=== PATIENT | male | born 1945 | race Caucasian/White ===

== ENCOUNTER 2020-08-02 12:04 | Outpatient (CLI) | payer MEDICARE, SELFPAY ==
--- NOTE | ~2020-08-02 | MR_ITS ---
EXAMINATION: MR brain/brain stem wo/w con EXAM DATE: 08/02/2020 13:17 INDICATION: Initial encounter following injury, with pain of the meningioma follow-up. TECHNIQUE: Magnetic resonance imaging (MRI) of the brain/brain stem obtained without contrast. Sagit vince T1, axial diffusion, gradient echo (T2*), T1, T2, FLAIR sequences obtained. Patient was then inj ected with 17 cc intravenous Multihance contrast. Axial and coronal postcontrast T1 weighted sequence s obtained. 06/23/2019, 12/28/2016 FINDINGS: There are no areas of restricted diffusion to suggest acute infarction. There is no acute hemorrhage seen on the T2*, a hemosiderin sensitive sequence. No intraparenchymal brain mass lesion. There is 10 mm extra-axial mass overlying the left frontal lobe toward the vertex consistent with me ningioma, unchanged compared to 2017. There is moderate periventricular and subcortical T2/FLAIR sig nal hyperintensity, nonspecific but probably related to small vessel ischemic disease (microangiopath y). There is mild prominence of the sulci and ventricles related to cerebral atrophy. There are n o extra-axial collections. Flow voids are seen in the cerebral arteries on the T2-weighted sequences consistent with their expected patency. The orbits are unremarkable. Soft tissue is unremarkable. IMPRESSION: 1. No change in small left vertex extra-axial mass likely meningioma.. 2. Chronic age related findings. Reviewed, dictated and finalized at location B. CLERK
[2020-08-02 12:51] LABS: Estimated Glomerular Filt Rate > 60
== END 2020-08-02 12:05 | disposition home or self-care (01) ==
PROVIDERS: PCP Internal Medicine; Visit Provider Internal Medicine
DX: Z86.018 Personal history of other benign neoplasm (principal)
CPT/HCPCS: 70553; A9577

== ENCOUNTER 2020-08-03 09:16 | Outpatient (CLI) | payer MEDICARE, SELFPAY ==
--- NOTE | 2020-08-04 12:57 | WPDHOLTEREM ---
Holter/Event Monitor Holter/Event Monitor Date of procedure: 08/03/20 Procedure Type: 24 hour holter monitor Indications: Palpitations Conclusion: 1. 24 hour holter monitor on 08/03/20. 2. Underlying rhythm is sinus rhythm. HR range 48-103 bpm; average HR 71 bpm. 3. There are 31 premature supraventricular complexes and 1 supraventricular couplet. No supraventricular tachycardia. 4. There are 1,501 premature ventricular complexes, 49 ventricular couplets, 1 ventricular triplet, 36 ventricular bigeminy and 88 ventricular trigeminy. No ventricular tachycardia. 5. No sinoatrial or atrioventricular blocks. No significant pauses greater than 2 seconds. 6. Patient reports symptoms of chest pressure which demonstrate sinus rhythm, HR range 67-100 bpm.
== END 2020-08-03 09:17 | disposition home or self-care (01) ==
PROVIDERS: PCP Internal Medicine; Visit Provider Internal Medicine
DX: R07.9 Chest pain, unspecified (principal); R00.2 Palpitations
CPT/HCPCS: 93225; 93226

== ENCOUNTER 2020-08-19 09:10 | Emergency (ER) | payer MEDICARE, SELFPAY ==
--- NOTE | ~2020-08-19 | XR_ITS ---
EXAMINATION: XR wrist RT min 3V DATE: 08/19/2020 09:32 INDICATION: Pain and ecchymoses at the right wrist post fall TECHNIQUE: Posteroanterior, ulnar deviation, oblique, and lateral views of the right wrist were obtai malini. COMPARISON: none FINDINGS: Sagittally oriented linear lucency projecting across the lunate fossa of the distal radius seen on on ly on the ulnar deviation view which is suspicious for nondisplaced intra-articular fracture. No othe r lesions suspicious for fracture identified. 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 Additional likely degenerative cyst with thin sclerotic margins at the palmar aspect of the head of the fifth metacarpal. IMPRESSION: 1. Likely nondisplaced intra-articular fracture involving the lunate fossa of the distal right radius . Reviewed, dictated and finalized at location A. PHONE SOLICITOR IMPRESSION: 1. Likely nondisplaced intra-articular fracture involving the lunate fossa of t he distal right radius.
[2020-08-19 09:22] VITALS: BP 158/78; PULSE 56; RESP 16; TEMP 36.3; O2SAT 99
--- NOTE | 2020-08-19 10:12 | ED.UPPEXIN ---
HPI - Extremity Injury (Upper) General Chief Complaint: Extremity Injury, Upper Stated Complaint: R WRIST INJURY Time Seen by Provider: 08/19/20 10:06 Source: patient and RN notes reviewed Mode of arrival: ambulatory Limitations: no limitations History of Present Illness HPI narrative: Patient presents today complaining of right wrist pain after he slipped and fell onto an outstretched hand on the ice yesterday. Currently rates his pain 5/10 and has been applying ice to the wrist. He has taken no medication for symptoms prior to arrival. Denies numbness or tingling in the arm or hand. He does report some swelling. MD complaint: injury to: right and wrist Related Data Home Medications Medication Instructions Recorded Confirmed aspirin 81 mg tablet,delayed 81 mg PO DAILY 02/22/20 08/19/20 release finasteride 5 mg tablet 5 mg PO DAILY 02/22/20 08/19/20 upmjryef-xyh-hftqq acid 0.4 1 tablet PO DAILY 02/22/20 08/19/20 mg-lycopene 300 mcg-lutein 250 mcg tablet omeprazole 20 mg capsule,delayed 20 mg PO DAILY 02/22/20 08/19/20 release rosuvastatin 20 mg tablet 20 mg PO DAILY 02/22/20 08/19/20 tamsulosin 0.4 mg capsule 0.4 mg PO DAILY 02/22/20 08/19/20 valsartan-hydrochlorothiazide 1 tablet PO DAILY 08/19/20 08/19/20 Allergies Allergy/AdvReac Type Severity Reaction Status Date / Time No Known Allergies Allergy Unknown NA Verified 08/19/20 09:36 Review of Systems Review of Systems: Narrative: CONSTITUTIONAL: Denies body aches, fever, chills, or sweats. EYES: Denies visual changes, redness, or discharge. ENT: Denies rhinorrhea, congestion, sore throat, or otalgia. CARDIOVASCULAR: Denies chest pain, palpitations, or edema. RESPIRATORY: Denies cough or dyspnea. GASTROINTESTINAL: Denies abdominal pain, nausea, vomiting, or diarrhea. GENITOURINARY: Denies dysuria or hematuria. SKIN: Denies rash, itching, or wounds. MUSCULOSKELETAL: Denies back pain, or myalgia. + Right wrist injury NEUROLOGIC: Denies headache, numbness, tingling, or weakness. PSYCH: Denies depression or anxiety. PMFSH Past Medical History Medical History (Updated 08/19/20 @ 10:20 by Aidee Torres, [facility], ) GERD (gastroesophageal reflux disease) Hypercholesterolemia Hypertension Surgical History Surgical History (Updated 02/22/20 @ 08:28 by Josefina English CMA) Hx of tympanostomy tubes Family History Family History Other Family history of arthritis Social History Social History Smoking status: Never smoker Alcohol intake: current Comments At time of signature, I have reviewed and agree with nursing past medical, surgical, social and family history unless otherwise noted. Please see nursing chart for further information. There is no relevant family history pertinent to the presenting complaint Exam Narrative: Exam Narrative: GENERAL: Well-appearing, well-nourished, and in no acute distress. HEAD: Normocephalic, atraumatic. EYES: EOMI. No redness or drainage. Conjunctivae normal. ENT: Mucous membranes pink and moist. NECK: Normal AROM. CHEST: No respiratory distress. EXTREMITIES: Right wrist: Mild edema about the wrist. Mild tenderness to the distal radius. Full AROM of the wrist. Distal sensation intact. Capillary refill normal. Radial pulse normal. SKIN: Warm, dry, no rash. Capillary refill normal. Normal skin turgor. NEURO: No focal deficits. Alert and oriented x3. Gait steady. PSYCH: Normal affect. No signs of depression or anxiety. Course Vital Signs Vital signs: Vital Signs Temperature 97.4 F L 08/19/20 09:22 Pulse Rate 56 L 08/19/20 09:22 Respiratory Rate 16 08/19/20 09:22 Blood Pressure 158/78 H 08/19/20 09:22 Pulse Oximetry 99 08/19/20 09:22 Temperature 97.4 F L 08/19/20 09:22 Pulse Rate 56 L 08/19/20 09:22 Respiratory Rate 16 08/19/20 09:22 Blood Pressur
== END 2020-08-19 10:32 | disposition home or self-care (01) ==
PROVIDERS: Emergency Provider Nurse Practitioner; PCP Internal Medicine
DX: S52.501A Unspecified fracture of the lower end of right radius, initial encounter for closed fracture (principal); W00.0XXA Fall on same level due to ice and snow, initial encounter; K21.9 Gastro-esophageal reflux disease without esophagitis; E78.00 Pure hypercholesterolemia, unspecified; I10 Essential (primary) hypertension
CPT/HCPCS: 29125; 73110; 99214; A4565; G0463

== ENCOUNTER 2020-08-31 14:45 | Outpatient (CLI) | payer MEDICARE, SELFPAY ==
--- NOTE | ~2020-08-31 | MR_ITS ---
EXAMINATION: MR shoulder LT wo con DATE: 08/31/2020 15:35 INDICATION: Left shoulder pain. TECHNIQUE: Magnetic resonance imaging (MRI) of the left shoulder was performed without intravenous co ntrast. Sequences included axial PD-weighted FS FSE, coronal oblique PD-weighted FS FSE, coronal obli que T2-weighted FS FSE, sagittal PD-weighted FS FSE, and sagittal T1-weighted SE. COMPARISON: Left shoulder radiograph dated 08/24/2020 FINDINGS: Coracoacromial arch: The acromion undersurface is flat in morphology (type I). Mild thickening of the coracoacromial ligam ent near its acromial insertion where there are small inferiorly directed osteophytes. Moderate acrom ioclavicular osteoarthritis with small inferiorly directed osteophytes which remain separate from the underlying subscapularis tendon by thin intervening fat plane. Rotator cuff: Full-thickness supraspinatus tear extending approximately 2 cm AP along the superior facet footplate. The portion of the tendon contributing to the conjoined portion of the supraspinatus and infraspinat us tendon remains intact as do the more posterior infraspinatus and teres minor tendons. There appear s be some residual intact bursal sided fibers along the anterior most margin of the supraspinatus ten don resulting in an V-shaped tear defect at the apex of the tear extending up to 5 cm medially from t he superior facet footplate. Mild subscapularis tendinopathy without discrete tear. Mild fatty atrop hy of the supraspinatus and infraspinatus muscle bellies. Biceps tendon, glenoid labrum and glenohumeral cartilage: Moderate tendinopathy of the intra-articular long head biceps tendon with partial-thickness longitudi nal split tear extending along the extra articular portion of the tendon. Glenoid labrum is normal. M ild partial-thickness cartilage loss with smooth chondral surface at the humeral head lateral to the apex. Diffuse mild thinning of the glenoid cartilage. Fluid: Physiologic amount of fluid in the glenohumeral joint which extends through the full-thickness rotato r cuff tear to communicate with a minimal amount fluid in the subacromial/subdeltoid bursa. No loose osteochondral bodies. Mild bicipital tenosynovitis. Bones: Bone alignment is normal. No fracture or pathologic marrow replacing process. Focal edema and likely developing mild cystic change at the lesser tuberosity footplate of the subscapularis tendon. IMPRESSION: 1. V-shaped full-thickness supraspinatus tendon tear extending 2 cm AP along the superior facet footp late. 2. Mild subscapularis tendinopathy without discrete tear. 3. Moderate tendinopathy and longitudinal split tearing of the long head biceps tendon. 4. Mild glenohumeral and moderate acromioclavicular osteoarthritis. Reviewed, dictated and finalized at location A. ERT INSTALLER IMPRESSION: 1. V-shaped full-thickness supraspinatus tendon tear extending 2 cm AP along th e superior facet footplate. 2. Mild subscapularis tendinopathy without discrete tear. 3. Moderate tendinopathy and longitudinal split tearing of the long head biceps tendon. 4. Mild glenohumeral and moderate acromioclavicular osteoarthritis.
== END 2020-08-31 14:46 | disposition home or self-care (01) ==
PROVIDERS: PCP Internal Medicine; Visit Provider Orthopaedic Surgery
DX: M19.012 Primary osteoarthritis, left shoulder (principal)
CPT/HCPCS: 73221

== ENCOUNTER 2021-08-11 08:18 | Outpatient (CLI) | payer MEDICARE, SELFPAY ==
--- NOTE | ~2021-08-11 | MR_ITS ---
EXAMINATION: MR brain/brain stem wo/w con EXAM DATE: 08/11/2021 10:35 INDICATION: Meningioma . TECHNIQUE: Magnetic resonance imaging (MRI) of the brain/brain stem obtained without contrast. Sagit vince T1, axial diffusion, gradient echo (T2*), T1, T2, FLAIR sequences obtained. Patient was then inj ected with 17 cc intravenous Multihance contrast. Axial and coronal postcontrast T1 weighted sequence s obtained. There is no prior study for comparison. FINDINGS: Small extra-axial homogeneously enhancing mass lesion measuring about 1 cm in diameter by 8 mm in thickness, consistent with meningioma, stable. There are no areas of restricted diffusion to s uggest acute infarction. There is no acute hemorrhage seen on the T2*, a hemosiderin sensitive seque nce. No intraparenchymal brain mass lesion. There is moderate periventricular and subcortical T2/FL AIR signal hyperintensity, nonspecific but probably related to small vessel ischemic disease (microan giopathy). There is mild prominence of the sulci and ventricles related to cerebral atrophy. Ther e are no extra-axial collections. Flow voids are seen in the cerebral arteries on the T2-weighted se quences consistent with their expected patency. Patient has had bilateral ocular lens surgery. Soft tissue is unremarkable. IMPRESSION: 1. Small meningioma unchanged. 2. Chronic age related findings. Reviewed, dictated and finalized at location A. WORKS ASSEMBLY SUPERVISOR
--- NOTE | ~2021-08-11 | MR_ITS ---
EXAMINATION: MR cervical spine wo con EXAM DATE: 08/11/2021 10:07 INDICATION: Cervical radiculopathy. TECHNIQUE: Multi-sequential, multiplanar MR images of the cervical spine were obtained without contra st. Axial T2, axial T2 MERGE sequence. Sagittal T1, T2, T2 fat saturation images also obtained. Th ere is no prior study for comparison. FINDINGS: C5-6 vertebral bodies are fused. Moderate to severe disc disease at C3-4, moderate at the C4-5 and C6-7 levels. The spinal cord signal intensity and intrinsic morphology is normal. There is m ild cervical dextroscoliosis, upper thoracic levoscoliosis. Paraspinal soft tissue is unremarkable. T here is 2-3 mm anterolisthesis C4 on C5 and C6 on C7 and C7 on T1. Level by level evaluation: C2-C3: Disc does not extend beyond the endplate margin. Uncovertebral joint arthropathy: Mild bilateral. Facet joint arthropathy: Moderate to severe right, moderate left. Neural foraminal stenosis: Minimal bilateral. Central canal stenosis: No stenosis. C3-C4: There is a mild to moderate diffuse disc bulge asymmetric to the right Uncovertebral joint arthropathy: Severe left, moderate to severe right. Facet joint arthropathy: Severe left, moderate to severe right. Neural foraminal stenosis: Severe left, moderate right. Central canal stenosis: Mild . Central canal measures 7 mm in mid sagittal AP diameter . C4-C5: There is a mild diffuse disc bulge. Uncovertebral joint arthropathy: Moderate to severe bilateral. Facet joint arthropathy: Severe bilateral. Neural foraminal stenosis: Moderate to severe bilateral, left greater than right. Central canal stenosis: Mild . Central canal measures 8 mm in mid sagittal AP diameter . C5-C6: This level is fused. Uncovertebral joint arthropathy: Fused. Facet joint arthropathy: Partially fused. Neural foraminal stenosis: No stenosis. Central canal stenosis: No stenosis. C6-C7: There is a mild to moderate diffuse disc bulge. Uncovertebral joint arthropathy: Severe right, moderate left. Facet joint arthropathy: Severe bilateral. Neural foraminal stenosis: Moderate bilateral. Central canal stenosis: Mild. C7-T1: There is a mild diffuse disc bulge. Uncovertebral joint arthropathy: Moderate left, mild to moderate right. Facet joint arthropathy: Moderate to severe. Neural foraminal stenosis: Mild bilateral. Central canal stenosis: No stenosis. IMPRESSION: Advanced cervical arthropathy causing significant neural foraminal stenosis, particularly on the left at C3-4 and 4-5. Reviewed, dictated and finalized at location A. EMIC PHYSICIAN
[2021-08-11 09:35] LABS: Estimated Glomerular Filt Rate > 60
== END 2021-08-11 08:19 | disposition home or self-care (01) ==
LOC: ANHIMG 08:40
PROVIDERS: PCP Internal Medicine; Visit Provider Internal Medicine
DX: M54.12 Radiculopathy, cervical region (principal)
CPT/HCPCS: 70553; 72141; A9577

== ENCOUNTER → 2022-08-20 14:46 | Outpatient (CLI) | payer MEDICARE, SELFPAY ==
--- NOTE | ~2022-08-20 | MR_ITS ---
EXAMINATION: MR brain/brain stem wo con DATE: 08/20/2022 15:22 INDICATION: Meningioma. TECHNIQUE: Magnetic resonance imaging (MRI) of the brain and brainstem was performed without intraven ous contrast. COMPARISON: Brain MRI 08/11/2021 FINDINGS: There are scattered areas of nonspecific increased T2-weighted signal intensity in the cere bral white matter. There is a 10 x 9 mm extra-axial mass overlying left frontoparietal region, consis tent with a meningioma. There is no intracranial hemorrhage or acute ischemic infarct. The ventricles are normal in size. There are likely changes of ocular lens replacement surgeries. There is mild muc osal thickening in the paranasal sinuses. There is a small right mastoid effusion. IMPRESSION: 1. Stable 10 mm meningioma overlying left frontoparietal region. 2. Stable extensive nonspecific cerebral white matter disease, which likely represents chronic small vessel ischemic disease. Reviewed, dictated and finalized at location A. ICE MECHANIC IMPRESSION: 1. Stable 10 mm meningioma overlying left frontoparietal region. 2. Stable extensive nonspecific cerebral white matter disease, which likely rep resents chronic small vessel ischemic disease.
== END ==
PROVIDERS: PCP Internal Medicine; Visit Provider Internal Medicine
DX: D32.9 Benign neoplasm of meninges, unspecified (principal); R90.82 White matter disease, unspecified
CPT/HCPCS: 70551

== ENCOUNTER 2023-02-17 09:00 | Outpatient (NON) | payer MEDICARE, SELFPAY | END 2023-02-17 09:01 | disposition home or self-care (01) | PROVIDERS: PCP Internal Medicine; Visit Provider Internal Medicine Gastroenterology | DX: K63.5 Polyp of colon (principal) | CPT/HCPCS: 88305; 88342 ==

== ENCOUNTER 2023-02-17 09:08 | Day surgery (SDC) | payer MEDICARE, SELFPAY ==
[2023-02-04 08:25] VITALS: BMI 28.2
[2023-02-17 10:23] VITALS: BP 188/91; PULSE 74; RESP 16; TEMP 36.9; O2SAT 98
[2023-02-17] MEDS: LACTATED RINGERS 1,000 ML 150 ML IV CONT (10:31)
--- NOTE | 2023-02-17 10:32 | PM.HPGS ---
History of Present Illness History of Present Illness Consent: Risks, benefits, and alternatives have been discussed and questions answered. Patient agrees to proceed with procedure. Chief complaint: Esophageal Stricture, Microcytic Anemia, HX Polyps Narrative: Nicolás Shaw is a 78 year old male with intermittent dysphagia, about 25 years ago had egd with dilatation of ring , last colonoscopy 5 years ago with polyp Review of Systems Constitutional: Constitutional: Denies headache(s) and Denies weakness Eyes: Eyes: Denies blurry vision ENT: Reports Normal hearing present, Denies headache(s) and Denies neck pain Cardiovascular: Cardiovascular: Denies chest pain and Denies dyspnea Respiratory: Respiratory: Denies dyspnea Gastrointestinal: Gastrointestinal: Reports no additional gastrointestinal complaints Genitourinary: Genitourinary: Denies dysuria Musculoskeletal: Musculoskeletal: Denies neck pain Integumentary/Breasts: Skin/Breast: Denies dry skin Neurologic: Reports Normal hearing present, Denies headache(s) and Denies weakness Psychiatric: Psychiatric: Denies anxiety Endocrine: Endocrine: Denies change in body appearance Hematologic/Lymphatic: Hematologic/Lymphatic: Denies easy bleeding Allergic/Immunologic: Allergic/Immunologic: Denies urticaria PMFSH Past Medical History Medical History (Updated 02/17/23 @ 10:33 by Thierno Langley MD) Colon polyp Dysphagia GERD (gastroesophageal reflux disease) Hypercholesterolemia Hypertension Nondisplaced fracture of distal end of right radius Surgical History Surgical History Hx of tympanostomy tubes Family History Family History Other Family history of arthritis Social History Social History Smoking status: Never smoker Alcohol intake: current Drinks per week: 3 Substance use: never Substance use type: does not use Living arrangements: with family Spiritual care concerns: No Meds Home Medications and Allergies Home Medications Medication Instructions Recorded Confirmed Type cwdtiidg-xil-slknj acid 0.4 1 tablet PO DAILY 02/22/20 02/17/23 History mg-lycopene 300 mcg-lutein 250 mcg tablet (Centrum Silver) omeprazole 20 mg capsule,delayed 20 mg PO DAILY 08/04/20 07/31/23 History release rosuvastatin 20 mg tablet 20 mg PO DAILY 02/22/20 02/17/23 History valsartan 320 1 tablet PO DAILY 08/19/20 02/17/23 History mg-hydrochlorothiazide 12.5 mg tablet Allergies Allergy/AdvReac Type Severity Reaction Status Date / Time No Known Allergies Allergy Unknown NA Verified 02/17/23 10:21 Vital Signs Vital Signs - 24 hr 02/17/23 10:23 Temperature 98.5 F Pulse Rate 74 Respiratory Rate 16 Blood Pressure 188/91 H Pulse Oximetry 98 Oxygen Delivery Room Air Exam Const: General: comfortable and no acute distress HENMT: Face/Nose/Sinus: Normal nares present Eyes: General: appearance normal, both eyes and all related structures Neck: Neck: no JVD Resp: Auscultation: clear to auscultation bilaterally Cardio: Rate: regular rate Rhythm: regular rhythm GI: Inspection: non-distended GI Palp: Yes Soft to palpation Skin: General skin exam: normal color Neuro: General: gait normal Speech: normal speech Extrem: General: normal to inspection Psych: Mental Status: mental status grossly normal Assessment and Plan Assessment and plan (1) Dysphagia: Code(s): R13.10 - Dysphagia, unspecified Status: Acute Assessment and Plan: egd, will assess if needs dilatation (2) Colon polyp: Code(s): K63.5 - Polyp of colon Status: Acute Assessment and Plan: colonoscopy
--- NOTE | 2023-02-17 10:35 | P.PNAN_ITS ---
Anes - Initial Pre Proc Eval Procedure: Operation Date: 02/17/23 11:30 Proposed Procedures p Esophagogastroduodenoscopy - Thierno Langley MD s Diagnostic Colonoscopy - Thierno Langley MD Date/Time: 02/17/23 10:35 Surgeon: Thierno Langley MD Pre Op Diagnosis: Esophageal Stricture, Microcytic Anemia, HX Polyps Patient Data Age: 78 Gender: M Height: 1.77 m Weight: 84.8 kg Last Vital Signs Temp 36.9 C 02/17/23 10:23 Pulse 74 02/17/23 10:23 Resp 16 02/17/23 10:23 BP 188/91 H 02/17/23 10:23 Pulse Ox 98 02/17/23 10:23 O2 Del Method Room Air 02/17/23 10:23 Allergies Allergy/AdvReac Type Severity Reaction Status Date / Time No Known Allergies Allergy Unknown NA Verified 02/17/23 10:21 Home Medications Medication Instructions Recorded Confirmed Type uiiqnnzp-urf-dlmaz acid 0.4 1 tablet PO DAILY 02/22/20 02/17/23 History mg-lycopene 300 mcg-lutein 250 mcg tablet (Centrum Silver) omeprazole 20 mg capsule,delayed 20 mg PO DAILY 02/22/20 02/17/23 History release rosuvastatin 20 mg tablet 20 mg PO DAILY 02/22/20 02/17/23 History valsartan 320 1 tablet PO DAILY 08/19/20 02/17/23 History mg-hydrochlorothiazide 12.5 mg tablet Patient hx anesthesia problems: none Family hx anesthesia problems: none Results Review: All pre-operative results and documents have been reviewed as part of the pre- operative evaluation. [facility] Past Medical History Medical History Colon polyp Dysphagia GERD (gastroesophageal reflux disease) Hypercholesterolemia Hypertension Nondisplaced fracture of distal end of right radius Surgical History Surgical History Hx of tympanostomy tubes Family History Family History Other Family history of arthritis Social History Social History Smoking status: Never smoker Alcohol intake: current Drinks per week: 3 Substance use: never Substance use type: does not use Living arrangements: with family Spiritual care concerns: No Anes - Eval Final PreProcedure Day of Procedure 02/17/23 10:35 Patient weight: overweight Heart: regular rate and rhythm and murmur (III/ SM) Lungs: clear to auscultation Airway: Mallampati scale class II Neurological: alert and oriented Last oral intake: >/= 8 hours ASA classification: II Emergent: no Anesthetic plan: proceed Anesthesia type and monitoring: general GIVS and standard monitoring Results Review: All pre-operative results and documents have been reviewed as part of the pre- operative evaluation. Informed Consent: The patient's anesthetic plan and its attendant risks and benefits were discuss ed with the patient/family/POA. Questions were solicited and answers provided to the satisfaction of the patient/family/POA.
[2023-02-17 11:02] VITALS: BP 109/73; PULSE 68; RESP 18; O2SAT 97
--- NOTE | 2023-02-17 11:09 | SUR.PREOP ---
late note 1000 Dr. Grey aware of pt's pre-op blood pressure, no new orders at this time.
[2023-02-17 11:12] VITALS: BP 104/76; PULSE 75; RESP 20; O2SAT 97
[2023-02-17 11:22] VITALS: BP 130/93; PULSE 75; RESP 20; O2SAT 97
--- NOTE | 2023-02-17 11:23 | WPDANESPN ---
Anes - Prog Note Post-Op Date/Time: 02/17/23 11:23 Cardiovascular status: normal Respiratory status: normal Airway patency: baseline Mental status: baseline Post-Op hydration status: normal Vital Signs: Last Vital Signs Temp 36.9 C 02/17/23 10:23 Pulse 75 02/17/23 11:12 Resp 20 02/17/23 11:12 BP 104/76 02/17/23 11:12 Pulse Ox 97 02/17/23 11:12 O2 Del Method Room Air 02/17/23 11:12 Pain Score (VAS): 0/10 I/O: Intake & Output 02/16/23 02/17/23 02/17/23 23:59 07:59 15:59 Intake Total 500 Balance 500 Patient Feedback: Patient satisfied with anesthetic care.
== END 2023-02-17 11:30 | disposition home or self-care (01) ==
PROVIDERS: PCP Internal Medicine; Visit Provider Internal Medicine Gastroenterology
PROC: 0DJ08ZZ Inspection of Upper Intestinal Tract, Via Natural or Artificial Opening Endoscopic (ICD-10-PCS; CPT 43235; principal; 2023-02-17 11:30)
PROC: 0DJD8ZZ Inspection of Lower Intestinal Tract, Via Natural or Artificial Opening Endoscopic (ICD-10-PCS; CPT 45378; 2023-02-17 11:30)
DX: Z86.010 Personal history of colon polyps (principal); D12.4 Benign neoplasm of descending colon; K64.8 Other hemorrhoids; K22.2 Esophageal obstruction; R13.19 Other dysphagia; K21.9 Gastro-esophageal reflux disease without esophagitis; K29.70 Gastritis, unspecified, without bleeding
CPT/HCPCS: 45380; 43249; 43239

== ENCOUNTER 2023-05-15 09:02 | Emergency (ER) | payer MEDICARE, SELFPAY ==
--- NOTE | 2023-05-15 09:09 | ED.EYEPROB ---
HPI - Eye Problem General Chief complaint: Eye Problems Stated complaint: right eye irritated Time Seen by Provider: 05/15/23 09:09 Source: patient Mode of arrival: ambulatory Limitations: no limitations History of Present Illness HPI Narrative: Patient is a 78-year-old male who presents with right eye irritation after doing some soldering last night. Patient states last night it felt like it was upper medial side of his eye but this morning it was in medial corner of eye. Denies any changes in vision, redness or drainage from eye. Related Data Home Medications Medication Instructions Recorded Confirmed golanxlm-osb-cdrik acid 0.4 1 tablet PO DAILY 02/22/20 05/15/23 mg-lycopene 300 mcg-lutein 250 mcg tablet (Centrum Silver) omeprazole 20 mg capsule,delayed 20 mg PO DAILY 02/22/20 05/15/23 release rosuvastatin 20 mg tablet 20 mg PO DAILY 02/22/20 05/15/23 valsartan 320 1 tablet PO DAILY 08/19/20 05/15/23 mg-hydrochlorothiazide 12.5 mg tablet Allergies Allergy/AdvReac Type Severity Reaction Status Date / Time No Known Allergies Allergy Unknown NA Verified 05/15/23 09:27 Review of Systems Review of Systems: All systems reviewed & are unremarkable except as noted in HPI and below Constitutional: Constitutional: Denies body ache(s), Denies fever(s), Denies headache(s), Denies malaise and Denies weakness Eyes: Eyes: Denies blurry vision, Denies eye discharge, Reports irritation, Denies itchy eyes, Denies loss of vision and Denies eye pain ENT: Denies otalgia, Denies headache(s), Denies nasal discharge, Denies sinus pain and Denies sore throat Cardiovascular: Cardiovascular: Denies chest pain, Denies irregular heart rhythm and Denies dyspnea Respiratory: Respiratory: Denies dyspnea Gastrointestinal: Gastrointestinal: Denies abdominal pain, Denies diarrhea, Denies nausea and Denies vomiting Musculoskeletal: Musculoskeletal: Denies back pain, Denies myalgias and Denies arthralgias Integumentary/Breasts: Skin/Breast: Denies pruritus and Denies rash Neurologic: Denies headache(s), Denies loss of vision and Denies weakness Psychiatric: Psychiatric: Reports no additional psychiatric complaints Allergic/Immunologic: Allergic/Immunologic: Reports itchy eyes PMFSH Past Medical History Medical History Colon polyp Dysphagia GERD (gastroesophageal reflux disease) Hypercholesterolemia Hypertension Nondisplaced fracture of distal end of right radius Surgical History Surgical History Hx of tympanostomy tubes Family History Family History Other Family history of arthritis Social History Social History Smoking status: Never smoker Alcohol intake: current Drinks per week: 3 Substance use: never Substance use type: does not use Living arrangements: with family Spiritual care concerns: No Comments At time of signature, agree with nursing past medical, surgical, social and family history. There is no relevant family history pertinent to the presenting complaint. Exam Const: General: cooperative, healthy appearing, comfortable, no acute distress and well nourished Nutritional Appearance: well nourished Orientation/consciousness: patient oriented x3 Limitations: no limitations HENMT: Head: normal to inspection, normocephalic and atraumatic Ears: external ears normal Face/Nose/Sinus: Normal external nose present, normal facial exam and face symmetric Face and sinus: normal facial exam and face symmetric Mouth: Yes lip normal Eyes: General: appearance normal, both eyes and all related structures Visual Cole: normal visual cole by confrontation Alignment and Position: alignment normal and position normal Periorbital: periorbital findings normal Eyelids: eyeli
[2023-05-15 09:37] VITALS: BP 169/74; PULSE 80; RESP 16; TEMP 36.9; O2SAT 98
== END 2023-05-15 10:30 | disposition home or self-care (01) ==
PROVIDERS: Emergency Provider Nurse Practitioner Family; PCP Internal Medicine
DX: H57.11 Ocular pain, right eye (principal); K21.9 Gastro-esophageal reflux disease without esophagitis; E78.00 Pure hypercholesterolemia, unspecified; I10 Essential (primary) hypertension
CPT/HCPCS: 99213; A9270; G0463

== ENCOUNTER 2023-07-09 12:56 | Outpatient (CLI) | payer MEDICARE, SELFPAY ==
--- NOTE | 2023-07-09 14:00 | NEURO_ITS ---
Impression: # Complains of left lower extremity pain and numbness. History of back surgery long time ago. # Left posterior tibial neuropathy. # Needle/EMG exam abnormal in Gastroc and EDB. Nerve Conduction Studies Anti Sensory Summary Table Stim Site NR Peak (ms) P-T Amp (?V) Site1 Site2 Delta-P (ms) Dist (cm) Mazin (m/s) Left Saphenous Anti Sensory (Ant Med Mall) 14cm 3.9 24.0 14cm Ant Med Mall 3.9 0.0 Left Sup Fibular Anti Sensory (Ant Lat Mall) 14 cm 4.2 7.3 14 cm Ant Lat Mall 4.2 16.0 38 Left Sural Anti Sensory (Lat Mall) Calf 3.8 8.5 Calf Lat Mall 3.8 16.0 42 Motor Summary Table Stim Site NR Onset (ms) O-P Amp (mV) Site1 Site2 Delta-0 (ms) Dist (cm) Mazin (m/s) Left Peroneal Motor (Vastus Med) Ankle 4.5 0.8 Popit Ankle 10.6 45.0 42 Popit 15.1 0.5 Left Tibial Motor (Abd Heaton Brev) Ankle 4.9 0.3 Knee Ankle 12.4 42.0 34 Knee 17.3 0.4 F Wave Studies NR F-Lat (ms) L-R F-Lat (ms) Left Peroneal (Mrkrs) (EDB) 54.74 Left Tibial (Mrkrs) (Abd Hallucis) 53.68 EMG Side Muscle Nerve Root Ins Act Fibs Amp Dur Recrt Comment Left AntTibialis Dp Br Fibular L4-5 Nml Nml Nml Nml Nml Left Gastroc Tibial S1-2 Nml Nml Nml >12ms Reduced Left Fibularis Long Sup Br Fibular L5-S1 Nml Nml Nml Nml Nml Left Flex Dig Long Tibial L5-S2 Nml Nml Nml Nml Nml Left Ext Dig Brev Dp Br Fibular L5, S1 Nml Nml Nml >12ms Reduced MTDD
== END 2023-07-09 12:57 | disposition home or self-care (01) ==
PROVIDERS: PCP Internal Medicine; Visit Provider Internal Medicine
DX: G62.9 Polyneuropathy, unspecified (principal); G57.92 Unspecified mononeuropathy of left lower limb
CPT/HCPCS: 95886; 95909

== ENCOUNTER 2025-04-12 17:22 | Inpatient (IN) | payer MEDICARE, SELFPAY ==
--- OUTSIDE RECORDS SUMMARY | 2025-04-11 16:15 | XMS_ITS | Encounter Summary ---
Author Organization [facility] Healthcare Address [address] [place] [address] Care Team Providers Care Major Gifts Manager Name Role Phone Tj Paz MD Primary Care Provider Reason for Visit * Reason Comments Dizziness Encounter Details Date Type Department Care Team ([facility] st Contact Info) Description 04/11/2025 4:15 PM CDT Office Visit [facility] Medical Group Primary Care at [address] [place] [address] Tj Paz MD [address] [place] [address] [address] [place] [address] Short-term memory loss (Primary Dx); BMI 27.0-27.9,adult; Right facial numbness; Essential (primary) hypertension Social History Tobacco Use Types Packs/Day Years Used Date Smoking Tobacco: Never Smokeless Tobacco: Never Alcohol Use Standard Drinks/Week Comments Yes 2 (1 standard drink = 0.6 oz pur e alcohol) AUDIT-C Answer Date Recorded Q1: How often do you have a drink containing alc ohol? 2-4 times a month 01/05/2024 Q2: How many drinks containi ng alcohol do you have on a typical day when you are drinking? 1 or 2 01/05/2024 Q3: How often do you have si x or more drinks on one occasion? 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 Gender Identity Not on file Sexual Orientation Not on file documented as of this encounter Last Filed Vital Signs Vital Sign Reading Time Taken Comments Blood Pressure 140/76 04/11/2025 3:44 PM CDT Pulse 76 04/11/2025 3:44 PM CDT Temperature 36.9 C (98.5 F) 04/11/2025 3:44 PM CDT Respiratory Rate 16 04/11/2025 3:44 PM CDT Oxygen Saturation 96% 04/11/2025 3:44 PM CDT Inhaled Oxygen Concentration - - Weight 85.3 kg (188 lb) 04/11/2025 3:44 PM CDT Height 175.3 cm (5' 9) 04/11/2025 3:44 PM CDT Body Mass Index 27.76 04/11/2025 3:44 PM CDT documented in this encounter Progress Notes * Tj Paz MD - 04/11/2025 4:15 PM CDT [facility] This patient has verbally consented to recording this visit in order to utilize AI technology in generating this note. DATE: 1945 Vitals: 04/11/25 1544 BP: 140/76 BP Location: Left arm Patient Position: Sitting Pulse: 76 Resp: 16 Temp: 36.9 ??C (98.5 ??F) SpO2: 96% Weight: 85.3 kg (188 lb) Height: 175.3 cm (5' 9) Body mass index is 27.76 kg/m??. Chief Complaint Chief Complaint Patient presents with Dizziness HPI History of Present Illness Nicolás Olivia is an 80 year old male who presents with dizziness, forgetfulness, and right-sided facial numbness. He experiences dizziness and forgetfulness, with episodes of disorientation, notably becoming disoriented while driving in the dark on Friday evening. He sometimes forgets tasks around the house and directions while driving. His notes that the disorientation on Friday was unusual. He acknowledges being forgetful but has not reported getting lost while driving. He has a history of right-sided facial numbness since last spring, described as persistent. Occasionally, the numbness affects his fingers, causing tingling. He previously underwent a brain scan. He has not yet seen a neurologist due to appointment availability issues. He has neuropathy in his left foot, attributed to back surgeries nearly 40 years ago. He has undergone multiple back surgeries in the past. No clumsiness, balance issues, or tremors. He reports good handwriting and no significant changes in his walking ability. He takes two blood pressure medications and reports a blood pressure of 122/76 this morning. He regularly checks his blood pressure at home. No lightheadedness upon standing and no significant changes in sleep, which he describes as 'pretty good.' No significant personality changes, irritability, or mood swings. He engages in regular physical activity, including biking 15-20 miles on Fridays and doing light exercises such as stretching and push-ups for 15-20 minutes daily. No significant stress or feeling overwhelmed, although he admits to being a 'worry wart.' Social History Tobacco Use Smoking status: Never Smokeless tobacco: Never Substance and Sexual Activity Drug use: Never Sexual activity: Not Currently Partners: Female Alcohol Use: Not At Risk (01/05/2024) AUDIT-C Frequency of Alcohol Consumption: 2-4 times a month Average Number of Drinks: 1 or 2 Frequency of Binge Drinking: Never Active Ambulatory Problems Diagnosis Date Noted Hyperlipidemia 12/04/2013 Essential (primary) hypertension 10/25/2015 Meningioma (HCC) 01/07/2017 Chronic mastoiditis of both sides 01/07/2017 Systolic murmur 03/17/2017 Gastro-esophageal reflux 04/14/2019 Benign prostatic hyperplasia with lower urinary tract symptoms 09/27/2021 History of cerebral meningioma 08/15/2022 Hearing loss 03/08/2024 Idiopathic peripheral neuropathy 12/10/2022 Polyp of colon 03/08/2024 Sensorineural hearing loss, bilateral 03/08/2024 Vitamin D3 deficiency 03/08/2024 Resolved Ambulatory Problems Diagnosis Date Noted Arthralgia of hip 05/11/2015 Slowing of urinary stream 02/01/2014 Acute mucoid otitis media of right ear 08/25/2017 Acute non-recurrent maxillary sinusitis 08/25/2017 Right hip pain 02/02/2019 Chest pain 07/03/2020 Nontraumatic complete tear of left rotator cuff 09/18/2020 Overactive bladder 01/30/2021 Medicare annual wellness visit, subsequent 08/03/2021 Past Medical History: Diagnosis Date Aortic stenosis Heart murmur Heart valve stenosis History of test for hearing 01/01/2017 HX OTHER MEDICAL 2003 HX OTHER MEDICAL 2004 HX OTHER MEDICAL HX OTHER MEDICAL HX OTHER MEDICAL Hypertension Shortness of breath Sick sinus syndrome (HCC) Ventricular tachycardia (HCC) Family History Problem Relation Age of Onset Other Mother 73 ; Arthritis Mother arthritis; Rheum arthritis Mother Depression Father Depression; Heart disease Father 68 Heart disease; No Known Allergies REVIEW OF SYSTEMS Review of Systems Constitutional: Positive for fatigue. Negative for chills, diaphoresis, fever and unexpected weightchange. HENT: Negative for congestion, hearing loss, postnasal drip, sneezing, sore throat, tinnitus and trouble swallowing. Eyes: Negative for visual disturbance. Respiratory: Negative for cough, shortness of breath and wheezing. Cardiovascular: Negative for chest pain, palpitations and leg swelling. Gastrointestinal: Negative for abdominal pain, anal bleeding, blood in stool, constipation, diarrhea, nausea and vomiting. Endocrine: Negative for polydipsia, polyphagia and polyuria. Genitourinary: Negative for dysuria, frequency, hematuria and urgency. Nocturia negative Musculoskeletal: Negative for arthralgias, back pain, joint swelling, myalgias and neck pain. Skin: Negative for rash. Allergic/Immunologic: Negative for environmental allergies and food allergies. Neurological: Positive for dizziness, light-headedness and headaches. Negative for tremors and syncope. Hematological: Negative for adenopathy. Does not bruise/bleed easily. Psychiatric/Behavioral: Positive for confusion. Negative for dysphoric mood and sleep disturbance. PHYSICAL EXAM Physical Exam VITALS: BP- 140/76 NEUROLOGICAL: Cranial nerves grossly intact. Moves all extremities without gross motor or sensory deficit. Diminished reflexes. Physical Exam Vitals and nursing note reviewed. Constitutional: Appearance: Normal appearance. He is well-developed and normal weight. HENT: Head: Normocephalic and atraumatic. Right Ear: Tympanic membrane and external ear normal. Left Ear: Tympanic membrane and external ear normal. Nose: Nose normal. Mouth/Throat: Mouth: Mucous membranes are moist. Eyes: Extraocular Movements: Extraocular movements intact. Conjunctiva/sclera: Conjunctivae normal. Pupils: Pupils are equal, round, and reactive to light. Cardiovascular: Rate and Rhythm: Normal rate and regular rhythm. Heart sounds: Normal heart sounds. Pulmonary: Breath sounds: Normal breath sounds. Abdominal: General: Bowel sounds are normal. Palpations: Abdomen is soft. Musculoskeletal: General: Normal range of motion. Cervical back: Normal range of motion and neck supple. Skin: General: Skin is warm and dry. Neurological: Mental Status: He is alert and oriented to person, place, and time. Deep Tendon Reflexes: Reflexes are normal and symmetric. Comments: Nonfocal neurological exam but no patellar reflexes on either side and subjective numbness in the right face V1 V2 V3 and also of the left lower leg his had to correct him on several questions in regards to his mental status but overall he was able to give a pretty good history and has no trouble speaking Psychiatric: Mood and Affect: Mood normal. Current Outpatient Medications: amLODIPine (NORVASC) 10 mg tablet, Take 1 tablet (10 mg total) by mouth daily, Disp: 90 tablet, Rfl: 3 isosorbide mononitrate ER (IMDUR) 30 mg 24 hr tablet, Take 1 tablet (30 mg total) by mouth daily, Disp: 90 tablet, Rfl: 3 mhdbxpzgqwtn-qdfueqsc-ihapfo (CENTRUM SILVER) tablet, take 1 tablet by oral route every day, Disp: , Rfl: 0 omeprazole (PriLOSEC) 20 mg capsule, TAKE 1 CAPSULE(20 MG) BY MOUTH DAILY, Disp: 90 capsule, Rfl: 1 rosuvastatin (CRESTOR) 20 mg tablet, TAKE 1 TABLET(20 MG) BY MOUTH DAILY, Disp: 100 tablet, Rfl: 0 valsartan-hydrochlorothiazide (DIOVAN-HCT) 320-12.5 mg per tablet, TAKE 1 TABLET BY MOUTH EVERY DAY, Disp: 90 tablet, Rfl: 1 LAST LABS Lab Results Component Value Date WBC 9.9 06/19/2023 HGB 16.2 06/19/2023 HCT 48.0 06/19/2023 LABPLAT 410 06/19/2023 CHOL 181 12/21/2024 TRIG 77 12/21/2024 HDL 71 12/21/2024 LDLCALC 96 12/21/2024 ALT 30 12/21/2024 AST 42 (H) 12/21/2024 SODIUM 136 12/21/2024 POTASSIUM 3.6 07/04/2020 CHLORIDE 96 12/21/2024 CREATININE 0.79 12/21/2024 GFRNAA 101 07/04/2020 BUNSER 12 12/21/2024 CO2 25 12/21/2024 PSA 2.1 06/29/2024 INR 1.1 07/03/2020 HGBA1C 6.2 (H) 06/29/2024 Assessment & Plan Memory loss and right facial numbness and paresthesia Memory loss and right facial numbness have been ongoing, with memory loss worsening suddenly over the weekend. Right facial numbness is accompanied by occasional tingling in the fingers. Circulation problems in the brain, specifically in the microscopic branches, may contribute to these symptoms. Di fferential diagnosis includes stroke, TIA, or infection. No signs of vertigo, tremors, significant balance issues, recent infections, fever, chills, significant personality changes, or severe headaches. No family history of memory problems. Recent brain scan showed circulation issues. - Refer to a specialist for further evaluation of memory loss and facial numbness. - Write a note in the chart to expedite specialist consultation. Essential hypertension Blood pressure is well-controlled with recent readings of 140/76 and 122/76. No symptoms of dizziness or lightheadedness upon standing. Current medications include Amlodipine and Valsartan-hydrochlorothiazide. - Continue current antihypertensive medications. - Monitor blood pressure at home regularly. Peripheral neuropathy, left foot Peripheral neuropathy in the left foot is likely related to past lower back surgeries, which occurred approximately 30-40 years ago. General Health Maintenance Engages in regular exercise, including light weights, stretching, and push-ups for 15-20 minutes daily. No significant changes in sleep patterns or overall health. - Encourage continued regular exercise and healthy lifestyle. Assessment & Plan BMI 27.0-27.9,adult Short-term memory loss Right facial numbness Essential (primary) hypertension Future Appointments Date Time Provider Department Center 06/27/2025 9:00 AM Tj Paz MD PCP IM [facility] PC 08/04/2025 8:00 AM Bernard Lund MD [facility] Specialty 11/17/2025 8:45 AM Deny Bullock NP [facility] CAR 122 PSA All past family, medical, and social history were reviewed and updated in the EMR as well as current medications. Patient offered no further complaints and was in agreement with plan of care. Patientwas advised regarding dosage, use, and side effects of any new medications. Patient was advised to f/u in office with any worsening or little to no improvement of symptoms. Patient was advised to follow-up regarding the results of testing ordered in office today and that they should hear from us regarding the results in 2-3 business days, discussed benefits of MyChart in regard to patient experience. The patient was given the opportunity to have all questions answered today and was in agreementwith the plan of care. This note is dictated and transcribed by with assistance from [employer]. King Maker variances may occur. Despite proofreading, typographical errors may occur. Answers submitted by the patient for this visit: Neurological Problem Questionnaire (Submitted on 04/11/2025) Chief Complaint: Neurologic complaint altered mental status: Yes memory loss: Yes Chronicity: new Onset: in the past 7 days Onset quality: insidiously Progression since onset: gradually improving Focality: right-sided aura: No bladder incontinence: No bowel incontinence: No vertigo: No auditory change: No Treatments tried: acetaminophen documented in this encounter Miscellaneous Notes * Assessment & Plan Note - Tj Paz MD - 04/11/2025 4:15 PM CDT Associated Problem(s): Essential (primary) hypertension documented in this encounter Plan of Treatment Not on file documented as of this encounter Visit Diagnoses Diagnosis Short-term memory loss- Primary Memory loss BMI 27.0-27.9,adult Right facial numbness Disturbance of skin sensation Essential (primary) hypertension Unspecified essential hypertension documented in this encounter Care Teams Major Gifts Manager Relationship Specialty Start Date End Date Tj Paz MD PCP - General 10/18/16 documented as of this encounter
--- OUTSIDE RECORDS SUMMARY | 2025-04-11 16:15 | XMS_ITS | Encounter Summary ---
Author Organization [facility] Healthcare Address [address] [place] [address] Care Team Providers Care Necktie Centralizing Machine Operator Name Role Phone Tj Paz MD Primary Care Provider Reason for Visit * Reason Comments Dizziness Encounter Details Date Type Department Care Team ([facility] st Contact Info) Description 04/11/2025 4:15 PM CDT Office Visit 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 Specialty 11/17/2025 8:45 AM Deny Bullock NP [facility] CAR 122 PSA All past family, [...] dictated and transcribed by with assistance from [employer] Direct Software. Industrial Truck Operator variances may occur. Despite proofreading, typographical errors [...] hypertension documented in this encounter Care Teams Necktie Centralizing Machine Operator Relationship Specialty Start Date End Date Tj Paz MD PCP - General 10/18/16 documented as of this encounter
--- NOTE | ~2025-04-12 | XR_ITS ---
XR chest 2V 04/12/2025 18:31 Indication: Left-sided chest pain Procedure: 2 view chest Comparison: No prior studies for comparison. Findings: Heart size normal. No focal air space disease, pulmonary edema, pleural effusion or suspected pneumothorax. There is focal elevation of the left diaphragm posteriorly which may represent scalloping of the diaphragm or focal eventration. No acute osseous abnormality. Impression: 1: No acute cardiopulmonary disease. Reviewed, dictated and finalized at location O. Impression: 1: No acute cardiopulmonary disease.
--- NOTE | ~2025-04-12 | MR_ITS ---
EXAMINATION: MR brain/brain stem wo/w con DATE: 04/15/2025 13:38 INDICATION: History of meningioma TECHNIQUE: Magnetic resonance imaging (MRI) of the brain and brainstem was performed without and with intravenous contrast. Sequences included sagittal and axial T1-weighted SE, axial diffusion-weighted FS SE, axial T2*-weighted GRE, axial T2-weighted FLAIR Propeller, and axial T2-weighted Propeller. Apparent diffusion coefficient (ADC) maps were created. COMPARISON: Comparison to multiple prior studies sequentially, with oldest reviewed study dated 06/23/2019. . FINDINGS: There is prominent diffusion restriction in the left occipital lobe with vasogenic edema on T2-weighted images. No significant abnormal enhancement in this location. There are scattered moderate periventricular and subcortical white matter changes, most likely related to small vessel ischemic disease (microangiopathy). No ventriculomegaly or midline shift. Midline sagittal images demonstrate a normal corpus callosum and craniovertebral junction. There is an 11 mm enhancing mass at the left parietal vertex, consistent with known meningioma. No enhancing masses. Midline sagittal images demonstrate a normal corpus callosum and craniovertebral junction. No abnormalities of the sella turcica. Paranasal sinuses are unremarkable. Orbits are symmetric without disconjugate gaze. IMPRESSION: 1. Large acute infarction left occipital lobe. 2: No significant change to 11 mm meningioma left parietal vertex. Reviewed, dictated and finalized at location O.
--- NOTE | ~2025-04-12 | US_ITS ---
EXAMINATION: US carotid duplex BI DATE: 04/15/2025 09:25 INDICATION: Acute cerebrovascular accident. TECHNIQUE: Grayscale, color Doppler, and pulsed Doppler images of the cervical carotid arteries were obtained. The degree of vessel stenosis is placed in one of the following categories: normal, <50%, 50-69%, >=70% but less than near- occlusion, near-occlusion, or total occlusion. Note that percent stenosis relative to normal distal artery lumen diameter is indirectly measured from velocity measurements as described by Joey, et al. Radiology 2003; 229:340-346. COMPARISON: None. FINDINGS: RIGHT: The right common carotid artery (CCA) peak systolic velocity (PSV) is 49 cm/s. The right internal carotid artery (ICA) PSV is 54 cm/s. The right ICA end- diastolic velocity (EDV) is 18 cm/s. The right ICA/CCA PSV ratio is 1.1. Grayscale and color Doppler images yield an estimate of <50% diameter reduction from plaque in the ICA. There is antegrade flow in the right vertebral artery. LEFT: The left CCA PSV is 60 cm/s. The left ICA PSV is 44 cm/s. The left ICA EDV is 12 cm/s. The left ICA/CCA PSV ratio is 0.7. Grayscale and color Doppler images yield an estimate of <50% diameter reduction from plaque in the ICA. There is antegrade flow in the left vertebral artery. IMPRESSION: 1. <50% stenosis in the right internal carotid artery. 2. <50% stenosis in the left internal carotid artery. Reviewed, dictated and finalized at location E.
--- NOTE | ~2025-04-12 | CT_ITS ---
EXAMINATION: CT brain wo con DATE: 04/12/2025 18:29 INDICATION: Confusion TECHNIQUE: Computed tomography (CT) of the head was performed without intravenous contrast. The dose-length product was 681.00 mGy-cm. COMPARISON: CT dated 03/25/2018 FINDINGS: Mild generalized atrophy. There are scattered severe periventricular and subcortical white matter changes, most likely related to small vessel ischemic disease (microangiopathy). Slightly increased size of calcified meningioma left parietal vertex measuring 12 x 6 mm compared with 11 x 4 mm on prior examination. No acute intracranial hemorrhage, infarction, mass or mass effect. There is intracranial atherosclerosis. Paranasal sinuses and mastoids are pneumatized. No depressed skull fractures. IMPRESSION: 1. No acute intracranial abnormality. 2: Slight increased size of this likely calcified meningioma left parietal vertex. 3: Chronic age-related findings. Reviewed, dictated and finalized at location O. IMPRESSION: 1. No acute intracranial abnormality. 2: Slight increased size of this likely calcified meningioma left parietal vert ex. 3: Chronic age-related findings.
--- OUTSIDE RECORDS SUMMARY | 2025-04-12 17:24 | XMS_ITS | Encounter Summary ---
Author Organization [facility] Healthcare Address [address] [place] [address] Care Team Providers Care Burrito Maker Name Role Phone Tj Paz MD Primary Care Provider Reason for Visit * Reason Onset Date Comments Symptom Based Call 04/12/2025 Encounter Details Date Type Department Care Team (Late st Contact Info) Description 04/12/2025 Telephone [facility] Medical Group Primary Care at [address] [place] [id number] Tj Paz MD [address] [place] [address] [address] [place] [address] Symptom Based Call Social History Tobacco Use Types Packs/Day Years [...] on file 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 PRODUCTION LINE MECHANIC relayed that labs had been placed and sent to [facility]. Patient verbalized understanding. Does message need to be routed? No * Telephone Encounter - Vidhi Yin MA - 04/12/2025 4:16 PM CDT Lab order placed tried calling patient to inform, please inform when patient calls back * Telephone Encounter - Tj Paz MD - 04/12/2025 3:32 PM CDT Okay to order a urine analysis and reflex to microscopic and culture lab core near their hometown with a diagnosis of acute cystitis and let them know * Telephone Encounter - Winsome Gallardo MA - 04/12/2025 11:52 AM CDT Symptom Based Call Chief Complaint(s): memory issues , slightly disoriented, frequent urination. Duration: See 04.11 office visit What type of symptom(s) is the patient experiencing? Non-Emergent. Is this a new or reoccurring symptom(s)? Reoccurring What have you tried to help your symptom(s)? nothing Why was appointment not scheduled? Patient seeking care without an appointment; appointment was offered by . Additional Comments: Destinee asked if a urinalysis order can be sent to [facility] in [place]. Since patient's visit yesterday, she and patient have discussed the above symptoms and would like to rule out a UTI. Please contact Destinee with the next steps. Does message need to be routed? Yes-Action Needed documented in this encounter Plan of Treatment Not on file documented as of this encounter Visit Diagnoses Not on filedocumented in this encounter Care Teams Burrito Maker Relationship Specialty Start Date End Date Tj Paz MD PCP - General 10/18/16 documented as of this encounter
--- OUTSIDE RECORDS SUMMARY | 2025-04-12 17:24 | XMS_ITS | Clinical Summary ---
Author Organization [facility] Address [address] [place] [address] Care Team Providers Care Shot Blast Equipment Operator Name Role Phone Isreal Paz MD Primary Care Provider Allergies No known active allergies Medications multivitamin-min erals-lutein (CENTRUM SILVER) tablet take 1 tablet by oral route every day 0 03/07/2011 Active amLODIPine (NORVASC) 10 mg tablet Take 1 tablet (10 mg total) by mouth daily 90 tablet 3 10/07/2024 6 Active isosorbide mononitrate ER (IMDUR) 30 mg 24 hr tablet Take 1 tablet (30 mg total) by mouth daily 90 tablet 3 01/13/2025 6 Active valsartan-hydroc hlorothiazide (DIOVAN-HCT) 320-12.5 mg per tablet TAKE 1 TABLET BY MOUTH EVERY DAY 90 tablet 1 02/08/2025 Active omeprazole (PriLOSEC) 20 mg capsule TAKE 1 CAPSULE(20 MG) BY MOUTH DAILY 90 capsule 1 02/08/2025 Active rosuvastatin (CRESTOR) 20 mg tablet TAKE 1 TABLET(20 MG) BY MOUTH DAILY 100 tablet 03/04/2025 Active Active Problems Problem Noted Date Diagnosed Date Hearing loss 03/08/2024 Polyp of colon 03/08/2024 Overview (03/08/2024): Jun 13, 2020 Entered By: ISREAL GUDINO Comment: Colonoscopy 10/2017 in [place]; Polyps 5yrs october 2022 Sensorineural hearing loss, bilateral 03/08/2024 Assessment & Plan (01/06/2025 12:14 PM CDT): Bilateral hearing aids doing fine Vitamin D3 deficiency 03/08/2024 Idiopathic peripheral neuropathy 12/10/2022 Overview (03/08/2024): Jun 11, 2023 Entered By: ISREAL GUDINO Comment: left leg Jun 11, 2023 Entered By: ISREAL GUDINO Comment: worse in morning gets better with exercise-numbness left foot History of cerebral meningioma 08/15/2022 Assessment & Plan (01/06/2025 12:14 PM CDT): No clinical symptoms no need for imaging right now Benign prostatic hyperplasia with lower urinary tract symptoms 09/27/2021 Overview (09/27/2021): Added automatically from request for surgery [id number] Gastro-esophageal reflux 04/14/2019 Assessment & Plan (01/06/2025 12:14 PM CDT): Good reflux control continue omeprazole daily Systolic murmur 03/17/2017 Meningioma 01/07/2017 Assessment & Plan (01/06/2025 12:14 PM CDT): We are not going to pursue this unless her symptoms Chronic mastoiditis of both sides 01/07/2017 Essential (primary) hypertension 10/25/2015 Overview (10/25/2016): BENIGN HYPERTENSION Assessment & Plan (04/11/2025 5:43 PM CDT): Assessment & Plan (01/06/2025 12:14 PM CDT): Good blood pressure today good renal function and electrolytes continue valsartan hydrochlorothiazide and amlodipine combination and low-salt diet Hyperlipidemia 12/04/2013 Overview (10/24/2016): MIXED HYPERLIPIDEMIA Assessment & Plan (01/06/2025 12:14 PM CDT): Good lipid profile continue 20 mg of Crestor daily Orders: Comprehensive metabolic panel; Future Lipid panel; Future Resolved Problems Problem Noted Date Diagnosed Date Resolved Date Medicare annual wellness visit, subsequent 08/03/2021 07/06/2024 Overactive bladder 01/30/2021 2 Nontraumatic complete tear o f left rotator cuff 09/18/2020 01/30/2021 Chest pain 07/03/2020 01/30/2021 Assessment & Plan (09/28/2020 11:59 AM PILLAR MAN): The patient's chest discomfort is atypical and does not likely represent coronary ischemia. I discussed his symptoms and test results with him. We also discussed even if stress testing was missing underlying coronary disease his aggressive stance with secondary risk factor modification, daily aspirin and daily beta-kwabena is as good as any alternative treatment to prevent secondary events. I gave him the option for ongoing follow-up but he would prefer to see me in follow-up on an as-needed basis. Right hip pain 02/02/2019 04/13/2019 Assessment & Plan (02/02/2019 11:10 AM CDT): Osteoarthritis vs bursitis of right hip. Considering acuity of pain, recommending x-ray for evaluation of arthritis and need for consultation or further recommendations. Recommending naproxen twice daily with food for 2 weeks, stretching exercises given to Pt, Cnt. With application of heat, and limiting excessive activity. Further recommendations pending results of x-ray imaging in 2 weeks after completing recommended therapy. Acute mucoid otitis media of right ear 08/25/2017 10/02/2018 Assessment & Plan (09/02/2017 10:39 AM PILLAR MAN): Patient has a history of eustachian tube dysfunction. Previously had bilateral T tubes. Left remains and right is no longer present. His ear has improved significantly on his current antibiotic course. Patient is educated that it will take his body a couple of weeks to reabsorbed this thickened fluid trapped behind the tympanic membrane. During this time his hearing may remain muffled. 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 Arambula, regarding his persistent complaints. He was in agreement with the plan of care. Assessment & Plan (08/25/2017 9:41 AM PILLAR MAN): Humidification, fluids, and rest were recommended. Patient was instructed to take antibiotic as directed. Patient was encouraged to take antibiotic with food. I have also recommended daily probiotic, yogurt or capsule, while on the antibiotic. Acute non-recurrent maxillary sinusitis 08/25/2017 10/02/2018 Assessment & Plan (08/25/2017 9:41 AM PILLAR MAN): Humidification, fluids, and rest were recommended. Patient was instructed to take antibiotic as directed. Patient was encouraged to take antibiotic with food. I have also recommended daily probiotic, yogurt or capsule, while on the antibiotic. Arthralgia of hip 05/11/2015 02/02/2019 Overview (10/25/2016): Hip pain, left Slowing of urinary stream 02/01/2014 Overview (10/25/2016): SLOWING URINARY STREAM Encounters Date Type Department Care Team Description 04/12/2025 Orders Only [facility] Medical Group Primary Care at [address] [phone] Isreal Paz MD Acute cystitis without hematuria (Primary Dx) 04/12/2025 Telephone [facility] Primary Care at [address] [address] Isreal Paz MD Symptom Based Call 04/11/2025 4:15 PM CDT Office Visit [facility] Medical [facility] Primary Care at [address] [phone] Isreal Paz MD Short-term memory loss (Primary Dx); BMI 27.0-27.9,adult; Right facial numbness; Essential (primary) hypertension 04/11/2025 Orders Only [facility] Medical [facility] Primary Care at [address] [phone] Isreal Paz MD Memory loss (Primary Dx); Balance problems; Right facial numbness 04/11/2025 Nurse Triage [facility] Medical [facility] Primary Care at [address] [place] [address] Isreal Paz MD 04/07/2025 Telephone [facility] Primary Care at [address] [place] [address] Isreal Paz MD Recommendation Request 03/28/2025 Orders Only [facility] Medical [facility] Primary Care at [address] [place] [address] Isreal Paz MD TIA (transient ischemic attack) (Primary Dx) 03/07/2025 Telephone [facility] Primary Care at [address] [place] [address] Lizy Patel Chart Review ([facility] (Med Adherence)) 01/13/2025 9:00 AM CDT Office Visit [employer] at [address] [place] [address] Deny Bullock NP Mixed hyperlipidemia (Primary Dx); Essential (primary) hypertension; Systolic murmur; Bruit of right carotid artery from Last 3 Months Immunizations Immunization Administration Dates Next Due H1N1 All Forms 07/22/2009 Influenza, Quadrivalent, Hig h Dose, Preservative Free, Intrr 04/23/2022,04/02/2021,04/05/2020 Influenza, Split 04/14/2010 Influenza, Trivalent, High D ose, Split, Preservative Free, Intramuscular 05/01/2024,05/03/2023,03/29/2019,03/27,04/09/2017,05/03/2016,03/21/2015 Influenza, Trivalent, IM (MDV) 4,04/08/2013,04/23/2012,04/17,04/13/2009 Influenza, Unspecified 04/05/2020,03/27/2018 Moderna SARS-CoV-2 Monovalen t Vaccination (12+ YRS) 09/25/2020,08/28/2020 Pneumococcal Conjugate PCV 13 03/13/2015 Pneumococcal Polysaccharide PPV23 03/14/2016 Tdap 08/21/2013 ZOSTER Recombinant 03/05/2019,12/11/2018 Surgical History Surgery Date Site/Laterality Comments OTHER SURGICAL HISTORY chest pain: no angioplasty OTHER SURGICAL HISTORY chest pain: no bypass surgery CATARACT EXTRACTION Cataract extraction NECK SURGERY neck surgery TYMPANOSTOMY TUBE PLACEMENT 09/18/2017 Bilateral [place], [place] Medical History Medical History Date Comments Hx Other Medical 2004 stretch esophag us Hx Other Medical 2005 back surgery Hx Other Medical chest pain 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 Hypertension Hypertension Hyperlipidemia Hyperlipidemia Hx Other Medical skin lesions re moved; Comments: LNP 08/09/2015 - History of test for hearing 01/01/2017 Chest pain Shortness of breath Heart murmur Heart valve stenosis Aortic stenosis Sick sinus syndrome (HCC) Ventricular tachycardia (HCC) Family History Medical History Relation Name Comments Depression Father Hiro Depression; Heart disease Father Hiro Heart disease; Arthritis Mother Ursella arthritis; Other Mother Ursella ; Rheum arthritis Mother Ursella Relation Name Status Comments Father Hiro Mother Chandlerella Social History Tobacco Use Types Packs/Day Years Used Date Smoking Tobacco: Never Smokeless Tobacco: Never Tobacco Cessation:Counseling Given: Not Answered Alcohol Use Standard Drinks/Week Comments Yes 2 [...] on file Legal Sex Male 11:52 PM PILLAR MAN Gender Identity Not on file Sexual Orientation Not on file Obstetrics History Last Filed Vital Signs Vital Sign Reading [...] Mass Index 27.76 04/11/2025 3:44 PM CDT Plan of Treatment Health Maintenance Due Date Last Done Comments Albumin Creatinine Ratio, Urine 1945 Dilated Eye Exam 1945 Foot Exam 1945 Hepatitis B Screening 01/25/1962 DTaP/Tdap/Td Vaccine (2 - Td or Tdap) 08/21/2023 08/21/2013 Hemoglobin A1C 12/28/2024 06/29/2024 Covid-19 Vaccine (5 - 2023-2 5 season) 2025 05/01/2024, 04/23/2022, 09/25/2020, Additional history exists Influenza Vaccine (#1) 2025 , 05/03/2023, 04/23/2022, Additional history exists Prostate Cancer Screening-PSA 06/29/2025, 01/15/2023, 01/17/2022, Additional history exists Well Visit 65+ 07/06/2025 07/06/2024, 06/20, 08/15/2022, Additional history exists Lipid Panel 12/21/2025 12/21/2024, 06/20, 01/01/2024, Additional history exists eGFR 12/21/2025 12/21/2024, 06/20, 01/01/2024, Additional history exists Depression Screening 04/11/2026 04/11/2025, 01/06/2025, 07/06/2024, Additional history exists Fall Risk Assessment 04/11/2026 04/11/2025, 01/06/2025, 07/06/2024, Additional history exists Colon Cancer Screening-Colonoscopy 09/23/2027 09/22/2017, 10/09/2012, 10/09/2012 Pneumococcal vaccine 65+ Completed 03/14/2016, 02/19 Zoster Vaccine Completed 03/05/2019, 12/11/2018 Procedures Procedure Name Priority Date/Time Associated Diagnosis Comments COMPREHENSIVE METABOLIC PANEL Routine 12/21/2024 8:40 AM CDT Mixed hyperlipidemia LIPID PANEL Routine 12/21/2024 8:40 AM CDT Mixed hyperlipidemia HEMOGLOBIN A1C Routine 06/29/2024 8:47 AM PILLAR MAN PSA SCREEN Routine 06/29/2024 8:47 AM PILLAR MAN HM COLONOSCOPY Routine 09/22/2017 from Last 3 Months or Most Recently Relevant to Health Maintenance Results * Lipid panel (12/21/2024 8:40 AM CDT) Cholesterol 181 100 - 199 mg/dL [facility] - 01 Triglycerides 77 0 - 149 mg/dL [facility] - 01 HDL Cholesterol 71 >39 mg/dL [facility] - 01 VLDL 14 5 - 40 mg/dL [facility] - 01 LDL, calculated 96 0 - 99 mg/dL [facility] - 01 Blood 12/21/2024 8:40 AM CDT 12/21/2024 Narrative [facility] - 12/22/2024 2:08 AM CDT Performed at: 01 - [facility] [id number] Periodontist: Jayjay Araiza PhD, Phone: [phone] us Isreal Paz MD LAB BLOOD ORDERABLES Fi nal Result [facility] * (ABNORMAL) Comprehensive metabolic panel (12/21/2024 8:40 AM CDT) Glucose 107(H) 70 - 99 mg/dL [facility] - 01 BUN 12 8 - 27 mg/dL [facility] - 01 Creatinine, Serum 0.79 0.76 - 1.27 mg/dL [facility] - 01 eGFR 90 >59 mL/min/1.7 3 [facility] - 01 BUN/creat ratio 15 10 - 24 [facility] - 01 Sodium 136 134 - 144 mmol/L [facility] - 01 Potassium, sr 5.1 3.5 - 5.2 mmol/L [facility] - 01 Chloride 96 96 - 106 mmol/L [facility] - 01 CO2 25 20 - 29 mmol/L [facility] - 01 Calcium 10.0 8.6 - 10.2 mg/dL [facility] - 01 Protein, sr 7.5 6.0 - 8.5 g/dL [facility] - 01 Albumin 4.7 3.8 - 4.8 g/dL [facility] - 01 Globulin, Total 2.8 1.5 - 4.5 g/dL [facility] - 01 Bilirubin, Total 0.5 0.0 - 1.2 mg/dL [facility] - 01 Alk phos 92 44 - 121 IU/L [facility] - 01 AST 42(H) 0 - 40 IU/L [facility] - 01 ALT 30 0 - 44 IU/L [facility] - 01 Blood 12/21/2024 8:40 AM CDT 12/21/2024 Narrative [facility] - 12/22/2024 1:07 AM CDT Performed at: - [address] [id number] Periodontist: Jayjay Araiza PhD, Phone: [phone] Isreal Paz MD LAB BLOOD ORDERABLES nal Result [facility] - 01 * PSA screen (06/29/2024 8:47 AM PILLAR MAN) [facility] PSA 2.1 0.0 - 4.0 ng/mL [facility] - 01 Comment: Jose ECLIA methodology. According to the [employer], Serum PSA should decrease and remain at undetectable levels after radical prostatectomy. The AUA defines biochemical recurrence as an initial PSA value 0.2 ng/mL or greater followed by a subsequent confirmatory PSA value 0.2 ng/mL or greater. Values obtained with different assay methods or kits cannot be used interchangeably. Results cannot be interpreted as absolute evidence of the presence or absence of malignant disease. 06/29/2024 8:47 AM PILLAR MAN 06/29/2024 Narrative [facility] - 06/30/2024 9:09 AM PILLAR MAN Performed at: [address] [place] [id number] Periodontist: Jayjay Araiza PhD, Phone: [phone] Isreal Paz MD LAB BLOOD ORDERABLES Fi nal Result Performing Organization Address [facility] Co de [facility] Number [facility] - * (ABNORMAL) Hemoglobin A1c (06/29/2024 8:47 AM PILLAR MAN) Hgb A1C 6.2(H) 4.8 - 5.6 % [facility] - Comment: Prediabetes: 5.7 - 6.4 Diabetes: >6.4 Glycemic control for adults with diabetes: <7.0 06/29/2024 8:47 AM PILLAR MAN 06/29/2024 Narrative [facility] - 06/30/2024 7:10 AM PILLAR MAN Performed at: [address] [place] [id number] Periodontist: Jayjay Araiza PhD, Phone: [phone] Isreal Paz MD LAB BLOOD ORDERABLES Fi nal Result Performing Organization Address [facility]/ZIP Co de Phone Number [facility] - * HM COLONOSCOPY (09/22/2017) Pathologist [facility] Colonoscopy Unknown Historical Provider HEALTH MAINTENANCE Final Result from Last 3 Months or Most Recently Relevant to Health Maintenance Insurance MEDICARE [facility] MEDICARE ADVANTAGE Advance Directives For more information, please contact: [phone] * Full Code (Latest Code Status on File) Date Activated Date Inactivated Comments 07/03/2020 10:44 PM 07/04/2020 8:44 PM Care Teams Shot Blast Equipment Operator Relationship Specialty Start Date End Date Isreal Paz MD [facility] - General 10/18/16
--- OUTSIDE RECORDS SUMMARY | 2025-04-12 17:24 | XMS_ITS | Encounter Summary ---
Author Organization [facility] Address [address] [place] [address] Care Team Providers Care Denture Contour Wire Specialist Name Role Phone Tj Paz MD Primary Care Provider Reason for Referral * Consultation (Routine) - Authorized Specialty Diagnoses / Procedures Referred By Contac t Referred To Contact Neurology Diagnoses Memory loss Balance problems Right facial numbness Tj Paz MD [address] [place] [place] [address] [address] ROB[address] [facility] [place] [address] Phone: tel: fax: [facility] Medical [facility] Neurology [address] [facility] [address] [place] [phone] Phone: tel: fax: Referral ID Status Reason Start Date Expiration Date Visits Requested Visits Authorized [id number] Authorized Specialty Services Required 04/11/2025 05/11/2026 1 1 Question Answer Please select the performing region: [facility] Medical Group [[id number]] Please select the performing department: [facility]O [facility]LE 250 [[id number]] # of visits: 1 Encounter Details Date Type Department Care Team (Late st Contact Info) Description 04/11/2025 Orders Only [facility] Medical Group Primary Care at [place] [address] [facility] [address] [place] [phone] Tj Paz MD [address] [place] [place] [address] [address] [place] [address] Memory loss (Primary Dx); Balance problems; Right facial numbness Social History Tobacco Use Types Packs/Day Years [...] on file 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 Gender Identity Not on file Sexual Orientation Not on file documented as of this encounter Plan of Treatment Scheduled Referrals Name Type Priority Associated Diagnoses Order Schedule Ambulatory referral to Neurology Outpatient Referral Routine Memory loss Balance problems Right facial numbness Expected: 04/11/2025 (Approximate), Expires: 04/11/2026 documented as of this encounter Visit Diagnoses Diagnosis Memory loss- Primary Balance problems Abnormality of gait Right facial numbness Disturbance of skin sensation documented in this encounter Care Teams Denture Contour Wire Specialist Relationship Specialty Start Date End Date Tj Paz MD PCP - General 10/18/16 documented as of this encounter
--- OUTSIDE RECORDS SUMMARY | 2025-04-12 17:24 | XMS_ITS | Encounter Summary ---
Author Organization [facility] Healthcare Address [address] [place] [address] Care Team Providers Care Animal Technician Name Role Phone Tj Paz MD Primary Care Provider Reason for Visit * Reason Onset Date Comments Recommendation Request 04/07/2025 Encounter Details Date Type Department Care Team ([facility] st Contact Info) Description 04/07/2025 Telephone [facility] Medical Group Primary Care at [address] [place] [address] Tj Paz MD [address] [place] [address] [address] [place] [address] Recommendation Request Social History Tobacco Use Types Packs/Day Years [...] on file 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 Specialty: neurology Why does the patient want to go to this specialist? He wanted to see someone sooner if at all possible Additional Comments/Concerns: n/a Does message need to be routed? Yes-Action Needed documented in this encounter Plan of Treatment Not on file documented as of this encounter Visit Diagnoses Not on filedocumented in this encounter Care Teams Animal Technician Relationship Specialty Start Date End Date Tj Paz MD PCP - General 10/18/16 documented as of this encounter
--- OUTSIDE RECORDS SUMMARY | 2025-04-12 17:24 | XMS_ITS | Encounter Summary ---
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 Caller is currently with patient. He has not passed out or fallen. Dizziness is present at rest. Denies blurred vision. C/O headache which is mild. C/O numbness on his right that has been present for months, denies worsening. States they did activities over the weekend and he would ask questions, not remembering that he had done them. She checked his BP while on the phonewith RN which was 154/84, HR 78. Appt scheduled today with CINDI [place] Care Advice Given: Increase water, change positions slowly, have someone drive him Educated to call back if worsens, new symptoms develop or has further questions or concerns. Regarding: Dizziness, lightheadedness, and forgetfulness ----- Message from Lyndsey Altman sent at 04/11/2025 9:10 AM CDT ----- Symptom Based Call Chief Complaint(s): Dizziness, lightheadedness, and forgetfulness Duration: Started What type of symptom(s) is the patient experiencing? Red Flag. Is the patient concerned they are experiencing a medical emergency requiring an ambulance? No Additional Comments: Destinee stated the lightheadedness was on following yoga, but left. On Friday the dizziness and forgetfulness returned along with confusion. Destinee stated patient was able to provide his birthday, name and current date so she ruled out a stroke. Today patient is still a little confused and does not remember symptoms over the weekend. Does message need to be routed? Yes-Action Needed documented in this encounter Plan of Treatment Not on file documented as of this encounter Visit Diagnoses Not on filedocumented in this encounter Care Teams Dog Bather Relationship Specialty Start Date End Date Tj Paz MD PCP - General 10/18/16 documented as of this encounter
--- OUTSIDE RECORDS SUMMARY | 2025-04-12 17:24 | XMS_ITS | Encounter Summary ---
Author Organization [facility] Healthcare Address [address] [place] [address] Care Team Providers Care Rate Quoting Operator Name Role Phone Tj Paz MD Primary Care Provider Encounter Details Date Type Department Care Team (Late st Contact Info) Description 04/12/[address] 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
--- NOTE | 2025-04-12 17:59 | ED_ITS ---
HPI - General Adult General Chief complaint: Altered Mental Status <Dipika Siegel [employer] - Last Filed: 04/13/25 19:58> Stated complaint: AMS <Dipika Siegel JOUR[employer] - Last Filed: 04/13/25 19:58> Time Seen by Provider: 04/12/25 17:59 <Dipika Siegel J[employer] - Last Filed: 04/13/25 19:58> Focused HPI: Nicolás Shaw is an 80 y/o male who presents with reports of having intermittent confusion, dizziness, light headed, along with slight headache on the right side for 2 days. No recent fall or trauma Hx of HTN. He stats he saw ENT today and was told to come to the ER. He also feels that he has some off and on chest pressure. GENERAL: Well-appearing, well-nourished, and in no acute distress. HEAD: Normocephalic, atraumatic. CHEST: Clear to auscultation. ?No respiratory distress. HEART: Regular rate and rhythm.? NEURO: ?Alert and oriented x3. Patient screened in triage and initial orders placed.? ?Additional care and disposition to be based upon?diagnostic testing and treatment. <Dipika Siegel, J[employer] - Last Filed: 04/13/25 19:58> History of Present Illness HPI narrative: Agree with the HPI. Would like to add that patient has been mostly complaining of intermittent chest discomfort/pressure associated with lightheadedness that he feels like he is going to pass out. Nothing makes it better or worse, no changes position, sitting standing or leaning forward. Intermittent in nature. States he has had cardiac assessments and large work neurological workup previously that were unremarkable including carotid Dopplers, brain MRIs, cardiac stress test. He is not any aspirin or anticoagulants but is taking anti lipid and hypertension medications. < Emil Monroy MD - Last Filed: 04/13/25 07:02> Related Data Home medications: Home Medications ?Medication ?Instructions ?Recorded ?Confirmed ?Last Taken ?Type rovcxvec-cce-pojoo acid 0.4 1 tablet PO DAILY 02/22/20 04/13/25 04/12/25 History mg-lycopene 300 mcg-lutein 250 mcg tablet (Centrum Silver) omeprazole 20 mg capsule,delayed 20 mg PO DAILY 04/13/25 04/12/25 History release rosuvastatin 20 mg tablet 20 mg PO DAILY 02/22/2003/2204/12/25 History valsartan 320 1 tablet PO DAILY 08/19/20 0 04/13/25 04/12/25 History mg-hydrochlorothiazide 12.5 mg tablet amlodipine 10 mg tablet 10 mg PO DAILY 04/12/2503/2204/12/25 History isosorbide mononitrate 30 mg 30 mg PO DAILY 04/12/25 0 04/13/25 04/12/25 History tablet,extended release 24 hr <Dipika Jean November, - Last Filed: 04/13/25 19:58> Allergies/adverse reactions: Allergies Allergy/AdvReac Type Severity Reaction Status Date / Time No Known Allergies Allergy Unknown NA Verified 04/13/25 02:24 <Dipika Jean November, - Last Filed: 04/13/25 19:58> Review of Systems 2 Review of Systems: As reviewed above in HPI <Emil Monroy MD - Last Filed: 04/13/25 07:02> FOR[facility], LAT[facility] Past Medical History Medical History: Medical History (Updated 04/13/25 @ 14:43 by Andie Dumont MD) Colon polyp Dysphagia Nondisplaced fracture of distal end of right radius Hypertension Hypercholesterolemia GERD (gastroesophageal reflux disease) <Dipika Jean November, - Last Filed: 04/13/25 19:58> Surgical History Surgical History: Surgical History Hx of tympanostomy tubes <Dipika Jean November, - Last Filed: 04/13/25 19:58> Family History Family History: Family History (Updated 04/13/25 @ 02:19 by Liss Ocampo RN) Father Heart failure Mother Family history of arthritis <Dipika Jean November, - Last Filed: 04/13/25 19:58> Social History Social History: Social History Smoking status: Never smoker Alcohol intake: current Drinks per week: 2 Substance use: never Substance use type: does not use Lack of Transportation: No Lack of Food: Never True Current Housing: I Have Housing Concerned About Future Housing: No Difficulty Paying Gas/Electric Bills: No Difficulty Paying for Meds: No Currently Unemployed: No Education: High School Diploma/GED Difficulty w/ Childcare or Family Care: No Living arrangements: with family Spiritual care concerns: No <Dipika Siegel APRN - Last Filed: 04/13/25 19:58> Exam 2 Narrative: GENERAL: [Well-appearing, well-nourished, and in no acute distress.] HEAD: [Normocephalic, atraumatic.] EYES: [PERRLA and EOMI.] ENT: Nares clear, no rhinorrhea or epistaxis. Mucous membranes moist. NECK: Supple. CHEST: [Clear to auscultation. No respiratory distress.] HEART: [Regular rate and rhythm]. No murmur heard. [Normal peripheral pulses.] ABDOMEN: [Soft, nondistended], [nontender], [No rigidity or guarding] EXTREMITIES: Normal range of motion. [No edema.] SKIN: Warm, dry, no rash. NEURO: No overt focal deficits, moving all extremities, complaining of intermittent confusion but presently awake alert oriented answering questions appropriately. at bedside states that he is intermittently confused forgetful and has been repeating things even in the examination room while in the ER. PSYCH: [Normal mood and affect.] <Emil Monroy MD - Last Filed: 04/13/25 07:02> Course Vital Signs Vital signs: Vital Signs Temperature 37.0 C 04/12/25 18:10 Pulse Rate 87 04/12/25 18:10 Respiratory Rate 16 04/12/25 18:10 Blood Pressure 179/91 H 04/12/25 18:10 Pulse Oximetry 97 04/12/25 18:10 Oxygen Delivery Room Air 04/12/25 18:10 Temperature 36.7 C 04/13/25 11:36 Pulse Rate 74 04/13/25 18:20 Respiratory Rate 18 04/13/25 18:20 Blood Pressure 123/59 L 04/13/25 18:20 Pulse Oximetry 100 04/13/25 18:20 Oxygen Delivery Room Air 04/13/25 18:20 <Dipika J. May, J[employer] - Last Filed: 04/13/25 19:58> Vital Signs Temperature 37.0 C 04/12/25 18:10 Pulse Rate 87 04/12/25 18:10 Respiratory Rate 16 04/12/25 18:10 Blood Pressure 179/91 H 04/12/25 18:10 Pulse Oximetry 97 04/12/25 18:10 Oxygen Delivery Room Air 04/12/25 18:10 Temperature 36.7 C 04/13/25 11:36 Pulse Rate 74 04/13/25 18:20 Respiratory Rate 18 04/13/25 18:20 Blood Pressure 123/59 L 04/13/25 18:20 Pulse Oximetry 100 04/13/25 18:20 Oxygen Delivery Room Air 04/13/25 18:20 <Emil Monroy MD - Last Filed: 04/13/25 07:02> Medical Decision Making MDM Narrative Medical decision making narrative: 80-year-old male with history of hypertension, hyperlipidemia, chronic meningioma. Patient presents to the emergency department with multiple complaints including intermittent chest pressure, intermittent lightheadedness to the point he feels like he is going to pass out and complaint of confusion the last few days. 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 Patient is complaining that he feels like he might pass out but this is also intermittent and not exacerbated or change with position or activities. Endorsing left-sided chest pressure that has been intermittent for ?a while ?most recently had pressure 1 hour prior to my evaluation. Endorses a mild headache on the right side and has some chronic paresthesias in his face that are not new and been going on for years. No new focal neurological deficits on examination but he is acting confused according to his at bedside who states that he has been repeating things, not aware what his surroundings are and was not even aware that he went to a doctor's appointment earlier today. Patient presently is awake alert oriented. No strength or sensory deficits appreciated. Strong symmetric pulses in clear breath sounds. Large workup was ordered to rule out electrolyte abnormalities, dehydration, ACS, intracranial abnormality, progression of meningioma or bleed/stroke. Symptoms going on for multiple days at minimum so not a thrombectomy or TNK candidate in the event of stroke. CT of the head, chest x- ray, EKG, troponins, CBC and CMP obtained. He was given a fluid bolus. Placed on conveyor monitor and re-evaluated. Patient has an elevated troponin, EKG shows no contiguous ST segment elevations depressions or acute inversions. Will trend with repeat EKG and troponins. Patient no longer complaining of chest pressure at this time most recently had chest pain/pressure 1 hour ago. Given aspirin [address] of the head shows meningioma with very slight interval change from 7 years ago but compared to MRI several years ago no acute abnormalities are seen. No bleeding or obvious territorial infarct. Blood pressure came down without much intervention. Vital signs remained hemodynamically stable. Urinalysis shows no infection. CBC shows potential hemoconcentration with elevated leukocytes and platelet count. He was given a fluid bolus for this. Chest x-ray shows no acute abnormalities per my interpretation. Discussed the case with the hospitalist Dr. Arslan spears for admission given patient's constellation of symptoms that seem vague with elevated troponin and concerns for potential cardiac involvement. Patient is not having active chest pain at this time. Will hold off on heparin until repeat troponin or recurrence of chest pain. Patient will be admitted to the IMU for evaluation. Consult placed to Neurology. <Emil Monroy MD - Last Filed: 04/13/25 07:02> Medical Records Medical records reviewed: Yes I reviewed the external patient's medical records. <Emil Monroy MD - Last Filed: 04/13/25 07:02> Vital Signs Vital Signs: Vital Signs Temperature 37.0 C 04/12/25 18:10 Pulse Rate 87 04/12/25 18:10 Respiratory Rate 16 04/12/25 18:10 Blood Pressure 179/91 H 04/12/25 18:10 Pulse Oximetry 97 04/12/25 18:10 Oxygen Delivery Room Air 04/12/25 18:10 Temperature 36.7 C 04/13/25 11:36 Pulse Rate 74 04/13/25 18:20 Respiratory Rate 18 04/13/25 18:20 Blood Pressure 123/59 L 04/13/25 18:20 Pulse Oximetry 100 04/13/25 18:20 Oxygen Delivery Room Air 04/13/25 18:20 <Dipika Siegel APRN - Last Filed: 04/13/25 19:58> Vital Signs Temperature 37.0 C 04/12/25 18:10 Pulse Rate 87 04/12/25 18:10 Respiratory Rate 16 04/12/25 18:10 Blood Pressure 179/91 H 04/12/25 18:10 Pulse Oximetry 97 04/12/25 18:10 Oxygen Delivery Room Air 04/12/25 18:10 Temperature 36.7 C 04/13/25 11:36 Pulse Rate 74 04/13/25 18:20 Respiratory Rate 18 04/13/25 18:20 Blood Pressure 123/59 L 04/13/25 18:20 Pulse Oximetry 100 04/13/25 18:20 Oxygen Delivery Room Air 04/13/25 18:20 <Emil Monroy MD - Last Filed: 04/13/25 07:02> Lab Data Lab results reviewed: Yes I reviewed the patient's lab results. <Emil Monroy MD - Last Filed: 04/13/25 07:02> Result diagrams: 04/13/25 04:26 04/12/25 18:22 <Dipika Siegel, J[employer] - Last Filed: 04/13/25 19:58> Labs: Lab Results 04/12/25 04/12/25 04/13/25 Range/Units 18:22 21:12 01:45 WBC 13.6 H (4.5-10.0) K/mm3 RBC 5.40 (4.6-6.20) M/mm3 Hgb 16.3 (14.0-18.0) g/dL Hct 48.9 (42.0-52.0) % MCV 90.6 (80-100) fl MCH 30.2 (26-34) pg MCHC 33.3 (32-36) g/dl RDW 14.9 H (11.5-14.5) % Plt Count 526 H (150-375) k/mm3 MPV 10.4 (7.4-10.4) fl Immature Gran % (Auto) 0.4 (0-0.5) % Neut % (Auto) 70.7 (45.5-73.1) % Lymph % (Auto) 15.0 L (18.3-44.2) % [place] % (Auto) 10.3 H (2.6-8.5) % Eos % (Auto) 2.8 (0-4.4) % Baso % (Auto) 0.8 (0.2-1.2) % Lymph # (Auto) 2.05 (0.9-3.2) K/mm3 [place] # (Auto) 1.4 H (0.1-0.6) K/mm3 Eos # (Auto) 0.4 H (0-0.3) K/mm3 Baso # (Auto) 0.1 (0.0-0.1) K/mm3 Abs Immat Gran (auto) 0.05 H (0.00-0.031) K/mm3 Absolute Neuts (auto) 9.6 H (1.3-6.7) K/mm3 Absolute Nucleated RBC 0.000 (0.0-0.012) K/mm3 Nucleated RBC % 0.0 (0.0-0.2) % PT (11.1-14.7) Seconds INR APTT (22.3-36.8) Seconds Sodium 137 (137-145) mmol/L Potassium 3.5 (3.4-5.0) mmol/L Chloride 99 (98-107) mmol/L Carbon Dioxide 27 (22-30) mmol/L Anion Gap 11 (4-12) mmol/L BUN 12 (9-20) mg/dL Creatinine 0.66 L (0.7-1.3) mg/dL Estim Creat Clear Calc 75 ml/min Estimated GFR > 60 (59 - ) Glucose 103 (65-110) mg/dL Calcium 9.1 (8.4-10.2) mg/dL Total Bilirubin 0.4 (0.2-1.3) mg/dL AST 42 (17-59) U/L ALT 20 (6-50) U/L Alkaline Phosphatase 87 (38-126) U/L Troponin I 0.035 H* 0.043 H* D 0.053 H* D (0.000-0.034) ng/mL Total Protein 8.8 H (6.3-8.2) g/dL Albumin 4.9 (3.5-5.1) g/dL Urine Color Yellow (Yellow) Urine Appearance Clear (Clear) Urine pH 7.0 (5.0-9.0) Ur Specific [place] 1.005 (1.001-1.035) Urine Protein Negative (Negative) mg/dL Urine Glucose (UA) Negative (Negative) mg/dL Urine Ketones Negative (Negative) mg/dL Ur Blood (Man) Negative (Negative) Urine Nitrate Negative (Negative) Urine Bilirubin Negative (Negative) Urine Urobilinogen 0.2 (<2.0) mg/dL Leukocyte Esterase Rfl Negative (Negative) MAGALY/UL 04/13/25 Range/Units 04:26 WBC 11.0 H (4.5-10.0) K/mm3 RBC 4.91 (4.6-6.20) M/mm3 Hgb 14.8 (14.0-18.0) g/dL Hct 44.4 (42.0-52.0) % MCV 90.4 (80-100) fl MCH 30.1 (26-34) pg MCHC 33.3 (32-36) g/dl RDW 14.8 H (11.5-14.5) % Plt Count 454 H (150-375) k/mm3 MPV 10.2 (7.4-10.4) fl Immature Gran % (Auto) 0.2 (0-0.5) % Neut % (Auto) 64.6 (45.5-73.1) % Lymph % (Auto) 18.7 (18.3-44.2) % [place] % (Auto) 10.8 H (2.6-8.5) % Eos % (Auto) 4.3 (0-4.4) % Baso % (Auto) 1.4 H (0.2-1.2) % Lymph # (Auto) 2.06 (0.9-3.2) K/mm3 [place] # (Auto) 1.2 H (0.1-0.6) K/mm3 Eos # (Auto) 0.5 H (0-0.3) K/mm3 Baso # (Auto) 0.2 H (0.0-0.1) K/mm3 Abs Immat Gran (auto) 0.02 (0.00-0.031) K/mm3 Absolute Neuts (auto) 7.1 H (1.3-6.7) K/mm3 Absolute Nucleated RBC 0.000 (0.0-0.012) K/mm3 Nucleated RBC % 0.0 (0.0-0.2) % PT 14.8 H (11.1-14.7) Seconds INR 1.1 APTT 55.2 H (22.3-36.8) Seconds Sodium (137-145) mmol/L Potassium (3.4-5.0) mmol/L Chloride (98-107) mmol/L Carbon Dioxide (22-30) mmol/L Anion Gap (4-12) mmol/L BUN (9-20) mg/dL Creatinine (0.7-1.3) mg/dL Estim Creat Clear Calc ml/min Estimated GFR (59 - ) Glucose (65-110) mg/dL Calcium (8.4-10.2) mg/dL Total Bilirubin (0.2-1.3) mg/dL AST (17-59) U/L ALT (6-50) U/L Alkaline Phosphatase (38-126) U/L Troponin I 0.048 H* (0.000-0.034) ng/mL Total Protein (6.3-8.2) g/dL Albumin (3.5-5.1) g/dL Urine Color (Yellow) Urine Appearance (Clear) Urine pH (5.0-9.0) Ur Specific [place] (1.001-1.035) Urine Protein (Negative) mg/dL Urine Glucose (UA) (Negative) mg/dL Urine Ketones (Negative) mg/dL Ur Blood (Man) (Negative) Urine Nitrate (Negative) Urine Bilirubin (Negative) Urine Urobilinogen (<2.0) mg/dL Leukocyte Esterase Rfl (Negative) MAGALY/UL <Dipika Siegel, JOURNEYMAN [employer] - Last Filed: 04/13/25 19:58> Lab Results 04/12/25 04/12/25 04/13/25 Range/Units 18:22 21:12 01:45 WBC 13.6 H (4.5-10.0) K/mm3 RBC 5.40 (4.6-6.20) M/mm3 Hgb 16.3 (14.0-18.0) g/dL Hct 48.9 (42.0-52.0) % MCV 90.6 (80-100) fl MCH 30.2 (26-34) pg MCHC 33.3 (32-36) g/dl RDW 14.9 H (11.5-14.5) % Plt Count 526 H (150-375) k/mm3 MPV 10.4 (7.4-10.4) fl Immature Gran % (Auto) 0.4 (0-0.5) % Neut % (Auto) 70.7 (45.5-73.1) % Lymph % (Auto) 15.0 L (18.3-44.2) % [place] % (Auto) 10.3 H (2.6-8.5) % Eos % (Auto) 2.8 (0-4.4) % Baso % (Auto) 0.8 (0.2-1.2) % Lymph # (Auto) 2.05 (0.9-3.2) K/mm3 [place] # (Auto) 1.4 H (0.1-0.6) K/mm3 Eos # (Auto) 0.4 H (0-0.3) K/mm3 Baso # (Auto) 0.1 (0.0-0.1) K/mm3 Abs Immat Gran (auto) 0.05 H (0.00-0.031) K/mm3 Absolute Neuts (auto) 9.6 H (1.3-6.7) K/mm3 Absolute Nucleated RBC 0.000 (0.0-0.012) K/mm3 Nucleated RBC % 0.0 (0.0-0.2) % PT (11.1-14.7) Seconds INR APTT (22.3-36.8) Seconds Sodium 137 (137-145) mmol/L Potassium 3.5 (3.4-5.0) mmol/L Chloride 99 (98-107) mmol/L Carbon Dioxide 27 (22-30) mmol/L Anion Gap 11 (4-12) mmol/L BUN 12 (9-20) mg/dL Creatinine 0.66 L (0.7-1.3) mg/dL Estim Creat Clear Calc 75 ml/min Estimated GFR > 60 (59 - ) Glucose 103 (65-110) mg/dL Calcium 9.1 (8.4-10.2) mg/dL Total Bilirubin 0.4 (0.2-1.3) mg/dL AST 42 (17-59) U/L ALT 20 (6-50) U/L Alkaline Phosphatase 87 (38-126) U/L Troponin I 0.035 H* 0.043 H* D 0.053 H* D (0.000-0.034) ng/mL Total Protein 8.8 H (6.3-8.2) g/dL Albumin 4.9 (3.5-5.1) g/dL Urine Color Yellow (Yellow) Urine Appearance Clear (Clear) Urine pH 7.0 (5.0-9.0) Ur Specific [place] 1.005 (1.001-1.035) Urine Protein Negative (Negative) mg/dL Urine Glucose (UA) Negative (Negative) mg/dL Urine Ketones Negative (Negative) mg/dL Ur Blood (Man) Negative (Negative) Urine Nitrate Negative (Negative) Urine Bilirubin Negative (Negative) Urine Urobilinogen 0.2 (<2.0) mg/dL Leukocyte Esterase Rfl Negative (Negative) MAGALY/UL 04/13/25 Range/Units 04:26 WBC 11.0 H (4.5-10.0) K/mm3 RBC 4.91 (4.6-6.20) M/mm3 Hgb 14.8 (14.0-18.0) g/dL Hct 44.4 (42.0-52.0) % MCV 90.4 (80-100) fl MCH 30.1 (26-34) pg MCHC 33.3 (32-36) g/dl RDW 14.8 H (11.5-14.5) % Plt Count 454 H (150-375) k/mm3 MPV 10.2 (7.4-10.4) fl Immature Gran % (Auto) 0.2 (0-0.5) % Neut % (Auto) 64.6 (45.5-73.1) % Lymph % (Auto) 18.7 (18.3-44.2) % [place] % (Auto) 10.8 H (2.6-8.5) % Eos % (Auto) 4.3 (0-4.4) % Baso % (Auto) 1.4 H (0.2-1.2) % Lymph # (Auto) 2.06 (0.9-3.2) K/mm3 [place] # (Auto) 1.2 H (0.1-0.6) K/mm3 Eos # (Auto) 0.5 H (0-0.3) K/mm3 Baso # (Auto) 0.2 H (0.0-0.1) K/mm3 Abs Immat Gran (auto) 0.02 (0.00-0.031) K/mm3 Absolute Neuts (auto) 7.1 H (1.3-6.7) K/mm3 Absolute Nucleated RBC 0.000 (0.0-0.012) K/mm3 Nucleated RBC % 0.0 (0.0-0.2) % PT 14.8 H (11.1-14.7) Seconds INR 1.1 APTT 55.2 H (22.3-36.8) Seconds Sodium (137-145) mmol/L Potassium (3.4-5.0) mmol/L Chloride (98-107) mmol/L Carbon Dioxide (22-30) mmol/L Anion Gap (4-12) mmol/L BUN (9-20) mg/dL Creatinine (0.7-1.3) mg/dL Estim Creat Clear Calc ml/min Estimated GFR (59 - ) Glucose (65-110) mg/dL Calcium (8.4-10.2) mg/dL Total Bilirubin (0.2-1.3) mg/dL AST (17-59) U/L ALT (6-50) U/L Alkaline Phosphatase (38-126) U/L Troponin I 0.048 H* (0.000-0.034) ng/mL Total Protein (6.3-8.2) g/dL Albumin (3.5-5.1) g/dL Urine Color (Yellow) Urine Appearance (Clear) Urine pH (5.0-9.0) Ur Specific [place] (1.001-1.035) Urine Protein (Negative) mg/dL Urine Glucose (UA) (Negative) mg/dL Urine Ketones (Negative) mg/dL Ur Blood (Man) (Negative) Urine Nitrate (Negative) Urine Bilirubin (Negative) Urine Urobilinogen (<2.0) mg/dL Leukocyte Esterase Rfl (Negative) MAGALY/UL <Emil Monroy MD - Last Filed: 04/13/25 07:02> Critical Care Time Critical Care Time Critical Care Time: Yes <Emil Monroy MD - Last Filed: 04/13/25 07:02> Total Critical Care Time: 35 <Emil Monroy MD - Last Filed: 04/13/25 07:02> Discharge Plan Discharge Clinical Impression: Non-ST elevation IN (NSTEMI), Acute confusion <Dipika Siegel APRN - Last Filed: 04/13/25 19:58> Patient Disposition: Still a Patient <Dipika Siegel APRN - Last Filed: 04/13/25 19:58> Condition: Stable <Dipika Siegel APRN - Last Filed: 04/13/25 19:58>
--- NOTE | 2025-04-12 18:02 | ECG_ITS ---
Test Date: 2025-04-12 18:18:17 Measurements Intervals [place] Rate: 84 P: 21 NE: 208 QRS: -44 QRSD: 118 T: 69 QT: 405 QTc: 479 Interpretive Statements BASELINE ARTIFACT/POOR ECG QUALITY SINUS RHYTHM LEFT ANTERIOR SUPERIOR HEMIBLOCK ABNORMAL ECG No previous ECG available for comparison Electronically Signed On 04-13-2025 07:25:21 CDT by Bernard Weir M.D.
[2025-04-12 18:10] VITALS: BP 179/91; PULSE 87; RESP 16; TEMP 37; O2SAT 97
[2025-04-12 18:44] LABS: Add Urine Microscopic? NO; Appearance Urine Clear (Clear); Glucose Urine UA Negative (Negative); Leukocyte Esterase Ur Negative LEU/UL (Negative); Nitrate Urine Negative (Negative); Specific Grav Ur 1.005 (1.001-1.035)
[2025-04-12 18:53] LABS: Alanine Aminotransferase 20 U/L (6-50); Albumin Level 4.9 g/dL (3.5-5.1); Alkaline Phosphatase 87 U/L (38-126); Anion Gap 11 mmol/L (4-12); Aspartate Amino Transferase 42 U/L (17-59); Bilirubin,Total 0.4 mg/dL (0.2-1.3); Blood Urea Nitrogen 12 mg/dL (9-20); Calcium 9.1 mg/dL (8.4-10.2); Carbon Dioxide 27 mmol/L (22-30); Chloride 99 mmol/L (98-107); Estimated CRCL calculation 75 ml/min; Estimated Glomerular Filt Rate > 60; Glucose 103 mg/dL (65-110); Hematocrit 48.9 % (42.0-52.0); Hemoglobin 16.3 g/dL (14.0-18.0); Immature Granulocyte Percent A 0.4 % (0-0.5); Lymphocytes Absolute Auto 2.05 K/mm3 (0.9-3.2); Mean Corpuscular HGB Conc 33.3 g/dl (32-36); Mean Corpuscular Hemoglobin 30.2 pg (26-34); Mean Corpuscular Volume 90.6 fl (80-100); Nucleated Red Blood Cells Absolute Auto 0.000 K/mm3 (0.0-0.012); Nucleated Red Blood Cells Perc 0.0 % (0.0-0.2); Platelet Count Result 526 k/mm3 (150-375); Potassium 3.5 mmol/L (3.4-5.0); Red Blood Count 5.40 M/mm3 (4.6-6.20); Sodium 137 mmol/L (137-145); Total Protein 8.8 g/dL (6.3-8.2); White Blood Count 13.6 K/mm3 (4.5-10.0)
[2025-04-12 19:10] LABS: Troponin I 0.035 ng/mL (0.000-0.034)
--- NOTE | 2025-04-12 19:25 | ECG_ITS ---
Test Date: 2025-04-12 19:55:04 Measurements Intervals [place] Rate: 70 P: 29 AL: 237 QRS: -49 QRSD: 130 T: 37 QT: 419 QTc: 453 Interpretive Statements SINUS RHYTHM WITH FIRST DEGREE AV BLOCK POSSIBLE RIGHT VENTRICULAR CONDUCTION DELAY [RSR (QR) IN V1/V2] LEFT ANTERIOR FASCICULAR BLOCK [QRS AXIS <= -45, QR IN I, RS IN II] LEFT VENTRICULAR HYPERTROPHY AND ST-T CHANGE [VOLTAGE CRITERIA PLUS ST/T ABNORMALITY] ABNORMAL ECG Compared to ECG 04/12/2025 18:18:17 NO SIGNIFICANT CHANGE Electronically Signed On 04-13-2025 07:29:02 CDT by Bernard Weir M.D.
[2025-04-12 19:39] VITALS: BP 148/82; PULSE 72; RESP 15; O2SAT 96
--- OUTSIDE RECORDS SUMMARY | 2025-04-12 19:50 | XMS_ITS | Clinical Summary ---
Author Organization [facility] Address [address] [place] [address] Care Team Providers Care Cyber Security Manager Name Role Phone Isreal Paz MD Primary [...] By: ISREAL GUDINO Comment: Colonoscopy 10/2017 in [place]; Polyps 5yrs october 2022 Sensorineural hearing loss, [...] (09/27/2021): Added automatically from request for surgery [id number] Gastro-esophageal reflux 04/14/2019 Assessment & Plan (01/06/2025 [...] 01/30/2021 Assessment & Plan (09/28/2020 11:59 AM PEST CONTROL SERVICE TECHNICIAN): The patient's chest discomfort is atypical and [...] 10/02/2018 Assessment & Plan (09/02/2017 10:39 AM PEST CONTROL SERVICE TECHNICIAN): Patient has a history of eustachian tube [...] and encouraged to follow up with his helper shear operator, Dr. Arambula, regarding his persistent complaints. He was in agreement with the plan of care. Assessment & Plan (08/25/2017 9:41 AM PEST CONTROL SERVICE TECHNICIAN): Humidification, fluids, and rest were recommended. Patient was instructed to take antibiotic as directed. Patient was encouraged to take antibiotic with food. I have also recommended daily probiotic, yogurt or capsule, while on the antibiotic. Acute non-recurrent maxillary sinusitis 08/25/2017 10/02/2018 Assessment & Plan (08/25/2017 9:41 AM PEST CONTROL SERVICE TECHNICIAN): Humidification, fluids, and rest were recommended. Patient [...] Department Care Team Description 04/12/2025 Orders Only [facility] Medical [facility] Primary Care at [address] [phone] Isreal Paz MD Acute cystitis without hematuria (Primary Dx) 04/12/2025 Telephone [facility] Primary Care at [address] [phone] Isreal Paz MD Symptom Based Call 04/11/2025 4:15 PM CDT Office Visit [facility] Medical [facility] Primary Care at [address] [phone] Isreal Paz MD Short-term memory loss (Primary Dx); BMI 27.0-27.9,adult; Right facial numbness; Essential (primary) hypertension 04/11/2025 Orders Only [facility] Medical [facility] Primary Care at [address] [phone] Isreal Paz MD Memory loss (Primary Dx); Balance problems; Right facial numbness 04/11/2025 Nurse Triage [facility] Medical [facility] Primary Care at [address] [place] [address] Isreal Paz MD 04/07/2025 Telephone [facility] Primary Care at [address] [place] [address] Isreal Paz MD Recommendation Request 03/28/2025 Orders Only [facility] Medical [facility] Primary Care at [address] [place] [address] Isreal Paz MD TIA (transient ischemic attack) (Primary Dx) 03/07/2025 Telephone [facility] Primary Care at [address] [place] [address] Lizy Patel Chart Review ([facility] (Med Adherence)) 01/13/2025 9:00 AM CDT Office Visit [facility] Clinical Manager at [address] [place] [address] Deny Bullock NP Mixed hyperlipidemia [...] neck surgery TYMPANOSTOMY TUBE PLACEMENT 09/18/2017 Bilateral [place], [place] Medical History Medical History Date Comments Hx Other Medical 2004 stretch esophag us Hx Other Medical 2005 back surgery Hx Other Medical chest pain Hx Other Medical ARNP Hypertension Hypertension Hyperlipidemia Hyperlipidemia Hx Other Medical [...] on file Legal Sex Male 11:52 PM PEST CONTROL SERVICE TECHNICIAN Gender Identity Not on file Sexual Orientation [...] hyperlipidemia HEMOGLOBIN A1C Routine 06/29/2024 8:47 AM PEST CONTROL SERVICE TECHNICIAN PSA SCREEN Routine 06/29/2024 8:47 AM PEST CONTROL SERVICE TECHNICIAN HM COLONOSCOPY Routine 09/22/2017 from Last 3 [...] 2:08 AM CDT Performed at: 01 - [facility] [id number] Food Preparation Worker: Jayjay Araiza PhD, Phone: [phone] us Isreal Paz MD LAB BLOOD ORDERABLES [...] 12/22/2024 1:07 AM CDT Performed at: - [address] [id number] Food Preparation Worker: Jayjay Araiza PhD, Phone: [phone] Isreal Paz MD LAB BLOOD ORDERABLES nal Result [facility] - 01 * PSA screen (06/29/2024 8:47 AM PEST CONTROL SERVICE TECHNICIAN) [facility] PSA 2.1 0.0 - 4.0 ng/mL [facility] - 01 Comment: Jose ECLIA methodology. According to the [place], Serum PSA should decrease and [...] absence of malignant disease. 06/29/2024 8:47 AM PEST CONTROL SERVICE TECHNICIAN 06/29/2024 Narrative [facility] - 06/30/2024 9:09 AM PEST CONTROL SERVICE TECHNICIAN Performed at: [address] [place] [id number] Food Preparation Worker: Jayjay Araiza PhD, Phone: [phone] Isreal Paz MD LAB BLOOD ORDERABLES Fi nal Result Performing Organization Address [facility] Co de Phone Number [facility] - * (ABNORMAL) Hemoglobin A1c (06/29/2024 8:47 AM PEST CONTROL SERVICE TECHNICIAN) Hgb A1C 6.2(H) 4.8 - 5.6 % [facility] - Comment: Prediabetes: 5.7 - 6.4 Diabetes: >6.4 Glycemic control for adults with diabetes: <7.0 06/29/2024 8:47 AM PEST CONTROL SERVICE TECHNICIAN 06/29/2024 Narrative [facility] - 06/30/2024 7:10 AM PEST CONTROL SERVICE TECHNICIAN Performed at: [address] [place] [id number] Food Preparation Worker: Jayjay Araiza PhD, Phone: [phone] Isreal Paz MD LAB BLOOD ORDERABLES Fi nal Result Performing Organization Address [facility]/ZIP Co de Phone Number [facility] - * HM COLONOSCOPY (09/22/2017) Pathologist [facility] Colonoscopy Unknown Historical Provider HEALTH MAINTENANCE Final Result from Last 3 Months or Most Recently Relevant to Health Maintenance Insurance MEDICARE [facility] MEDICARE [facility] Address: [address] [address] [place] [address] Advance Directives For more information, please contact: [phone] * Full Code (Latest Code Status on File) Date Activated Date Inactivated Comments 07/03/2020 10:44 PM 07/04/2020 8:44 PM Care Teams Cyber Security Manager Relationship Specialty Start Date End Date Isreal Paz MD [facility] - General 10/18/16
--- OUTSIDE RECORDS SUMMARY | 2025-04-12 19:50 | XMS_ITS | Encounter Summary ---
Author Organization [facility] Address [address] [place] [address] Care Team Providers Care Reducing System Operator Name Role Phone Tj Paz MD Primary Care Provider Reason for Referral * Consultation (Routine) - Authorized Specialty Diagnoses / Procedures Referred By Contac t Referred To Contact Neurology Diagnoses Memory loss Balance problems Right facial numbness Tj Paz MD [address] [place] [address] [address] [facility] [place] [address] Phone: tel: fax: [facility] Medical [facility] Neurology [address] [facility] [address] [place] [phone] Phone: tel: fax: Referral ID Status Reason Start Date Expiration Date Visits Requested Visits Authorized [id number] Authorized Specialty Services Required 04/11/2025 05/11/2026 1 1 Question Answer Please select the performing region: [facility] Medical Group [[id number]] Please select the performing department: [facility] NEURO BLVLE 250 [[id number]] # of visits: 1 Encounter Details Date Type Department Care Team (Late st Contact Info) Description 04/11/2025 Orders Only [facility] Medical Group Primary Care at [place] [address] [facility] [address] [place] [phone] Tj Paz MD [address] [place] [address] [address] [place] [address] Memory loss (Primary Dx); Balance problems; Right [...] on file Legal Sex Male 11:52 PM ORDER PACKER Gender Identity Not on file Sexual Orientation [...] sensation documented in this encounter Care Teams Reducing System Operator Relationship Specialty Start Date End Date Tj Paz MD PCP - General 10/18/16 documented as of this encounter
--- OUTSIDE RECORDS SUMMARY | 2025-04-12 19:50 | XMS_ITS | Encounter Summary ---
Author Organization [facility] Healthcare Address [address] [place] [address] Care Team Providers Care Senior Brand Manager Name Role Phone Tj Paz MD Primary Care Provider Reason for Visit * Reason Onset Date Comments Recommendation Request 04/07/2025 Encounter Details Date Type Department Care Team ([facility] st Contact Info) Description 04/07/2025 Telephone [facility] Medical [facility] Primary Care at [address] [place] [address] Tj Paz MD [address] [place] [address] [address] [place] [address] Recommendation Request Social History Tobacco [...] on file Legal Sex Male 11:52 PM 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
--- OUTSIDE RECORDS SUMMARY | 2025-04-12 19:50 | XMS_ITS | Encounter Summary ---
Author Organization [facility] Healthcare Address [address] [place] [address] Care Team Providers Care Knitter Machine Name Role Phone Tj Paz MD Primary Care Provider Reason for Visit * Reason Onset Date Comments Symptom Based Call 04/12/2025 Encounter Details Date Type Department Care Team (Late st Contact Info) Description 04/12/2025 Telephone [facility] Medical Group Primary Care at [address] [place] [phone] Tj Paz MD [address] [place] [address] [address] [place] [address] Symptom Based Call Social History [...] on file 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 VEHICLE WASHER relayed that labs had been placed and [...] order can be sent to [facility] in [place]. Since patient's visit yesterday, she and patient have discussed the above symptoms and would like to rule out a UTI. Please contact Destinee with the next steps. Does message need to be routed? Yes-Action Needed documented in this encounter Plan of Treatment Not on file documented as of this encounter Visit Diagnoses Not on filedocumented in this encounter Care Teams Knitter Machine Relationship Specialty Start Date End Date Tj Paz MD PCP - General 10/18/16 documented as of this encounter
--- OUTSIDE RECORDS SUMMARY | 2025-04-12 19:50 | XMS_ITS | Encounter Summary ---
Author Organization [facility] Healthcare Address [address] [place] [address] Care Team Providers Care Director Of Property Management Name Role Phone Tj Paz MD Primary Care Provider Reason for Visit * Reason Onset Date Comments Dizziness 04/11/2025 Encounter Details Date Type Department Care Team (Late st Contact Info) Description 04/11/[address] 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
[2025-04-12 20:09] VITALS: BP 167/91; PULSE 72; RESP 14; O2SAT 96
--- NOTE | 2025-04-12 20:09 | PC.NURSE ---
Pt. able to ambulate to restroom independently and return to bed. at bedside.
[2025-04-12] MEDS: ASPIRIN 325 MG TABLET PO (20:10)
[2025-04-12] MEDS: SODIUM CHLORIDE 0.9% IV 1,000 ML 999 ML IV CONT (20:10)
--- NOTE | 2025-04-12 21:09 | ECG_ITS ---
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
[2025-04-12 21:43] LABS: Troponin I 0.043 ng/mL (0.000-0.034)
[2025-04-12 21:49] VITALS: BP 166/74; PULSE 71; RESP 16; O2SAT 97
--- NOTE | 2025-04-12 22:11 | PC.NURSE ---
Pt. and pt. had questions before this RN started Heparin. Dr. Monroy to notified and to bedside to answer questions.
[2025-04-12 22:34] VITALS: BP 159/85; PULSE 65; RESP 16; O2SAT 94
[2025-04-12] MEDS: HEPARIN SOD/D5W 100 UNITS/ML 25,000 UNITS/250 ML BAG 10 UNITS IV CONT (22:37)
[2025-04-13] VITALS (38 sets, daily range): BP systolic 104–163; BP diastolic 57–97; PULSE 59–92; RESP 13–25; TEMP 36.4–36.9; O2SAT 94–100; BMI 27.1
--- NOTE | 2025-04-13 | ECHO_ITS ---
Patient Info Name: Nicolás Shaw Age: 80 years : 1945 Gender: Male Ht: 69 in Wt: 184 lbs BSA: 2.03 m2 HR: 77 bpm BP: 138 / 78 mmHg Technical Quality: Good Exam Date: 04/13/2025 10:03 AM Patient Status: O Admit Date: 04/13/2025 Exam Type: CA echo doppler w bubble study Complete two-dimensional, color flow and Doppler transthoracic echocardiogram is performed with agitated saline. Staff Referring Physician: Dipika Siegel Die Maintenance: Jose Sr III Attending Provider: Valerie Bran Contrast/Agitated Saline Contrast/Ag. Saline: Agitated Saline Amount: 12.00 ml Administered By: Jose Sr III Existing IV Access: Yes IV Access Condition: patent with no signs of infiltration Summary 1. Left ventricular systolic function is normal, estimated at 65-70. 2. The left ventricular diastolic function is grade I diastolic dysfunction. 3. Intact interatrial septum visualized by agitated saline imaging. 4. There is severe aortic valve stenosis with a peak velocity of 478 cm/s, mean gradient of 37 mmHg, and aortic valve area of 0.9 cm2. 5. There is moderate aortic valve calcification. Left Ventricle Left ventricular chamber dimension is normal. Left ventricular systolic function is normal, estimated at 65-70. There is mildly increased left ventricular wall thickness. Left ventricular septal wall motion is normal. The left ventricular diastolic function is grade I diastolic dysfunction. Right Ventricle Right ventricular chamber dimension is normal. Right ventricular systolic function is normal. Left Atria Left atrial chamber dimension is normal. Right Atria Right atrial chamber dimension is normal. Atrial Septum Intact interatrial septum visualized by agitated saline imaging. Aortic Valve The aortic valve is trileaflet. There is no aortic valve sclerosis. There is severe aortic valve stenosis with a peak velocity of 478 cm/s, mean gradient of 37 mmHg, and aortic valve area of 0.9 cm2. There is no aortic valve regurgitation. There is moderate aortic valve calcification. Pulmonic Valve The pulmonic valve is normal. There is no pulmonic valve stenosis. There is no pulmonic regurgitation. Mitral Valve The mitral valve has normal leaflets. There is no mitral valve stenosis. There is no mitral valve regurgitation. There is mild mitral valve calcification. Tricuspid Valve The tricuspid valve leaflets are normal. There is no significant tricuspid valve stenosis. There is no tricuspid valve regurgitation. Pericardium/Pleural The pericardium appears normal. There is no pericardial effusion. Inferior Vena Cava Normal inferior vena cava with >50% collapse upon inspiration consistent with normal right atrial pressure, 5 mmHg. Aorta The aortic root size at the sinus of Valsalva is normal. The prox ascending aorta size is normal. Left Ventricular Outflow Tract Name Value Normal LVOT 2D LVOT Diameter 2.2 cm LVOT Doppler LVOT Peak Velocity 90 cm/s LVOT Peak Gradient 3 mmHg LVOT Mean Gradient 2 mmHg LVOT VTI 17 cm LVOT VTI/AV VTI Ratio 0.2 LVOT Stroke Volume 65 ml LVOT CO 4.7 l/min LVOT CI 2.3 l/min/m2 Pulmonic Valve Name Value Normal PV Doppler PV Peak Velocity 87 cm/s PV Peak Gradient 3 mmHg PV Mean Gradient 2 mmHg Mitral Valve Name Value Normal MV Doppler MV Peak Gradient 4 mmHg MV Mean Gradient 2 mmHg MV Area (Cont Eq VTI) 2.9 cm2 MV Diastolic Function MV E Peak Velocity 73 cm/s MV A Peak Velocity 89 cm/s MV E/A 0.8 MV Decel Time (PW) 291 ms MV Annular TDI MV E/e' (Septal) 19.0 MV E/e' (Lateral) 16.3 MV E/e' (Average) 17.6 Tricuspid Valve Name Value Normal Estimated PAP/RSVP RA Pressure 5 mmHg <=5 TV Annular TDI TV Lateral Milagro s' Velocity 14.1 cm/s >=9.5 Aortic Valve Name Value Normal AV Doppler AV Peak Velocity 478 cm/s AV Peak Gradient 91 mmHg AV Mean Gradient 37 mmHg AV VTI 71 cm AV Area (Cont Eq VTI) 0.9 cm2 >=3.0 AV Area (Cont Eq Mazin) 0.7 cm2 AV DI (Mazin) 0.19 AV Regurgitation 2D LVOT Area 3.9 cm2 Ventricles Name Value Normal LV Dimensions 2D/MM IVS Diastolic Thickness (2D) 1.3 cm 0.6-1.0 LVID Diastole (2D) 3.7 cm 4.2-5.8 LVIW Diastolic Thickness (2D) 1.2 cm 0.6-1.0 LVID Systole (2D) 2.7 cm 2.5-4.0 LVOT Diameter 2.2 cm LV Mass (2D Cubed) 152.06 g 88.00-224.00 LV Mass Index (2D Cubed) 75 g/m2 49-115 Relative Wall Thickness (2D) 0.66 <=0.42 LV Fractional Shortening/Ejection Fraction 2D/MM LV Fractional Shortening (2D) 26 % 25-43 LV EF (2D Teichholz) 52 % LV Diastolic Volume (4C MOD) 111 ml LV EF (4C MOD) 52 % LV Diastolic Volume (2C MOD) 92 ml LV EF (2C MOD) 63 % LV Diastolic Volume (BP MOD) 109 ml 62-150 LV Diastolic Volume Index (BP MOD) 54 ml/m2 34-74 LV Systolic Volume (BP MOD) 45 ml 21-61 LV Systolic Volume Index (BP MOD) 22 ml/m2 11-31 LV EF (BP MOD) 59 % 52-72 LV Diastolic Length (4C) 8.2 cm LV Systolic Length (4C) 6.3 cm LV Stroke Volume (4C MOD) 58 ml Atria Name Value Normal LA Dimensions LA Volume (4C A-L) 50 ml LA Volume (BP A-L) 78 ml RA Dimensions RA Systolic Major [place] Length (4C) 5.4 cm 2.1-2.7 RA Area (4C) 17.3 cm2 <=18.0 Report Signatures
--- NOTE | 2025-04-13 01:13 | ECG_ITS ---
Test Date: 2025-04-13 01:37:31 Measurements Intervals [place] Rate: 77 P: 46 DC: 235 QRS: -46 QRSD: 118 T: 56 QT: 408 QTc: 462 Interpretive Statements SINUS RHYTHM WITH FIRST DEGREE AV BLOCK LEFT ANTERIOR FASCICULAR BLOCK [QRS AXIS <= -45, QR IN I, RS IN II] MINIMAL VOLTAGE CRITERIA FOR LVH, CONSIDER NORMAL VARIANT [MEETS CRITERIA IN ONE OF: R(aVL), S(V1), R(V5), R(V5/V6)+S(V1)] ABNORMAL ECG Compared to ECG 04/12/2025 21:14:12 NO DIFFERENCE Electronically Signed On 04-13-2025 07:35:12 CDT by Bernard Weir M.D.
[2025-04-13 02:15] LABS: Troponin I 0.053 ng/mL (0.000-0.034)
--- NOTE | 2025-04-13 02:17 | ADMGEN ---
This patient, Nicolás Shaw, was admitted to IMU Room 204-01. Patient/family oriented to hospital policies and general routines including ID bracelet, bed and alarms, visiting hours, pain management, procedures, bathroom and other care routines, personal items, smoking policy, room service/diet, and visiting hours. Information on how to activate the Rapid Response Team has been discussed. Patient/Family are encouraged to report perceived risks to care and to ask questions if they do not understand what they are told or what they should do.
[2025-04-13 04:37] LABS: Hematocrit 44.4 % (42.0-52.0); Hemoglobin 14.8 g/dL (14.0-18.0); Immature Granulocyte Percent A 0.2 % (0-0.5); Lymphocytes Absolute Auto 2.06 K/mm3 (0.9-3.2); Mean Corpuscular HGB Conc 33.3 g/dl (32-36); Mean Corpuscular Hemoglobin 30.1 pg (26-34); Mean Corpuscular Volume 90.4 fl (80-100); Nucleated Red Blood Cells Absolute Auto 0.000 K/mm3 (0.0-0.012); Nucleated Red Blood Cells Perc 0.0 % (0.0-0.2); Platelet Count Result 454 k/mm3 (150-375); Red Blood Count 4.91 M/mm3 (4.6-6.20); White Blood Count 11.0 K/mm3 (4.5-10.0)
[2025-04-13 04:52] LABS: INR 1.1; Prothrombin Time 14.8 Seconds (11.1-14.7)
[2025-04-13 04:53] LABS: Partial Thromboplastin Time 55.2 Seconds (22.3-36.8)
[2025-04-13 05:38] LABS: Troponin I 0.048 ng/mL (0.000-0.034)
--- NOTE | 2025-04-13 07:22 | P.HP_ITS ---
H&P: HPI History of Present Illness Date/Time: 04/13/25 07:22 Chief Complaint: AMS Narrative: Patient is 80M with PMHx history of hypertension, hyperlipidemia, chronic meningioma, presented to ED due to multiple complaints, including chest pressure, intermittent lightheadedness, and AMS for a few days. The patient had undergone broad neurological and cardiac workups in the past. Endorses a mild headache on the right side and has some chronic paresthesias in his face that are not new and have been going on for years. In the ED, it was decided that since the symptoms had been going on for multiple days at a minimum, not a candidate for thrombectomy or TNK candidate in the event of stroke. Pertinent ED labs: WBC 11, H/H 14.8/44.4, PLT 454, Na 137, K 3.5, Cr 0.66. Troponin: 0.043>0.053>0.048. Head CT shows 1. No acute intracranial abnormality.2: Slight increased size of this likely calcified meningioma on the left parietal vertex.3: Chronic age- related findings. Regarding chronic chest pain, the patient had an extensive workup in October/2024 with his womens health nurse practitioner at [facility], including a carotid ultrasoun d, stress test, and an echocardiogram, and reports that everything was negative. In the ED, the patient was started on a heparin drip and received 325 mg of aspirin, after which cardiology was consulted. Regarding AMS ,Ordered ammonia, vitamin B12, Syphilis, and TSH. Lately as per his Patient is confused and repeats the thing same. Today patient is AO x4. The neurologist is consulted and will consider a brain MRI . Regarding the meningioma patient, who was diagnosed 3 years ago and undergoes yearly follow-up MRI. His reports he has been due for a long time for neurology follow-up. And he has an upcoming appointment with the [facility] for Dr. Nicolás Arevalo. Review of Systems Review of Systems: As reviewed above in HPI [facility] Past Medical History Medical History (Updated 04/13/25 @ 14:43 by Andie Dumont MD) Colon polyp Dysphagia Nondisplaced fracture of distal end of right radius Hypertension Hypercholesterolemia GERD (gastroesophageal reflux disease) Surgical History Surgical History Hx of tympanostomy tubes Family History Family History (Updated 04/13/25 @ 02:19 by Liss Ocampo RN) Father Heart failure Mother Family history of arthritis Social History Social History Smoking status: Never smoker Alcohol intake: current Drinks per week: 2 Substance use: never Substance use type: does not use Lack of Transportation: No Lack of Food: Never True Current Housing: I Have Housing Concerned About Future Housing: No Difficulty Paying Gas/Electric Bills: No Difficulty Paying for Meds: No Currently Unemployed: No Education: High School Diploma/GED Difficulty w/ Childcare or Family Care: No Living arrangements: with family Spiritual care concerns: No Meds Home Medications and Allergies Home Medications ?Medication ?Instructions ?Recorded ?Confirmed ?Type qgnfilru-ewh-rpanj acid 0.4 1 tablet PO DAILY 02/22/20 04/13/25 History mg-lycopene 300 mcg-lutein 250 mcg tablet (Centrum Silver) omeprazole 20 mg capsule,delayed 20 mg PO DAILY 04/13/25 History release rosuvastatin 20 mg tablet 20 mg PO DAILY 02/22/2003/22 History valsartan 320 1 tablet PO DAILY 08/19/20 0 04/13/25 History mg-hydrochlorothiazide 12.5 mg tablet amlodipine 10 mg tablet 10 mg PO DAILY 04/12/2503/22 History isosorbide mononitrate 30 mg 30 mg PO DAILY 04/12/25 0 04/13/25 History tablet,extended release 24 hr Allergies Allergy/AdvReac Type Severity Reaction Status Date / Time No Known Allergies Allergy Unknown NA Verified 04/13/25 02:24 Vital Signs Vital Signs - 24 hr 04/12/25 18:10 04/12/25 19:39 04/12/25 19:42 Temperature 98.6 F Pulse Rate 87 72 Respiratory Rate 16 15 Blood Pressure 179/91 H 148/82 H Pulse Oximetry 97 96 Oxygen Delivery Room Air Room Air Room Air 04/12/25 20:09 04/12/25 21:49 04/12/25 22:34 Temperature Pulse Rate 72 71 65 Respiratory Rate 14 16 16 Blood Pressure 167/91 H 166/74 H 159/85 H Pulse Oximetry 96 97 94 Oxygen Delivery 04/13/25 00:48 04/13/25 02:10 04/13/25 02:13 Temperature 97.6 F Pulse Rate 73 77 73 Respiratory Rate 20 15 20 Blood Pressure 163/97 H 130/81 163/97 H Pulse Oximetry 94 95 94 Oxygen Delivery 04/13/25 02:31 04/13/25 03:14 04/13/25 04:00 Temperature 97.8 F Pulse Rate 73 Respiratory Rate Blood Pressure 146/73 H Pulse Oximetry 96 Oxygen Delivery Room Air Room Air 04/13/25 04:00 04/13/25 06:00 Temperature Pulse Rate 68 59 L Respiratory Rate Blood Pressure Pulse Oximetry Oxygen Delivery Exam Narrative: GENERAL: [Well-appearing, well-nourished, and in no acute distress.] HEAD: [Normocephalic, atraumatic.] EYES: [PERRLA and EOMI.] ENT: Nares clear, no rhinorrhea or epistaxis. Mucous membranes moist. NECK: Supple. CHEST: [Clear to auscultation. No respiratory distress.] HEART: [Regular rate and rhythm]. No murmur heard. [Normal peripheral pulses.] ABDOMEN: [Soft, nondistended], [nontender], [No rigidity or guarding] EXTREMITIES: Normal range of motion. [No edema.] SKIN: Warm, dry, no rash. NEURO: No overt focal deficits, moving all extremities, complaining of intermittent confusion but presently awake alert oriented answering questions appropriately. at bedside states that he is intermittently confused forgetful and has been repeating things even in the examination room while in the ER. PSYCH: [Normal mood and affect.] H&P: Results Labs Labs: Short CBC 04/12/25 04/13/25 Range/Units 18:22 04:26 WBC 13.6 H 11.0 H (4.5-10.0) K/mm3 Hgb 16.3 14.8 (14.0-18.0) g/dL Hct 48.9 44.4 (42.0-52.0) % Plt Count 526 H 454 H (150-375) k/mm3 BMP 04/12/25 18:22 Sodium 137 Potassium 3.5 Chloride 99 Carbon Dioxide 27 BUN 12 Creatinine 0.66 L Glucose 103 Calcium 9.1 Cardiac Enzymes 04/12/25 04/12/25 04/13/25 Range/Units 18:22 21:12 01:45 Troponin I 0.035 H* 0.043 H* D 0.053 H* D (0.000-0.034) ng/mL 04/13/25 Range/Units 04:26 Troponin I 0.048 H* (0.000-0.034) ng/mL Liver Function 04/12/25 Range/Units 18:22 Total Bilirubin 0.4 (0.2-1.3) mg/dL AST 42 (17-59) U/L ALT 20 (6-50) U/L Alkaline Phosphatase 87 (38-126) U/L Albumin 4.9 (3.5-5.1) g/dL Urine 04/12/25 Range/Units 18:22 Urine Color Yellow (Yellow) Urine Appearance Clear (Clear) Urine pH 7.0 (5.0-9.0) Ur Specific [place] 1.005 (1.001-1.035) Urine Protein Negative (Negative) mg/dL Urine Glucose (UA) Negative (Negative) mg/dL Assessment and Plan Assessment and plan (1) Non-ST elevation [place] (NSTEMI): Code(s): I21.4 - Non-ST elevation (NSTEMI) myocardial infarction Status: Acute Assessment and Plan: -On heparin drip. -Rosuvastatin 40 mg, and aspirin 81 mg -continue heparin drip and give sublingual nitro if needed -Echocardiogram w bubble study pending -Denies any illicit drug use -Reviewed EKG and CXR (2) Metabolic encephalopathy: Code(s): G93.41 - Metabolic encephalopathy Status: Acute Assessment and Plan: Chronic meningioma who follows up with the Neurology CT head reviewed Pending ammonia, vitamin B12, syphilis and TSH Order UDS Neurology consulted No evidence of infection No evidence of electrolyte abnormality Plan Code status full code DVT prophylaxis heparin drip Hospitalist MIPS Advance Care Plan I have confirmed that the patient's Advanced Care Plan is present, code status is documented, or surrogate decision maker is listed in patient medical record.: Yes Medication Reconciliation I have utilized all available resources to obtain, update and review the patients current medications (includes all prescriptions, OTC, herbals, cannabis, and nutritional supplements).: Yes
[2025-04-13] MEDS: ASPIRIN 81 MG ENTERIC TABLET PO (08:39)
[2025-04-13] MEDS: ISOSORBIDE MONONITRATE 30 MG TAB.ER.24H PO (08:39)
[2025-04-13] MEDS: MULTIVITAMINS /C LUTEIN (CENTRUM SILVER) TABLET *BKC 1 TAB PO (08:40)
[2025-04-13] MEDS: VALSARTAN 160 MG TABLET 320 MG PO (08:40)
[2025-04-13] MEDS: ROSUVASTATIN 20 MG TABLET PO (08:40)
[2025-04-13 08:54] LABS: Ammonia < 9 umol/L (9-30)
--- OUTSIDE RECORDS SUMMARY | 2025-04-13 08:58 | XMS_ITS | Encounter Summary ---
Author Organization [facility] Healthcare Address [address] [place] [address] Care Team Providers Care Supervisor Fabrication Department Name Role Phone Tj Paz MD Primary Care Provider Reason for Visit * Reason Onset Date Comments Recommendation Request 04/07/2025 Encounter Details Date Type Department Care Team ([facility] st Contact Info) Description 04/07/2025 Telephone [facility] Medical Group Primary Care at [address] [place] [address] Tj Paz MD [address] [place] [address] [address] [place] [address] Recommendation Request Social History Tobacco [...] on file 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
--- OUTSIDE RECORDS SUMMARY | 2025-04-13 08:58 | XMS_ITS | Encounter Summary ---
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 [employer] relayed that labs had been placed and [...] order can be sent to [facility] in [place]. Since patient's visit yesterday, she and patient have discussed the above symptoms and would like to rule out a UTI. Please contact Destinee with the next steps. Does message need to be routed? Yes-Action Needed documented in this encounter Plan of Treatment Not on file documented as of this encounter Visit Diagnoses Not on filedocumented in this encounter Care Teams Mechanical Expert Relationship Specialty Start Date End Date Tj Paz MD PCP - General 10/18/16 documented as of this encounter
--- OUTSIDE RECORDS SUMMARY | 2025-04-13 08:58 | XMS_ITS | Clinical Summary ---
Author Organization [facility] Address [address] [place] [address] Care Team Providers Care Billposting Supervisor Name Role Phone Isreal Paz MD Primary [...] By: ISREAL GUDINO Comment: Colonoscopy 10/2017 in [place]; Polyps 5yrs october 2022 Sensorineural hearing loss, [...] (09/27/2021): Added automatically from request for surgery [id number] Gastro-esophageal reflux 04/14/2019 Assessment & Plan (01/06/2025 [...] 01/30/2021 Assessment & Plan (09/28/2020 11:59 AM TAXICAB DISPATCHER): The patient's chest discomfort is atypical and [...] 10/02/2018 Assessment & Plan (09/02/2017 10:39 AM TAXICAB DISPATCHER): Patient has a history of eustachian tube [...] and encouraged to follow up with his edge banding machine offbearer, Dr. Arambula, regarding his persistent complaints. He was in agreement with the plan of care. Assessment & Plan (08/25/2017 9:41 AM TAXICAB DISPATCHER): Humidification, fluids, and rest were recommended. Patient was instructed to take antibiotic as directed. Patient was encouraged to take antibiotic with food. I have also recommended daily probiotic, yogurt or capsule, while on the antibiotic. Acute non-recurrent maxillary sinusitis 08/25/2017 10/02/2018 Assessment & Plan (08/25/2017 9:41 AM TAXICAB DISPATCHER): Humidification, fluids, and rest were recommended. Patient [...] Department Care Team Description 04/12/2025 Orders Only [facility] Medical Group Primary Care at [address] [phone] Isreal Paz MD Acute cystitis without hematuria (Primary Dx) 04/12/2025 Telephone [facility] Primary Care at [address] [phone] Isreal Paz MD Symptom Based Call 04/11/2025 4:15 PM CDT Office Visit [facility] Medical [facility] Primary Care at [address] [phone] Isreal Paz MD Short-term memory loss (Primary Dx); BMI 27.0-27.9,adult; Right facial numbness; Essential (primary) hypertension 04/11/2025 Orders Only [facility] Medical [facility] Primary Care at [address] [phone] Isreal Paz MD Memory loss (Primary Dx); Balance problems; Right facial numbness 04/11/2025 Nurse Triage [facility] Medical [facility] Primary Care at [address] [place] [address] Isreal Paz MD 04/07/2025 Telephone [facility] Primary Care at [address] [place] [address] Isreal Paz MD Recommendation Request 03/28/2025 Orders Only [facility] Medical [facility] Primary Care at [address] [place] [address] Isreal Paz MD TIA (transient ischemic attack) (Primary Dx) 03/07/2025 Telephone [facility] Primary Care at [address] [place] [address] Lizy Ptael Chart Review ([facility] (Med Adherence)) 01/13/2025 9:00 AM CDT Office Visit [facility] at [address] [place] [address] Deny Bullock NP Mixed hyperlipidemia [...] neck surgery TYMPANOSTOMY TUBE PLACEMENT 09/18/2017 Bilateral [place], [place] Medical History Medical History Date Comments Hx Other Medical 2004 stretch esophag us Hx Other Medical 2005 back surgery Hx Other Medical chest pain 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 Hypertension Hypertension Hyperlipidemia Hyperlipidemia Hx Other Medical skin lesions re moved; Comments: LNP 08/09/2015 - History of test for hearing 01/01/2017 Chest pain Shortness of breath Heart murmur Heart valve stenosis Aortic stenosis Sick sinus syndrome (HCC) Ventricular tachycardia (HCC) Family History Medical History Relation Name Comments Depression Father Hiro Depression; Heart disease Father Hrio Heart disease; Arthritis Mother Ursella arthritis; Other [...] on file Legal Sex Male 11:52 PM TAXICAB DISPATCHER Gender Identity Not on file Sexual Orientation [...] hyperlipidemia HEMOGLOBIN A1C Routine 06/29/2024 8:47 AM TAXICAB DISPATCHER PSA SCREEN Routine 06/29/2024 8:47 AM TAXICAB DISPATCHER HM COLONOSCOPY Routine 09/22/2017 from Last 3 [...] 2:08 AM CDT Performed at: 01 - [facility] [id number] Battery Parts Assembler: Jayjay Araiza PhD, Phone: [phone] us Isreal Paz MD LAB BLOOD ORDERABLES [...] 12/22/2024 1:07 AM CDT Performed at: - [address] [id number] Battery Parts Assembler: Jayjay Araiza PhD, Phone: [phone] Isreal Paz MD LAB BLOOD ORDERABLES nal Result [facility] - 01 * PSA screen (06/29/2024 8:47 AM TAXICAB DISPATCHER) [facility] PSA 2.1 0.0 - 4.0 ng/mL [facility] - 01 Comment: Jose ECLIA methodology. According to the [place] [employer], Serum PSA should decrease and [...] absence of malignant disease. 06/29/2024 8:47 AM TAXICAB DISPATCHER 06/29/2024 Narrative [facility] - 06/30/2024 9:09 AM TAXICAB DISPATCHER Performed at: [address] [place] [id number] Battery Parts Assembler: Jayjay Araiza PhD, Phone: [phone] Isreal Paz MD LAB BLOOD ORDERABLES Fi nal Result Performing Organization Address [facility] Co de Phone Number [facility] - * (ABNORMAL) Hemoglobin A1c (06/29/2024 8:47 AM TAXICAB DISPATCHER) Hgb A1C 6.2(H) 4.8 - 5.6 % [facility] - Comment: Prediabetes: 5.7 - 6.4 Diabetes: >6.4 Glycemic control for adults with diabetes: <7.0 06/29/2024 8:47 AM TAXICAB DISPATCHER 06/29/2024 Narrative [facility] - 06/30/2024 7:10 AM TAXICAB DISPATCHER Performed at: [address] [place] [id number] Battery Parts Assembler: Jayjay Araiza PhD, Phone: [phone] Isreal Paz MD LAB BLOOD ORDERABLES Fi nal Result Performing Organization Address [facility]/ZIP Co de Phone Number [facility] - * HM COLONOSCOPY (09/22/2017) Pathologist [facility] Colonoscopy Unknown Historical Provider HEALTH MAINTENANCE Final Result from Last 3 Months or Most Recently Relevant to Health Maintenance Insurance MEDICARE [facility]IC[facility] [employer]V[facility]AGE Advance Directives For more information, please contact: [phone] * Full Code (Latest Code Status on File) Date Activated Date Inactivated Comments 07/03/2020 10:44 PM 07/04/2020 8:44 PM Care Teams Billposting Supervisor Relationship Specialty Start Date End Date Isreal Paz MD [facility] - General 10/18/16
--- OUTSIDE RECORDS SUMMARY | 2025-04-13 08:58 | XMS_ITS | Encounter Summary ---
Author Organization [facility] Healthcare Address [address] [place] [address] Care Team Providers Care Manager People Name Role Phone Tj Paz MD Primary Care Provider Encounter Details Date Type Department Care Team (Late st Contact Info) Description 04/12/[address] 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
--- NOTE | 2025-04-13 09:19 | PM.CNCAR ---
Assessment and Plan Assessment and plan (1) Non-ST elevation [place] (NSTEMI): Code(s): I21.4 - Non-ST elevation (NSTEMI) myocardial infarction Status: Acute (2) Hypertension: Code(s): I10 - Essential (primary) hypertension Status: Acute Plan Diagnosis: NSTEMI-chest pain, elevated troponin Hypertension Plan: Continue heparin drip Continue aspirin 81 mg daily, rosuvastatin 20 mg daily Recommend cardiac catheterization to further evaluate coronaries. Alternatives, risks, and benefits of procedure discussed in detail with patient. He wants to talk to his and decide if he wants to proceed. Keep NPO at midnight No beta-kwabena given first-degree AV block with VA of 235 millisecond Continue Imdur 30 mg daily Continue home blood pressure medications amlodipine, valsartan, hydrochlorothiazide Check TTE to evaluate LVEF any wall motion abnormality Check and replace electrolytes to keep potassium greater than 4 and magnesium greater than 2 Monitor on telemetry Cardiology will continue to follow History of Present Illness History of Present Illness Consult date/time: 04/13/25 09:19 Reason For Visit: confusion,chest pain,elavated troponin Narrative: 80-year-old male with history of hypertension, hyperlipidemia, GERD presents with chief complaints of chest pain. Patient reports off and on chest pain for the past 3 weeks that comes on both with exertion and at rest. Pain is located in the center of his chest and is without any radiation. Pain is of intensity 2-3/10. He states that he had a negative stress test in October of this year. Troponin is elevated at 0.035, 0.043, 0.053, 0.048. EKG shows sinus rhythm with first-degree AV block and left anterior fascicular block. He was started on heparin drip for ACS. Cardiology is consulted for further recommendations. Patient currently does not have any chest pain. No shortness of breath, dizziness. He states that he has occasional lightheadedness. No leg swelling, recent weight gain, presyncope, syncope, orthopnea, PND. He reports having neuropathy. He reports numbness on the right side of his face. He he states that he had a carotid ultrasound in October of this year which was negative. Workup: Hemoglobin: 14.8 Creatinine: 0.66 Troponin: 0.035, 0.043, 0.053, 0.048 EKG: Sinus rhythm with first-degree AV block (VA interval 235 milliseconds), left anterior fascicular block Chest x-ray: No acute cardiopulmonary pathology CT head:IMPRESSION: 1. No acute intracranial abnormality. 2: Slight increased size of this likely calcified meningioma left parietal vertex. 3: Chronic age-related findings. Review of Systems Review of Systems: Complete review of systems was performed and pertinent positives are noted in HPI [facility] Past Medical History Medical History (Updated 04/13/25 @ 09:24 by Andie Dumont MD) Colon polyp Dysphagia Nondisplaced fracture of distal end of right radius Hypertension Hypercholesterolemia GERD (gastroesophageal reflux disease) Surgical History Surgical History Hx of tympanostomy tubes Family History Family History (Updated 04/13/25 @ 02:19 by Liss Ocampo RN) Father Heart failure Mother Family history of arthritis Social History Social History Smoking status: Never smoker Alcohol intake: current Drinks per week: 2 Substance use: never Substance use type: does not use Lack of Transportation: No Lack of Food: Never True Current Housing: I Have Housing Concerned About Future Housing: No Difficulty Paying Gas/Electric Bills: No Difficulty Paying for Meds: No Currently Unemployed: No Education: High School Diploma/GED Difficulty w/ Childcare or Family Care: No Living arrangements: with family Spiritual care concerns: No Meds Home Medications and Allergies Home Medications ?Medication ?Instructions ?Recorded ?Confirmed ?Type moiamkpx-fbq-zqbbk acid 0.4 1 tablet PO DAILY 02/22/20 04/13/25 History mg-lycopene 300 mcg-lutein 250 mcg tablet (Centrum Silver) omeprazole 20 mg capsule,delayed 20 mg PO DAILY 02/22/20 04/13/25 History release rosuvastatin 20 mg tablet 20 mg PO DAILY 02/22/20 04/13/25 History valsartan 320 1 tablet PO DAILY 08/19/20 04/13/25 History mg-hydrochlorothiazide 12.5 mg tablet amlodipine 10 mg tablet 10 mg PO DAILY 04/12/25 04/13/25 History isosorbide mononitrate 30 mg 30 mg PO DAILY 04/12/25 04/13/25 History tablet,extended release 24 hr Allergies Allergy/AdvReac Type Severity Reaction Status Date / Time No Known Allergies Allergy Unknown NA Verified 04/13/25 02:24 Vital Signs Vital Signs - 24 hr 04/12/25 18:10 04/12/25 19:39 04/12/25 19:42 Temperature 37.0 C Pulse Rate 87 72 Respiratory Rate 16 15 Blood Pressure 179/91 H 148/82 H Pulse Oximetry 97 96 Oxygen Delivery Room Air Room Air Room Air 04/12/25 20:09 04/12/25 21:49 04/12/25 22:34 Temperature Pulse Rate 72 71 65 Respiratory Rate 14 16 16 Blood Pressure 167/91 H 166/74 H 159/85 H Pulse Oximetry 96 97 94 Oxygen Delivery 04/13/25 00:48 04/13/25 02:10 04/13/25 02:13 Temperature 36.4 C Pulse Rate 73 77 73 Respiratory Rate 20 15 20 Blood Pressure 163/97 H 130/81 163/97 H Pulse Oximetry 94 95 94 Oxygen Delivery 04/13/25 02:31 04/13/25 03:14 04/13/25 04:00 Temperature 36.6 C Pulse Rate 73 Respiratory Rate Blood Pressure 146/73 H Pulse Oximetry 96 Oxygen Delivery Room Air Room Air 04/13/25 04:00 04/13/25 06:00 04/13/25 07:00 Temperature 36.9 C Pulse Rate 68 59 L 68 Respiratory Rate 16 Blood Pressure 138/78 Pulse Oximetry 95 Oxygen Delivery 04/13/25 08:00 04/13/25 08:00 Temperature 36.9 C Pulse Rate 77 Respiratory Rate 20 Blood Pressure 138/78 Pulse Oximetry 95 Oxygen Delivery Room Air Exam Narrative: General: Alert oriented x3, no acute distress Neck: Supple, no JVD Chest: Bilaterally clear to auscultation, no rales or rhonchi Cardiac: S1, S2 +, regular rate, regular rhythm, no murmurs or rubs Extremities: No pedal edema, no skin rash Neurologic: Alert and oriented x3, no focal neurological deficits Results Labs and Meds 04/13/25 04:26 04/12/25 18:22 Lab results: Cardiac Enzymes 04/12/25 04/12/25 04/13/25 Range/Units 18:22 21:12 01:45 AST 42 (17-59) U/L Troponin I 0.035 H* 0.043 H* D 0.053 H* D (0.000-0.034) ng/mL 04/13/25 Range/Units 04:26 AST (17-59) U/L Troponin I 0.048 H* (0.000-0.034) ng/mL Coagulation 04/13/25 Range/Units 04:26 PT 14.8 H (11.1-14.7) Seconds APTT 55.2 H (22.3-36.8) Seconds CBC 04/12/25 04/13/25 Range/Units 18:22 04:26 WBC 13.6 H 11.0 H (4.5-10.0) K/mm3 RBC 5.40 4.91 (4.6-6.20) M/mm3 Hgb 16.3 14.8 (14.0-18.0) g/dL Hct 48.9 44.4 (42.0-52.0) % Plt Count 526 H 454 H (150-375) k/mm3 Lymph # (Auto) 2.05 2.06 (0.9-3.2) K/mm3 [place] # (Auto) 1.4 H 1.2 H (0.1-0.6) K/mm3 Eos # (Auto) 0.4 H 0.5 H (0-0.3) K/mm3 Baso # (Auto) 0.1 0.2 H (0.0-0.1) K/mm3 Comprehensive Metabolic Panel 04/12/25 Range/Units 18:22 Sodium 137 (137-145) mmol/L Potassium 3.5 (3.4-5.0) mmol/L Chloride 99 (98-107) mmol/L Carbon Dioxide 27 (22-30) mmol/L BUN 12 (9-20) mg/dL Creatinine 0.66 L (0.7-1.3) mg/dL Glucose 103 (65-110) mg/dL Calcium 9.1 (8.4-10.2) mg/dL AST 42 (17-59) U/L ALT 20 (6-50) U/L Alkaline Phosphatase 87 (38-126) U/L Total Protein 8.8 H (6.3-8.2) g/dL Albumin 4.9 (3.5-5.1) g/dL Intake and Output 04/12/25 04/13/25 04/13/25 23:59 07:59 15:59 Intake Total 1000 64.7 Balance 1000 64.7 Intake: IV 1000 64.7 Heparin Sod/D5w 100 Units/ml 25 64.7 ,000 units In 250 ml @ 1,000 UNITS/HR 10 mls/hr IV CONT . Q24H NADE[place] Rx#:[id number] Sodium Chloride 0.9% IV 1,000 1000 ml @ 999 mls/hr IV CONT .Q1H1M STA Rx#:[id number] Other: # Unmeasured Voids 1 Patient Weight 04/13/25 23:59 Weight 83.5 kg
[2025-04-13 09:29] LABS: Thyroid Stimulating Hormone 5.120 uIU/mL (0.465-4.680)
[2025-04-13 09:40] LABS: Syphilis IgG/IgM Antibody Non-Reactive (Nonreactive)
[2025-04-13 11:46] LABS: Partial Thromboplastin Time 83.4 Seconds (22.3-36.8)
--- NOTE | 2025-04-13 11:52 | WPDNEURCNPN ---
Consult date: 04/13/25 HPI: Nicolás Shaw is a 80 year old male admitted to the hospital through the emergency room for the complaints of change in the mental status in addition to history of intermittent confusion, dizziness, slight headache of 48hours duration without history of trauma or fall in addition to the complaints of intermittent chest pressure. Patient has been taking omeprazole 20mg daily, rosuvastatin 20mg daily, valsartan 320mg with hydrochlorothiazide 12.5mg daily, amlodipine 10mg daily, and isosorbide 30mg daily, not known to be allergic to any medications, history of 1. Hypertension 2. Hypercholesterolemia 3. GERD 4. Currently 2 drinks of alcohol per week, initial exam in the ER documented blood pressure 179/91 and routine lab studies were negative with negative CT scan of the head raising the possibility of calcified meningioma over the left parietal vertex and subsequently on the floor MRI documenting 10mm is stable meningioma over the left frontoparietal region with extensive nonspecific cerebral white matter disease. Cardiology consultation has been obtained for the non STEMI chest pain and elevated troponin with continuation of the heparin drip along with the aspirin and rosuvastatin and recommendation for the cardiac catheterization trans thoracic echocardiogram has been done. [facility] Past Medical History Medical History (Updated 04/13/25 @ 09:24 by Andie Dumont MD) Colon polyp Dysphagia Nondisplaced fracture of distal end of right radius Hypertension Hypercholesterolemia GERD (gastroesophageal reflux disease) Surgical History Surgical History Hx of tympanostomy tubes Family History Family History (Updated 04/13/25 @ 02:19 by Liss Ocampo RN) Father Heart failure Mother Family history of arthritis Social History Social History Smoking status: Never smoker Alcohol intake: current Drinks per week: 2 Substance use: never Substance use type: does not use Lack of Transportation: No Lack of Food: Never True Current Housing: I Have Housing Concerned About Future Housing: No Difficulty Paying Gas/Electric Bills: No Difficulty Paying for Meds: No Currently Unemployed: No Education: High School Diploma/GED Difficulty w/ Childcare or Family Care: No Living arrangements: with family Spiritual care concerns: No Meds Home Medications and Allergies Home Medications ?Medication ?Instructions ?Recorded ?Confirmed ?Type nnyvebyu-czi-emrxh acid 0.4 1 tablet PO DAILY 02/22/20 04/13/25 History mg-lycopene 300 mcg-lutein 250 mcg tablet (Centrum Silver) omeprazole 20 mg capsule,delayed 20 mg PO DAILY 02/22/20 04/13/25 History release rosuvastatin 20 mg tablet 20 mg PO DAILY 02/22/20 04/13/25 History valsartan 320 1 tablet PO DAILY 08/19/20 04/13/25 History mg-hydrochlorothiazide 12.5 mg tablet amlodipine 10 mg tablet 10 mg PO DAILY 04/12/25 04/13/25 History isosorbide mononitrate 30 mg 30 mg PO DAILY 04/12/25 04/13/25 History tablet,extended release 24 hr Allergies Allergy/AdvReac Type Severity Reaction Status Date / Time No Known Allergies Allergy Unknown NA Verified 04/13/25 02:24 Vital Signs Vital Signs - 24 hr 04/12/25 18:10 04/12/25 19:39 04/12/25 19:42 Temperature 37.0 C Pulse Rate 87 72 Respiratory Rate 16 15 Blood Pressure 179/91 H 148/82 H Pulse Oximetry 97 96 Oxygen Delivery Room Air Room Air Room Air 04/12/25 20:09 04/12/25 21:49 04/12/25 22:34 Temperature Pulse Rate 72 71 65 Respiratory Rate 14 16 16 Blood Pressure 167/91 H 166/74 H 159/85 H Pulse Oximetry 96 97 94 Oxygen Delivery 04/13/25 00:48 04/13/25 02:10 04/13/25 02:13 Temperature 36.4 C Pulse Rate 73 77 73 Respiratory Rate 20 15 20 Blood Pressure 163/97 H 130/81 163/97 H Pulse Oximetry 94 95 94 Oxygen Delivery 04/13/25 02:31 04/13/25 03:14 04/13/25 04:00 Temperature 36.6 C Pulse Rate 73 Respiratory Rate Blood Pressure 146/73 H Pulse Oximetry 96 Oxygen Delivery Room Air Room Air 04/13/25 04:00 04/13/25 06:00 04/13/25 07:00 Temperature 36.9 C Pulse Rate 68 59 L 68 Respiratory Rate 16 Blood Pressure 138/78 Pulse Oximetry 95 Oxygen Delivery 04/13/25 08:00 04/13/25 08:00 04/13/25 08:00 Temperature 36.9 C Pulse Rate 77 Respiratory Rate 20 Blood Pressure 138/78 139/75 Pulse Oximetry 95 Oxygen Delivery Room Air 04/13/25 08:00 04/13/25 09:35 04/13/25 09:35 Temperature Pulse Rate 92 Respiratory Rate Blood Pressure 155/78 H 147/74 H Pulse Oximetry Oxygen Delivery 04/13/25 10:00 04/13/25 11:36 Temperature 36.7 C Pulse Rate 75 73 Respiratory Rate 18 Blood Pressure 132/68 Pulse Oximetry 95 Oxygen Delivery Results Labs 04/13/25 04:26 04/12/25 18:22 Labs: Short CBC 04/12/25 04/13/25 Range/Units 18:22 04:26 WBC 13.6 H 11.0 H (4.5-10.0) K/mm3 Hgb 16.3 14.8 (14.0-18.0) g/dL Hct 48.9 44.4 (42.0-52.0) % Plt Count 526 H 454 H (150-375) k/mm3 BMP 04/12/25 18:22 Sodium 137 Potassium 3.5 Chloride 99 Carbon Dioxide 27 BUN 12 Creatinine 0.66 L Glucose 103 Calcium 9.1 Cardiac Enzymes 04/12/25 04/12/25 04/13/25 Range/Units 18:22 21:12 01:45 Troponin I 0.035 H* 0.043 H* D 0.053 H* D (0.000-0.034) ng/mL 04/13/25 Range/Units 04:26 Troponin I 0.048 H* (0.000-0.034) ng/mL Liver Function 04/12/25 Range/Units 18:22 Total Bilirubin 0.4 (0.2-1.3) mg/dL AST 42 (17-59) U/L ALT 20 (6-50) U/L Alkaline Phosphatase 87 (38-126) U/L Albumin 4.9 (3.5-5.1) g/dL Urine 04/12/25 Range/Units 18:22 Urine Color Yellow (Yellow) Urine Appearance Clear (Clear) Urine pH 7.0 (5.0-9.0) Ur Specific [place] 1.005 (1.001-1.035) Urine Protein Negative (Negative) mg/dL Urine Glucose (UA) Negative (Negative) mg/dL
--- NOTE | 2025-04-13 13:24 | PC.NURSE ---
Pt taken for a cardiac cath @ 1325.
--- NOTE | 2025-04-13 14:33 | P.SEDATION_ITS ---
Moderate Sedation Note-Pt Data Patient Data Diagnosis: Moderate sedation assessment was performed at 11:00 a.m. on 04/13/25. NSTEMI Procedure to be performed/Plan: Left heart catheterization and coronary angiography, possible percutaneous coronary intervention Allergies Allergy/AdvReac Type Severity Reaction Status Date / Time No Known Allergies Allergy Unknown NA Verified 04/13/25 02:24 Home Medications ?Medication ?Instructions ?Recorded ?Confirmed ?Type knpaylhn-mkc-awevl acid 0.4 1 tablet PO DAILY 02/22/20 04/13/25 History mg-lycopene 300 mcg-lutein 250 mcg tablet (Centrum Silver) omeprazole 20 mg capsule,delayed 20 mg PO DAILY 04/13/25 History release rosuvastatin 20 mg tablet 20 mg PO DAILY 02/22/2003/22 History valsartan 320 1 tablet PO DAILY 08/19/20 0 04/13/25 History mg-hydrochlorothiazide 12.5 mg tablet amlodipine 10 mg tablet 10 mg PO DAILY 04/12/2503/22 History isosorbide mononitrate 30 mg 30 mg PO DAILY 04/12/25 0 04/13/25 History tablet,extended release 24 hr Current Medications: Active Medications Amlodipine Besylate (Amlodipine Besylate 10 Mg Tablet) 10 mg PO DAILY [facility] Last Admin: 04/13/25 08:39 Dose: 10 mg Aspirin (Aspirin 81 Mg Enteric Tablet) 81 mg PO [facility] Last Admin: 04/13/25 08:39 Dose: 81 mg Heparin Sodium (Porcine) (Heparin Sodium 5,000 Units/Ml Vial) 4,000 units IV PUSH PRN PRN PRN Reason: aPTT less than 55 seconds Heparin Sodium (Porcine) (Heparin Sodium 5,000 Units/Ml Vial) 3,500 units IV PUSH PRN PRN PRN Reason: aPTT 55 - 70 seconds Last Admin: 04/13/25 05:04 Dose: 3,500 units Hydrochlorothiazide (Hydrochlorothiazide 12.5 Mg Capsule) 12.5 mg PO [facility] Last Admin: 04/13/25 08:40 Dose: 12.5 mg Heparin Sodium/Dextrose (Heparin Sodium/D5w 100 Units/Ml) 25,000 units in 250 mls @ 12 mls/hr IV CONT .[id number] [facility]; Protocol Last Titration: 09/24/25 12:05 Dose: 1,200 units/hr, 12 mls/hr Isosorbide Mononitrate (Isosorbide Mononitrate 30 Mg Tab.Er.24h) 30 mg PO DAILY [facility] Last Admin: 04/13/25 08:39 Dose: 30 mg Multivitamins/Minerals (Multivitamins /C Lutein (Centrum Silver) Tablet *Bkc) 1 tab PO DAILY [facility] Last Admin: 04/13/25 08:40 Dose: 1 tab Perflutren Lipid Microsphere (Perflutren Lipid Microspheres 1.5 Ml Vial Diluted To 10 Ml Total Volume) 0 ml IV PUSH ONCE PRN; Protocol PRN Reason: adequate visualization Stop: 04/16/25 08:24 Rosuvastatin Calcium (Rosuvastatin 20 Mg Tablet) 20 mg PO DAILY [facility] Last Admin: 04/13/25 08:40 Dose: 20 mg Valsartan (Valsartan 160 Mg Tablet) 320 mg PO QAM [facility] Last Admin: 04/13/25 08:40 Dose: 320 mg Sedation/Anesthesia: No previous sedation/anesthesia problems (including family history). [facility] Past Medical History Medical History (Updated 04/13/25 @ 09:24 by Andie Dumont MD) Colon polyp Dysphagia Nondisplaced fracture of distal end of right radius Hypertension Hypercholesterolemia GERD (gastroesophageal reflux disease) Surgical History Surgical History Hx of tympanostomy tubes Family History Family History (Updated 04/13/25 @ 02:19 by Liss Ocampo RN) Father Heart failure Mother Family history of arthritis Social History Social History Smoking status: Never smoker Alcohol intake: current Drinks per week: 2 Substance use: never Substance use type: does not use Lack of Transportation: No Lack of Food: Never True Current Housing: I Have Housing Concerned About Future Housing: No Difficulty Paying Gas/Electric Bills: No Difficulty Paying for Meds: No Currently Unemployed: No Education: High School Diploma/GED Difficulty w/ Childcare or Family Care: No Living arrangements: with family Spiritual care concerns: No Mod Sed Physical Exam Physical Exam Pre Procedural Exam: Normal: Appearance, Lungs, Heart Rate and Heart Rhythm Hours since solid foods: 6 Hours since liquid intake: 6 Mallampati Classification: class III Internal Medicine - PN: Obj Da Vital Signs Vital Signs: Vital Signs - 24 hr 04/12/25 18:10 04/12/25 19:39 04/12/25 19:42 Temperature 37.0 C Pulse Rate 87 72 Pulse Rate [Bilateral Posterior Tibial Palpation] Respiratory Rate 16 15 Blood Pressure 179/91 H 148/82 H Pulse Oximetry 97 96 Oxygen Delivery Room Air Room Air Room Air 04/12/25 20:09 04/12/25 21:49 04/12/25 22:34 Temperature Pulse Rate 72 71 65 Pulse Rate [Bilateral Posterior Tibial Palpation] Respiratory Rate 14 16 16 Blood Pressure 167/91 H 166/74 H 159/85 H Pulse Oximetry 96 97 94 Oxygen Delivery 04/13/25 00:48 04/13/25 02:10 04/13/25 02:13 Temperature 36.4 C Pulse Rate 73 77 73 Pulse Rate [Bilateral Posterior Tibial Palpation] Respiratory Rate 20 15 20 Blood Pressure 163/97 H 130/81 163/97 H Pulse Oximetry 94 95 94 Oxygen Delivery 04/13/25 02:31 04/13/25 03:14 04/13/25 04:00 Temperature 36.6 C Pulse Rate 73 Pulse Rate [Bilateral Posterior Tibial Palpation] Respiratory Rate Blood Pressure 146/73 H Pulse Oximetry 96 Oxygen Delivery Room Air Room Air 04/13/25 04:00 04/13/25 06:00 04/13/25 07:00 Temperature 36.9 C Pulse Rate 68 59 L 68 Pulse Rate [Bilateral Posterior Tibial Palpation] Respiratory Rate 16 Blood Pressure 138/78 Pulse Oximetry 95 Oxygen Delivery 04/13/25 08:00 04/13/25 08:00 04/13/25 08:00 Temperature 36.9 C Pulse Rate 77 Pulse Rate [Bilateral Posterior Tibial Palpation] Respiratory Rate 20 Blood Pressure 138/78 139/75 Pulse Oximetry 95 Oxygen Delivery Room Air 04/13/25 08:00 04/13/25 09:35 04/13/25 09:35 Temperature Pulse Rate 92 Pulse Rate [Bilateral Posterior Tibial Palpation] Respiratory Rate Blood Pressure 155/78 H 147/74 H Pulse Oximetry Oxygen Delivery 04/13/25 10:00 04/13/25 11:36 04/13/25 12:00 Temperature 36.7 C Pulse Rate 75 73 Pulse Rate [Bilateral Posterior Tibial Palpation] Respiratory Rate 18 Blood Pressure 132/68 Pulse Oximetry 95 Oxygen Delivery Room Air 04/13/25 12:00 04/13/25 14:20 04/13/25 14:20 Temperature Pulse Rate 76 78 Pulse Rate [Bilateral Posterior Tibial Palpation] 78 Respiratory Rate 16 Blood Pressure 131/76 Pulse Oximetry 94 Oxygen Delivery Room Air Intake/Output Intake/Output: Intake & Output 04/10/25 04/11/25 04/12/25 04/13/25 23:59 23:59 23:59 23:59 Intake Total 1000 388.7 Balance 1000 388.7 Meds/Results Medications: Active Medications Generic Name Dose Route Start Last Admin Trade Name Freq PRN Reason Stop Dose Admin Amlodipine Besylate 10 mg 04/13/25 09:00 04/13/25 08:39 Amlodipine Besylate 10 Mg Tablet PO 10 mg DAILY [facility] Administration Aspirin 81 mg 04/13/25 09:00 04/13/25 08:39 Aspirin 81 Mg Enteric Tablet PO 81 mg QAM [facility] Administration Heparin Sodium (Porcine) 4,000 units 04/12/25 21:50 Heparin Sodium 5,000 Units/Ml Vial IV PUSH PRN PRN aPTT less than 55 seconds Heparin Sodium (Porcine) 3,500 units 04/12/25 21:50 04/13/25 05:04 Heparin Sodium 5,000 Units/Ml Vial IV PUSH 3,500 units PRN PRN Administration aPTT 55 - 70 seconds Hydrochlorothiazide 12.5 mg 04/13/25 09:00 04/13/25 08:40 Hydrochlorothiazide 12.5 Mg Capsule PO 12.5 mg QAM [facility] Administration Heparin Sodium/Dextrose 25,000 units in 250 mls @ 12 mls/hr 04/12/25 21:50 04/13/25 12:05 Heparin Sodium/D5w 100 Units/Ml IV CONT 1,200 units/hr .[id number] [facility] 12 mls/hr Protocol Titration 1,200 UNITS/HR Isosorbide Mononitrate 30 mg 04/13/25 09:00 04/13/25 08:39 Isosorbide Mononitrate 30 Mg Tab.Er.24h PO 30 mg DAILY [facility] Administration Multivitamins/Minerals 1 tab 04/13/25 09:00 04/13/25 08:40 Multivitamins /C Lutein (Centrum Silver) Tablet *Bkc PO 1 tab DAILY [facility] Administration Perflutren Lipid Microsphere 0 ml 04/13/25 08:24 Perflutren Lipid Microspheres 1.5 Ml Vial Diluted To 10 Ml Total Volume IV PUSH 04/16/25 08:24 ONCE PRN adequate visualization Protocol Rosuvastatin Calcium 20 mg 04/13/25 09:00 04/13/25 08:40 Rosuvastatin 20 Mg Tablet PO 20 mg DAILY [facility] Administration Valsartan 320 mg 04/13/25 09:00 04/13/25 08:40 Valsartan 160 Mg Tablet PO 320 mg QAM [facility] Administration Radiology Results: ITS Impressions Head CT 04/12/25 18:31 IMPRESSION: 1. No acute intracranial abnormality. 2: Slight increased size of this likely calcified meningioma left parietal vertex. 3: Chronic age-related findings. Chest X-Ray 04/12/25 18:35 Impression: 1: No acute cardiopulmonary disease. Labs 04/13/25 04:26 04/12/25 18:22 Labs: Laboratory Results - last 24 hr 04/12/25 04/12/25 04/13/25 18:22 21:12 01:45 WBC 13.6 H RBC 5.40 Hgb 16.3 Hct 48.9 MCV 90.6 MCH 30.2 MCHC 33.3 RDW 14.9 H Plt Count 526 H MPV 10.4 Immature Gran % (Auto) 0.4 Neut % (Auto) 70.7 Lymph % (Auto) 15.0 L [place] % (Auto) 10.3 H Eos % (Auto) 2.8 Baso % (Auto) 0.8 Lymph # (Auto) 2.05 [place] # (Auto) 1.4 H Eos # (Auto) 0.4 H Baso # (Auto) 0.1 Abs Immat Gran (auto) 0.05 H Absolute Neuts (auto) 9.6 H Absolute Nucleated RBC 0.000 Nucleated RBC % 0.0 PT INR APTT Sodium 137 Potassium 3.5 Chloride 99 Carbon Dioxide 27 Anion Gap 11 BUN 12 Creatinine 0.66 L Estim Creat Clear Calc 75 Estimated GFR > 60 Glucose 103 Calcium 9.1 Total Bilirubin 0.4 AST 42 ALT 20 Alkaline Phosphatase 87 Ammonia Troponin I 0.035 H* 0.043 H* D 0.053 H* D Total Protein 8.8 H Albumin 4.9 TSH Urine Color Yellow Urine Appearance Clear Urine pH 7.0 Ur Specific [place] 1.005 Urine Protein Negative Urine Glucose (UA) Negative Urine Ketones Negative Ur Blood (Man) Negative Urine Nitrate Negative Urine Bilirubin Negative Urine Urobilinogen 0.2 Leukocyte Esterase Rfl Negative Syphilis IgG/IgM Ab 04/13/25 04/13/25 04/13/25 04:26 08:31 11:21 WBC 11.0 H RBC 4.91 Hgb 14.8 Hct 44.4 MCV 90.4 MCH 30.1 MCHC 33.3 RDW 14.8 H Plt Count 454 H MPV 10.2 Immature Gran % (Auto) 0.2 Neut % (Auto) 64.6 Lymph % (Auto) 18.7 [place] % (Auto) 10.8 H Eos % (Auto) 4.3 Baso % (Auto) 1.4 H Lymph # (Auto) 2.06 [place] # (Auto) 1.2 H Eos # (Auto) 0.5 H Baso # (Auto) 0.2 H Abs Immat Gran (auto) 0.02 Absolute Neuts (auto) 7.1 H Absolute Nucleated RBC 0.000 Nucleated RBC % 0.0 PT 14.8 H INR 1.1 APTT 55.2 H 83.4 H Sodium Potassium Chloride Carbon Dioxide Anion Gap BUN Creatinine Estim Creat Clear Calc Estimated GFR Glucose Calcium Total Bilirubin AST ALT Alkaline Phosphatase Ammonia < 9 L Troponin I 0.048 H* Total Protein Albumin TSH 5.120 H Urine Color Urine Appearance Urine pH Ur Specific [place] Urine Protein Urine Glucose (UA) Urine Ketones Ur Blood (Man) Urine Nitrate Urine Bilirubin Urine Urobilinogen Leukocyte Esterase Rfl Syphilis IgG/IgM Ab Non-reactive ASA Classification/Sedation ASA Classification/Sedation ASA Class: III Emergent: No Risks: Risks, benefits and alternatives explained and patient/family accepted plan for sedation. Patient re-evaluated immediately prior to sedation.
--- NOTE | 2025-04-13 14:35 | WPDCARDPROC ---
Cardiac Cath Procedure Note Date of procedure:: 04/13/25 Performing physician:: Andie Dumont MD Indication:: NSTEMI Brief clinical history:: 80-year-old male patient with history of hypertension, hyperlipidemia, GERD presents with chief complaints of chest pain. Troponin is elevated to 0.035, 0.043, 0.053, 0.048. EKG shows sinus rhythm with first-degree AV block and left anterior fascicular block. Procedure Procedure performed:: Left heart catheterization Coronary angiogram Right radial artery access Sedation/Medication given:: Versed and Fentanyl were ordered and given in my presence at 1:45 p.m., procedure ended at 2:03 p.m.. Supervision of nurse monitored moderate sedation with Versed and Fentanyl was provided for 18 minutes. Fentanyl: 100 mcg Versed: 1 mg Access site:: Right radial artery Estimated blood loss:: 10 mL Procedure note:: All risks, benefits and alternatives to left heart catheterization with or without percutaneous coronary intervention was discussed at length with the patient. Risk of complications including but not limited to bleeding, infection, arrhythmia, stroke, worsening kidney function, blood loss, groin hematoma, limb loss, emergency coronary artery bypass grafting, and even were discussed with the patient and all questions were answered. The patient understood and wished to proceed. Time out called, patient name, date of , medical record number, allergies, procedure performed, identify [employer] [place] [employer], patient and staff member concurred with accurate data, procedure carried on. Description of Procedure: Informed consent signed and placed in the chart. Patient transferred to engineer geophysical laboratory room. Prepped and draped in usual sterile fashion. 2% lidocaine injected subcutaneously in right wrist area. 22-gauge venipuncture catheter used to access the right radial artery with the Seldinger technique. 6-FR slender sheath placed in right radial artery. Nitroglycerin 200mcg, Verapamil 2.5mg, and Heparin 5000U was given intraarterial through the sheath. J wire advanced under fluoroscopy Five K[place] JL 3.5 diagnostic catheter engaged Left Main Coronary Artery. 5 [place] JR4 diagnostic catheter engaged Right Coronary Artery Multiple orthogonal angiogram obtained and reviewed 5 [place] JR4 diagnostic catheter crossed aortic valve to obtain LVEDP, LV angiogram deferred. Hemostasis was achieved by application of TR band. Post Operative Condition: Stable No significant blood loss Disposition: Floor/Home Findings:: LEFT HEART CATHETERIZATION FINDINGS: 1. Left main: The left main coronary artery is widely patent without any significant obstructive disease. 2. Left anterior descending: The proximal LAD has 60% stenosis and mid LAD has 50% stenosis. The LAD gives off multiple diagonal branches. The 1st diagonal is a large vessel with ostial 70% stenosis and the 2nd diagonal is a large vessel with ostial 50% stenosis. The CAD appears chronic without any acute plaque rupture visible angiographically. 3. Left circumflex: The left circumflex artery and the main marginal branches are patent without any significant obstructive angiographic disease. 4. Right coronary artery: The RCA is patent without any significant obstructive angiographic disease. The RCA is the dominant vessel. 5. Left ventricle: A. End-diastolic pressure 7 mmHg. B. LV gram deferred. C. No significant gradient across aortic valve on catheter pullback. 6. Opening AO pressure 123/63/90 and closing AO pressure 122/78/90 9 mm Hg Assessment and Plan Assessment and plan (1) Non-ST elevation [place] (NSTEMI): Code(s): I21.4 - Non-ST elevation (NSTEMI) myocardial infarction Status: Acute (2) CAD (coronary artery disease): Code(s): I25.10 - Atherosclerotic heart disease of [place] coronary artery without angina pectoris Status: Acute Plan Pre-op Diagnosis: NSTEMI Post-op Diagnosis: NSTEMI Obstructive CAD- ostial 70% stenosis of large 1st diagonal; nonobstructive CAD with 60% stenosis in proximal LAD, 50% stenosis in mid LAD (per patient verbal report stress test in October of 2024 was negative). There is no acute plaque rupture noted. No intervention performed. Plan: The patient will be monitored in the recovery area. Continue medical management for CAD. Continue aspirin 81 mg daily, rosuvastatin 20 mg daily. Stop amlodipine and increase imdur to 60 mg daily. No BB due to 1st degree AV block. Can stop heparin. Bed rest for 2 hours. IV fluids normal saline 500 ml at 100ml/hr. Check renal function in am. Continue aggressive medical therapy and risk factor modification. If patient's symptoms do not improve with medical management, then consider IFR of proximal and mid LAD lesions and PCI. 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 Andie Dumont MD, MS, FACC, [facility] Interventional Cardiology
--- NOTE | 2025-04-13 16:13 | PC.NURSE ---
On 04/13/25, the student, Charley, provided care and completed [facility] documentation on this patient. I have reviewed the student's documentation and agree with the findings.
[2025-04-13] MEDS: SODIUM CHLORIDE 0.9% IV 500 ML 125 ML IV CONT (17:52)
[2025-04-13] MEDS: ACETAMINOPHEN 325 MG TABLET 650 MG PO (20:30)
[2025-04-14] VITALS (20 sets, daily range): BP systolic 107–166; BP diastolic 66–94; PULSE 54–88; RESP 12–20; TEMP 36.6–37.1; O2SAT 95–98
[2025-04-14 03:47] LABS: Hematocrit 42.2 % (42.0-52.0); Hemoglobin 14.1 g/dL (14.0-18.0); Mean Corpuscular HGB Conc 33.4 g/dl (32-36); Mean Corpuscular Hemoglobin 30.3 pg (26-34); Mean Corpuscular Volume 90.6 fl (80-100); Platelet Count Result 445 k/mm3 (150-375); Red Blood Count 4.66 M/mm3 (4.6-6.20); White Blood Count 11.6 K/mm3 (4.5-10.0)
[2025-04-14 03:57] LABS: Alanine Aminotransferase 16 U/L (6-50); Albumin Level 3.9 g/dL (3.5-5.1); Alkaline Phosphatase 72 U/L (38-126); Anion Gap 6 mmol/L (4-12); Aspartate Amino Transferase 35 U/L (17-59); Bilirubin,Total 0.7 mg/dL (0.2-1.3); Blood Urea Nitrogen 11 mg/dL (9-20); Calcium 8.5 mg/dL (8.4-10.2); Carbon Dioxide 28 mmol/L (22-30); Chloride 101 mmol/L (98-107); Estimated CRCL calculation 70 ml/min; Estimated Glomerular Filt Rate > 60; Glucose 98 mg/dL (65-110); Potassium 3.4 mmol/L (3.4-5.0); Sodium 135 mmol/L (137-145); Total Protein 6.8 g/dL (6.3-8.2)
--- NOTE | 2025-04-14 06:53 | P.PNCA_ITS ---
Progress Note: A&P Assessment and Plan (1) Non-ST elevation [place] (NSTEMI): Code(s): I21.4 - Non-ST elevation (NSTEMI) myocardial infarction Status: Acute (2) CAD (coronary artery disease): Code(s): I25.10 - Atherosclerotic heart disease of [place] coronary artery without angina pectoris Status: Acute (3) Hypertension: Code(s): I10 - Essential (primary) hypertension Status: Acute (4) Severe aortic stenosis: Code(s): I35.0 - Nonrheumatic aortic (valve) stenosis Status: Acute Plan Diagnosis: -NSTEMI-chest pain, elevated troponin; TTE showed normal LVEF of 65-70% without any regional wall motion abnormality, grade 1 diastolic dysfunction, severe aortic stenosis with aortic valve area of 0.9 cm2 -CAD-chronic 60% stenosis proximal LAD, 50% stenosis mid LAD, 70% stenosis of ostial diagonal 1 -Severe aortic stenosis with aortic valve area of 0.9 cm2-new diagnosis -Hypertension Plan: -Catheterization showed chronic CAD without any acute plaque rupture. TTE shows severe aortic stenosis. No intervention performed as no acute plaque rupture, no further chest pain, no heart failure, no electrical instability. He will be best served by a [facility] heart team to evaluate candidacy for TAVR+PCI vs SAVR+ single vessel CABG -Optimize medical therapy for CAD. Continue aspirin 81 mg daily, rosuvastatin 20 mg daily. Increased dose of Imdur to 60 mg daily. -No beta-kw[place] given first-degree AV block with [place] of 235 milliseconds -Continue home blood pressure medications valsartan, hydrochlorothiazide. Stop amlodipine to allow room in blood pressure to increase dose of Imdur. Avoid hypotension given severe -Refer to outpatient valvular heart disease to evaluate candidacy for SAVR plus AVR versus TAVR plus PCI -Check and replace electrolytes to keep potassium greater than 4 and magnesium greater than 2 -Monitor on telemetry Subjective Date/time seen: 04/14/25 06:53 Interval history: Reason for encounter: NSTEMI Relevant history: 80-year-old male with history of hypertension presented with chief complaints of chest pain. Troponin elevated. Cardiology consulted for management of NSTEMI Interval history: He is sitting up in a chair and eating his breakfast. No chest pain, shortness of breath, dizziness lightheadedness. Cardiac catheterization in TTE completed yesterday. Review of Systems Cardiovascular: Comments: As per HPI Respiratory: Comments: As per HPI Exam Narrative: General: Alert oriented x3, no acute distress Neck: Supple, no JVD Chest: Bilaterally clear to auscultation, no rales or rhonchi Cardiac: S1, S2 +, regular rate, regular rhythm, no murmurs or rubs Extremities: No pedal edema, no skin rash Neurologic: Alert and oriented x3, no focal neurological deficits Objective Data Vital Signs Vital Signs: Vital Signs - 24 hr 04/13/25 07:00 04/13/25 08:00 04/13/25 08:00 Temperature 36.9 C 36.9 C Pulse Rate 68 77 Pulse Rate [Bilateral Posterior Tibial Palpation] Respiratory Rate 16 20 Blood Pressure 138/78 138/78 Pulse Oximetry 95 95 Oxygen Delivery Room Air 04/13/25 08:00 04/13/25 08:00 04/13/25 09:35 Temperature Pulse Rate 92 Pulse Rate [Bilateral Posterior Tibial Palpation] Respiratory Rate Blood Pressure 139/75 155/78 H Pulse Oximetry Oxygen Delivery 04/13/25 09:35 04/13/25 10:00 04/13/25 11:36 Temperature 36.7 C Pulse Rate 75 73 Pulse Rate [Bilateral Posterior Tibial Palpation] Respiratory Rate 18 Blood Pressure 147/74 H 132/68 Pulse Oximetry 95 Oxygen Delivery 04/13/25 12:00 04/13/25 12:00 04/13/25 14:20 Temperature Pulse Rate 76 Pulse Rate [Bilateral Posterior Tibial Palpation] 78 Respiratory Rate Blood Pressure Pulse Oximetry Oxygen Delivery Room Air 04/13/25 14:20 04/13/25 14:35 04/13/25 14:35 Temperature Pulse Rate 78 75 Pulse Rate [Bilateral Posterior Tibial Palpation] 75 Respiratory Rate 16 19 Blood Pressure 131/76 122/73 Pulse Oximetry 94 94 Oxygen Delivery Room Air Room Air 04/13/25 14:50 04/13/25 14:50 04/13/25 15:05 Temperature Pulse Rate 84 Pulse Rate [Bilateral Posterior Tibial Palpation] 84 71 Respiratory Rate 19 Blood Pressure 109/66 Pulse Oximetry 94 Oxygen Delivery Room Air 04/13/25 15:05 04/13/25 15:20 04/13/25 15:20 Temperature Pulse Rate 71 75 Pulse Rate [Bilateral Posterior Tibial Palpation] 75 Respiratory Rate 13 17 Blood Pressure 114/66 135/78 Pulse Oximetry 94 96 Oxygen Delivery Room Air Room Air 04/13/25 15:35 04/13/25 15:35 04/13/25 15:50 Temperature Pulse Rate 74 Pulse Rate [Bilateral Posterior Tibial Palpation] 74 69 Respiratory Rate 17 Blood Pressure 105/66 Pulse Oximetry 94 Oxygen Delivery Room Air 04/13/25 15:50 04/13/25 16:05 04/13/25 16:05 Temperature Pulse Rate 69 69 Pulse Rate [Bilateral Posterior Tibial Palpation] 69 Respiratory Rate 22 H 18 Blood Pressure 123/70 112/73 Pulse Oximetry 95 95 Oxygen Delivery Room Air Room Air 04/13/25 16:20 04/13/25 16:20 04/13/25 16:35 Temperature Pulse Rate 71 Pulse Rate [Bilateral Posterior Tibial Palpation] 71 79 Respiratory Rate 13 Blood Pressure 104/68 Pulse Oximetry 95 Oxygen Delivery Room Air 04/13/25 16:35 04/13/25 16:50 04/13/25 16:50 Temperature Pulse Rate 79 80 Pulse Rate [Bilateral Posterior Tibial Palpation] 80 Respiratory Rate 24 H 25 H Blood Pressure 121/73 115/60 Pulse Oximetry 97 97 Oxygen Delivery Room Air Room Air 04/13/25 17:05 04/13/25 17:05 04/13/25 17:20 Temperature Pulse Rate 76 Pulse Rate [Bilateral Posterior Tibial Palpation] 76 71 Respiratory Rate 21 H Blood Pressure 119/64 Pulse Oximetry 97 Oxygen Delivery Room Air 04/13/25 17:20 04/13/25 17:35 04/13/25 17:35 Temperature Pulse Rate 71 71 Pulse Rate [Bilateral Posterior Tibial Palpation] 71 Respiratory Rate 18 18 Blood Pressure 116/66 123/73 Pulse Oximetry 97 97 Oxygen Delivery Room Air Room Air 04/13/25 17:50 04/13/25 17:50 04/13/25 18:05 Temperature Pulse Rate 70 Pulse Rate [Bilateral Posterior Tibial Palpation] 70 71 Respiratory Rate 18 Blood Pressure 134/65 Pulse Oximetry 97 Oxygen Delivery Room Air 04/13/25 18:05 04/13/25 18:20 04/13/25 18:20 Temperature Pulse Rate 71 74 Pulse Rate [Bilateral Posterior Tibial Palpation] 74 Respiratory Rate 18 18 Blood Pressure 115/57 L 123/59 L Pulse Oximetry 97 100 Oxygen Delivery Room Air Room Air 04/13/25 19:39 04/13/25 20:00 04/13/25 20:09 Temperature 36.8 C Pulse Rate 61 64 Pulse Rate [Bilateral Posterior Tibial Palpation] 74 Respiratory Rate 16 Blood Pressure 119/69 Pulse Oximetry 96 Oxygen Delivery 04/13/25 20:25 04/13/25 20:25 04/13/25 20:28 Temperature 36.8 C 36.8 C Pulse Rate 64 64 64 Pulse Rate [Bilateral Posterior Tibial Palpation] Respiratory Rate 16 16 16 Blood Pressure 119/69 135/68 Pulse Oximetry 96 96 95 Oxygen Delivery Room Air 04/13/25 20:56 04/13/25 22:00 04/13/25 23:30 Temperature Pulse Rate 63 63 Pulse Rate [Bilateral Posterior Tibial Palpation] Respiratory Rate 16 Blood Pressure Pulse Oximetry 96 96 Oxygen Delivery Room Air Room Air 04/13/25 23:52 04/14/25 00:00 04/14/25 02:00 Temperature 36.7 C Pulse Rate 66 54 L 58 L Pulse Rate [Bilateral Posterior Tibial Palpation] Respiratory Rate 14 Blood Pressure 123/71 Pulse Oximetry 97 Oxygen Delivery 04/14/25 03:52 04/14/25 04:00 04/14/25 04:56 Temperature 36.7 C Pulse Rate 58 L 56 L 65 Pulse Rate [Bilateral Posterior Tibial Palpation] Respiratory Rate 14 14 Blood Pressure 122/75 Pulse Oximetry 97 96 Oxygen Delivery Room Air Intake/Output Intake/Output: Intake & Output 04/11/25 04/12/25 04/13/25 04/14/25 23:59 23:59 23:59 23:59 Intake Total 1000 1128.7 1000 Output Total 300 Balance 1000 828.7 1000 Meds/Results Medications: Active Medications Generic Name Dose Route Start Last Admin Trade Name Freq PRN Reason Stop Dose Admin Acetaminophen 650 mg 04/13/25 18:19 04/13/25 20:30 Acetaminophen 325 Mg Tablet PO 650 mg Q4H PRN Administration Mild Pain (1-3) or Fever Aspirin 81 mg 04/13/25 09:00 04/13/25 08:39 Aspirin 81 Mg Enteric Tablet PO 81 mg QAM NADEEM Administration Hydrochlorothiazide 12.5 mg 04/13/25 09:00 04/13/25 08:40 Hydrochlorothiazide 12.5 Mg Capsule PO 12.5 mg QAM NADEEM Administration Isosorbide Mononitrate 60 mg 04/14/25 09:00 Isosorbide Mononitrate 60 Mg Tab.Er.24h PO DAILY NADEEM Multivitamins/Minerals 1 tab 04/13/25 09:00 04/13/25 08:40 Multivitamins /C Lutein (Centrum Silver) Tablet *Bkc PO 1 tab DAILY NADEEM Administration Perflutren Lipid Microsphere 0 ml 04/13/25 08:24 Perflutren Lipid Microspheres 1.5 Ml Vial Diluted To 10 Ml Total Volume IV PUSH 04/16/25 08:24 ONCE PRN adequate visualization Protocol Rosuvastatin Calcium 20 mg 04/13/25 09:00 04/13/25 08:40 Rosuvastatin 20 Mg Tablet PO 20 mg DAILY NADEEM Administration Valsartan 320 mg 04/13/25 09:00 04/13/25 08:40 Valsartan 160 Mg Tablet PO 320 mg QAM NADEEM Administration Radiology Results: ITS Impressions Head CT 04/12/25 18:31 IMPRESSION: 1. No acute intracranial abnormality. 2: Slight increased size of this likely calcified meningioma left parietal vertex. 3: Chronic age-related findings. Chest X-Ray 04/12/25 18:35 Impression: 1: No acute cardiopulmonary disease. Labs Labs: Laboratory Results - last 24 hr 04/13/25 04/13/25 04/14/25 08:31 11:21 03:14 WBC 11.6 H RBC 4.66 Hgb 14.1 Hct 42.2 MCV 90.6 MCH 30.3 MCHC 33.4 RDW 15.0 H Plt Count 445 H MPV 10.4 APTT 83.4 H Sodium 135 L Potassium 3.4 Chloride 101 Carbon Dioxide 28 Anion Gap 6 BUN 11 Creatinine 0.71 Estim Creat Clear Calc 70 Estimated GFR > 60 Glucose 98 Calcium 8.5 Total Bilirubin 0.7 AST 35 ALT 16 Alkaline Phosphatase 72 Ammonia < 9 L Total Protein 6.8 Albumin 3.9 TSH 5.120 H Syphilis IgG/IgM Ab Non-reactive
[2025-04-14] MEDS: ASPIRIN 81 MG ENTERIC TABLET PO (09:57)
[2025-04-14] MEDS: MULTIVITAMINS /C LUTEIN (CENTRUM SILVER) TABLET *BKC 1 TAB PO (09:57)
[2025-04-14] MEDS: ROSUVASTATIN 20 MG TABLET PO (09:57)
--- NOTE | 2025-04-14 17:52 | P.PNNEUR_ITS ---
Progress Note: A&P Assessment and Plan (1) Left-sided cerebrovascular accident (CVA): Code(s): I63.9 - Cerebral infarction, unspecified Status: Acute Assessment and Plan: the patient has right homonymous hemianopsia. His mental status has also changed and he was being repetitions and made some errors according to his . and MRI of the brain has been ordered and will be followed up. (2) Severe aortic stenosis: Code(s): I35.0 - Nonrheumatic aortic (valve) stenosis Status: Acute (3) Non-ST elevation [place] (NSTEMI): Code(s): I21.4 - Non-ST elevation (NSTEMI) myocardial infarction Status: Acute (4) CAD (coronary artery disease): Code(s): I25.10 - Atherosclerotic heart disease of [place] coronary artery without angina pectoris Status: Acute Plan The patient appears to have a right homonymous hemianopsia. Should follow the results MRI scan of the brain. I have ordered order ordered a lipid profile and carotid Doppler study. He is already on Crestor or rosuvastatin 20 mg a day. He was found to have severe aortic stenosis. In terms of anti-platelet he is on aspirin 81 mg a day. I agree with current approach. I have advised him that if he has right homonymous hemianopsia he should probably get a visual field evaluation by his eye doctor and he should not drive until the hemifield defect improved. Subjective Date/time seen: 04/14/25 17:52 Interval history: the patient 80-year-old with history of change in the mental status according to his . He was repetitious and different than he normally is. He was suspected of non ST elevation myocardial infarction has undergone cardiac catheterization which has shown some aortic valve pathology and narrowing in various blood vessels ranging from 50-70%. A CT scan of brain performed in emergency room at shown a left parietal meningioma. His think that he mental status is still not back to normal. Previous MRI of the brain performed 2022 has shown a left frontoparietal meningioma approximately 10 mm size. In addition there is also white matter changes noted. He denies any headache or difficulty speech or swallowing. He is able to get around fairly well. Review of Systems Review of Systems: All systems reviewed & are unremarkable except as noted in HPI and below Exam Narrative: Fully conscious alert oriented to self place and person however he has a right homonymous hemianopsia on cranial nerve examination. No facial asymmetry. Tongue was midline. Other cranial normal limits. Motor system normal power and tone in both upper lower limbs. Deep tendon reflexes did not show any asymmetry. Sensory exam is grossly normal. No involuntary movements are seen. Objective Data Vital Signs Vital Signs: Vital Signs - 24 hr 04/13/25 18:05 04/13/25 18:05 04/13/25 18:20 Temperature Pulse Rate 71 Pulse Rate [Bilateral Posterior Tibial Palpation] 71 74 Respiratory Rate 18 Blood Pressure 115/57 L Pulse Oximetry 97 Oxygen Delivery Room Air 04/13/25 18:20 04/13/25 19:39 04/13/25 20:00 Temperature Pulse Rate 74 61 Pulse Rate [Bilateral Posterior Tibial Palpation] 74 Respiratory Rate 18 Blood Pressure 123/59 L Pulse Oximetry 100 Oxygen Delivery Room Air 04/13/25 20:09 04/13/25 20:25 04/13/25 20:25 Temperature 98.2 F 98.2 F Pulse Rate 64 64 64 Pulse Rate [Bilateral Posterior Tibial Palpation] Respiratory Rate 16 16 16 Blood Pressure 119/69 119/69 Pulse Oximetry 96 96 96 Oxygen Delivery Room Air 04/13/25 20:28 04/13/25 20:56 04/13/25 22:00 Temperature 98.2 F Pulse Rate 64 63 Pulse Rate [Bilateral Posterior Tibial Palpation] Respiratory Rate 16 Blood Pressure 135/68 Pulse Oximetry 95 96 Oxygen Delivery Room Air 04/13/25 23:30 04/13/25 23:52 04/14/25 00:00 Temperature 98.0 F Pulse Rate 63 66 54 L Pulse Rate [Bilateral Posterior Tibial Palpation] Respiratory Rate 16 14 Blood Pressure 123/71 Pulse Oximetry 96 97 Oxygen Delivery Room Air 04/14/25 02:00 04/14/25 03:52 04/14/25 04:00 Temperature Pulse Rate 58 L 58 L 56 L Pulse Rate [Bilateral Posterior Tibial Palpation] Respiratory Rate 14 Blood Pressure Pulse Oximetry 97 Oxygen Delivery Room Air 04/14/25 04:56 04/14/25 07:50 04/14/25 08:00 Temperature 98.1 F 98.6 F Pulse Rate 65 76 Pulse Rate [Bilateral Posterior Tibial Palpation] Respiratory Rate 14 16 Blood Pressure 122/75 107/94 H Pulse Oximetry 96 96 Oxygen Delivery Room Air 04/14/25 08:00 04/14/25 08:00 04/14/25 10:00 Temperature 98.2 F Pulse Rate 72 88 79 Pulse Rate [Bilateral Posterior Tibial Palpation] Respiratory Rate 20 Blood Pressure 162/66 H Pulse Oximetry 95 Oxygen Delivery 04/14/25 10:36 04/14/25 10:36 04/14/25 11:48 Temperature Pulse Rate Pulse Rate [Bilateral Posterior Tibial Palpation] Respiratory Rate Blood Pressure 154/82 H 149/75 H Pulse Oximetry Oxygen Delivery Room Air 04/14/25 11:49 04/14/25 12:00 04/14/25 14:00 Temperature 98.3 F Pulse Rate 74 77 77 Pulse Rate [Bilateral Posterior Tibial Palpation] Respiratory Rate 16 Blood Pressure 153/87 H Pulse Oximetry 97 Oxygen Delivery 04/14/25 16:00 04/14/25 16:00 04/14/25 17:26 Temperature Pulse Rate 72 82 Pulse Rate [Bilateral Posterior Tibial Palpation] Respiratory Rate Blood Pressure Pulse Oximetry Oxygen Delivery Room Air Intake/Output Intake/Output: Intake & Output 04/11/25 04/12/25 04/13/25 04/14/25 23:59 23:59 23:59 23:59 Intake Total 1000 1128.7 1600 Output Total 300 Balance 1000 828.7 1600 Meds/Results Medications: Active Medications Generic Name Dose Route Start Last Admin Trade Name Freq PRN Reason Stop Dose Admin Acetaminophen 650 mg 04/13/25 18:19 04/13/25 20:30 Acetaminophen 325 Mg Tablet PO 650 mg Q4H PRN Administration Mild Pain (1-3) or Fever Aspirin 81 mg 04/13/25 09:00 04/14/25 09:57 Aspirin 81 Mg Enteric Tablet PO 81 mg QAM NADEEM Administration Hydrochlorothiazide 12.5 mg 04/13/25 09:00 04/14/25 09:58 Hydrochlorothiazide 12.5 Mg Capsule PO Not Given QAM NADEEM Isosorbide Mononitrate 60 mg 04/14/25 09:00 04/14/25 09:58 Isosorbide Mononitrate 60 Mg Tab.Er.24h PO Not Given DAILY NADEEM Multivitamins/Minerals 1 tab 04/13/25 09:00 04/14/25 09:57 Multivitamins /C Lutein (Centrum Silver) Tablet *Bkc PO 1 tab DAILY NADEEM Administration Perflutren Lipid Microsphere 0 ml 04/13/25 08:24 Perflutren Lipid Microspheres 1.5 Ml Vial Diluted To 10 Ml Total Volume IV PUSH 04/16/25 08:24 ONCE PRN adequate visualization Protocol Rosuvastatin Calcium 20 mg 04/13/25 09:00 04/14/25 09:57 Rosuvastatin 20 Mg Tablet PO 20 mg DAILY NADEEM Administration Valsartan 320 mg 04/13/25 09:00 04/14/25 09:58 Valsartan 160 Mg Tablet PO Not Given QAM [facility] Radiology Results: ITS Impressions Head CT 04/12/25 18:31 IMPRESSION: 1. No acute intracranial abnormality. 2: Slight increased size of this likely calcified meningioma left parietal vertex. 3: Chronic age-related findings. Chest X-Ray 04/12/25 18:35 Impression: 1: No acute cardiopulmonary disease. Labs Labs: Laboratory Results - last 24 hr 04/14/25 03:14 WBC 11.6 H RBC 4.66 Hgb 14.1 Hct 42.2 MCV 90.6 MCH 30.3 MCHC 33.4 RDW 15.0 H Plt Count 445 H MPV 10.4 Sodium 135 L Potassium 3.4 Chloride 101 Carbon Dioxide 28 Anion Gap 6 BUN 11 Creatinine 0.71 Estim Creat Clear Calc 70 Estimated GFR > 60 Glucose 98 Calcium 8.5 Total Bilirubin 0.7 AST 35 ALT 16 Alkaline Phosphatase 72 Total Protein 6.8 Albumin 3.9
--- NOTE | 2025-04-14 18:21 | PM.IMPN ---
Progress Note: A&P Assessment and Plan (1) Non-ST elevation MT (NSTEMI): Code(s): I21.4 - Non-ST elevation (NSTEMI) myocardial infarction Status: Acute Assessment and Plan: -cardiac catheterization was performed on 04/13 -evidence of CAD but no stent was placed. Medical management -Rosuvastatin 40 mg, and aspirin 81 mg - sublingual nitro if needed -Echocardiogram shows severe aortic stenosis -cardiology transfer in the patient for TAVR -Denies any illicit drug use -Reviewed EKG and CXR (2) Metabolic encephalopathy: Code(s): G93.41 - Metabolic encephalopathy Status: Acute Assessment and Plan: Chronic meningioma who follows up with the Neurology CT head reviewed MRI reviewed Normal ammonia, vitamin B12, syphilis and elevated TSH Order free T4 Order UDS Neurology consulted As per Neurology patient has a right homonymous hemianopsia and should not drive Carotid ultrasound pending No evidence of infection No evidence of electrolyte abnormality Plan Code status full code DVT prophylaxis heparin drip Subjective Date/time seen: 04/14/25 18:21 Interval history: Patient underwent cardiac catheterization yesterday. Evidence of CAD but no stent was placed. Cardiology wants to transfer the patient to [place] for TAVR. In regards to meningioma and metabolic encephalopathy neurology was consulted and MRI was performed. Review of Systems Review of Systems: As reviewed above in HPI Exam Narrative: GENERAL: [Well-appearing, well-nourished, and in no acute distress.] HEAD: [Normocephalic, atraumatic.] EYES: [PERRLA and EOMI.] ENT: Nares clear, no rhinorrhea or epistaxis. Mucous membranes moist. NECK: Supple. CHEST: [Clear to auscultation. No respiratory distress.] HEART: [Regular rate and rhythm]. No murmur heard. [Normal peripheral pulses.] ABDOMEN: [Soft, nondistended], [nontender], [No rigidity or guarding] EXTREMITIES: Normal range of motion. [No edema.] SKIN: Warm, dry, no rash. NEURO: No overt focal deficits, moving all extremities, complaining of intermittent confusion but presently awake alert oriented answering questions appropriately. at bedside states that he is intermittently confused forgetful and has been repeating things even in the examination room while in the ER. PSYCH: [Normal mood and affect.] Objective Data Vital Signs Vital Signs: Vital Signs - 24 hr 04/13/25 19:39 04/13/25 20:00 04/13/25 20:09 Temperature 98.2 F Pulse Rate 61 64 Pulse Rate [Bilateral Posterior Tibial Palpation] 74 Respiratory Rate 16 Blood Pressure 119/69 Pulse Oximetry 96 Oxygen Delivery 04/13/25 20:25 04/13/25 20:25 04/13/25 20:28 Temperature 98.2 F 98.2 F Pulse Rate 64 64 64 Pulse Rate [Bilateral Posterior Tibial Palpation] Respiratory Rate 16 16 16 Blood Pressure 119/69 135/68 Pulse Oximetry 96 96 95 Oxygen Delivery Room Air 04/13/25 20:56 04/13/25 22:00 04/13/25 23:30 Temperature Pulse Rate 63 63 Pulse Rate [Bilateral Posterior Tibial Palpation] Respiratory Rate 16 Blood Pressure Pulse Oximetry 96 96 Oxygen Delivery Room Air Room Air 04/13/25 23:52 04/14/25 00:00 04/14/25 02:00 Temperature 98.0 F Pulse Rate 66 54 L 58 L Pulse Rate [Bilateral Posterior Tibial Palpation] Respiratory Rate 14 Blood Pressure 123/71 Pulse Oximetry 97 Oxygen Delivery 04/14/25 03:52 04/14/25 04:00 04/14/25 04:56 Temperature 98.1 F Pulse Rate 58 L 56 L 65 Pulse Rate [Bilateral Posterior Tibial Palpation] Respiratory Rate 14 14 Blood Pressure 122/75 Pulse Oximetry 97 96 Oxygen Delivery Room Air 04/14/25 07:50 04/14/25 08:00 04/14/25 08:00 Temperature 98.6 F 98.2 F Pulse Rate 76 72 Pulse Rate [Bilateral Posterior Tibial Palpation] Respiratory Rate 16 20 Blood Pressure 107/94 H 162/66 H Pulse Oximetry 96 95 Oxygen Delivery Room Air 04/14/25 08:00 04/14/25 10:00 04/14/25 10:36 Temperature Pulse Rate 88 79 Pulse Rate [Bilateral Posterior Tibial Palpation] Respiratory Rate Blood Pressure 154/82 H Pulse Oximetry Oxygen Delivery 04/14/25 10:36 04/14/25 11:48 04/14/25 11:49 Temperature Pulse Rate 74 Pulse Rate [Bilateral Posterior Tibial Palpation] Respiratory Rate Blood Pressure 149/75 H Pulse Oximetry Oxygen Delivery Room Air 04/14/25 12:00 04/14/25 14:00 04/14/25 16:00 Temperature 98.3 F Pulse Rate 77 77 Pulse Rate [Bilateral Posterior Tibial Palpation] Respiratory Rate 16 Blood Pressure 153/87 H Pulse Oximetry 97 Oxygen Delivery Room Air 04/14/25 16:00 04/14/25 16:00 04/14/25 17:26 Temperature 98.5 F Pulse Rate 72 75 82 Pulse Rate [Bilateral Posterior Tibial Palpation] Respiratory Rate 12 Blood Pressure 152/69 H Pulse Oximetry 98 Oxygen Delivery Intake/Output Intake/Output: Intake & Output 04/11/25 04/12/25 04/13/25 04/14/25 23:59 23:59 23:59 23:59 Intake Total 1000 1128.7 2080 Output Total 300 Balance 1000 828.7 2080 Meds/Results Medications: Active Medications Generic Name Dose Route Start Last Admin Trade Name Freq PRN Reason Stop Dose Admin Acetaminophen 650 mg 04/13/25 18:19 04/13/25 20:30 Acetaminophen 325 Mg Tablet PO 650 mg Q4H PRN Administration Mild Pain (1-3) or Fever Aspirin 81 mg 04/13/25 09:00 04/14/25 09:57 Aspirin 81 Mg Enteric Tablet PO 81 mg QAM [facility] Administration Hydrochlorothiazide 12.5 mg 04/13/25 09:00 04/14/25 09:58 Hydrochlorothiazide 12.5 Mg Capsule PO Not Given QAM [facility] Isosorbide Mononitrate 60 mg 04/14/25 09:00 04/14/25 09:58 Isosorbide Mononitrate 60 Mg Tab.Er.24h PO Not Given DAILY [facility] Multivitamins/Minerals 1 tab 04/13/25 09:00 04/14/25 09:57 Multivitamins /C Lutein (Centrum Silver) Tablet *Bkc PO 1 tab DAILY [facility] Administration Perflutren Lipid Microsphere 0 ml 04/13/25 08:24 Perflutren Lipid Microspheres 1.5 Ml Vial Diluted To 10 Ml Total Volume IV PUSH 04/16/25 08:24 ONCE PRN adequate visualization Protocol Rosuvastatin Calcium 20 mg 04/13/25 09:00 04/14/25 09:57 Rosuvastatin 20 Mg Tablet PO 20 mg DAILY [facility] Administration Valsartan 320 mg 04/13/25 09:00 04/14/25 09:58 Valsartan 160 Mg Tablet PO Not Given QAM [facility] Radiology Results: ITS Impressions Head CT 04/12/25 18:31 IMPRESSION: 1. No acute intracranial abnormality. 2: Slight increased size of this likely calcified meningioma left parietal vertex. 3: Chronic age-related findings. Chest X-Ray 04/12/25 18:35 Impression: 1: No acute cardiopulmonary disease. Labs Labs: Laboratory Results - last 24 hr 04/14/25 03:14 WBC 11.6 H RBC 4.66 Hgb 14.1 Hct 42.2 MCV 90.6 MCH 30.3 MCHC 33.4 RDW 15.0 H Plt Count 445 H MPV 10.4 Sodium 135 L Potassium 3.4 Chloride 101 Carbon Dioxide 28 Anion Gap 6 BUN 11 Creatinine 0.71 Estim Creat Clear Calc 70 Estimated GFR > 60 Glucose 98 Calcium 8.5 Total Bilirubin 0.7 AST 35 ALT 16 Alkaline Phosphatase 72 Total Protein 6.8 Albumin 3.9 Hospitalist [facility] Advance Care Plan I have confirmed that the patient's Advanced Care Plan is present, code status is documented, or surrogate decision maker is listed in patient medical record.: Yes Medication Reconciliation I have utilized all available resources to obtain, update and review the patients current medications (includes all prescriptions, OTC, herbals, cannabis, and nutritional supplements).: Yes
[2025-04-14 20:20] LABS: Cholesterol 155 mg/dL (0-200); HDL Direct 55 mg/dL; Triglycerides 77 mg/dL (<150)
[2025-04-14 21:32] LABS: Vitamin B12 377.0 pg/mL (239-931)
[2025-04-15] VITALS (20 sets, daily range): BP systolic 100–159; BP diastolic 58–84; PULSE 60–87; RESP 13–20; TEMP 36.7–37.1; O2SAT 94–100
[2025-04-15 03:57] LABS: Hematocrit 42.5 % (42.0-52.0); Hemoglobin 14.1 g/dL (14.0-18.0); Mean Corpuscular HGB Conc 33.2 g/dl (32-36); Mean Corpuscular Hemoglobin 30.0 pg (26-34); Mean Corpuscular Volume 90.4 fl (80-100); Platelet Count Result 504 k/mm3 (150-375); Red Blood Count 4.70 M/mm3 (4.6-6.20); White Blood Count 13.6 K/mm3 (4.5-10.0)
[2025-04-15 04:24] LABS: Alanine Aminotransferase 16 U/L (6-50); Albumin Level 3.9 g/dL (3.5-5.1); Alkaline Phosphatase 62 U/L (38-126); Anion Gap 8 mmol/L (4-12); Aspartate Amino Transferase 41 U/L (17-59); Bilirubin,Total 0.8 mg/dL (0.2-1.3); Blood Urea Nitrogen 11 mg/dL (9-20); Calcium 8.6 mg/dL (8.4-10.2); Carbon Dioxide 25 mmol/L (22-30); Chloride 101 mmol/L (98-107); Estimated CRCL calculation 79 ml/min; Estimated Glomerular Filt Rate > 60; Glucose 96 mg/dL (65-110); Potassium 3.6 mmol/L (3.4-5.0); Sodium 134 mmol/L (137-145); Total Protein 6.9 g/dL (6.3-8.2)
--- NOTE | 2025-04-15 06:42 | P.PNCA_ITS ---
Progress Note: A&P Assessment and Plan (1) Non-ST elevation [place] (NSTEMI): Code(s): I21.4 - Non-ST elevation (NSTEMI) myocardial infarction Status: Acute (2) CAD (coronary artery disease): Code(s): I25.10 - Atherosclerotic heart disease of [place] coronary artery without angina pectoris Status: Acute (3) Hypertension: Code(s): I10 - Essential (primary) hypertension Status: Acute (4) Severe aortic stenosis: Code(s): I35.0 - Nonrheumatic aortic (valve) stenosis Status: Acute Plan Diagnosis: -NSTEMI-chest pain, elevated troponin; TTE showed normal LVEF of 65-70% without any regional wall motion abnormality, grade 1 diastolic dysfunction; cath showed 60% proximal LAD, 50% mid LAD, and 70% ostial diagonal stenosis with no acute plaque rupture -Severe aortic stenosis with aortic valve area of 0.9 cm2 -CAD-chronic 60% stenosis proximal LAD, 50% stenosis mid LAD, 70% stenosis of ostial diagonal 1 -Severe aortic stenosis with aortic valve area of 0.9 cm2-new diagnosis -Hypertension -Acute CVA- R homonymous hemianopsia; neurology following Plan: -Cath showed chronic CAD without any acute plaque rupture. TTE shows severe aortic stenosis. No intervention performed as no acute plaque rupture, no further chest pain, no heart failure, no electrical instability. He will be best served by a [facility] heart team to evaluate candidacy for TAVR+PCI vs SAVR+ single vessel CABG. Outpatient valve appointment at [facility] -Optimize medical therapy for CAD. Continue aspirin 81 mg daily, rosuvastatin 20 mg daily. Increased dose of Imdur to 60 mg daily -No beta-kwabena given first-degree AV block with MD of 235 milliseconds -Continue home blood pressure medications valsartan, hydrochlorothiazide -Stopped amlodipine to allow room in blood pressure to increase dose of Imdur -Avoid hypotension given severe -Check and replace electrolytes to keep potassium greater than 4 and magnesium greater than 2 -Monitor on telemetry -Ongoing neurology work up for acute CVA (R homonymous hemianopsia) Subjective Date/time seen: 04/15/25 06:42 Interval history: Reason for encounter: NSTEMI Relevant history: 80-year-old male with history of hypertension presented with chief complaints of chest pain. Troponin elevated. Cardiology consulted for management of NSTEMI Interval history: He is sitting up in a chair. He had an MRI of his brain yesterday. No chest pain, shortness of breath, dizziness lightheadedness. He reports some headache. Blood pressure was low yesterday and his hypertensive meds were held. His blood pressure is much improved today. Review of Systems Cardiovascular: Comments: As per HPI Respiratory: Comments: As per HPI Exam Narrative: General: Alert oriented x3, no acute distress Neck: Supple, no JVD Chest: Bilaterally clear to auscultation, no rales or rhonchi Cardiac: S1, S2 +, regular rate, regular rhythm, no murmurs or rubs Extremities: No pedal edema, no skin rash Neurologic: Alert and oriented x3, no focal neurological deficits Objective Data Vital Signs Vital Signs: Vital Signs - 24 hr 04/14/25 07:50 04/14/25 08:00 04/14/25 08:00 Temperature 37.0 C 36.8 C Pulse Rate 76 72 Respiratory Rate 16 20 Blood Pressure 107/94 H 162/66 H Pulse Oximetry 96 95 Oxygen Delivery Room Air Fraction of Inspired Oxygen 04/14/25 08:00 04/14/25 10:00 04/14/25 10:36 Temperature Pulse Rate 88 79 Respiratory Rate Blood Pressure 154/82 H Pulse Oximetry Oxygen Delivery Fraction of Inspired Oxygen 04/14/25 10:36 04/14/25 11:48 04/14/25 11:49 Temperature Pulse Rate 74 Respiratory Rate Blood Pressure 149/75 H Pulse Oximetry Oxygen Delivery Room Air Fraction of Inspired Oxygen 04/14/25 12:00 04/14/25 14:00 04/14/25 16:00 Temperature 36.8 C Pulse Rate 77 77 Respiratory Rate 16 Blood Pressure 153/87 H Pulse Oximetry 97 Oxygen Delivery Room Air Fraction of Inspired Oxygen 04/14/25 16:00 04/14/25 16:00 04/14/25 17:26 Temperature 36.9 C Pulse Rate 72 75 82 Respiratory Rate 12 Blood Pressure 152/69 H Pulse Oximetry 98 Oxygen Delivery Fraction of Inspired Oxygen 04/14/25 20:00 04/14/25 20:00 04/14/25 20:00 Temperature 37.1 C Pulse Rate 82 78 77 Respiratory Rate 12 14 Blood Pressure 157/79 H Pulse Oximetry 98 96 Oxygen Delivery Room Air Fraction of Inspired Oxygen 04/14/25 20:45 04/14/25 20:48 04/14/25 20:49 Temperature 37.1 C 37.1 C 36.6 C Pulse Rate 77 83 78 Respiratory Rate 14 14 14 Blood Pressure 157/79 H 149/75 H 166/79 H Pulse Oximetry 96 97 96 Oxygen Delivery Fraction of Inspired Oxygen 04/14/25 21:01 04/14/25 22:00 04/15/25 00:00 Temperature Pulse Rate 75 84 60 Respiratory Rate Blood Pressure Pulse Oximetry 95 Oxygen Delivery Room Air Fraction of Inspired Oxygen 04/15/25 00:21 04/15/25 00:30 04/15/25 02:00 Temperature 37.1 C Pulse Rate 60 60 70 Respiratory Rate 16 16 Blood Pressure 145/83 H Pulse Oximetry 98 98 Oxygen Delivery Room Air Fraction of Inspired Oxygen 04/15/25 03:37 04/15/25 04:00 04/15/25 04:00 Temperature 37.0 C Pulse Rate 78 78 71 Respiratory Rate 15 15 Blood Pressure 159/84 H Pulse Oximetry 96 96 Oxygen Delivery Room Air Fraction of Inspired Oxygen 04/15/25 06:00 Temperature Pulse Rate 73 Respiratory Rate Blood Pressure Pulse Oximetry Oxygen Delivery Fraction of Inspired Oxygen Intake/Output Intake/Output: Intake & Output 04/12/25 04/13/25 04/14/25 04/15/25 23:59 23:59 23:59 23:59 Intake Total 1000 1128.7 2580 550 Output Total 300 Balance 1000 828.7 2580 550 Meds/Results Medications: Active Medications Generic Name Dose Route Start Last Admin Trade Name Eliasq PRN Reason Stop Dose Admin Acetaminophen 650 mg 04/13/25 18:19 04/13/25 20:30 Acetaminophen 325 Mg Tablet PO 650 mg Q4H PRN Administration Mild Pain (1-3) or Fever Aspirin 81 mg 04/13/25 09:00 04/14/25 09:57 Aspirin 81 Mg Enteric Tablet PO 81 mg QAM [facility] Administration Hydrochlorothiazide 12.5 mg 04/13/25 09:00 04/14/25 09:58 Hydrochlorothiazide 12.5 Mg Capsule PO Not Given QAM [facility] Isosorbide Mononitrate 60 mg 04/14/25 09:00 04/14/25 09:58 Isosorbide Mononitrate 60 Mg Tab.Er.24h PO Not Given DAILY [facility] Multivitamins/Minerals 1 tab 04/13/25 09:00 04/14/25 09:57 Multivitamins /C Lutein (Centrum Silver) Tablet *Bkc PO 1 tab DAILY [facility] Administration Perflutren Lipid Microsphere 0 ml 04/13/25 08:24 Perflutren Lipid Microspheres 1.5 Ml Vial Diluted To 10 Ml Total Volume IV PUSH 04/16/25 08:24 ONCE PRN adequate visualization Protocol Rosuvastatin Calcium 20 mg 04/13/25 09:00 04/14/25 09:57 Rosuvastatin 20 Mg Tablet PO 20 mg DAILY [facility] Administration Valsartan 320 mg 04/13/25 09:00 04/14/25 09:58 Valsartan 160 Mg Tablet PO Not [facility] [place] Rad[facility] Results: ITS Impressions Head CT 04/12/25 18:31 IMPRESSION: 1. No acute intracranial abnormality. 2: Slight increased size of this likely calcified meningioma left parietal vertex. 3: Chronic age-related findings. Chest X-Ray 04/12/25 18:35 Impression: 1: No acute cardiopulmonary disease. Labs Labs: Laboratory Results - last 24 hr 04/14/25 04/14/25 04/15/25 03:12 03:14 03:22 WBC 13.6 H RBC 4.70 Hgb 14.1 Hct 42.5 MCV 90.4 MCH 30.0 MCHC 33.2 RDW 14.6 H Plt Count 504 H MPV 10.5 H Sodium 134 L Potassium 3.6 Chloride 101 Carbon Dioxide 25 Anion Gap 8 BUN 11 Creatinine 0.63 L Estim Creat Clear Calc 79 Estimated GFR > 60 Glucose 96 Calcium 8.6 Total Bilirubin 0.8 AST 41 ALT 16 Alkaline Phosphatase 62 Total Protein 6.9 Albumin 3.9 Triglycerides 77 Cholesterol 155 LDL Cholesterol Direct 66 HDL Direct 55 Vitamin B12 377.0 Vitamin D 25-Hydroxy 34.0 Folate > 20.0 H
--- NOTE | 2025-04-15 08:40 | P.PNIM_ITS ---
Progress Note: A&P Assessment and Plan (1) Non-ST elevation PR (NSTEMI): Code(s): I21.4 - Non-ST elevation (NSTEMI) myocardial infarction Status: Acute Assessment and Plan: -cardiac catheterization was performed on 04/13/25 -evidence of CAD but no stent was placed. Medical management -Rosuvastatin 40 mg, and aspirin 81 mg. Added Imdur - sublingual nitro if needed -Echocardiogram shows severe aortic stenosis -cardiology plans for outpatient follow-up at valve clinic [facility]. -Denies any illicit drug use -Reviewed EKG and CXR (2) Metabolic encephalopathy: Code(s): G93.41 - Metabolic encephalopathy Status: Acute Assessment and Plan: Chronic meningioma who follows up with the Neurology CT head reviewed: No acute intracranial abnormality. Slightly increased size of calcified meningioma left parietal vertex. Chronic age-related findings. Repeat MRI ordered and pending at this time. Previous MRI 2022 with stable 10 mm meningioma overlying left frontoparietal region. Stable extensive nonspecific cerebral white matter disease. Normal ammonia, vitamin B12, syphilis and elevated TSH Neurology consulted As per Neurology patient has a right homonymous hemianopsia and should not drive Carotid ultrasound pending No evidence of infection No evidence of electrolyte abnormality Echo 04/13/2025: EF 65-70% grade 1 diastolic dysfunction. Severe aortic valve stenosis with moderate aortic valve calcifications. No other significant valvular abnormalities. Carotid ultrasound pending. Remains on aspirin and rosuvastatin. Plan Code status full code DVT prophylaxis heparin drip Subjective Date/time seen: 04/15/25 08:40 Interval history: No overnight events. Reports no chest pain or shortness of breath. He is awaiting 4 his MRI to be done. Reports some headache. Discussed with Cardiology Review of Systems Review of Systems: All systems reviewed & are unremarkable except as noted in HPI and below Exam Narrative: GENERAL: [Well-appearing, well-nourished, and in no acute distress.] HEAD: [Normocephalic, atraumatic.] EYES: [PERRLA and EOMI.] ENT: Nares clear, no rhinorrhea or epistaxis. Mucous membranes moist. NECK: Supple. CHEST: [Clear to auscultation. No respiratory distress.] HEART: [Regular rate and rhythm]. No murmur heard. [Normal peripheral pulses.] ABDOMEN: [Soft, nondistended], [nontender], [No rigidity or guarding] EXTREMITIES: Normal range of motion. [No edema.] SKIN: Warm, dry, no rash. NEURO: No overt focal deficits, moving all extremities, complaining of intermittent confusion but presently awake alert oriented answering questions appropriately. PSYCH: [Normal mood and affect.] Objective Data Vital Signs Vital Signs: Vital Signs - 24 hr 04/14/25 10:00 04/14/25 10:36 04/14/25 10:36 Temperature Pulse Rate 79 Respiratory Rate Blood Pressure 154/82 H 149/75 H Pulse Oximetry Oxygen Delivery Fraction of Inspired Oxygen 04/14/25 11:48 04/14/25 11:49 04/14/25 12:00 Temperature 98.3 F Pulse Rate 74 77 Respiratory Rate 16 Blood Pressure 153/87 H Pulse Oximetry 97 Oxygen Delivery Room Air Fraction of Inspired Oxygen 04/14/25 14:00 04/14/25 16:00 04/14/25 16:00 Temperature Pulse Rate 77 72 Respiratory Rate Blood Pressure Pulse Oximetry Oxygen Delivery Room Air Fraction of Inspired Oxygen 04/14/25 16:00 04/14/25 17:26 04/14/25 20:00 Temperature 98.5 F Pulse Rate 75 82 82 Respiratory Rate 12 12 Blood Pressure 152/69 H Pulse Oximetry 98 98 Oxygen Delivery Room Air Fraction of Inspired Oxygen 04/14/25 20:00 04/14/25 20:00 04/14/25 20:45 Temperature 98.7 F 98.7 F Pulse Rate 78 77 77 Respiratory Rate 14 14 Blood Pressure 157/79 H 157/79 H Pulse Oximetry 96 96 Oxygen Delivery Fraction of Inspired Oxygen 04/14/25 20:48 04/14/25 20:49 04/14/25 21:01 Temperature 98.7 F 97.8 F Pulse Rate 83 78 75 Respiratory Rate 14 14 Blood Pressure 149/75 H 166/79 H Pulse Oximetry 97 96 95 Oxygen Delivery Room Air Fraction of Inspired Oxygen 04/14/25 22:00 04/15/25 00:00 04/15/25 00:21 Temperature 98.8 F Pulse Rate 84 60 60 Respiratory Rate 16 Blood Pressure 145/83 H Pulse Oximetry 98 Oxygen Delivery Fraction of Inspired Oxygen 04/15/25 00:30 04/15/25 02:00 04/15/25 03:37 Temperature 98.6 F Pulse Rate 60 70 78 Respiratory Rate 16 15 Blood Pressure 159/84 H Pulse Oximetry 98 96 Oxygen Delivery Room Air Fraction of Inspired Oxygen 21 04/15/25 04:00 04/15/25 04:00 04/15/25 06:00 Temperature Pulse Rate 78 71 73 Respiratory Rate 15 Blood Pressure Pulse Oximetry 96 Oxygen Delivery Room Air Fraction of Inspired Oxygen 04/15/25 08:00 Temperature 98.7 F Pulse Rate 82 Respiratory Rate 20 Blood Pressure 151/66 H Pulse Oximetry 97 Oxygen Delivery Fraction of Inspired Oxygen Intake/Output Intake/Output: Intake & Output 04/12/25 04/13/25 04/14/25 04/15/25 23:59 23:59 23:59 23:59 Intake Total 1000 1128.7 2580 790 Output Total 300 Balance 1000 828.7 2580 790 Meds/Results Medications: Active Medications Generic Name Dose Route Start Last Admin Trade Name Freq PRN Reason Stop Dose Admin Acetaminophen 650 mg 04/13/25 18:19 04/13/25 20:30 Acetaminophen 325 Mg Tablet PO 650 mg Q4H PRN Administration Mild Pain (1-3) or Fever Aspirin 81 mg 04/13/25 09:00 04/14/25 09:57 Aspirin 81 Mg Enteric Tablet PO 81 mg QAM [facility] Administration Hydrochlorothiazide 12.5 mg 04/13/25 09:00 04/14/25 09:58 Hydrochlorothiazide 12.5 Mg Capsule PO Not Given QAM [facility] Isosorbide Mononitrate 60 mg 04/14/25 09:00 04/14/25 09:58 Isosorbide Mononitrate 60 Mg Tab.Er.24h PO Not Given DAILY [facility] Multivitamins/Minerals 1 tab 04/13/25 09:00 04/14/25 09:57 Multivitamins /C Lutein (Centrum Silver) Tablet *Bkc PO 1 tab DAILY [facility] Administration Perflutren Lipid Microsphere 0 ml 04/13/25 08:24 Perflutren Lipid Microspheres 1.5 Ml Vial Diluted To 10 Ml Total Volume IV PUSH 04/16/25 08:24 ONCE PRN adequate visualization Protocol Rosuvastatin Calcium 20 mg 04/13/25 09:00 04/14/25 09:57 Rosuvastatin 20 Mg Tablet PO 20 mg DAILY [facility] Administration Valsartan 320 mg 04/13/25 09:00 04/14/25 09:58 Valsartan 160 Mg Tablet PO [facility] [place] Rad[facility] Results: ITS Impressions Head CT 04/12/25 18:31 IMPRESSION: 1. No acute intracranial abnormality. 2: Slight increased size of this likely calcified meningioma left parietal vertex. 3: Chronic age-related findings. Chest X-Ray 04/12/25 18:35 Impression: 1: No acute cardiopulmonary disease. Labs Labs: Laboratory Results - last 24 hr 04/14/25 04/14/25 04/15/25 03:12 03:14 03:22 WBC 13.6 H RBC 4.70 Hgb 14.1 Hct 42.5 MCV 90.4 MCH 30.0 MCHC 33.2 RDW 14.6 H Plt Count 504 H MPV 10.5 H Sodium 134 L Potassium 3.6 Chloride 101 Carbon Dioxide 25 Anion Gap 8 BUN 11 Creatinine 0.63 L Estim Creat Clear Calc 79 Estimated GFR > 60 Glucose 96 Calcium 8.6 Total Bilirubin 0.8 AST 41 ALT 16 Alkaline Phosphatase 62 Total Protein 6.9 Albumin 3.9 Triglycerides 77 Cholesterol 155 LDL Cholesterol Direct 66 HDL Direct 55 Vitamin B12 377.0 Vitamin D 25-Hydroxy 34.0 Folate > 20.0 H
[2025-04-15] MEDS: VALSARTAN 160 MG TABLET 320 MG PO (08:59)
[2025-04-15] MEDS: ASPIRIN 81 MG ENTERIC TABLET PO (08:59)
[2025-04-15] MEDS: ISOSORBIDE MONONITRATE 60 MG TAB.ER.24H PO (08:59)
[2025-04-15] MEDS: ROSUVASTATIN 20 MG TABLET PO (08:59)
[2025-04-15] MEDS: ACETAMINOPHEN 325 MG TABLET 650 MG PO ×3 (09:00→18:41)
[2025-04-15] MEDS: MULTIVITAMINS /C LUTEIN (CENTRUM SILVER) TABLET *BKC 1 TAB PO (09:00)
[2025-04-15] MEDS: CLOPIDOGREL BISULFATE 75 MG TABLET PO (18:41)
[2025-04-15] MEDS: DOCUSATE SODIUM 100 MG CAPSULE PO (19:18)
[2025-04-16] VITALS (13 sets, daily range): BP systolic 122–156; BP diastolic 59–73; PULSE 55–90; RESP 12–20; TEMP 36.6; O2SAT 95–98
[2025-04-16 04:38] LABS: Hematocrit 41.1 % (42.0-52.0); Hemoglobin 13.7 g/dL (14.0-18.0); Immature Granulocyte Percent A 0.4 % (0-0.5); Lymphocytes Absolute Auto 2.57 K/mm3 (0.9-3.2); Mean Corpuscular HGB Conc 33.3 g/dl (32-36); Mean Corpuscular Hemoglobin 30.1 pg (26-34); Mean Corpuscular Volume 90.3 fl (80-100); Nucleated Red Blood Cells Absolute Auto 0.000 K/mm3 (0.0-0.012); Nucleated Red Blood Cells Perc 0.0 % (0.0-0.2); Platelet Count Result 480 k/mm3 (150-375); Red Blood Count 4.55 M/mm3 (4.6-6.20); White Blood Count 11.8 K/mm3 (4.5-10.0)
[2025-04-16 05:08] LABS: Alanine Aminotransferase 18 U/L (6-50); Albumin Level 3.9 g/dL (3.5-5.1); Alkaline Phosphatase 70 U/L (38-126); Anion Gap 7 mmol/L (4-12); Aspartate Amino Transferase 43 U/L (17-59); Bilirubin,Total 0.8 mg/dL (0.2-1.3); Blood Urea Nitrogen 12 mg/dL (9-20); Calcium 8.5 mg/dL (8.4-10.2); Carbon Dioxide 27 mmol/L (22-30); Chloride 100 mmol/L (98-107); Estimated CRCL calculation 72 ml/min; Estimated Glomerular Filt Rate > 60; Glucose 97 mg/dL (65-110); Magnesium 2.1 mg/dL (1.6-2.3); Potassium 3.5 mmol/L (3.4-5.0); Sodium 134 mmol/L (137-145); Total Protein 6.7 g/dL (6.3-8.2)
[2025-04-16] MEDS: ASPIRIN 81 MG ENTERIC TABLET PO (09:54)
[2025-04-16] MEDS: CLOPIDOGREL BISULFATE 75 MG TABLET PO (09:54)
[2025-04-16] MEDS: VALSARTAN 160 MG TABLET 320 MG PO (09:54)
[2025-04-16] MEDS: ROSUVASTATIN 20 MG TABLET PO (09:54)
[2025-04-16] MEDS: ISOSORBIDE MONONITRATE 60 MG TAB.ER.24H PO (09:54)
[2025-04-16] MEDS: MULTIVITAMINS /C LUTEIN (CENTRUM SILVER) TABLET *BKC 1 TAB PO (09:54)
[2025-04-16] MEDS: SENNA/DOCUSATE SODIUM TABLET 1 TAB PO (09:54)
[2025-04-16] MEDS: BISACODYL 10 MG SUPPOSITORY RECTAL (10:19)
--- NOTE | 2025-04-16 12:11 | P.PNCA_ITS ---
Progress Note: A&P Assessment and Plan (1) Non-ST elevation MS (NSTEMI): Code(s): I21.4 - Non-ST elevation (NSTEMI) myocardial infarction Status: Acute (2) CAD (coronary artery disease): Code(s): I25.10 - Atherosclerotic heart disease of [place] coronary artery without angina pectoris Status: Acute (3) Hypertension: Code(s): I10 - Essential (primary) hypertension Status: Acute (4) Severe aortic stenosis: Code(s): I35.0 - Nonrheumatic aortic (valve) stenosis Status: Acute Plan Diagnosis: -NSTEMI-chest pain, elevated troponin; TTE showed normal LVEF of 65-70% without any regional wall motion abnormality, grade 1 diastolic dysfunction; cath showed 60% proximal LAD, 50% mid LAD, and 70% ostial diagonal stenosis with no acute plaque rupture -Severe aortic stenosis with aortic valve area of 0.9 cm2 -CAD-chronic 60% stenosis proximal LAD, 50% stenosis mid LAD, 70% stenosis of ostial diagonal 1 -Severe aortic stenosis with aortic valve area of 0.9 cm2-new diagnosis -Hypertension -Acute CVA- R homonymous hemianopsia; neurology following Plan: -Cath showed chronic CAD without any acute plaque rupture. TTE shows severe aortic stenosis. No intervention performed as no acute plaque rupture, no further chest pain, no heart failure, no electrical instability. He will be best served by a D heart team to evaluate candidacy for TAVR+PCI vs SAVR+ single vessel CABG. Outpatient follow-up -Optimize medical therapy for CAD. Continue aspirin 81 mg daily, rosuvastatin 20 mg daily. Increased dose of Imdur to 60 mg daily -No beta-kwabena given first-degree AV block with NH of 235 milliseconds -Continue home blood pressure medications valsartan, hydrochlorothiazide -Avoid hypotension given severe -Check and replace electrolytes to keep potassium greater than 4 and magnesium greater than 2 -Monitor on telemetry -Ongoing neurology work up for acute CVA (R homonymous hemianopsia) Subjective Date/time seen: 04/16/25 12:11 Interval history: Patient was evaluated today for chest pain and elevated troponin No acute events overnight Telemetry sinus rhythm Review of Systems Review of Systems: All systems reviewed & are unremarkable except as noted in HPI and below Exam Narrative: General: Alert oriented x3, no acute distress Neck: Supple, no JVD Chest: Bilaterally clear to auscultation, no rales or rhonchi Cardiac: S1, S2 +, regular rate, regular rhythm, no murmurs or rubs Extremities: No pedal edema, no skin rash Neurologic: Alert and oriented x3, no focal neurological deficits Objective Data Vital Signs Vital Signs: Vital Signs - 24 hr 04/15/25 12:13 04/15/25 12:13 04/15/25 14:00 Temperature Pulse Rate 71 82 74 Respiratory Rate Blood Pressure 100/64 106/68 Pulse Oximetry 95 97 Oxygen Delivery 04/15/25 16:00 04/15/25 16:00 04/15/25 16:00 Temperature 36.7 C Pulse Rate 68 72 Respiratory Rate 16 Blood Pressure 117/66 Pulse Oximetry 94 94 Oxygen Delivery Room Air 04/15/25 18:00 04/15/25 19:54 04/15/25 19:55 Temperature 36.8 C 36.8 C Pulse Rate 72 68 68 Respiratory Rate 16 16 Blood Pressure 132/78 117/65 Pulse Oximetry 99 97 Oxygen Delivery 04/15/25 20:00 04/15/25 20:00 04/15/25 20:05 Temperature 36.8 C Pulse Rate 65 70 65 Respiratory Rate 16 16 Blood Pressure 117/65 Pulse Oximetry 100 97 Oxygen Delivery Room Air 04/15/25 20:06 04/15/25 22:00 04/16/25 00:00 Temperature Pulse Rate 70 60 58 L Respiratory Rate Blood Pressure 127/68 Pulse Oximetry 100 Oxygen Delivery 04/16/25 00:00 04/16/25 00:39 04/16/25 02:00 Temperature 36.6 C Pulse Rate 58 L 67 55 L Respiratory Rate 14 Blood Pressure 145/61 H Pulse Oximetry 98 Oxygen Delivery Room Air 04/16/25 03:57 04/16/25 04:00 04/16/25 04:00 Temperature 36.6 C Pulse Rate 67 59 L 59 L Respiratory Rate 14 Blood Pressure 122/67 Pulse Oximetry 96 Oxygen Delivery Room Air 04/16/25 06:00 04/16/25 07:49 04/16/25 11:55 Temperature 36.6 C 36.6 C Pulse Rate 79 86 78 Respiratory Rate 12 20 Blood Pressure 156/73 H 133/59 L Pulse Oximetry 96 96 Oxygen Delivery Intake/Output Intake/Output: Intake & Output 04/13/25 04/14/25 04/15/25 04/16/25 23:59 23:59 23:59 23:59 Intake Total 1128.7 2580 1270 790 Output Total 300 Balance 828.7 2580 1270 790 Meds/Results Medications: Active Medications Generic Name Dose Route Start Last Admin Trade Name Freq PRN Reason Stop Dose Admin Acetaminophen 650 mg 04/13/25 18:19 04/15/25 18:41 Acetaminophen 325 Mg Tablet PO 650 mg Q4H PRN Administration Mild Pain (1-3) or Fever Aspirin 81 mg 04/13/25 09:00 04/16/25 09:54 Aspirin 81 Mg Enteric Tablet PO 81 mg QAM NADEEM Administration Clopidogrel Bisulfate 75 mg 04/15/25 16:30 04/16/25 09:54 Clopidogrel Bisulfate 75 Mg Tablet PO 75 mg QAM NADEEM Administration Hydrochlorothiazide 12.5 mg 04/13/25 09:00 04/16/25 09:54 Hydrochlorothiazide 12.5 Mg Capsule PO 12.5 mg QAM NADEEM Administration Isosorbide Mononitrate 60 mg 04/14/25 09:00 04/16/25 09:54 Isosorbide Mononitrate 60 Mg Tab.Er.24h PO 60 mg DAILY NADEEM Administration Multivitamins/Minerals 1 tab 04/13/25 09:00 04/16/25 09:54 Multivitamins /C Lutein (Centrum Silver) Tablet *Bkc PO 1 tab DAILY NADEEM Administration Rosuvastatin Calcium 20 mg 04/13/25 09:00 04/16/25 09:54 Rosuvastatin 20 Mg Tablet PO 20 mg DAILY NADEEM Administration Senna/Docusate Sodium 1 tab 04/16/25 09:00 04/16/25 09:54 Senna/Docusate Sodium Tablet PO 1 tab BID NADEEM Administration Valsartan 320 mg 04/13/25 09:00 04/16/25 09:54 Valsartan 160 Mg Tablet PO 320 mg QAM NADEEM Administration Radiology Results: ITS Impressions Head CT 04/12/25 18:31 IMPRESSION: 1. No acute intracranial abnormality. 2: Slight increased size of this likely calcified meningioma left parietal vertex. 3: Chronic age-related findings. Chest X-Ray 04/12/25 18:35 Impression: 1: No acute cardiopulmonary disease. Carotid Doppler Study 04/15/25 09:35 IMPRESSION: 1. <50% stenosis in the right internal carotid artery. 2. <50% stenosis in the left internal carotid artery. Brain MRI 04/15/25 14:09 IMPRESSION: 1. Large acute infarction left occipital lobe. 2: No significant change to 11 mm meningioma left parietal vertex. ADDENDUM: 04/15/[address] Rubio Ng discussed with an IMU nurse, Deepti, at 04/15/2025 14:37 CDT. Labs Labs: Laboratory Results - last 24 hr 04/16/25 04:18 WBC 11.8 H RBC 4.55 L Hgb 13.7 L Hct 41.1 L MCV 90.3 MCH 30.1 MCHC 33.3 RDW 14.7 H Plt Count 480 H MPV 10.3 Immature Gran % (Auto) 0.4 Neut % (Auto) 61.9 Lymph % (Auto) 21.8 [place] % (Auto) 11.1 H Eos % (Auto) 3.9 Baso % (Auto) 0.9 Lymph # (Auto) 2.57 [place] # (Auto) 1.3 H Eos # (Auto) 0.5 H Baso # (Auto) 0.1 Abs Immat Gran (auto) 0.05 H Absolute Neuts (auto) 7.3 H Absolute Nucleated RBC 0.000 Nucleated RBC % 0.0 Sodium 134 L Potassium 3.5 Chloride 100 Carbon Dioxide 27 Anion Gap 7 BUN 12 Creatinine 0.69 L Estim Creat Clear Calc 72 Estimated GFR > 60 Glucose 97 Calcium 8.5 Magnesium 2.1 Total Bilirubin 0.8 AST 43 ALT 18 Alkaline Phosphatase 70 Total Protein 6.7 Albumin 3.9
--- NOTE | 2025-04-16 14:14 | WPDNEUROPN ---
Progress Note: A&P Assessment and Plan (1) Left-sided cerebrovascular accident (CVA): Code(s): I63.9 - Cerebral infarction, unspecified Status: Acute (2) Severe aortic stenosis: Code(s): I35.0 - Nonrheumatic aortic (valve) stenosis Status: Acute (3) Hypertension: Code(s): I10 - Essential (primary) hypertension Status: Acute Time Spent With Patient Time: the patient is going to follow-up with the data center manager regarding the severe aortic stenosis. From the point of view stroke he should stay on dual anti-platelet and a statin for now and I shall be glad to see my office in 2 months time. I have also advised to get a visual field charting by the refrigerating technician and to not drive leave the hemianopia improved. His is concerned that his memory still has not returned back to normal this may require some follow-up also. Change in memory also occur at the same time when the stroke occurred. He has been evaluated by the speech therapist been given some task with various therapist I have given advice regarding the various ways stroke in present present himself to the nearest emergency room if he has any further spells. I reviewed the MRI of the brain and noted large infarct in the left occipital area and At least a moderate degree of white matter changes and hence the patient underlying cerebrovascular disease . Subjective Date/time seen: 04/16/25 14:14 Interval history: 80-year-old with history of changes in mental status and a right homonymous hemianopia was seen for follow-up. No further symptoms. His think there is still having some memory problem. MRI of the brain shows a large infarct in the left occipital area which is consistent with the finding of right homonymous hemianopsia. No other symptoms. a carotid Doppler study was performed which did not show any significant abnormality. It should be noted that his MRI has also shown a meningioma in the left frontoparietal area which is unchanged. Review of Systems Review of Systems: All systems reviewed & are unremarkable except as noted in HPI and below Exam Const: General: cooperative, healthy appearing and comfortable HENMT: Head: atraumatic Mouth: Yes oropharynx normal Eyes: Alignment and Position: alignment normal and position normal EOM: EOMs intact bilaterally Neck: Neck: normal visual inspection and supple Resp: Effort & Inspection: normal respiratory effort Skin: General skin exam: normal color Neuro: Cranial nerves: Yes CN's II-XII intact bilaterally ( Except for persistent right homonymous hemianopsia), Yes facial symmetry and Yes Midline tongue present Cognition (Neuro): normal cognition Speech: normal speech Gait exam (Neuro): Normal gait present Extrem: General: normal to inspection Psych: Appearance: well kempt Mental Status: mental status grossly normal Speech and movement: Normal speech and movement present Objective Data Vital Signs Vital Signs: Vital Signs - 24 hr 04/15/25 16:00 04/15/25 16:00 04/15/25 16:00 Temperature 98.1 F Pulse Rate 68 72 Respiratory Rate 16 Blood Pressure 117/66 Pulse Oximetry 94 94 Oxygen Delivery Room Air 04/15/25 18:00 04/15/25 19:54 04/15/25 19:55 Temperature 98.3 F 98.3 F Pulse Rate 72 68 68 Respiratory Rate 16 16 Blood Pressure 132/78 117/65 Pulse Oximetry 99 97 Oxygen Delivery 04/15/25 20:00 04/15/25 20:00 04/15/25 20:05 Temperature 98.3 F Pulse Rate 65 70 65 Respiratory Rate 16 16 Blood Pressure 117/65 Pulse Oximetry 100 97 Oxygen Delivery Room Air 04/15/25 20:06 04/15/25 22:00 04/16/25 00:00 Temperature Pulse Rate 70 60 58 L Respiratory Rate Blood Pressure 127/68 Pulse Oximetry 100 Oxygen Delivery 04/16/25 00:00 04/16/25 00:39 04/16/25 02:00 Temperature 97.9 F Pulse Rate 58 L 67 55 L Respiratory Rate 14 Blood Pressure 145/61 H Pulse Oximetry 98 Oxygen Delivery Room Air 04/16/25 03:57 04/16/25 04:00 04/16/25 04:00 Temperature 97.8 F Pulse Rate 67 59 L 59 L Respiratory Rate 14 Blood Pressure 122/67 Pulse Oximetry 96 Oxygen Delivery Room Air 04/16/25 06:00 04/16/25 07:49 04/16/25 11:55 Temperature 97.9 F 97.8 F Pulse Rate 79 86 78 Respiratory Rate 12 20 Blood Pressure 156/73 H 133/59 L Pulse Oximetry 96 96 Oxygen Delivery 04/16/25 13:32 Temperature Pulse Rate Respiratory Rate Blood Pressure Pulse Oximetry Oxygen Delivery Room Air Intake/Output Intake/Output: Intake & Output 04/13/25 04/14/25 04/15/25 04/16/25 23:59 23:59 23:59 23:59 Intake Total 1128.7 2580 1270 790 Output Total 300 Balance 828.7 2580 1270 790 Meds/Results Medications: Active Medications Generic Name Dose Route Start Last Admin Trade Name Freq PRN Reason Stop Dose Admin Acetaminophen 650 mg 04/13/25 18:19 04/15/25 18:41 Acetaminophen 325 Mg Tablet PO 650 mg Q4H PRN Administration Mild Pain (1-3) or Fever Aspirin 81 mg 04/13/25 09:00 04/16/25 09:54 Aspirin 81 Mg Enteric Tablet PO 81 mg QAM NADEEM Administration Clopidogrel Bisulfate 75 mg 04/15/25 16:30 04/16/25 09:54 Clopidogrel Bisulfate 75 Mg Tablet PO 75 mg QAM NADEEM Administration Hydrochlorothiazide 12.5 mg 04/13/25 09:00 04/16/25 09:54 Hydrochlorothiazide 12.5 Mg Capsule PO 12.5 mg QAM NADEEM Administration Isosorbide Mononitrate 60 mg 04/14/25 09:00 04/16/25 09:54 Isosorbide Mononitrate 60 Mg Tab.Er.24h PO 60 mg DAILY NADEEM Administration Multivitamins/Minerals 1 tab 04/13/25 09:00 04/16/25 09:54 Multivitamins /C Lutein (Centrum Silver) Tablet *Bkc PO 1 tab DAILY NADEEM Administration Rosuvastatin Calcium 20 mg 04/13/25 09:00 04/16/25 09:54 Rosuvastatin 20 Mg Tablet PO 20 mg DAILY NADEEM Administration Senna/Docusate Sodium 1 tab 04/16/25 09:00 04/16/25 09:54 Senna/Docusate Sodium Tablet PO 1 tab BID NADEEM Administration Valsartan 320 mg 04/13/25 09:00 04/16/25 09:54 Valsartan 160 Mg Tablet PO 320 mg QAM NADEEM Administration Radiology Results: ITS Impressions Head CT 04/12/25 18:31 IMPRESSION: 1. No acute intracranial abnormality. 2: Slight increased size of this likely calcified meningioma left parietal vertex. 3: Chronic age-related findings. Chest X-Ray 04/12/25 18:35 Impression: 1: No acute cardiopulmonary disease. Carotid Doppler Study 04/15/25 09:35 IMPRESSION: 1. <50% stenosis in the right internal carotid artery. 2. <50% stenosis in the left internal carotid artery. Brain MRI 04/15/25 14:09 IMPRESSION: 1. Large acute infarction left occipital lobe. 2: No significant change to 11 mm meningioma left parietal vertex. ADDENDUM: 04/15/[address] Rubio Ng discussed with an IMU nurse, Deepti, at 04/15/2025 14:37 CDT. Labs Labs: Laboratory Results - last 24 hr 04/16/25 04:18 WBC 11.8 H RBC 4.55 L Hgb 13.7 L Hct 41.1 L MCV 90.3 MCH 30.1 MCHC 33.3 RDW 14.7 H Plt Count 480 H MPV 10.3 Immature Gran % (Auto) 0.4 Neut % (Auto) 61.9 Lymph % (Auto) 21.8 [place] % (Auto) 11.1 H Eos % (Auto) 3.9 Baso % (Auto) 0.9 Lymph # (Auto) 2.57 [place] # (Auto) 1.3 H Eos # (Auto) 0.5 H Baso # (Auto) 0.1 Abs Immat Gran (auto) 0.05 H Absolute Neuts (auto) 7.3 H Absolute Nucleated RBC 0.000 Nucleated RBC % 0.0 Sodium 134 L Potassium 3.5 Chloride 100 Carbon Dioxide 27 Anion Gap 7 BUN 12 Creatinine 0.69 L Estim Creat Clear Calc 72 Estimated GFR > 60 Glucose 97 Calcium 8.5 Magnesium 2.1 Total Bilirubin 0.8 AST 43 ALT 18 Alkaline Phosphatase 70 Total Protein 6.7 Albumin 3.9
--- NOTE | 2025-04-16 15:52 | PM.DS ---
DS: Admitting Diagnosis Discharge Date 04/16/2025 Admitting Diagnosis Dizziness and altered mental status DS: Discharge Diagnosis Discharge Diagnosis (1) Severe aortic stenosis: Code(s): I35.0 - Nonrheumatic aortic (valve) stenosis Status: Acute (2) Hypertension: Code(s): I10 - Essential (primary) hypertension Status: Acute (3) CAD (coronary artery disease): Code(s): I25.10 - Atherosclerotic heart disease of [place] coronary artery without angina pectoris Status: Acute (4) Left-sided cerebrovascular accident (CVA): Code(s): I63.9 - Cerebral infarction, unspecified Status: Acute (5) Lightheadedness: Code(s): R42 - Dizziness and giddiness Status: Acute DS: Summary Hospital Course Hospital Course: 80-year-old male who is previously independent, not use assistive devices for ambulation, lives at home with his family, history of hypertension, GERD, hypercholesterolemia, presents with dizziness, confusion. MR brain brainstem without and with contrast on 04/15/2025 demonstrates large acute infarction of left occipital lobe, no significant change to 11 mm meningioma left parietal vertex. He has been seen by Neurology consultants, started on aspirin and Plavix, rosuvastatin increased from 20 mg to 40 mg. He has been seen by Physical therapy and Occupational therapy, he is discharged home in stable condition with family with home health therapy. He will follow with Neurology in 2 months. He has right homonymous hemianopsia and forgetfulness been persistent throughout his stay. On presentation, he also had NSTEMI, he has been seen by automotive service consultant, heart catheterization showed chronic CAD without any acute plaque rupture, TTE shows severe aortic stenosis. He has already been referred to Surgical Heart Disease team at [place], they do have an appointment. He will be continued on aspirin, rosuvastatin, Plavix. His amlodipine discontinued and replaced with increase of Imdur from 30-60 mg. No beta-kwabena given given 1st degree AV block. 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 As above, he is discharged in stable condition. All of the patient's and his 's concerns and questions were answered to satisfaction. The patient was full code during the admission. Time Spent with Patient Time attestation: Total time spent providing and/or coordinating discharge services: Time spent: Greater than 30 minutes Exam Const: General: comfortable and no acute distress HENMT: Mouth: Yes moist mucous membranes Eyes: Pupils: Equal, round and reactive pupils present Other: Right homonymous hemianopsia Neck: Neck: supple Resp: Effort & Inspection: normal respiratory effort Auscultation: clear to auscultation bilaterally Cardio: Rate: regular rate Rhythm: regular rhythm GI: Inspection: non-distended GI Palp: Yes Soft to palpation Neuro: Motor exam (neuro): 5/5 motor strength present throughout Sensory Exam: normal sensation Extrem: General: no edema DS: Data Data Completed and Pending Labs on day of discharge: Labs from last 24 hours 04/16/25 04:18 WBC 11.8 H RBC 4.55 L Hgb 13.7 L Hct 41.1 L MCV 90.3 MCH 30.1 MCHC 33.3 RDW 14.7 H Plt Count 480 H MPV 10.3 Immature Gran % (Auto) 0.4 Neut % (Auto) 61.9 Lymph % (Auto) 21.8 [place] % (Auto) 11.1 H Eos % (Auto) 3.9 Baso % (Auto) 0.9 Lymph # (Auto) 2.57 [place] # (Auto) 1.3 H Eos # (Auto) 0.5 H Baso # (Auto) 0.1 Abs Immat Gran (auto) 0.05 H Absolute Neuts (auto) 7.3 H Absolute Nucleated RBC 0.000 Nucleated RBC % 0.0 Sodium 134 L Potassium 3.5 Chloride 100 Carbon Dioxide 27 Anion Gap 7 BUN 12 Creatinine 0.69 L Estim Creat Clear Calc 72 Estimated GFR > 60 Glucose 97 Calcium 8.5 Magnesium 2.1 Total Bilirubin 0.8 AST 43 ALT 18 Alkaline Phosphatase 70 Total Protein 6.7 Albumin 3.9 Discharge Plan Discharge Attending physician on discharge: Valerie Bran Consulting providers: Mark Kramer; Andie Dumont Discharging Clinician: Valerie Bran Patient Disposition: Home with Home Health Service Discharge Instructions: Per Care Coordination, patient to have home health services arranged for PT/OT and care home. Agency will call to arrange initial visit. [facility] [address] [place] [address] DISCHARGE INSTRUCTIONS - POST RADIAL CATH Activity 1. No driving for 24 hours. 2. No lifting more than 5 lb with affected arm for 1 week. 3. May shower ( tomorrow) but no excessive soaking of affected hand/wrist (such as washing dishes), swimming pool or hot tub for 5 days. Wound Care 1. May remove arm board in the morning. 2. May remove gauze dressing in the morning and put Band-Aid over affected radial site. Keep site covered for 3 days. 3. Observe for redness, drainage, swelling or bleeding. Medications DO NOT STOP YOUR MEDICATIONS ONLY YOUR ENVIRONMENTAL PERMITTING SPECIALIST CAN STOP THE FOLLOWING MEDICATIONS - PLEASE CALL THE OFFICE WITH QUESTIONS. *Aspirin *Ticagrelor (Brilinta) *Atorvastatin *Lisinopril or ARB *Metoprolol tartrate or succinate *Clopidogrel (Plavix) *Prasugrel (Effient) Important Reminders 1. Keep your stent card in your wallet at all times 2. Follow a heart healthy diet paying extra attention to cholesterol and fats. 3. Stay hydrated. 4. If you have chest pain unrelieved by rest or nitroglycerin (if prescribed) call 911 immediately. 5. If you miss one dose of Brilinta (if prescribed) take a tablet at the next time due. If you miss 2 doses take a tablet when you remember and resume at the next time due. *For any other questions please call the office at [phone]. Office hours are 8AM 4:30PM Friday through Friday. ---- case management is arranging home health therapy services for you, they will follow up with you. take precautionary measures for falls, mobilize with assistance of family. Patient Instructions: Antibiotic Form Patient Language: Kyr[place]z Stand Alone Forms: General Discharge Information Follow-up/Referrals: Noah,Tj Scott MD [Non-Staff, Unknown] - 2 Weeks Referral Note: severe and proximal LAD stenosis- needs valve clinic referral at [facility] Esha Zapata MD [Physician, Neurology] - 06/06/25 Discharge Medications: New aspirin 81 mg Tablet,Delayed Release (Dr/Ec) 81 mg PO QAM Qty: 30 0RF clopidogrel 75 mg Tablet 75 mg PO QAM Qty: 30 0RF isosorbide mononitrate 60 mg Tablet Extended Release 24 Hr 60 mg PO DAILY Qty: 30 0RF rosuvastatin 20 mg Tablet 40 mg PO DAILY Qty: 60 0RF Continued valsartan-hydrochlorothiazide 320-12.5 mg tablet 1 tablet PO DAILY Centrum Silver 0.4-300-250 mg-mcg-mcg tablet 1 tablet PO DAILY Discontinued omeprazole 20 mg capsule,delayed release(DR/EC) 20 mg PO DAILY rosuvastatin 20 mg tablet 20 mg PO DAILY isosorbide mononitrate 30 mg tablet extended release 24 hr 30 mg PO DAILY amlodipine 10 mg tablet 10 mg PO DAILY Other Ambulatory Orders: Complete Blood Count with Diff (Routine) Timeframe: 1 Day Location: Determined by Patient Ordered By: Valerie Bran Date of admission: 04/14/25 16:13 Primary Care Provider: BrandiTj Admitting Provider: Valerie Bran Attending physician on admission: Valerie Bran Condition: Stable Hospitalist MIPS Heart Failure (Exclusion) Patient has history of Heart Transplant or Left Ventricular Assistive Device?: No IF YES, STOP HERE Heart Failure (Qualifier) Patient has current or prior documentation of LVEF less than or equal to 40%, or mod/servere depressed LVSF?: No IF NO, STOP HERE
== END 2025-04-16 17:34 | disposition home or self-care (01) | DRG 280 ==
LOC: ANHED 19:48 → ANHIMU 04-13 00:26
PROVIDERS: General Practice; Internal Medicine; Internal Medicine Interventional Cardiology; Nurse Practitioner Family; Psychiatry & Neurology Neurology; Admitting Provider General Practice; Emergency Provider Student in an Organized Health Care Education/Training Program; PCP Internal Medicine; Visit Provider General Practice
PROC: 4A023N7 Measurement of Cardiac Sampling and Pressure, Left Heart, Percutaneous Approach (ICD-10-PCS; CPT 93452; principal; 2025-04-13 13:30)
DX: I21.4 Non-ST elevation (NSTEMI) myocardial infarction (principal); G93.41 Metabolic encephalopathy; I63.9 Cerebral infarction, unspecified; I25.10 Atherosclerotic heart disease of native coronary artery without angina pectoris; I10 Essential (primary) hypertension; I35.0 Nonrheumatic aortic (valve) stenosis; I51.9 Heart disease, unspecified; H53.461 Homonymous bilateral field defects, right side; D32.0 Benign neoplasm of cerebral meninges; E78.00 Pure hypercholesterolemia, unspecified; E78.5 Hyperlipidemia, unspecified; R20.2 Paresthesia of skin; K21.9 Gastro-esophageal reflux disease without esophagitis; F10.90 Alcohol use, unspecified, uncomplicated; Z86.0100 Personal history of colon polyps, unspecified
CPT/HCPCS: 36415; 70450; 70553; 71046; 80053; 80061; 81003; 82140; 82306; 82607; 82746; 83735; 84443; 84484; 85025; 85027; 85610; 85730; 86593; 93005; 93306; 93458; 93880; 96361; 96374; 96375; 97161; 97165; 99285; A9270; A9577; C1769; C1887; C1894; G0378; J1644; J2003; J2250; J2305; J3010; J7030; J7040

== ENCOUNTER 2025-04-20 07:57 | Outpatient (RCR) | payer MEDICARE, SELFPAY ==
--- NOTE | 2025-04-20 15:30 | OTOPEVDC ---
Assessment and note entered by Domitila Davis OT Thank you for referring Nicolás Shaw to [facility].? An evaluation has been completed. No further treatment is needed. Evaluation Information Assessment Status Discharge Diagnosis Vision therapy; CVA Other ICD-10 Condition Codes ( I63.9 OT) Onset 04/10/25 Subjective Information Pt. and spouse present for evaluation. Pt. reports he went to hospital on 04/13/25 and discharged for CVA. Pt. stating Everything is just kind of foggy right now. I'm not able to focus on anything. Pt. states I couldn't remember where the coffee cups were the other day. 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 Pt. reports his visual awareness, peripheral vision deficit on R side, dizziness and pressure in head since event. Pt. reports he is typically active, mowing the lawn, biking 15 or so miles once a week, walking. Reported Pain Level Pain Score 0: Self Report Assessment OT Clinical Summary Pt. is 80 year old M, referred to outpatient occupational therapy after discharge from hospital 04/19/25 for large acute infarction left occipital lobe, resulting in right homonymous hemianopsia. Pt. demonstrates ROM, strength, coordination, fine motor control and dexterity, WNL, consistent with prior level of function. Pt. reports and displays continued R visual deficits including report of field cut of R peripheral vision at 50 degrees from midline and memory deficits which pt. reports result in decreased capacity for daily activity. It is recommended that due to specificity of limitations are related to memory and cognitive processing, without motor deficits, that pt. be referred to outpatient Speech Therapy here at [place]. No additional skilled OT services recommended at this time. Plan of Care OT Services Indicated No
== END 2025-04-21 08:12 | disposition home or self-care (01) ==
LOC: ANHOT 07:57
PROVIDERS: PCP Internal Medicine; Visit Provider Internal Medicine
DX: I63.9 Cerebral infarction, unspecified (principal)
CPT/HCPCS: 99199; 97165

== ENCOUNTER 2025-04-28 10:02 | Observation (INO) | payer MEDICARE, SELFPAY ==
[2025-04-28] VITALS (45 sets, daily range): BP systolic 112–175; BP diastolic 61–96; PULSE 68–94; RESP 12–20; TEMP 36.4–36.8; O2SAT 95–99; BMI 26.6; BMI 27.1
--- NOTE | ~2025-04-28 | CT_ITS ---
EXAMINATION: CT brain wo [place], 04/28/2025 14:40 CDT HISTORY: headache, recent stroke COMPARISON: No comparisons available. Technique: Axial images obtained of the brain without contrast. One or more of the following dose reduction techniques were used: automated exposure control, adjustment of the mA and/or kV according to patient size, use of iterative reconstruction technique. Findings: There is a probable subcentimeter left extra-axial meningioma measuring 1 x 1 cm in the left frontal lobe, no acute hemorrhage or infarct identified. No midline shift. Moderate probable chronic periventricular ischemic changes. Mastoid air cells unremarkable. Sinuses and orbits unremarkable. No acute fracture. No significant facial or scalp soft tissue swelling evident. No radiopaque foreign body is seen. Impression: 1.No acute intracranial abnormality. Reviewed, dictated and finalized at location P. Impression: 1.No acute intracranial abnormality.
--- NOTE | ~2025-04-28 | XR_ITS ---
Examination: XR chest 2V Clinical History: cp X 4 WEEKS Comparison: 04/12/2025 Technique: PA and Lateral Findings: Cardiomediastinal silhouette normal size and configuration. Chronic eventration left hemidiaphragm, associated basilar atelectasis. Lungs otherwise clear. No acute bony abnormality. IMPRESSION: 1. No acute cardiopulmonary findings. Reviewed, dictated and finalized at location R.
--- NOTE | 2025-04-28 10:42 | ECG_ITS ---
Test Date: 2025-04-28 11:11:00 Measurements Intervals [place] Rate: 75 P: 50 AK: 200 QRS: -35 QRSD: 118 T: 70 QT: 413 QTc: 463 Interpretive Statements SINUS RHYTHM LEFT AXIS DEVIATION INCOMPLETE RIGHT BUNDLE BRANCH BLOCK CANNOT R/O SEPTAL INFARCT, AGE INDETERMINATE BASELINE ARTIFACT- I, II, III, AVR, AVL, V4-V6 ABNORMAL ECG COMPARED WITH PRIOR ECG 04-13-25 01:37 NO SIGNIFICANT CHANGE Electronically Signed On 04-28-2025 11:12:32 CDT by Toni Bazan D.O.
[2025-04-28 11:32] LABS: Hematocrit 46.4 % (42.0-52.0); Hemoglobin 15.6 g/dL (14.0-18.0); Immature Granulocyte Percent A 0.4 % (0-0.5); Lymphocytes Absolute Auto 1.42 K/mm3 (0.9-3.2); Mean Corpuscular HGB Conc 33.6 g/dl (32-36); Mean Corpuscular Hemoglobin 30.2 pg (26-34); Mean Corpuscular Volume 89.7 fl (80-100); Nucleated Red Blood Cells Absolute Auto 0.000 K/mm3 (0.0-0.012); Nucleated Red Blood Cells Perc 0.0 % (0.0-0.2); Platelet Count Result 715 k/mm3 (150-375); Red Blood Count 5.17 M/mm3 (4.6-6.20); White Blood Count 13.9 K/mm3 (4.5-10.0)
[2025-04-28 11:42] LABS: Alanine Aminotransferase 16 U/L (6-50); Albumin Level 4.5 g/dL (3.5-5.1); Alkaline Phosphatase 77 U/L (38-126); Anion Gap 8 mmol/L (4-12); Aspartate Amino Transferase 53 U/L (17-59); Bilirubin,Total 0.7 mg/dL (0.2-1.3); Blood Urea Nitrogen 7 mg/dL (9-20); Calcium 8.8 mg/dL (8.4-10.2); Carbon Dioxide 28 mmol/L (22-30); Chloride 94 mmol/L (98-107); Estimated CRCL calculation 75 ml/min; Estimated Glomerular Filt Rate > 60; Glucose 113 mg/dL (65-110); Lipase 94 U/L (23-300); Potassium 3.5 mmol/L (3.4-5.0); Sodium 130 mmol/L (137-145); Total Protein 7.8 g/dL (6.3-8.2)
[2025-04-28 11:47] LABS: INR 1.1; Prothrombin Time 14.8 Seconds (11.1-14.7)
[2025-04-28 11:48] LABS: Partial Thromboplastin Time 28.1 Seconds (22.3-36.8)
[2025-04-28 11:53] LABS: Troponin I < 0.012 ng/mL (0.000-0.034)
--- NOTE | 2025-04-28 12:32 | ED_ITS ---
HPI - Chest Pain General Chief Complaint: Chest Pain Stated Complaint: htn Time Seen by Provider: 04/28/25 12:03 History of Present Illness HPI narrative: This is an 80-year-old male with history of CAD, severe aortic stenosis, CVA, hypertension who presents to the ED for chest pain and headache. Patient states for the past few weeks since he was discharged after his stroke he has been having pretty constant left-sided chest pain described as a dull ache at a 5/10. He reports that last night his blood pressure increased from normal to the 160s to 170s which is unusual for him. He has not had any changes in his blood pressure medication. He is scheduled for a TAVR in a couple weeks at [place]. Denies fevers, chills, recent illnesses, shortness of breath. Pain is not worse with exertion. Related Data Home Medications ?Medication ?Instructions ?Recorded ?Confirmed ?Last Taken ?Type xpoakoxw-fub-aqphb acid 0.4 1 tablet PO DAILY 02/22/20 04/28/25 04/28/25 History mg-lycopene 300 mcg-lutein 250 mcg tablet (Centrum Silver) valsartan 320 1 tablet PO DAILY 08/19/20 1 04/28/25 History mg-hydrochlorothiazide 12.5 mg tablet Allergies Allergy/AdvReac Type Severity Reaction Status Date / Time No Known Allergies Allergy Unknown NA Verified 04/27/25 11:28 Review of Systems 2 Review of Systems: Gen.: Denies fevers or chills Eyes: Denies eye pain or visual change ENT: Denies congestion Respiratory: Denies shortness of breath or cough CV: As per HPI GI: Denies abdominal pain nausea, emesis or diarrhea denies burning, urgency, frequency or hematuria Musculoskeletal: Denies back pain or muscle pain Neuro: Denies numbness, tingling, weakness or focal weakness Skin: Denies rash Except as documented, all other systems reviewed and negative [facility] Past Medical History Medical History Vascular dementia of acute onset Left-sided cerebrovascular accident (CVA) Colon polyp Dysphagia Nondisplaced fracture of distal end of right radius Hypertension Hypercholesterolemia GERD (gastroesophageal reflux disease) Surgical History Surgical History Hx of tympanostomy tubes Family History Family History Father Heart failure Mother Family history of arthritis Social History Social History Smoking status: Never smoker Alcohol intake: current Drinks per week: 2 Substance use: never Substance use type: does not use Lack of Transportation: No Lack of Food: Never True Current Housing: I Have Housing Concerned About Future Housing: No Difficulty Paying Gas/Electric Bills: No Difficulty Paying for Meds: No Currently Unemployed: No Education: High School Diploma/GED Difficulty w/ Childcare or Family Care: No Living arrangements: with family Spiritual care concerns: No Exam 2 Narrative: APPEARANCE: No acute distress, nontoxic, resting in bed EYES: EOMI HEENT: Normocephalic, atraumatic, OMM RESPIRATORY: No respiratory distress Clear to auscultation bilaterally with no rhonchi wheezing or rales. CARDIOVASCULAR: Regular rate and rhythm without murmurs rubs or gallops. ABDOMINAL: Soft, nontender, nondistended, no rebound or guarding MUSCULOSKELETAl: Moves all extremities. No clubbing, cyanosis or edema. NEURO: Awake and alert. Following commands, speech normal, no focal deficits SKIN:: Warm, dry. No rashes lesions or abrasions PSYCHIATRIC: Normal affect/mood, Course Vital Signs Vital signs: Vital Signs Temperature 97.5 F L 04/28/25 10:11 Pulse Rate 83 04/28/25 10:11 Respiratory Rate 20 04/28/25 10:11 Blood Pressure 156/82 H 04/28/25 10:11 Pulse Oximetry 99 04/28/25 10:11 Temperature 98.1 F 04/28/25 19:35 Pulse Rate 94 04/28/25 19:35 Respiratory Rate 18 04/28/25 19:35 Blood Pressure 112/61 04/28/25 19:35 Pulse Oximetry 96 04/28/25 19:35 Oxygen Delivery Room Air 04/28/25 12:36 MDM - Chest Pain MDM Narrative Medical decision making narrative: 80-year-old male presenting for chest pain and headache. Her initial evaluation patient was in no acute distress afebrile, hemodynamically stable. He was slightly hypertensive to the 150s/80s. Heart and lungs clear. Abdomen soft and nontender. He had a leukocytosis of 13.9. Mild hyponatremia at 1:30 a.m.. Initial troponin negative. Repeat troponin negative. CT head showed no acute process. Chest x-ray showed no acute process. Heart score: 6. Given heart score of 6, patient would benefit from admission for chest pain rule out. I discussed the case with hospitalist who will admit the patient. Patient and family are agreeable to this plan. Differential Diagnosis Differential diagnosis: Likely unstable angina pectoris, atypical chest pain, costochondritis, chest pain and other (Headache, CVA, migraine, post CVA headache) Medical Records Data Attestation: I reviewed the patient's medical records. Lab Data Attestation: I reviewed the patient's lab results. 04/28/25 11:16 04/28/25 11:16 Labs: Lab Results 04/28/25 04/28/25 04/28/25 Range/Units 11:16 13:57 16:45 WBC 13.9 H (4.5-10.0) K/mm3 RBC 5.17 (4.6-6.20) M/mm3 Hgb 15.6 (14.0-18.0) g/dL Hct 46.4 (42.0-52.0) % MCV 89.7 (80-100) fl MCH 30.2 (26-34) pg MCHC 33.6 (32-36) g/dl RDW 14.5 (11.5-14.5) % Plt Count 715 H (150-375) k/mm3 MPV 10.1 (7.4-10.4) fl Immature Gran % (Auto) 0.4 (0-0.5) % Neut % (Auto) 78.7 H (45.5-73.1) % Lymph % (Auto) 10.2 L (18.3-44.2) % Freestone % (Auto) 9.5 H (2.6-8.5) % Eos % (Auto) 0.4 (0-4.4) % Baso % (Auto) 0.8 (0.2-1.2) % Lymph # (Auto) 1.42 (0.9-3.2) K/mm3 Fre[place] # (Auto) 1.3 H (0.1-0.6) K/mm3 Eos # (Auto) 0.1 (0-0.3) K/mm3 Baso # (Auto) 0.1 (0.0-0.1) K/mm3 Abs Immat Gran (auto) 0.05 H (0.00-0.031) K/mm3 Absolute Neuts (auto) 10.9 H (1.3-6.7) K/mm3 Absolute Nucleated RBC 0.000 (0.0-0.012) K/mm3 Nucleated RBC % 0.0 (0.0-0.2) % PT 14.8 H (11.1-14.7) Seconds INR 1.1 APTT 28.1 (22.3-36.8) Seconds Sodium 130 L (137-145) mmol/L Potassium 3.5 (3.4-5.0) mmol/L Chloride 94 L (98-107) mmol/L Carbon Dioxide 28 (22-30) mmol/L Anion Gap 8 (4-12) mmol/L BUN 7 L D (9-20) mg/dL Creatinine 0.66 L (0.7-1.3) mg/dL Estim Creat Clear Calc 75 ml/min Estimated GFR > 60 (59 - ) Glucose 113 H (65-110) mg/dL Calcium 8.8 (8.4-10.2) mg/dL Total Bilirubin 0.7 (0.2-1.3) mg/dL AST 53 (17-59) U/L ALT 16 (6-50) U/L Alkaline Phosphatase 77 (38-126) U/L Troponin I < 0.012 < 0.012 < 0.012 (0.000-0.034) ng/mL Total Protein 7.8 (6.3-8.2) g/dL Albumin 4.5 (3.5-5.1) g/dL Lipase 94 (23-300) U/L Imaging Data Attestation: I personally reviewed and interpreted this imaging study as follows: Radiologist's impression: Impressions Chest X-Ray 04/28/25 10:55 IMPRESSION: 1. No acute cardiopulmonary findings. Head CT 04/28/25 14:52 Impression: 1.No acute intracranial abnormality. ECG Data EKG #1: Attestation: I personally reviewed and interpreted this ECG as follows: ECG completion date: 04/28/25 ECG completion time: 11:11 Interpretation: Normal sinus rhythm rate of 75, left axis deviation, incomplete right bundle- branch block, no acute ST or T-wave changes EKG #2: ECG completion date: 04/28/25 ECG completion time: 16:44 Prior ECG tracings: available for review Interpretation: Sinus rhythm with first-degree AV block rate of 85, left axis deviation, right bundle-branch block, no acute ST or T-wave changes, no significant change from earlier Discharge Plan Discharge Clinical Impression: Chest pain Qualifiers: Chest pain type: chest pain due to myocardial ischemia Ischemic chest pain type: unstable angina pectoris Qualified Code(s): I20.0 - Unstable angina Headache Qualifiers: Headache type: unspecified Headache chronicity pattern: acute headache I ntractability: not intractable Qualified Code(s): R51.9 - Headache, unspecified Patient Disposition: Still a Patient Condition: Guarded Prognosis
[2025-04-28] MEDS: ASPIRIN 81 MG CHEWABLE TABLET 162 MG PO (13:15)
[2025-04-28 14:25] LABS: Troponin I < 0.012 ng/mL (0.000-0.034)
[2025-04-28] MEDS: SODIUM CHLORIDE 0.9% IV 1,000 ML 999 ML IV CONT (15:05)
[2025-04-28] MEDS: PROCHLORPERAZINE EDISYLATE 10 MG/2 ML VIAL IM (15:06)
[2025-04-28] MEDS: KETOROLAC 15 MG/ML VIAL (*BKC) IV PUSH (16:25)
--- NOTE | 2025-04-28 16:36 | ECG_ITS ---
Test Date: 2025-04-28 16:44:11 Measurements Intervals [place] Rate: 85 P: 57 NH: 265 QRS: -54 QRSD: 132 T: 81 QT: 406 QTc: 484 Interpretive Statements SINUS RHYTHM WITH FIRST DEGREE AV BLOCK WITH OCCASIONAL VENTRICULAR PREMATURE COMPLEXES POSSIBLE LEFT ATRIAL ENLARGEMENT RIGHT BUNDLE BRANCH BLOCK LEFT ANTERIOR FASCICULAR BLOCK LEFT VENTRICULAR HYPERTROPHY AND ST-T CHANGE CANNOT R/O SEPTAL INFARCT, AGE INDETERMINATE BASELINE ARTIFACT- I, II, III, AVR, V1, V3, V4-V6 ABNORMAL ECG Compared to ECG 04/28/2025 11:11:00 RIGHT BUNDLE BRANCH BLOCK NOW PRESENT LEFT ANTERIOR FASCICULAR BLOCK NOW PRESENT Electronically Signed On 04-28-2025 18:37:37 CDT by Toni Bazan D.O.
[2025-04-28 17:14] LABS: Troponin I < 0.012 ng/mL (0.000-0.034)
--- NOTE | 2025-04-28 17:36 | PC.NURSE ---
Patient arrived to the floor via wheelchair from the ER. Alert and oriented at this time. 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 Ambulatory with a steady gait to the bathroom. Spouse at bedside. No acute distress noted at this time.
[2025-04-29] VITALS (11 sets, daily range): BP systolic 128–147; BP diastolic 63–77; PULSE 64–76; RESP 14–16; TEMP 36.4–36.8; O2SAT 97–98
[2025-04-29] MEDS: SODIUM CHLORIDE 0.9% IV 1,000 ML 75 ML IV CONT (00:52)
--- NOTE | 2025-04-29 00:56 | PM.IMHP ---
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 Described as a dull ache 11/27, blood pressure at home noted to be 160s and 170s which is unusual for the patient. Patient has been scheduled for TAVR in a couple weeks at [place]. Troponin x3 negative, EKG demonstrates sinus rhythm with first-degree AV block without acute ST changes,. He was given aspirin 324 mg p.o. x1, hydralazine 10 mg IV x1, Compazine 10 mg IM x1, 1 L normal saline bolus, Toradol, Benadryl, he was resting comfortably thereafter. Review of Systems Review of Systems: All systems reviewed & are unremarkable except as noted in HPI and below (Subjective) PMFSH Past Medical History Medical History Vascular dementia of acute onset Left-sided cerebrovascular accident (CVA) Colon polyp Dysphagia Nondisplaced fracture of distal end of right radius Hypertension Hypercholesterolemia GERD (gastroesophageal reflux disease) Surgical History Surgical History Hx of tympanostomy tubes Family History Family History Father Heart failure Mother Family history of arthritis Social History Social History Smoking status: Never smoker Alcohol intake: current Drinks per week: 2 Substance use: never Substance use type: does not use Lack of Transportation: No Lack of Food: Never True Current Housing: I Have Housing Concerned About Future Housing: No Difficulty Paying Gas/Electric Bills: No Difficulty Paying for Meds: No Currently Unemployed: No Education: High School Diploma/GED Difficulty w/ Childcare or Family Care: No Living arrangements: with family Spiritual care concerns: No Meds Home Medications and Allergies Home Medications ?Medication ?Instructions ?Recorded ?Confirmed ?Type eqzuynhx-yae-snxgb acid 0.4 1 tablet PO DAILY 02/22/20 04/28/25 History mg-lycopene 300 mcg-lutein 250 mcg tablet (Centrum Silver) valsartan 320 1 tablet PO DAILY 08/19/20 04/28/25 History mg-hydrochlorothiazide 12.5 mg tablet aspirin 81 mg tablet,delayed 81 mg PO QAM #30 tabs 04/16/25 04/28/25 Rx release isosorbide mononitrate 60 mg 60 mg PO DAILY #30 tabs 04/16/25 04/28/25 Rx tablet,extended release 24 hr clopidogrel 75 mg tablet 75 mg PO QAM #90 tabs 04/27/25 04/28/25 Rx donepezil 5 mg tablet (Aricept) 5 mg PO QHS #90 tabs 04/27/25 04/28/25 Rx rosuvastatin 40 mg tablet (Crestor) 40 mg PO DAILY #90 tabs 04/27/25 04/28/25 Rx Allergies Allergy/AdvReac Type Severity Reaction Status Date / Time No Known Allergies Allergy Unknown NA Verified 04/27/25 11:28 Vital Signs Vital Signs - 24 hr 04/28/25 10:11 04/28/25 11:54 04/28/25 11:55 Temperature 97.5 F L Pulse Rate 83 76 75 Respiratory Rate 20 15 13 Blood Pressure 156/82 H 163/95 H Pulse Oximetry 99 98 98 Oxygen Delivery 04/28/25 12:00 04/28/25 12:01 04/28/25 12:02 Temperature Pulse Rate 78 76 74 Respiratory Rate 20 16 16 Blood Pressure 158/88 H 158/88 H Pulse Oximetry 97 98 98 Oxygen Delivery Room Air 04/28/25 12:15 04/28/25 12:16 04/28/25 12:30 Temperature Pulse Rate 76 75 82 Respiratory Rate 12 14 14 Blood Pressure 160/85 H Pulse Oximetry 98 96 97 Oxygen Delivery 04/28/25 12:31 04/28/25 12:36 04/28/25 12:37 Temperature Pulse Rate 78 77 Respiratory Rate 14 16 Blood Pressure 156/96 H 156/96 H Pulse Oximetry 97 96 96 Oxygen Delivery Room Air 04/28/25 12:45 04/28/25 12:46 04/28/25 12:48 Temperature Pulse Rate 73 72 75 Respiratory Rate 14 16 13 Blood Pressure 154/92 H 143/90 H Pulse Oximetry 97 95 96 Oxygen Delivery 04/28/25 13:00 04/28/25 13:01 04/28/25 13:15 Temperature Pulse Rate 76 74 83 Respiratory Rate 13 20 20 Blood Pressure 158/91 H Pulse Oximetry 99 98 98 Oxygen Delivery 04/28/25 13:18 04/28/25 13:28 04/28/25 13:30 Temperature Pulse Rate 81 81 75 Respiratory Rate 17 17 15 Blood Pressure 175/92 H 158/94 H Pulse Oximetry Oxygen Delivery 04/28/25 13:41 04/28/25 13:45 04/28/25 13:51 Temperature Pulse Rate 87 86 90 Respiratory Rate 19 16 18 Blood Pressure 135/75 124/77 Pulse Oximetry 98 97 97 Oxygen Delivery 04/28/25 14:00 04/28/25 14:01 04/28/25 14:11 Temperature Pulse Rate 86 85 86 Respiratory Rate 17 19 19 Blood Pressure 141/83 H 141/82 H Pulse Oximetry 99 97 96 Oxygen Delivery 04/28/25 14:15 04/28/25 14:21 04/28/25 14:30 Temperature Pulse Rate 85 83 85 Respiratory Rate 15 12 17 Blood Pressure 128/87 Pulse Oximetry 97 96 97 Oxygen Delivery 04/28/25 14:31 04/28/25 14:41 04/28/25 14:45 Temperature Pulse Rate 89 84 84 Respiratory Rate 15 16 20 Blood Pressure 141/82 H 145/77 H Pulse Oximetry 98 95 96 Oxygen Delivery 04/28/25 15:00 04/28/25 15:15 04/28/25 15:30 Temperature Pulse Rate 87 85 81 Respiratory Rate 15 20 16 Blood Pressure Pulse Oximetry 96 95 97 Oxygen Delivery 04/28/25 15:31 04/28/25 15:45 04/28/25 16:07 Temperature Pulse Rate 83 86 Respiratory Rate 18 17 Blood Pressure 135/78 Pulse Oximetry 97 96 95 Oxygen Delivery 04/28/25 16:15 04/28/25 17:00 04/28/25 18:00 Temperature 98.3 F Pulse Rate 88 82 91 Respiratory Rate 17 16 Blood Pressure 149/69 H Pulse Oximetry 96 95 Oxygen Delivery 04/28/25 19:35 04/28/25 20:00 04/28/25 20:00 Temperature 98.1 F Pulse Rate 94 80 Respiratory Rate 18 Blood Pressure 112/61 Pulse Oximetry 96 Oxygen Delivery Room Air 04/28/25 22:00 04/29/25 00:00 04/29/25 00:00 Temperature Pulse Rate 68 64 Respiratory Rate Blood Pressure Pulse Oximetry Oxygen Delivery Room Air 04/29/25 00:32 Temperature 98.3 F Pulse Rate 70 Respiratory Rate 16 Blood Pressure 137/74 Pulse Oximetry 98 Oxygen Delivery Exam Const: General: comfortable and no acute distress Other: A&O x3 HENMT: Mouth: Yes moist mucous membranes Eyes: Pupils: Equal, round and reactive pupils present Neck: Neck: supple Resp: Effort & Inspection: normal respiratory effort Auscultation: clear to auscultation bilaterally Cardio: Rate: regular rate Rhythm: regular rhythm Heart sounds: no gallops and no murmurs GI: Inspection: non-distended GI Palp: Yes Soft to palpation Neuro: Motor exam (neuro): 5/5 motor strength present throughout Extrem: General: no edema H&P: Results Labs Labs: Short CBC 04/28/25 Range/Units 11:16 WBC 13.9 H (4.5-10.0) K/mm3 Hgb 15.6 (14.0-18.0) g/dL Hct 46.4 (42.0-52.0) % Plt Count 715 H (150-375) k/mm3 BMP 04/28/25 11:16 Sodium 130 L Potassium 3.5 Chloride 94 L Carbon Dioxide 28 BUN 7 L D Creatinine 0.66 L Glucose 113 H Calcium 8.8 Cardiac Enzymes 04/28/25 04/28/25 04/28/25 Range/Units 11:16 13:57 16:45 Troponin I < 0.012 < 0.012 < 0.012 (0.000-0.034) ng/mL Liver Function 04/28/25 Range/Units 11:16 Total Bilirubin 0.7 (0.2-1.3) mg/dL AST 53 (17-59) U/L ALT 16 (6-50) U/L Alkaline Phosphatase 77 (38-126) U/L Albumin 4.5 (3.5-5.1) g/dL Assessment and Plan Assessment and plan (1) Hypertension: Code(s): I10 - Essential (primary) hypertension Status: Acute (2) Severe aortic stenosis: Code(s): I35.0 - Nonrheumatic aortic (valve) stenosis Status: Acute (3) CAD (coronary artery disease): Code(s): I25.10 - Atherosclerotic heart disease of three affiliated coronary artery without angina pectoris Status: Acute (4) Chest pain: Qualifiers: Chest pain type: chest pain due to myocardial ischemia Ischemic chest pain type: unstable angina pectoris Qualified Code(s): I20.0 - Unstable angina Code(s): R07.9 - Chest pain, unspecified Status: Acute Plan 80-year-old male with PMH hypertension, GERD, hypercholesterolemia, history of STEMI, CAD status post cath on 04/13/25 with obstructive CAD-ostial 70% stenosis of large 1st diagonal: Nonobstructive CAD with 60% stenosis in proximal LAD, 50% stenosis in mid LAD severe aortic stenosis with aortic valve area 0.9 cm2, 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 Described as a dull ache 5/10, blood pressure at home noted to be 160s and 170s which is unusual for the patient. Patient has been scheduled for TAVR in a couple weeks at [place]. Troponin x3 negative, EKG demonstrates sinus rhythm with first-degree AV block without acute ST changes,. He was given aspirin 324 mg p.o. x1, hydralazine 10 mg IV x1, Compazine 10 mg IM x1, 1 L normal saline bolus, Toradol, Benadryl, he was resting comfortably thereafter. ----- Chest pain resolved. ACS ruled out. NPO. Consult Cardiology. Resume aspirin, Plavix, Crestor. After receiving hydralazine in the ER his blood pressure improved from 163/95 down to 112/61. Will hold off on further [employer] antihypertensives as to not lower his blood pressure too aggressively in the setting of severe aortic stenosis. Defer to Cardiology for further management. Leukocytosis: Reactive, no symptomatology or evidence of infection. Patient appears nontoxic. Continue to trend. ----- Patient wishes to be full code. NPO. Normal saline at 75 cc/hour. SCDs. Hospitalist MIPS Advance Care Plan I have confirmed that the patient's Advanced Care Plan is present, code status is documented, or surrogate decision maker is listed in patient medical record.: Yes Medication Reconciliation I have utilized all available resources to obtain, update and review the patients current medications (includes all prescriptions, OTC, herbals, cannabis, and nutritional supplements).: Yes
--- NOTE | 2025-04-29 08:40 | P.PNIM_ITS ---
Progress Note: A&P Assessment and Plan (1) Chest pain: Qualifiers: Chest pain type: chest pain due to myocardial ischemia Ischemic chest pain type: unstable angina pectoris Qualified Code(s): I20.0 - Unstable angina Code(s): R07.9 - Chest pain, unspecified Status: Acute Assessment and Plan: * Chest pain has resolved * EKG: Sinus rhythm with first-degree AV block with occasional ventricular premature complexes, RBBB without acute ST changes * Troponin WNL * Cardiology consulted, appreciate assistance and recommendations * Monitor vital signs, I&Os, chest pain, shortness of breath and patient is a fall risk * Monitor PTT, serial troponins, Serum electrolytes, and cbc (2) Hypertension: Code(s): I10 - Essential (primary) hypertension Status: Acute Assessment and Plan: * Patient's blood pressure was reviewed on 04/29 * Blood pressure remains well controlled * Will continue current medications * After receiving hydralazine in the ER his blood pressure improved from 163/95 down to 112/61 * Will hold off on further [employer] antihypertensives as to not lower his blood pressure too aggressively in the setting of severe aortic stenosis. (3) CAD (coronary artery disease): Code(s): I25.10 - Atherosclerotic heart disease of [place] coronary artery without angina pectoris Status: Acute Assessment and Plan: * Continue at home medications (4) Severe aortic stenosis: Code(s): I35.0 - Nonrheumatic aortic (valve) stenosis Status: Acute Assessment and Plan: * Resume aspirin, Plavix, Crestor Plan Patient wishes to be full code. NPO. Normal saline at 75 cc/hour. SCDs. 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 04/29/2025 Review of Systems Review of Systems: All systems reviewed & are unremarkable except as noted in HPI and below (Subjective) Exam Const: General: comfortable and no acute distress Other: A&O x3 HENMT: Mouth: Yes moist mucous membranes Eyes: Pupils: Equal, round and reactive pupils present Neck: Neck: supple Resp: Effort & Inspection: normal respiratory effort Auscultation: clear to auscultation bilaterally Cardio: Rate: regular rate Rhythm: regular rhythm Heart sounds: no gallops and no murmurs GI: Inspection: non-distended Neuro: Cranial nerves: Yes Equal, round and reactive pupils present Motor exam (neuro): 5/5 motor strength present throughout Extrem: General: no edema Objective Data Vital Signs Vital Signs: Vital Signs - 24 hr 04/28/25 10:11 04/28/25 11:54 04/28/25 11:55 Temperature 97.5 F L Pulse Rate 83 76 75 Respiratory Rate 20 15 13 Blood Pressure 156/82 H 163/95 H Pulse Oximetry 99 98 98 Oxygen Delivery 04/28/25 12:00 04/28/25 12:01 04/28/25 12:02 Temperature Pulse Rate 78 76 74 Respiratory Rate 20 16 16 Blood Pressure 158/88 H 158/88 H Pulse Oximetry 97 98 98 Oxygen Delivery Room Air 04/28/25 12:15 04/28/25 12:16 04/28/25 12:30 Temperature Pulse Rate 76 75 82 Respiratory Rate 12 14 14 Blood Pressure 160/85 H Pulse Oximetry 98 96 97 Oxygen Delivery 04/28/25 12:31 04/28/25 12:36 04/28/25 12:37 Temperature Pulse Rate 78 77 Respiratory Rate 14 16 Blood Pressure 156/96 H 156/96 H Pulse Oximetry 97 96 96 Oxygen Delivery Room Air 04/28/25 12:45 04/28/25 12:46 04/28/25 12:48 Temperature Pulse Rate 73 72 75 Respiratory Rate 14 16 13 Blood Pressure 154/92 H 143/90 H Pulse Oximetry 97 95 96 Oxygen Delivery 04/28/25 13:00 04/28/25 13:01 04/28/25 13:15 Temperature Pulse Rate 76 74 83 Respiratory Rate 13 20 20 Blood Pressure 158/91 H Pulse Oximetry 99 98 98 Oxygen Delivery 04/28/25 13:18 04/28/25 13:28 04/28/25 13:30 Temperature Pulse Rate 81 81 75 Respiratory Rate 17 17 15 Blood Pressure 175/92 H 158/94 H Pulse Oximetry Oxygen Delivery 04/28/25 13:41 04/28/25 13:45 04/28/25 13:51 Temperature Pulse Rate 87 86 90 Respiratory Rate 19 16 18 Blood Pressure 135/75 124/77 Pulse Oximetry 98 97 97 Oxygen Delivery 04/28/25 14:00 04/28/25 14:01 04/28/25 14:11 Temperature Pulse Rate 86 85 86 Respiratory Rate 17 19 19 Blood Pressure 141/83 H 141/82 H Pulse Oximetry 99 97 96 Oxygen Delivery 04/28/25 14:15 04/28/25 14:21 04/28/25 14:30 Temperature Pulse Rate 85 83 85 Respiratory Rate 15 12 17 Blood Pressure 128/87 Pulse Oximetry 97 96 97 Oxygen Delivery 04/28/25 14:31 04/28/25 14:41 04/28/25 14:45 Temperature Pulse Rate 89 84 84 Respiratory Rate 15 16 20 Blood Pressure 141/82 H 145/77 H Pulse Oximetry 98 95 96 Oxygen Delivery 04/28/25 15:00 04/28/25 15:15 04/28/25 15:30 Temperature Pulse Rate 87 85 81 Respiratory Rate 15 20 16 Blood Pressure Pulse Oximetry 96 95 97 Oxygen Delivery 04/28/25 15:31 04/28/25 15:45 04/28/25 16:07 Temperature Pulse Rate 83 86 Respiratory Rate 18 17 Blood Pressure 135/78 Pulse Oximetry 97 96 95 Oxygen Delivery 04/28/25 16:15 04/28/25 17:00 04/28/25 18:00 Temperature 98.3 F Pulse Rate 88 82 91 Respiratory Rate 17 16 Blood Pressure 149/69 H Pulse Oximetry 96 95 Oxygen Delivery 04/28/25 19:35 04/28/25 20:00 04/28/25 20:00 Temperature 98.1 F Pulse Rate 94 80 Respiratory Rate 18 Blood Pressure 112/61 Pulse Oximetry 96 Oxygen Delivery Room Air 04/28/25 22:00 04/29/25 00:00 04/29/25 00:00 Temperature Pulse Rate 68 64 Respiratory Rate Blood Pressure Pulse Oximetry Oxygen Delivery Room Air 04/29/25 00:32 04/29/25 02:00 04/29/25 04:00 Temperature 98.3 F Pulse Rate 70 64 Respiratory Rate 16 Blood Pressure 137/74 Pulse Oximetry 98 Oxygen Delivery Room Air 04/29/25 04:00 04/29/25 05:00 04/29/25 06:00 Temperature 97.8 F Pulse Rate 69 73 74 Respiratory Rate 14 Blood Pressure 132/77 Pulse Oximetry 98 Oxygen Delivery 04/29/25 07:56 Temperature 97.6 F Pulse Rate 73 Respiratory Rate 16 Blood Pressure 147/76 H Pulse Oximetry 97 Oxygen Delivery Intake/Output Intake/Output: Intake & Output 04/26/25 04/27/25 04/28/25 04/29/25 23:59 23:59 23:59 23:59 Intake Total 1360 350 Output Total 500 Balance 1360 -150 Meds/Results Medications: Active Medications Generic Name Dose Route Start Last Admin Trade Name Freq PRN Reason Stop Dose Admin Aspirin 81 mg 04/29/25 09:00 Aspirin 81 Mg Enteric Tablet PO QAM [facility] Clopidogrel Bisulfate 75 mg 04/29/25 09:00 Clopidogrel Bisulfate 75 Mg Tablet PO QAM [facility] Donepezil HCl 5 mg 04/29/25 21:00 Donepezil Hcl 5 Mg Tablet PO QHS [facility] Sodium Chloride 1,000 mls @ 75 mls/hr 04/29/25 00:45 04/29/25 00:52 Normal Saline Iv IV CONT 75 mls/hr .[id number] [facility] Administration Morphine Sulfate 2 mg 04/28/25 16:56 Morphine Sulfate (*Crx) 2 Mg/Ml Inj IV PUSH Q5M PRN Pain Rated 4-6 Multivitamins/Minerals 1 tab 04/29/25 09:00 Multivitamins /C Lutein (Centrum Silver) Tablet *Bkc PO DAILY [facility] Rosuvastatin Calcium 40 mg 04/29/25 09:00 Rosuvastatin 20 Mg Tablet PO DAILY [facility] Radiology Results: ITS Impressions Chest X-Ray 04/28/25 10:55 IMPRESSION: 1. No acute cardiopulmonary findings. Head CT 04/28/25 14:52 Impression: 1.No acute intracranial abnormality. Labs Labs: Laboratory Results - last 24 hr 04/28/25 04/28/25 04/28/25 11:16 13:57 16:45 WBC 13.9 H RBC 5.17 Hgb 15.6 Hct 46.4 MCV 89.7 MCH 30.2 MCHC 33.6 RDW 14.5 Plt Count 715 H MPV 10.1 Immature Gran % (Auto) 0.4 Neut % (Auto) 78.7 H Lymph % (Auto) 10.2 L [place] % (Auto) 9.5 H Eos % (Auto) 0.4 Baso % (Auto) 0.8 Lymph # (Auto) 1.42 [place] # (Auto) 1.3 H Eos # (Auto) 0.1 Baso # (Auto) 0.1 Abs Immat Gran (auto) 0.05 H Absolute Neuts (auto) 10.9 H Absolute Nucleated RBC 0.000 Nucleated RBC % 0.0 PT 14.8 H INR 1.1 APTT 28.1 Sodium 130 L Potassium 3.5 Chloride 94 L Carbon Dioxide 28 Anion Gap 8 BUN 7 L D Creatinine 0.66 L Estim Creat Clear Calc 75 Estimated GFR > 60 Glucose 113 H Calcium 8.8 Total Bilirubin 0.7 AST 53 ALT 16 Alkaline Phosphatase 77 Troponin I < 0.012 < 0.012 < 0.012 Total Protein 7.8 Albumin 4.5 Lipase 94
[2025-04-29] MEDS: MULTIVITAMINS /C LUTEIN (CENTRUM SILVER) TABLET *BKC 1 TAB PO (08:45)
[2025-04-29] MEDS: ASPIRIN 81 MG ENTERIC TABLET PO (08:46)
[2025-04-29] MEDS: ROSUVASTATIN 20 MG TABLET 40 MG PO (08:46)
[2025-04-29] MEDS: CLOPIDOGREL BISULFATE 75 MG TABLET PO (08:46)
--- NOTE | 2025-04-29 08:57 | PM.CNCAR ---
Assessment and Plan Assessment and plan (1) Chest pain: Qualifiers: Chest pain type: chest pain due to myocardial ischemia Ischemic chest pain type: unstable angina pectoris Qualified Code(s): I20.0 - Unstable angina Code(s): R07.9 - Chest pain, unspecified Status: Acute (2) Hypertension: Code(s): I10 - Essential (primary) hypertension Status: Acute (3) Left-sided cerebrovascular accident (CVA): Code(s): I63.9 - Cerebral infarction, unspecified Status: Acute (4) Severe aortic stenosis: Code(s): I35.0 - Nonrheumatic aortic (valve) stenosis Status: Acute Plan Assessment: 1. Patient with known history of severe aortic stenosis presents with chest pain. Cardiac enzymes are negative x3. EKG does not show acute ST changes. Chest pain is likely secondary to severe aortic stenosis. Patient is scheduled to have TAVR procedure next few weeks. 2. History of hypertension. Patient noted elevated blood pressure at home in the range of 160-170. Currently blood pressure 147/76 mm of mercury and heart rate 73 per minute 3. History of left-sided stroke and vascular dementia. Patient is 80 years old. Evaluated by Neurology Service on 04/27/2025. Patient is right homonymous hemianopia and history of previous stroke 4. History of hyperlipidemia. Recommendation; #. Home medications reviewed. Patient on aspirin is 81 mg and Plavix 75 mg daily. Patient is isosorbide mononitrate 60 mg daily and valsartan 1 tablet daily. #. Echocardiogram reviewed from 04/13/2025 which showed normal left ventricular size and systolic function estimated at 65-70%. Grade 1 diastolic dysfunction is noted. No suggestion of PFO with agitated saline. Patient has severe aortic valve stenosis with peak velocity of 4.7 m/sec in, mean gradient at 37 mm of mercury and estimated valve area 0.9 cm2. No need for another echocardiogram at this time. #. Recently evaluated by Neurology Service on 02/2025. Consultation report reviewed. #. Cardiac catheterization performed on 04/20/2025. Cardiac catheterization procedure report noted. No information on coronary findings. Will review. With the history of severe aortic stenosis, hypertension is permitted in the range of 140-160 millimeter of mercury to have proper forward flow. Cardiac enzymes as well as EKG are negative for acute coronary syndrome. Patient can take p.r.n. sublingual nitroglycerin for elevated blood pressure as well as chest pain. This is a extensive cardiac workup is done and patient is scheduled for TAVR procedure in couple of weeks, recommend medical management. Will talk to the patient. Extensively discussed with the patient and his . Patient is scheduled TAVR procedure on 05/16/2025 and other of 3 TAVR procedure being done soon. Patient was advised to take it easy at home and down the the recommended discharging home on current medications. Family was advised to follow blood pressure and okay to take a blood repeat in 5 mg for systolic blood pressure more than 160 mm of mercury. History of Present Illness History of Present Illness Consult date/time: 04/29/25 08:57 Requesting physician: Valerie Bran MD Consult reason: Other (Severe aortic stenosis ) Reason For Visit: Chest Pain/Headache Narrative: Patient is 80-year-old male admitted with complaints of chest pain. Patient has a past medical history significant for coronary artery disease, severe aortic stenosis, stroke, hypertension. Patient was apparently just discharged 2 weeks ago after his stroke and he continues to have significant left-sided chest pain since then described as dull ache pain, 5/10. Past medical history also significant for history of hypertension and hyperlipidemia. History of left-sided stroke in the past and gastroesophageal reflux disease. Patient noted increase in blood pressure in the range of 160-170 last night. Patient is also scheduled for TAVR in 2 weeks. Patient had no associated shortness of breath, dizziness or palpitations. No complaints of fever or chills. No complaints of abdominal pain, nausea vomiting or diarrhea. Admitting blood pressure was 156 over 80-100 was 83. Patient was afebrile and O2 saturation is 99% Admitting laboratory data reveal the sodium 130, potassium is 3.5, BUN is 7, creatinine 0.66. WBC count 13.9, hemoglobin is 15.6 and platelets are 715,000. Cardiac troponin is less than 0.012 x 3. EKG on admission revealed normal sinus rhythm with LVH voltage. Nonspecific ST changes are noted. Admitting chest x-ray revealed no acute cardiopulmonary findings. Patient was examined at the bedside. Patient is awake alert and appears to be comfortable without shortness of breath or chest pain. Patient is anxious about having his procedure being done in next 2 weeks. Vital signs are stable at this time including blood pressure. Review of Systems Review of Systems: Twelve point review of system was completed. Constitutional negative for weight loss, fever or chills or weakness Head and neck review of systems negative. Cardiovascular system positive for chest pain and elevated blood pressure Pulmonary system negative for shortness of breath, cough or hemoptysis. Gastrointestinal system negative for abdominal pain, nausea vomiting or diarrhea Neurovascular, genitourinary, skin and musculoskeletal are negative. [facility] Past Medical History Medical History Vascular dementia of acute onset Left-sided cerebrovascular accident (CVA) Colon polyp Dysphagia Nondisplaced fracture of distal end of right radius Hypertension Hypercholesterolemia GERD (gastroesophageal reflux disease) Surgical History Surgical History Hx of tympanostomy tubes Family History Family History Father Heart failure Mother Family history of arthritis Social History Social History Smoking status: Never smoker Alcohol intake: current Drinks per week: 2 Substance use: never Substance use type: does not use Lack of Transportation: No Lack of Food: Never True Current Housing: I Have Housing Concerned About Future Housing: No Difficulty Paying Gas/Electric Bills: No Difficulty Paying for Meds: No Currently Unemployed: No Education: High School Diploma/GED Difficulty w/ Childcare or Family Care: No Living arrangements: with family Spiritual care concerns: No Meds Home Medications and Allergies Home Medications ?Medication ?Instructions ?Recorded ?Confirmed ?Type [id number] acid 0.4 1 tablet PO DAILY 02/22/20 04/28/25 History mg-lycopene 300 mcg-lutein 250 mcg tablet (Centrum Silver) valsartan 320 1 tablet PO DAILY 08/19/20 04/28/25 History mg-hydrochlorothiazide 12.5 mg tablet aspirin 81 mg tablet,delayed 81 mg PO QAM #30 tabs 04/16/25 04/28/25 Rx release isosorbide mononitrate 60 mg 60 mg PO DAILY #30 tabs 04/16/25 04/28/25 Rx tablet,extended release 24 hr clopidogrel 75 mg tablet 75 mg PO QAM #90 tabs 04/27/25 04/28/25 Rx donepezil 5 mg tablet (Aricept) 5 mg PO QHS #90 tabs 04/27/25 04/28/25 Rx rosuvastatin 40 mg tablet (Crestor) 40 mg PO DAILY #90 tabs 04/27/25 04/28/25 Rx Allergies Allergy/AdvReac Type Severity Reaction Status Date / Time No Known Allergies Allergy Unknown NA Verified 04/27/25 11:28 Vital Signs Vital Signs - 24 hr 04/28/25 10:11 04/28/25 11:54 04/28/25 11:55 Temperature 36.4 C L Pulse Rate 83 76 75 Respiratory Rate 20 15 13 Blood Pressure 156/82 H 163/95 H Pulse Oximetry 99 98 98 Oxygen Delivery 04/28/25 12:00 04/28/25 12:01 04/28/25 12:02 Temperature Pulse Rate 78 76 74 Respiratory Rate 20 16 16 Blood Pressure 158/88 H 158/88 H Pulse Oximetry 97 98 98 Oxygen Delivery Room Air 04/28/25 12:15 04/28/25 12:16 04/28/25 12:30 Temperature Pulse Rate 76 75 82 Respiratory Rate 12 14 14 Blood Pressure 160/85 H Pulse Oximetry 98 96 97 Oxygen Delivery 04/28/25 12:31 04/28/25 12:36 04/28/25 12:37 Temperature Pulse Rate 78 77 Respiratory Rate 14 16 Blood Pressure 156/96 H 156/96 H Pulse Oximetry 97 96 96 Oxygen Delivery Room Air 04/28/25 12:45 04/28/25 12:46 04/28/25 12:48 Temperature Pulse Rate 73 72 75 Respiratory Rate 14 16 13 Blood Pressure 154/92 H 143/90 H Pulse Oximetry 97 95 96 Oxygen Delivery 04/28/25 13:00 04/28/25 13:01 04/28/25 13:15 Temperature Pulse Rate 76 74 83 Respiratory Rate 13 20 20 Blood Pressure 158/91 H Pulse Oximetry 99 98 98 Oxygen Delivery 04/28/25 13:18 04/28/25 13:28 04/28/25 13:30 Temperature Pulse Rate 81 81 75 Respiratory Rate 17 17 15 Blood Pressure 175/92 H 158/94 H Pulse Oximetry Oxygen Delivery 04/28/25 13:41 04/28/25 13:45 04/28/25 13:51 Temperature Pulse Rate 87 86 90 Respiratory Rate 19 16 18 Blood Pressure 135/75 124/77 Pulse Oximetry 98 97 97 Oxygen Delivery 04/28/25 14:00 04/28/25 14:01 04/28/25 14:11 Temperature Pulse Rate 86 85 86 Respiratory Rate 17 19 19 Blood Pressure 141/83 H 141/82 H Pulse Oximetry 99 97 96 Oxygen Delivery 04/28/25 14:15 04/28/25 14:21 04/28/25 14:30 Temperature Pulse Rate 85 83 85 Respiratory Rate 15 12 17 Blood Pressure 128/87 Pulse Oximetry 97 96 97 Oxygen Delivery 04/28/25 14:31 04/28/25 14:41 04/28/25 14:45 Temperature Pulse Rate 89 84 84 Respiratory Rate 15 16 20 Blood Pressure 141/82 H 145/77 H Pulse Oximetry 98 95 96 Oxygen Delivery 04/28/25 15:00 04/28/25 15:15 04/28/25 15:30 Temperature Pulse Rate 87 85 81 Respiratory Rate 15 20 16 Blood Pressure Pulse Oximetry 96 95 97 Oxygen Delivery 04/28/25 15:31 04/28/25 15:45 04/28/25 16:07 Temperature Pulse Rate 83 86 Respiratory Rate 18 17 Blood Pressure 135/78 Pulse Oximetry 97 96 95 Oxygen Delivery 04/28/25 16:15 04/28/25 17:00 04/28/25 18:00 Temperature 36.8 C Pulse Rate 88 82 91 Respiratory Rate 17 16 Blood Pressure 149/69 H Pulse Oximetry 96 95 Oxygen Delivery 04/28/25 19:35 04/28/25 20:00 04/28/25 20:00 Temperature 36.7 C Pulse Rate 94 80 Respiratory Rate 18 Blood Pressure 112/61 Pulse Oximetry 96 Oxygen Delivery Room Air 04/28/25 22:00 04/29/25 00:00 04/29/25 00:00 Temperature Pulse Rate 68 64 Respiratory Rate Blood Pressure Pulse Oximetry Oxygen Delivery Room Air 04/29/25 00:32 04/29/25 02:00 04/29/25 04:00 Temperature 36.8 C Pulse Rate 70 64 Respiratory Rate 16 Blood Pressure 137/74 Pulse Oximetry 98 Oxygen Delivery Room Air 04/29/25 04:00 04/29/25 05:00 04/29/25 06:00 Temperature 36.6 C Pulse Rate 69 73 74 Respiratory Rate 14 Blood Pressure 132/77 Pulse Oximetry 98 Oxygen Delivery 04/29/25 07:56 04/29/25 08:00 Temperature 36.4 C Pulse Rate 73 Respiratory Rate 16 Blood Pressure 147/76 H Pulse Oximetry 97 Oxygen Delivery Room Air Exam Narrative: Patient is awake alert and appears to be comfortable without shortness of breath, chest pain orthopnea. Head and neck examination is unremarkable. Head is atraumatic. Sclerae is nonicteric. ENT examination is negative. Neck is supple. There is no JVD or carotid bruit. Thyroid is not enlarged. There is no cervical lymphadenopathy. Lungs are clear to auscultation percussion. There is no wheezing or crepitation Heart sounds reveal normal S1-S2. There is a grade 3-4/6 systolic murmur radiating to the right upper chest and carotids. There is no S3-S4. Rhythm is irregularly irregular. Abdomen is soft and nontender. There is no hepatosplenomegaly femoral pulses present. Extremities revealed no pedal edema. Distal pulses are fair bilaterally Skin is intact without rash or bruises. 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 for Results Labs and Meds 04/28/25 11:16 04/28/25 11:16 Lab results: Cardiac Enzymes 04/28/25 04/28/25 04/28/25 Range/Units 11:16 13:57 16:45 AST 53 (17-59) U/L Troponin I < 0.012 < 0.012 < 0.012 (0.000-0.034) ng/mL Coagulation 04/28/25 Range/Units 11:16 PT 14.8 H (11.1-14.7) Seconds APTT 28.1 (22.3-36.8) Seconds CBC 04/28/25 Range/Units 11:16 WBC 13.9 H (4.5-10.0) K/mm3 RBC 5.17 (4.6-6.20) M/mm3 Hgb 15.6 (14.0-18.0) g/dL Hct 46.4 (42.0-52.0) % Plt Count 715 H (150-375) k/mm3 Lymph # (Auto) 1.42 (0.9-3.2) K/mm3 [place] # (Auto) 1.3 H (0.1-0.6) K/mm3 Eos # (Auto) 0.1 (0-0.3) K/mm3 Baso # (Auto) 0.1 (0.0-0.1) K/mm3 Comprehensive Metabolic Panel 04/28/25 Range/Units 11:16 Sodium 130 L (137-145) mmol/L Potassium 3.5 (3.4-5.0) mmol/L Chloride 94 L (98-107) mmol/L Carbon Dioxide 28 (22-30) mmol/L BUN 7 L D (9-20) mg/dL Creatinine 0.66 L (0.7-1.3) mg/dL Glucose 113 H (65-110) mg/dL Calcium 8.8 (8.4-10.2) mg/dL AST 53 (17-59) U/L ALT 16 (6-50) U/L Alkaline Phosphatase 77 (38-126) U/L Total Protein 7.8 (6.3-8.2) g/dL Albumin 4.5 (3.5-5.1) g/dL Intake and Output 04/28/25 04/29/25 04/29/25 23:59 07:59 15:59 Intake Total 1360 350 Output Total 500 Balance 1360 -150 Intake: IV 1000 Sodium Chloride 0.9% IV 1,000 1000 ml @ 999 mls/hr IV CONT .Q1H1M STA Rx#:[id number] Oral 360 350 Output: Urine 500 Other: Number of Bowel Movements Today 1 Patient Weight 04/29/25 23:59 Weight 83.2 kg
[2025-04-29] MEDS: ACETAMINOPHEN 325 MG TABLET 650 MG PO (11:02)
--- NOTE | 2025-04-29 12:01 | P.DS_ITS ---
DS: Admitting Diagnosis Discharge Date 04/29/2025 Admitting Diagnosis Chest pain DS: Discharge Diagnosis Discharge Diagnosis (1) Chest pain: Qualifiers: Chest pain type: chest pain due to myocardial ischemia Ischemic chest pain type: unstable angina pectoris Qualified Code(s): I20.0 - Unstable angina Code(s): R07.9 - Chest pain, unspecified Status: Acute Assessment and Plan: * Chest pain has resolved * EKG: Sinus rhythm with first-degree AV block with occasional ventricular premature complexes, RBBB without acute ST changes * Troponin WNL * Cardiology consulted, appreciate assistance and recommendations * Monitor vital signs, I&Os, chest pain, shortness of breath and patient is a fall risk * Monitor PTT, serial troponins, Serum electrolytes, and cbc (2) Hypertension: Code(s): I10 - Essential (primary) hypertension Status: Acute Assessment and Plan: * Patient's blood pressure was reviewed on 04/29 * Blood pressure remains well controlled * Will continue current medications * After receiving hydralazine in the ER his blood pressure improved from 163/95 down to 112/61 * Will hold off on further [employer]IPPING [employer] antihypertensives as to not lower his blood pressure too aggressively in the setting of severe aortic stenosis. (3) CAD (coronary artery disease): Code(s): I25.10 - Atherosclerotic heart disease of [place] coronary artery without angina pectoris Status: Acute Assessment and Plan: * Continue at home medications (4) Severe aortic stenosis: Code(s): I35.0 - Nonrheumatic aortic (valve) stenosis Status: Acute Assessment and Plan: * Resume aspirin, Plavix, Crestor Plan Patient wishes to be full code. NPO. Normal saline at 75 cc/hour. SCDs. 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 Described as a dull ache , blood pressure at home noted to be 160s and 170s which is unusual for the patient. Patient has been scheduled for TAVR in a couple weeks at [place]. Troponin x3 negative, EKG demonstrates sinus rhythm with first-degree AV block without acute ST changes,. He was given aspirin 324 mg p.o. x1, hydralazine 10 mg IV x1, Compazine 10 mg IM x1, 1 L normal saline bolus, Toradol, Benadryl, he was resting comfortably thereafter. In the a.m. and /, patient's chest pain had resolved. ACS and rule out occult troponins and EKG. Aspirin, Plavix and Crestor were resumed and patient's blood pressure decreased from 163/95, 212/61 after receiving hydralazine in the ER. Further Ca antihypertensives were held has not lower his blood pressure too aggressively in the setting of severe aortic stenosis. Cardiology was consulted regarding chest pain in the presence of severe aortic stenosis. Per cardiology note: Echocardiogram reviewed from 04/13/2025 which showed normal left ventricular size and systolic function estimated at 65-70%. Grade 1 diastolic dysfunction is noted. No suggestion of PFO with agitated saline. Patient has severe aortic valve stenosis with peak velocity of 4.7 m/sec in, mean gradient at 37 mm of mercury and estimated valve area 0.9 cm2. No need for another echocardiogram at this time. Mild hypertension is permitted in the range of 140-160mmHg injury to proper for flow in the presence of aortic stenosis. Cardiac enzymes/EKG negative for ACS. Has patient has had an extensive cardiac workup and has a scheduled TAVR procedure in the next 5 weeks, cardiology at this point recommends medical management and discharging home on current medications. Patient is otherwise hemodynamically stable and does not present with any pain or complaints at this time. Vitals and blood work taper on stable throughout hospitalization and patient is amenable to discharge home. Plan for discharge at this time. Status at Discharge Functional status at discharge: independent ambulation Overall status at discharge: patient is back to baseline Time Spent with Patient Time attestation: Total time spent providing and/or coordinating discharge services: 31 Exam Narrative: Gen - well appearing male in no acute respiratory distress who is nontoxic- appearing lying semi recumbent in bed HEENT - normocephalic. Atraumatic. Pupils equal round and reactive. Nares patent. No oral lesions. Moist mucous membranes. Neck - neck was supple. No dominant adenopathy, thyromegaly or masses. 2+ carotid upstrokes without bruits. Chest - lungs are clear to auscultation bilaterally. No wheezes or crackles. CV - heart was regular rate and rhythm. S1-S2. No murmurs gallops or rubs. Abd - abdomen was soft. Nontender. Nondistended. Positive bowel sounds. Ext - no clubbing, cyanosis or edema. 2+ DP pulses bilaterally. Neuro - patient is alert and oriented x4. Strength is 5/5 in both upper and lower extremities. Speech is clear. Psych - normal mood and affect. Patient is pleasant and cooperative. Skin - warm and dry. No rashes noted. Const: Other: A&O x3 DS: Data Data Completed and Pending Labs on day of discharge: Labs from last 24 hours 04/28/25 04/28/25 16:45 13:57 Troponin I < 0.012 < 0.012 Discharge Plan Discharge Attending physician on discharge: Dennis Bejarano Consulting providers: Que Bond; Emy Valladares Discharging Clinician: Que Bond Anticipated Discharge Date/Time: 04/29/25 11:58 Patient Disposition: Home Activity: no straining Diet: heart healthy Discharge Instructions: Discharge disposition: Home Take medications as prescribed. Hypertension is permitted in the range of 140-160mmHg in order to maintain proper forward flow. Monitor blood pressures Take caution while standing, rising, or moving Change positions slowly taking a break between each position change If you standing feel dizzy sit back down and take a break Encouraged to continue with yearly vaccinations Return to the emergency department if you develop sudden shortness of breath, chest pain, nausea, vomiting, upset stomach or intractable diarrhea Return to the emergency department if you develop fever greater than 101.5 Follow-up with the primary care physician within 1-2 weeks Thank you for [facility] for your healthcare needs Patient Instructions: Antibiotic Form Patient Language: Montenegrin Stand Alone Forms: General Discharge Information Follow-up/Referrals: Brandi,Tj Blount MD [Primary Care Provider] Discharge Medications: Continued valsartan-hydrochlorothiazide 320-12.5 mg tablet 1 tablet PO DAILY Centrum Silver 0.4-300-250 mg-mcg-mcg tablet 1 tablet PO DAILY donepezil [Aricept] 5 mg tablet 5 mg PO QHS Qty: 90 1RF clopidogrel 75 mg tablet 75 mg PO QAM Qty: 90 1RF rosuvastatin [Crestor] 40 mg tablet 40 mg PO DAILY Qty: 90 3RF aspirin 81 mg Tablet,Delayed Release (Dr/Ec) 81 mg PO QAM Qty: 30 0RF isosorbide mononitrate 60 mg Tablet Extended Release 24 Hr 60 mg PO DAILY Qty: 30 0RF Date of admission: 04/28/25 17:32 Primary Care Provider: Brandi,Tj Blount Admitting Provider: Agustin Arias Oca Attending physician on admission: Agustin Arias Oca Condition: Stable
== END 2025-04-29 12:45 | disposition home or self-care (01) ==
LOC: ANHED 12:18 → ANHIMU 16:21
PROVIDERS: Emergency Medicine; Admitting Provider Student in an Organized Health Care Education/Training Program; Emergency Provider Student in an Organized Health Care Education/Training Program; PCP Internal Medicine; Visit Provider Internal Medicine
DX: I25.110 Atherosclerotic heart disease of native coronary artery with unstable angina pectoris (principal); I10 Essential (primary) hypertension; R07.9 Chest pain, unspecified; D72.829 Elevated white blood cell count, unspecified; I35.0 Nonrheumatic aortic (valve) stenosis; R51.9 Headache, unspecified; I44.0 Atrioventricular block, first degree; I49.3 Ventricular premature depolarization; I42.2 Other hypertrophic cardiomyopathy; I45.2 Bifascicular block; E87.1 Hypo-osmolality and hyponatremia; E78.00 Pure hypercholesterolemia, unspecified; R13.10 Dysphagia, unspecified; F01.50 Vascular dementia, unspecified severity, without behavioral disturbance, psychotic disturbance, mood disturbance, and anxiety; I63.9 Cerebral infarction, unspecified; I25.2 Old myocardial infarction; Z86.73 Personal history of transient ischemic attack (TIA), and cerebral infarction without residual deficits; Z98.61 Coronary angioplasty status; H53.461 Homonymous bilateral field defects, right side; K21.9 Gastro-esophageal reflux disease without esophagitis; Z79.82 Long term (current) use of aspirin; Z79.02 Long term (current) use of antithrombotics/antiplatelets; Z82.49 Family history of ischemic heart disease and other diseases of the circulatory system; Z82.61 Family history of arthritis
CPT/HCPCS: 36415; 70450; 71046; 80053; 83690; 84484; 85025; 85610; 85730; 93005; 96361; 96372; 96374; 96375; 99285; A9270; G0378; J0360; J0780; J1200; J1885; J7030

== ENCOUNTER 2025-05-21 07:46 | Emergency (ER) | payer MEDICARE, SELFPAY ==
[2025-05-21] VITALS (7 sets, daily range): BP systolic 119–147; BP diastolic 60–76; PULSE 74–90; RESP 14–18; TEMP 36.7; O2SAT 96–98
--- NOTE | ~2025-05-21 | US_ITS ---
Ultrasound right lower extremity duplex INDICATION: Pseudoaneurysm after catheterization COMPARISON: None TECHNIQUE: Grayscale, color, duplex/spectral Doppler FINDINGS: External iliac artery triphasic Common femoral artery triphasic Profunda biphasic Proximal SFA triphasic 2 cm pseudoaneurysm arising from common femoral artery with 2 mm neck Common femoral vein patent Profunda vein patent Proximal femoral vein patent IMPRESSION: 1. 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 2. 2 cm pseudoaneurysm with 2 mm neck. Reviewed, dictated and finalized at location R.
--- OUTSIDE RECORDS SUMMARY | 2025-05-21 07:48 | XMS_ITS | Encounter Summary ---
Author Organization [facility] Healthcare Address [address] [place] [address] Care Team Providers Care Internet Media Planner Name Role Phone Tj Paz MD Primary Care Provider Tj Zamora MD PhD Unavailable [phone] Encounter Details Date Type Department Care Team (Late st Contact Info) Description 05/10/2025 Results Follow-Up [facility] [address] [place] [address] Stalin Lucia MD [address] [address] [address] TAVR Social History Tobacco Use Types Packs/Day Years [...] points, staff should administer the PHQ-9) 0 04/26/2025 Sex and Gender Information Value Date Recorded Sex Assigned at Not on file Legal Sex Male 11:52 PM FAMILY MANAGER Gender Identity Not on file Sexual Orientation Not on file documented as of this encounter Plan of Treatment Upcoming Encounters Date Type Department Care Team (Latest Contact Info) Description 06/02/2025 1:49 PM FAMILY MANAGER Hospital Encounter [facility] Electrophysiology [facility] [address] [place] [address] Caridad Aparicio MD [id number] [place] [address] Aortic valve stenosis, etiology of cardiac valve disease unspecified; Encounter for examination for normal comparison and control in clinical research program 06/02/2025 1:49 PM FAMILY MANAGER - 06/02/2025 4:16 PM FAMILY MANAGER Surgery [facility] Elect[facility] [address] [place] [address] Stalin Lucia MD [address] [facility] [address] [place] [address] TAVR - PERCUTANEOUS FEMORAL [id number] documented as of this encounter Visit Diagnoses Not on filedocumented in this encounter Care Teams Internet Media Planner Relationship Specialty Start Date End Date Tj Paz MD PCP - General 10/18/16 Tj Zamora MD PhD [address] [facility] [place] [place] [address] Referring Physician Cardiology 04/26/25 documented as of this encounter
--- OUTSIDE RECORDS SUMMARY | 2025-05-21 07:49 | XMS_ITS | Clinical Summary ---
Author Organization [facility] Address [address] [place] [address] Care Team Providers Care Mechanical Apprentice Name Role Phone Isreal Paz MD Primary Care Provider Isreal Zamora MD PhD Unavailable [phone] Allergies No known active allergies Medications multivitamin-mi nerals-lutein (CENTRUM SILVER) tablet take 1 tablet by oral route every day 0 03/07/20 11 Active amLODIPine (NORVASC) 10 mg tablet Take 1 tablet (10 mg total) by mouth daily 90 tablet 3 10/08/19 25 026 Active valsartan-hydro chlorothiazide (DIOVAN-HCT) 320-12.5 mg per tablet TAKE 1 TABLET BY MOUTH EVERY DAY 90 tablet 1 02/09/20 25 Active omeprazole (PriLOSEC) 20 mg capsule TAKE 1 CAPSULE(20 MG) BY MOUTH DAILY 90 capsule 1 02/09/20 25 Active donepeziL (ARICEPT) 5 mg tablet Take 1 tablet (5 mg total) by mouth nightly at bedtime 04/27/20 25 Active cyanocobalamin (Vitamin B-12) 1,000 mcg tabletIndicatio ns:Prevention of Vitamin B12 Deficiency Take 1 tablet (1,000 mcg total) by mouth daily Active rosuvastatin (CRESTOR) 20 mg tablet Take 2 tablets (40 mg total) by mouth daily 180 tablet 3 05/16/20 25 Active aspirin 81 mg enteric coated tablet Take 1 tablet (81 mg total) by mouth daily 90 tablet 3 05/16/20 25 Active clopidogreL (PLAVIX) 75 mg tabletIndicatio ns:Thrombosis Prevention after PCI Take 1 tablet (75 mg total) by mouth every morning 90 tablet 3 05/16/20 Active isosorbide mononitrate ER (IMDUR) 30 mg 24 hr tablet Take 1 tablet (30 mg total) by mouth daily 90 tablet 3 01/14/20 25 025 Discontinued(St op Taking at Discharge) rosuvastatin (CRESTOR) 20 mg tablet TAKE 1 TABLET(20 MG) BY MOUTH DAILY 100 tablet 03/04/20 25 025 Discontinued clopidogreL (PLAVIX) 75 mg tablet Take 1 tablet (75 mg total) by mouth every morning 04/17/20 25 025 Discontinued aspirin 81 mg enteric coated tablet 1 tablet (81 mg total) daily 02/22/20 025 Discontinued Active Problems Problem Noted Date Diagnosed Date CAD, multiple vessel 05/17/2025 Aortic valve stenosis 05/16/2025 Encounter for examination fo r normal comparison and control in clinical research program 05/16/2025 CAD (coronary artery disease) 05/16/2025 Assessment & Plan (05/17/2025 9:26 AM CDT): - SP PCI with two LAD BRIDGETT. - complicated with access site bleeding twice requiring bupivicaine injection twice and then pressure dressing. - no bleeding since admission to the floor or overnight monitoring - pressure dressing removed on morning of discharge, pt ambulated without any active bleeding noted afterwards - discussed with cards and ok for dc home - Hb 15.2 --> 14.5 - CW ASA, Plavix and statin. - CTM Assessment & Plan (05/16/2025 8:17 PM CDT): - SP PCI with two LAD BRIDGETT. - complicated with access site bleeding twice requiring bupivicaine injection twice and then pressure dressing. - no bleeding at the time of my encounter. - Hb 15.2 --> 14.5 - CW ASA, Plavix and statin. - Discuss with cardiology switching his Amlodipine to Beta-kwabena. - CTM - cardiology to see pt in AM. CVA (cerebral vascular accident) 05/16/2025 Assessment & Plan (05/17/2025 9:16 AM CDT): - CW ASA and statin. Assessment & Plan (05/16/2025 8:17 PM CDT): - CW ASA and statin. Aortic stenosis 05/16/2025 Assessment & Plan (05/17/2025 9:26 AM CDT): - cath procedure note mentioned critical . - cardiology stopped his isosorbide - pt is planned for TAVR next month. Assessment & Plan (05/16/2025 8:17 PM CDT): - cath procedure note mentioned critical . - cardiology stopped his isosorbid. - pt is planned for TAVR next month. Nonrheumatic aortic valve stenosis 05/09/2025 Left-sided chest pain 04/14/2025 Coronary artery disease invo lving [place] heart with unstable angina pectoris 04/14/2025 Hearing loss 03/08/2024 Polyp of colon 03/08/2024 Overview (03/08/2024): Jun 13, 2020 Entered By: ISREAL GUDINO Comment: Colonoscopy 10/2017 in [place]; Polyps 5yrs october 2022 Sensorineural hearing loss, [...] (09/27/2021): Added automatically from request for surgery [id number] Gastro-esophageal reflux 04/14/2019 Assessment & Plan (01/06/2025 12:14 PM CDT): Good reflux control continue omeprazole daily Systolic murmur 03/17/2017 Meningioma 01/07/2017 Assessment & Plan (01/06/2025 12:14 PM CDT): We are not going to pursue this unless her symptoms Chronic mastoiditis of both sides 01/07/2017 Essential (primary) hypertension 10/25/2015 Overview (10/25/2016): BENIGN HYPERTENSION Assessment & Plan (05/17/2025 9:16 AM CDT): - CW amlodipine, HCTZ and valsartan or its formulary substation. Assessment & Plan (05/16/2025 8:17 PM CDT): - CW amlodipine, HCTZ and valsartan or its formulary substation. Assessment & Plan (04/11/2025 5:43 PM CDT): Assessment & Plan (01/06/2025 12:14 PM CDT): Good blood pressure today good renal function and electrolytes continue valsartan hydrochlorothiazide and amlodipine combination and low-salt diet Hyperlipidemia 12/04/2013 Overview (10/24/2016): MIXED HYPERLIPIDEMIA Assessment & Plan (05/17/2025 9:16 AM CDT): - CW rosuvasatin. Assessment & Plan (05/16/2025 8:17 PM CDT): - CW rosuvasatin. Assessment & Plan (01/06/2025 12:14 PM CDT): [...] 01/30/2021 Assessment & Plan (09/28/2020 11:59 AM SALES AGENT FINANCIAL REPORT SERVICE): The patient's chest discomfort is atypical and [...] 10/02/2018 Assessment & Plan (09/02/2017 10:39 AM SALES AGENT FINANCIAL REPORT SERVICE): Patient has a history of eustachian tube [...] and encouraged to follow up with his search engine optimization manager, Dr. Arambula, regarding his persistent complaints. He was in agreement with the plan of care. Assessment & Plan (08/25/2017 9:41 AM SALES AGENT FINANCIAL REPORT SERVICE): Humidification, fluids, and rest were recommended. Patient was instructed to take antibiotic as directed. Patient was encouraged to take antibiotic with food. I have also recommended daily probiotic, yogurt or capsule, while on the antibiotic. Acute non-recurrent maxillary sinusitis 08/25/2017 10/02/2018 Assessment & Plan (08/25/2017 9:41 AM SALES AGENT FINANCIAL REPORT SERVICE): Humidification, fluids, and rest were recommended. Patient was instructed to take antibiotic as directed. Patient was encouraged to take antibiotic with food. I have also recommended daily probiotic, yogurt or capsule, while on the antibiotic. Arthralgia of hip 05/11/2015 02/02/2019 Overview (10/25/2016): Hip pain, left Slowing of urinary stream 02/01/2014 Overview (10/25/2016): SLOWING URINARY STREAM Encounters Date Type Department Care Team Description 05/20/2025 Telephone [facility] Medicine Cardiology [address] [facility] 8th [place] [address] [place] [address] Jessica Santa 05/17/2025 Telephone [facility] Primary Care at [address] [place] [address] Isreal Paz MD LEONEL Questions 05/16/2025 8:00 AM CDT - 05/16/2025 10:15 AM CDT Surgery [facility] [address] [place] [address] Isreal Zamora MD PhD PCI BRIDGETT MAJOR CORONARY C9600 - [id number] -PCI of LAD 05/16/2025 6:15 AM CDT - 05/17/2025 9:55 AM CDT Hospital Encounter [address] [address] Isreal Zamora MD PhD Mireya Lund MD Mixed hyperlipidemia; Essential (primary) hypertension; Systolic murmur; Left-sided chest pain; Coronary artery disease involving [place] heart with unstable angina pectoris, unspecified vessel or lesion type (HCC) Discharge Disposition: Discharge to home or self care 05/16/2025 Telephone [facility] Medicine Cardiology On license of [facility] Advanced Medicine 8th [place] [address] [place] [address] Anni Garcia RN 05/12/2025 Telephone [facility] [address] [place] [address] [place] [address] Isreal Zamora MD PhD 05/11/2025 Telephone [facility] [address] [place] [address] [place] [address] Stalin Lcuia MD 05/10/2025 Results Follow-Up [facility] [address] [place] [address] TAVR 05/10/2025 Telephone [facility] [address] [place] [address] [place] [address] Aishwarya Otero 05/09/2025 1:58 PM CDT - 05/09/2025 11:59 PM CDT Hospital Encounter [facility] [address] [place] [address] Stalin Lucia MD Aortic valve stenosis, etiology of cardiac valve disease unspecified Discharge Disposition: Discharge to home or self care 05/09/2025 1:00 PM CDT Office Visit [facility] Medicine Surgery [address] [place] [address] [place] [address] Nonrheumatic aortic valve stenosis (Primary Dx) 05/09/2025 1:00 PM CDT Office Visit [facility] [address] [place] [address] [place] [address] [place] [address] Aortic valve stenosis, etiology of cardiac valve disease unspecified (Primary Dx); History of heart valve abnormality; Abnormal finding of blood chemistry, unspecified; Essential (primary) hypertension; Coronary artery disease involving [place] heart with unstable angina pectoris (HCC); Mixed hyperlipidemia; Nonrheumatic aortic valve stenosis 05/09/2025 Results Follow-Up [facility] [address] [place] [address] Stalin Lucia MD ECG 12 lead 05/09/2025 Orders Only [facility] Scanning, Provider 05/05/2025 11:30 AM CDT Office Visit [facility] at [address] [place] [address] Harika Mota MD Aortic valve stenosis, etiology of cardiac valve disease unspecified (Primary Dx) 04/29/2025 Orders Only [facility] Primary Care at [address] [place] [address] Isreal Paz MD Vision changes (Primary Dx); Cognitive changes 04/27/2025 5:00 PM CDT - 04/27/2025 11:59 PM CDT Hospital Encounter [facility] [address] [place] [address] Discharge Disposition: Discharge to home or self care 04/27/2025 4:59 PM CDT - 04/27/2025 11:59 PM CDT Hospital Encounter [facility] [address] [place] [address] Discharge Disposition: Discharge to home or self care 04/27/2025 4:58 PM CDT - 04/27/2025 11:59 PM CDT Hospital Encounter [facility] [address] [place] [address] Discharge Disposition: Discharge to home or self care 04/27/2025 Orders Only [facility] Scanning, Provider 04/27/2025 Orders Only [facility] Primary Care at [address] [place] [address] Isreal Paz MD Cerebrovascular accident (CVA), unspecified mechanism (HCC) (Primary Dx) 04/26/2025 3:00 PM CDT Office Visit [facility] Primary Care at [address] [place] [address] Isreal Paz MD Occipital stroke (Primary Dx); BMI 27.0-27.9,adult; Severe aortic stenosis; Single vessel coronary artery disease; Homonymous hemianopia, right; Benign meningioma of brain (HCC) 04/25/2025 Orders Only [facility] Primary Care at [address] [place] [address] Isreal Paz MD History of stroke (Primary Dx) 04/25/2025 Telephone [facility] Medicine Cardiology [address] [facility] 8th [place] [address] [place] [address] Isreal Zamora MD PhD 04/25/2025 Telephone [facility] Primary Care at [address] [place] [address] Isreal Paz MD Additional Services Or Orders 04/22/2025 Telephone [facility] Primary Care at [address] [place] [address] Isreal Paz MD 04/21/2025 Telephone [facility] Primary Care at [address] [address] Isreal Paz MD 04/20/2025 LEONEL IP Outreach [facility] Accountable Care Organization [address] [place] [address] Suze Hagan MA 04/19/2025 LEONEL IP Outreach [facility] [address] [address] Suze Hagan MA 04/18/2025 Orders Only [facility] Medicine Cardiology [address] [facility] 8th [place] [address] [place] [address] Stalin Lucia MD 04/18/2025 Orders Only [facility] Cardiology [address] [facility] [address] [place] [address] Andie Dumont MD 04/18/2025 Telephone [facility] [address] [facility] 8th [place] [address] [place] [address] Isreal Zamora MD PhD 04/14/2025 Orders Only [facility] Health Information Management [address] [place] [address] Isreal Paz MD 04/14/2025 Orders Only [facility] Cardiology [address] [facility] [address] [place] [address] Andie Dumont MD 04/14/2025 Telephone [facility] On license of [facility] 8th [place] [address] [place] [address] Isreal Zamora MD PhD schedule procedure 04/12/2025 Orders Only [facility] Health Information Management [address] [place] [address] Isreal Paz MD 04/12/2025 Orders Only [facility] Primary Care at [address] [place] [phone] Isreal Paz MD Acute cystitis without hematuria (Primary Dx) 04/12/2025 Telephone [facility] Primary Care at [address] [address] Isreal Paz MD Symptom Based Call 04/11/2025 4:15 PM CDT Office Visit [facility] Primary Care at [address] [place] [address] Isreal Paz MD Short-term memory loss (Primary Dx); BMI 27.0-27.9,adult; Right facial numbness; Essential (primary) hypertension 04/11/2025 Orders Only [facility] Primary Care at [address] [address] Isreal Paz MD Memory loss (Primary Dx); Balance problems; Right facial numbness 04/11/2025 Nurse Triage [facility] Medical [facility] Primary Care at [address] [place] [address] Isreal Paz MD 04/07/2025 Telephone [facility] Primary Care at [address] [place] [address] Isreal Paz MD Recommendation Request 03/28/2025 Orders Only [facility] Primary Care at [address] [place] [address] Isreal Paz MD TIA (transient ischemic attack) (Primary Dx) 03/07/2025 Telephone [facility] Primary Care at [address] [place] [phone] Lizy Patel Chart Review ([facility] (Med Adherence)) from Last 3 Months Immunizations Immunization Administration [...] neck surgery TYMPANOSTOMY TUBE PLACEMENT 09/18/2017 Bilateral [place] CARDIAC CATHETERIZATION 04/13/2025 BACK SURGERY COLONOSCOPY with polypectomy ESOPHAGOGASTRODUODENOSCOPY with stretching URETHRA SURGERY CARDIAC CATHETERIZATION 05/16/2025 N/A Procedure: PCI BRIDGETT MAJOR CORONARY C9600 - 24752 -PCI of LAD; Surgeon: Isreal Zamora MD PhD; Location: [facility] CARDIAC ADA ACCOMMODATION CONSULTANT; Service: Cardiovascular; Laterality: N/A; 05/16 PCI of the LAD (/ Noah) Cath Questions: IV dye Allergy-no Blood Thinners-no aspirin only Diabetic-no Decreased Kidney Function-no Previous catheterization or PCI-yesterday wrist Previous Open Heart Surgery- Medical devices from this surgery are in the Medical Devices section. 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 Hypertension Hypertension Hyperlipidemia Hyperlipidemia Hx Other Medical skin lesions re moved; Comments: LNP 08/09/2015 - History of test for hearing 01/01/2017 Chest pain Shortness of breath Heart murmur Heart valve stenosis Aortic stenosis Sick sinus syndrome (HCC) Ventricular tachycardia (HCC) Coronary artery disease Stroke (HCC) 04/09/2025 GERD (gastroesophageal reflu x disease) Dysphagia Meningioma, cerebral (HCC) 11 mm meningioma left parietal vertex Nondisplaced fracture distal end of right radius Family History Medical History Relation Name Comments watchman Brother Depression Father Hiro Depression; Heart attack Father Hiro 67 Heart disease Father [place] Heart disease; Arthritis Mother Ursella arthritis; Other Mother Ursella ; Rheum arthritis Mother Ursella Relation Name Status Comments Brother Father [place] Mother Jan Social History Tobacco Use Types Packs/Day Years Used Date Smoking Tobacco: Never Passive Smoke Exposure: Never Smokeless Tobacco: Never Tobacco Cessation:Counseling Given: Not Answered Alcohol Use Standard Drinks/Week Comments Yes 2 (1 standard drink = 0.6 oz pur e alcohol) PHQ-2 Answer Date Recorded PHQ-2 Total Score (If total score is 3 or more points, staff should administer the PHQ-9) 0 04/26/2025 AUDIT-C Answer Date Recorded Q1: How often do you have a drink containing alc ohol? 2-3 times a week 05/16/2025 Q2: How many drinks containi ng alcohol do you have on a typical day when you are drinking? 1 or 2 05/16/2025 Q3: How often do you have si x or more drinks on one occasion? Never 05/16/2025 Personal Safety Answer Date Recorded Have you ever been in or are you currently in a harmful physical or emotional relationship or is someone making you feel afraid or unsafe? Denies 05/16/2025 Sex and Gender Information Value Date Recorded Sex Assigned at Not on file Legal Sex Male 11:52 PM SALES AGENT FINANCIAL REPORT SERVICE Gender Identity Not on file Sexual Orientation Not on file Obstetrics History Last Filed Vital Signs Vital Sign Reading Time Taken Comments Blood Pressure 156/69 05/17/2025 7:35 AM CDT Pulse 70 05/17/2025 7:35 AM CDT Temperature 37.2 C (99 F) 05/17/2025 7:35 AM CDT Respiratory Rate 18 05/17/2025 7:35 AM CDT Oxygen Saturation 96% 05/17/2025 7:35 AM CDT Inhaled Oxygen Concentration - - Weight 80.1 kg (176 lb 9.6 oz) 05/17/2025 6:04 A M CDT Height 175.3 cm (5' 9) 05/16/2025 7:00 AM CDT Body Mass Index 26.08 05/16/2025 7:00 AM CDT Plan of Treatment Upcoming Encounters Date Type Department Care Team (Latest Contact Info) Description 06/02/2025 1:49 PM SALES AGENT FINANCIAL REPORT SERVICE Hospital Encounter [facility] Electrophysiology Lab 1 [place] [address] Caridad Aparicio MD [phone] [place] [address] Aortic valve stenosis, etiology of cardiac valve disease unspecified; Encounter for examination for normal comparison and control in clinical research program 06/02/2025 1:49 PM SALES AGENT FINANCIAL REPORT SERVICE - 06/02/2025 4:16 PM SALES AGENT FINANCIAL REPORT SERVICE Surgery [facility] Electrophysiology Lab 1 [place] [address] Stalin Lucia MD [address] [address] TAVR - PERCUTANEOUS FEMORAL [address] Health Maintenance Due Date Last Done Comments Albumin Creatinine Ratio, Urine 1944 Dilated Eye Exam 1945 Foot Exam 1945 Hepatitis B Screening 01/25[birth year]1962 Hemoglobin A1C 12/28/2024 06/29/2024 Influenza Vaccine (#1) 2025 , 05/03/2023, 04/23/2022, Additional history exists Prostate Cancer Screening-PSA 06/29/2025 06/29/2024, 01/15/2023, 01/17/2022, Additional history exists Well Visit 65+ 07/06/2025 07/06/2024, 06/20, 08/15/2022, Additional history exists Lipid Panel 12/21/2025 12/21/2024, 06/20, 01/01/2024, Additional history exists Depression Screening 04/26/2026 04/26/2025, 04/11/2025, 01/06/2025, Additional history exists eGFR 05/16/2026 05/16/2025, 04/20, 12/21/2024, Additional history exists Fall Risk Assessment 05/17/2026 05/17/2025, 04/26/2025, 04/11/2025, Additional history exists Covid-19 Vaccine ( season) 2026 05/01/2024, 04/23/2022, 09/25/2020, Additional history exists Postponed from 03/21/2025 (Patient declined, but will receive in the future) Colon Cancer Screening-Colonoscopy 09/23/2027 09/22/2017, 10/09/2012, 10/09/2012 DTaP/Tdap/Td Vaccine (2 - Td or Tdap) 02/26/2028 08/21/2013 Postponed from 08/21/2023 (Insurance / Financial) Pneumococcal vaccine 65+ Completed 03/14/2016, 02/19 Zoster Vaccine Completed 03/05/2019, 12/11/2018 Medical Devices Implanted Type Area Commercial Assistant Device Identifier Shelf Expiration Date Model / Serial / Lot Smile Angio-Seal Vip [employer]-Plus 8fr .038in 70cm Hemostatic Latex Free [id number] - [id number] - [id number] Implanted:Qty : 1 on 05/16/2025 by Isreal Zamora MD PhD at [facility] Collagen Right: Common Femoral Artery [employer] 12/17/2025 [id number] / [id number] / [id number] Medtronic Card Vasc Surgery 2.50 X 12mm [employer] Rx Coronary Stent [id number] - [id number] - [id number] Implanted:Qty : 1 on 05/16/2025 by Isreal Zamora MD PhD at [facility] Stent N/A: Diagnonal Coronary Artery Medtronic Card Vasc Surgery 05/18/2027 [id number] [id number] / [id number] / [id number] Medtronic Card Vasc Surgery 4.0 X 38mm [place] [employer] Rx Coronary Stent [id number] - [id number] - [id number] Implanted:Qty : 1 on 05/16/2025 by Isreal Zamora MD PhD at [facility] Stent Left: Anterior Descending Cornary Artery Medtronic Card Vasc Surgery 11/17/2027 [id number] / [id number] / [id number] Medtronic Card Vasc Surgery 2.25 X 15mm Rojelio [employer] Rx Coronary Stent [id number] - [id number] - [id number] Implanted:Qty : 1 on 05/16/2025 by Isreal Zamora MD PhD at [facility] Stent Left: Anterior Descending Cornary Artery Medtronic Card Vasc Surgery 01/25/2027 [id number] [id number] / [id number] / [id number] Procedures Procedure Name Priority Date/Time Associated Diagnosis Comments EGFR Routine 05/16/2025 1:35 PM CDT DIFFERENTIAL AUTO Routine 05/16/2025 1:3 5 PM CDT CBC WITH AUTO DIFFERENTIAL Routine 05/16/2025 1:35 PM CDT BASIC METABOLIC PANEL Routine 05/16/2025 1:35 PM CDT B CHECK SAMPLE STAT 05/16/2025 1:35 PM CDT BRIDGETT MAJOR CORONARY Routine 05/16/2025 10:38 AM CDT Mixed hyperlipidemia Essential (primary) hypertension Systolic murmur Left-sided chest pain Coronary artery disease involving [place] heart with unstable angina pectoris, unspecified vessel or lesion type (HCC) POCT ACTIVATED CLOTTING TIME, LOW RANGE Routine 05/16/2025 10:30 AM CDT POCT ACTIVATED CLOTTING TIME, LOW RANGE Routine 05/16/2025 9:37 AM CDT MISLABLED TEST Routine 05/16/2025 8:41 AM CDT POCT ACTIVATED CLOTTING TIME, LOW RANGE Routine 05/16/2025 8:29 AM CDT MISLABLED TEST Routine 05/16/2025 7:40 AM CDT TYPE AND SCREEN STAT 05/16/2025 6:20 AM CDT CBC WITHOUT DIFFERENTIAL Routine 05/16/2025 6:[address] TAVR Schedule Routine, Read Routine (OP Routine) 05/09/2025 2:51 PM CDT Aortic valve stenosis, etiology of cardiac valve disease unspecified ECG 12-LEAD Routine 05/09/2025 12:32 PM CDT Aortic valve stenosis, etiology of cardiac valve disease unspecified SCAN - LABS 05/09/2025 BASIC METABOLIC PANEL Routine 05/05/2025 8:26 AM CDT Mixed hyperlipidemia Essential (primary) hypertension Systolic murmur Left-sided chest pain CBC WITH AUTO DIFFERENTIAL Routine 05/05/2025 8:26 AM CDT Mixed hyperlipidemia Essential (primary) hypertension Systolic murmur Left-sided chest pain IR OUTSIDE REFERENCE Routine 04/27/2025 5:00 PM CDT US TRANSFER OF OUTSIDE FILMS Routine 04/27/2025 4:59 PM CDT US TRANSFER OF OUTSIDE FILMS Routine 04/27/2025 4:58 PM CDT CARDIOLOGY DOCUMENT SCAN 04/27/2025 4:09 PM CDT CARDIOLOGY DOCUMENT SCAN Routine 04/16/2025 1:38 PM CDT CARDIOLOGY DOCUMENT SCAN Routine 04/15/2025 1:36 PM CDT SCAN - RADIOLOGY/IMAGING 04/14/2025 CARDIOLOGY DOCUMENT SCAN Routine 04/13/2025 2:24 PM CDT SCAN - LABS 04/12/2025 SCAN - RADIOLOGY/IMAGING 04/12/2025 LIPID PANEL Routine 12/21/2024 8:40 AM CDT Mixed hyperlipidemia HEMOGLOBIN A1C Routine 06/29/2024 8:47 AM SALES AGENT FINANCIAL REPORT SERVICE PSA SCREEN Routine 06/29/2024 8:47 AM SALES AGENT FINANCIAL REPORT SERVICE HM COLONOSCOPY Routine 09/22/2017 from Last 3 Months or Most Recently Relevant to Health Maintenance Results * eGFR (05/16/2025 1:35 PM CDT) eGFR >90 >=60 mL/min/1. 73 m2 Comment: Interpretive Data Reference Interval Normal >/= 90 mL/min/1.73m2 Mildly decreased* 60 - 89 mL/min/1.73m2 Mildly to moderately decreased 45 - 59 mL/min/1.73m2 Moderately to severely decreased 30 - 44 mL/min/1.73m2 Severely decreased 15 - 29 mL/min/1.73m2 Kidney Failure < 15 mL/min/1.73m2 *Relative to young adult level Estimated glomerular filtration rate is determined by the 2020 CKD-EPI equation recommended by the National Kid[employer] (A Unifying Approach to GFR Estimation: Recommendations of the NKF-ASK Task Force on Reassessing the Inclusion of Race in Diagnosing Kidney Disease, JASN 2020). The CKD-EPI equation should not be used for patients with unstable renal function and has not been validated in children and those over 70. Current interpretive data was last reviewed 2021. Blood 05/16/2025 1:35 PM CDT 05/16/2025 1:56 PM CDT us Jacob Reilly [employer]ESS [employer]OX CUSTODIAN LAB BLOOD ORDERABLES F inal Result [facility] Department [place] [address] * (ABNORMAL) Differential, auto (05/16/2025 1:35 PM CDT) Neutrophil abs 14.36(H) 1.50 - 6.50 K/cumm Imm gran abs 0.08 0.00 - 0.10 K/cumm [facility] Lymphocyte abs 0.70(L) 0.80 - 3.30 K/cumm [facility] Monocyte abs 0.94(H) 0.20 - 0.80 K/cumm [facility] Eosinophil abs 0.01 0.00 - 0.50 K/cumm [facility] Basophil abs 0.09 0.00 - 0.10 K/cumm [facility] Neutrophil pct 88.7 % [facility] Comment: Interpretive Data Percent cell count reference ranges are not reported, since discordance with absolute values may lead to misinterpretation of CBC data. Current Interpretive Data was last revised on 2017. Imm gran pct 0.5 % [facility] Comment: Interpretive Data Percent cell count reference ranges are not reported, since discordance with absolute values may lead to misinterpretation of CBC data. Current Interpretive Data was last revised on 2017. Lymphocyte pct 4.3 % [facility] Comment: Interpretive Data Percent cell count reference ranges are not reported, since discordance with absolute values may lead to misinterpretation of CBC data. Current Interpretive Data was last revised on 2017. Monocyte pct 5.8 % [facility] Comment: Interpretive Data Percent cell count reference ranges are not reported, since discordance with absolute values may lead to misinterpretation of CBC data. Current Interpretive Data was last revised on 2017. Eosinophil pct 0.1 % [facility] Comment: Interpretive Data Percent cell count reference ranges are not reported, since discordance with absolute values may lead to misinterpretation of CBC data. Current Interpretive Data was last revised on 2017. Basophil pct 0.6 % [facility] Comment: Interpretive Data Percent cell count reference ranges are not reported, since discordance with absolute values may lead to misinterpretation of CBC data. Current Interpretive Data was last revised on 2017. Blood 05/16/2025 1:35 PM CDT 05/16/2025 1:50 PM CDT Jacob Reilly PRESS BOX CUSTODIAN LAB BLOOD ORDERABLES F inal Result Performing Organization Address [facility]/ZIP Co de Phone Number [facility] Department [place] [address] * Check Sample (05/16/2025 1:35 PM CDT) Pathologist [facility] ABO Rh A Positive [facility] HCLL OTHER 05/16/2025 1:35 PM CDT 05/16/2025 2:08 PM CDT Isreal Zamora MD PhD LAB BLOOD ORDERABLES Final Result Performing Organization Address [facility] Co de Phone Number [facility] Department [place] [address] [facility] * (ABNORMAL) CBC with auto differential (05/16/2025 1:35 PM CDT) Pathologist [facility] WBC 16.18(H) 3.80 - 9.90 K/cumm Hgb 14.5 13.0 - 17.5 g/dL [facility] Hct 42.5 38.9 - 50.3 % [facility] Plt 521(H) 150 - 400 K/cumm [facility] MPV 10.6 9.1 - 12.3 fL [facility] RBC 4.80 4.30 - 5.80 M/cumm [facility] MCV 88.5 81.3 - 96.4 fL [facility] MCH 30.2 27.1 - 33.3 pg [facility] MCHC 34.1 32.3 - 35.7 g/dL [facility] RDW CV 14.7 11.1 - 14.9 % [facility] RDW SD 48.2(H) 35.7 - 48.1 fL [facility] NRBC abs 0.00 0.00 - 0.01 K/cumm [facility] Blood 05/16/2025 1:35 PM CDT 05/16/2025 1:50 PM CDT Jacob Reilly NP LAB BLOOD ORDERABLES F inal Result [facility] Department [place] [address] * (ABNORMAL) Basic metabolic panel (05/16/2025 1:35 PM CDT) [facility] Sodium 137 135 - 145 mmol/L Potassium, pl 3.7 3.3 - 4.9 mmol/L [facility] Chloride 100 97 - 110 mmol/L [facility] CO2 26 22 - 32 mmol/L [facility] Anion gap 11 2 - 15 mmol/L [facility] BUN 7 6 - 25 mg/dL [facility] Creatinine 0.72(L) 0.80 - 1.30 mg/dL [facility] Glucose 162 70 - 199 mg/dL [facility] Comment: Interpretive Data Fasting glucose >/= 126 mg/dl is diagnostic for diabetes. Fasting is defined as no caloric intake for at least 8 hours. Fasting glucose between 100 mg/dl to 125 mg/dl is diagnostic of prediabetes. In a patient with classic symptoms of hyperglycemia or hyperglycemic crisis, a random glucose >/= 200 mg/dl is diagnostic for diabetes. In the absence of unequivocal hyperglycemia, results should be confirmed by repeat testing. The classification and Diagnosis of Diabetes Diabetes Care 202; 46: S19-S40. Current interpretive data was last revised 2022. Calcium 8.5 8.5 - 10.3 mg/dL [facility] Blood 05/16/2025 1:35 PM CDT 05/16/2025 1:50 PM CDT us Jacob Reilly NP LAB BLOOD ORDERABLES F inal Result [facility] Department [place] [address] * BRIDGETT MAJOR CORONARY (05/16/2025 10:38 AM CDT) Anatomical Region Laterality Modality X-Ray Angiograph y Narrative 05/16/2025 10:47 AM CDT Cardiac catheterization Interventional fellow: Dr. Jasmeet Aj HPI: 80-year-old male with a history of hypertension,, hyperlipidemia, recent CVA with residual, critical aortic stenosis and LAD diagonal disease now referred for PCI prior to TAVR. Patient initially seen in in 02/2025 with dizziness and facial numbness with word-finding difficulty. He has had documented CVA. TTE revealed critical aortic stenosis normal LV function. Follow-up coronary angiogram notes LAD diagonal disease. He has had intermediate risk for surgery and therefore approved for TAVR. The pre PCI component was requested 1st. Procedure: The patient is prepped and draped in sterile fashion. 1% local lidocaine anesthesia was utilized. Fentanyl and Versed were given as premedication. Optiray was used as a contrast agent. Aspirin and Plavix were given preprocedure. Using ultrasound directed micropuncture technique a 7 Azerbaijani 45 cm sheath inserted into the right femoral artery using percutaneous approach. Heparin was administered to maintain ACT of 300 seconds or greater. Angioplasty was performed with a 7 Azerbaijani EBU 3.5 guide catheter, 0.014 run-through wire into the LAD and a Tomography Technologist 50 wire into the diagonal. Diagonal was pre-dilated with a 1.5 x 12 Sapphire 2.0 by 12 NC emerge up to 22 atmospheres. The LAD was treated with a 4 mm 12 mm intravascular lithotripsy shockwave balloon with all 120 pulses delivered. Diagonal was treated with a 2.5 by 12 intravascular lithotripsy balloon with 80 pulses delivered. Second diagonal was treated with 2.5 x 12 mm rojelio Orland drug-eluting stent while the LAD was treated with a 4 mm x 38 mm rojelio Orland drug-eluting stent. There was great difficulty getting back into the 2nd diagonal as an anchor balloon, multiple small balloons would not cross. Eventually a corsair pro microcatheter was used to create a channel and a 2nd wire extended into the diagonal before predilatation was performed with a 1.5 mm Takeru and a 2.25 NC emerge up to 22 atmospheres. Kissing balloons were performed with a 2.25 NC balloon in the diagonal and a 3 mm NC balloon in the LAD both inflated simultaneously up to 16 atmospheres. First diagonal was approached as there was a Shockwave related side branch dissection. This was carefully wired with a whisper wire and pre-dilated with 1.5 2.25 NC emerge up to 16 atmospheres. It was subsequently stented with a 2.25 x 15 mm rojelio balloon post dilated up to 20 atmospheres with kissing balloons performed with a 3.5 NC balloon in the LAD. There were initial treatment of the LAD/2nd diagonal 100 mcg John-Synephrine was administered for transient hypotension On completion of the case the right femoral artery sheath was removed area closed with the 8 Azerbaijani Angio-Seal. There were no other complications. PCI of LAD/1st diagonal/2nd diagonal: The LAD has an eccentric 70% calcified lesion proximally adjacent to the 1st diagonal which has 70% ostial disease. Second diagonal has a 90% ostial lesion while the adjacent LAD has a 70% narrowing. Both the LAD and 2nd diagonal wired with the 2nd diagonal pre-dilated using 1.5 and 2.25 NC emerge balloons. The diagonal was then treated with a 2.5 shockwave balloon with 80 pulses delivered. The LAD was treated directly with a 4.0 by 12 mm intravascular lithotripsy balloon with 120 pulses delivered. The 2nd diagonal was stented with a 2.5 x 12 mm rojelio with the LAD received a 4 mm x 38 mm rojelio. This was slightly oversized with the distal segment. Proximal optimization performed with a 4 mm balloon with 1 inflation performed with a 22 atmospheres. The 2nd diagonal side branch was rewired with moderate difficulty but no balloon would track. Eventually a microcatheter was used and a 2nd wire placed before predilatation performed with a 1.5 mm balloon and kissing balloons with a 2.25 NC balloon in the diagonal and a 3 mm NC in the LAD. This left no residual, no dissection TAMARA 3 flow. Lesion classification-this is a type C lesion TAMARA 3 flow pre and post. The diagonals 12 mm of the LAD is 30 8 mm. There was no significant residual. Syntax score is moderate with the LAD 2nd diagonal being the culprit. Attention was then turned to the 1st diagonal. This had an interesting ostial dissection from the shockwave balloon making it difficult to wire. Eventually wire was placed distally several predilatation was performed before placement of a 2.2515 mm rojelio Orland drug-eluting stent and kissing balloons performed with the 3.5 mm balloon in the LAD. This left no residual, no dissection TAMARA 3 flow. Lesion classification- this is a type C lesion with TAMARA 2 flow in the 1st diagonal, TAMARA 3 flow in the LAD. The diagonal was 12 mm long there was no residual. The LAD was previously classified. Overall impression: 1. Complex PCI of LAD/1st diagonal/2nd diagonal using intravascular lithotripsy and subsequent placement of 4 mm 38 mm rojelio Orland drug-eluting stent in the LAD, 2.25 x 15 mm rojelio Orland drug-eluting stents in the 1st diagonal, and 2.5 x 12 mm rojelio Orland drug-eluting stent in the 2nd diagonal. 2. Critical aortic stenosis. 3. Recent CVA with significant residual. Therapy recommendations: Patient's remain on Plavix for the next 3 months and aspirin indefinitely. Plans are for transaortic valve implantation with Dr. Lucia in the next month. us Isreal Zamora MD PhD CV CARDIAC CATH PROCEDURES Final Result * (ABNORMAL) POCT Activated clotting time, low range (05/16/2025 10:30 AM CDT) [facility] Signature ACT 271(H) 123 - 168 sec POC Device Number [id number] [facility] Blood 05/16/2025 10:3 0 AM CDT 05/16/2025 10:30 AM CDT Isreal Zamora MD PhD LAB POCT ORDERABLES - RIRI CE Final Result Performing Organization Address [facility] Co de Phone Number [facility] [place] [employer] [place] [address] * (ABNORMAL) POCT Activated clotting time, low range (05/16/2025 9:37 AM CDT) ACT 252(H) 123 - 168 sec POC Device Number [id number] [facility] Blood 05/16/2025 9:37 AM CDT 05/16/2025 9:37 AM CDT us Isreal Zamora MD PhD LAB POCT ORDERABLES - RIRI CE Final Result Performing Organization Address [facility] de Phone Number [facility] [place] [address] * Mislabeled Test (05/16/2025 8:41 AM CDT) Location Other location Reason No Signature On Blood Bank Specimen [facility] Mislabel resolution Testing canceled [facility] Blood 05/16/2025 8:41 AM CDT 05/16/2025 10:10 AM CDT Isreal Zamora MD PhD LAB BLOOD ORDERABLES Final Result Performing Organization Address [facility] de Phone Number [facility] [place] [address] * (ABNORMAL) POCT Activated clotting time, low range (05/16/2025 8:29 AM CDT) ACT >400(H) 123 - 168 sec POC Device Number [id number] [facility] Blood 05/16/2025 8:29 AM CDT 05/16/2025 8:29 AM CDT us Isreal Zamora MD PhD LAB POCT ORDERABLES - RIRI CE Final Result Performing Organization Address City/[facility]/ZIP Co de Phone Number [facility] [place] [employer] [place] [address] * Mislabeled Test (05/16/2025 7:40 AM CDT) Location Other location Reason No Signature On Blood Bank Specimen [facility] Mislabel resolution Testing canceled [facility] Blood 05/16/2025 7:40 AM CDT 05/16/2025 8:35 AM CDT us Isreal Zamora MD PhD LAB BLOOD ORDERABLES Final Result Performing Organization Address [facility] de Phone Number [facility] [place] [address] * (ABNORMAL) CBC without differential (05/16/2025 6:20 AM CDT) WBC 9.48 3.80 - 9.90 K/cumm Hgb 15.2 13.0 - 17.5 g/dL [facility] Hct 43.9 38.9 - 50.3 % [facility] Plt 544(H) 150 - 400 K/cumm [facility] MPV 10.4 9.1 - 12.3 fL [facility] RBC 5.03 4.30 - 5.80 M/cumm [facility] MCV 87.3 81.3 - 96.4 fL [facility] MCH 30.2 27.1 - 33.3 pg [facility] MCHC 34.6 32.3 - 35.7 g/dL [facility] RDW CV 14.7 11.1 - 14.9 % [facility] RDW SD 47.2 35.7 - 48.1 fL [facility] NRBC abs 0.00 0.00 - 0.01 K/cumm [facility] Blood 05/16/2025 6:20 AM CDT 05/16/2025 8:45 AM CDT Narrative [facility] - 05/16/2025 9:15 AM CDT To be drawn after hydration bolus complete Isreal Zamora MD PhD LAB BLOOD ORDERABLES Final Result Performing Organization Address City/[facility] Co de Phone Number [facility] [place] [address] * Type and screen (05/16/2025 6:20 AM CDT) ABO Rh A Positive Reinaldo, indirect Negative [facility] Blood 05/16/2025 6:20 AM CDT 05/16/2025 7:36 AM CDT Isreal Zamora MD PhD LAB BLOOD BANK TEST ORDERA BLES Final Result Performing Organization Address [facility] de Phone Number [facility] [place] [address] * CT TAVR (05/09/2025 2:51 PM CDT) Anatomical Region Laterality Modality Chest N/A Computed Tomogra phy 05/09/2025 4:58 PM CDT Impressions 05/10/2025 9:30 AM CDT 1. Severe aortic valvular stenosis. Aortic valve calcium score: 1788. 2. Aortic annular and arterial measurements preparation for transcatheter aortic valve replacement as above. 3. Moderate to severe coronary artery calcification, worst in the left anterior descending artery. 4. Severe atherosclerosis of the abdominal aorta and common iliac arteries with small penetrating atherosclerotic ulcers. No abdominal aortic aneurysm. Dictated by: Joey Hughes MD The radiology attending physician has personally reviewed this study, and had reviewed and/or edited this written report and agrees with it. Electronically signed by: Malcolm Presley M.D., MPH Narrative 05/10/2025 9:30 AM CDT EXAMINATION: Heart CT and CTA abdomen and pelvis with contrast. History: Severe aortic stenosis, pre-TAVR procedure. Technique: Heart CT and CT angiogram of the abdomen and pelvis performed during administration of 122 mL of Optiray 350, intravenously per TAVR Protocol. Images were transferred to an independent workstation for additional 3D post-processing. FINDINGS: Annulus and Thoracic Aortic Measurements (in systole): Aortic valve annulus: Area 609 mm2: circumference 90 mm; 31 mm maximum diameter x 25 mm minimum diameter. Sinuses of Valsalva: 39 mm x 39 mm x 38 mm. Sinotubular junction: 33 mm x 32 mm Ascending aorta: 40 mm x 39 mm Aortic valve calcium score: 1788 Coronary sinus heights: Right coronary sinus height: 24 mm Left coronary sinus height: 22 mm Non-coronary sinus height: 23 mm There is mild left ventricular outflow tract calcification. There is Mild mitral annular calcification. Distance to RCA ostium from aortic valve annulus: 17 mm Distance to left main ostium from annulus: 16 mm Deployment angle: 1 HESTER, 4 cranial Coronary Arteries: Anomalous coronary artery course: No There is moderate to severe coronary artery calcification, worst in the left anterior descending artery. Abdominal Aortic and Pelvic Arterial Smallest Diameter Measurements (made from centerline curved MPRs): Infrarenal aorta: 19 mm x 20 mm. Right common iliac artery: 11 mm x 13 mm. Severe calcification. Left common iliac artery: 11 mm x 13 mm. Severe calcification. There is Moderate tortuosity of the bilateral common iliac arteries. This is equal in distribution. Right external iliac artery: 11 mm x 11 mm. No calcification. Left external iliac artery: 11 mm x 12 mm. No calcification. There is Mild tortuosity of the bilateral external iliac arteries. This is equal in distribution. Right common femoral artery: 10 mm x 10 mm. Mild calcification. Left common femoral artery: 11 mm x 11 mm. Mild calcification. There is Mild tortuosity of the bilateral femoral arteries. This is equal in distribution. Other findings: CHEST: The central airways are patent and of normal caliber. No pulmonary consolidation, pleural effusion, or pneumothorax. The heart size is mildly enlarged without a pericardial effusion. The caliber of the main pulmonary artery is within normal limits. There is calcification of the thoracic aorta and its proximal great branches. There are no enlarged lymph nodes within the chest. There is a small hiatal hernia. ABDOMEN/PELVIS: No suspicious hepatic lesions on arterial phase examination. The gallbladder is mildly distended with a prominent cystic duct. There is no intrahepatic or extrahepatic biliary ductal dilatation. Normal pancreas. Normal spleen. Normal adrenal glands. The kidneys enhance symmetrically without hydronephrosis. There are multiple cysts in the kidneys with a large left renal cyst. Unremarkable bladder. The prostate is enlarged. The caliber of the small bowel and colon is within normal limits. No bowel obstruction, pneumoperitoneum, or free fluid within the pelvis. The abdominal aorta is normal in caliber. However, there is ectasia of the infrarenal abdominal aorta measuring up to 26 mm. In the region of ectasia, there is a small penetrating atherosclerotic ulcer. There is an additional small penetrating atherosclerotic ulcer at the proximal right common iliac artery (series 11, image 83). There is severe atherosclerosis of the abdominal aorta. No suspicious osseous lesions. Small left fat-containing hernia. Procedure Note Malcolm Presley MD - 05/10/2025 EXAMINATION: Heart CT and CTA abdomen and pelvis with contrast. History: Severe aortic stenosis, pre-TAVR procedure. Technique: Heart CT and CT angiogram of the abdomen and pelvis performed during administration of 122 mL of Optiray 350, intravenously per TAVR Protocol. Images were transferred to an independent workstation for additional 3D post-processing. FINDINGS: Annulus and Thoracic Aortic Measurements (in systole): Aortic valve annulus: Area 609 mm2: circumference 90 mm; 31 mm maximum diameter x 25 mm minimum diameter. Sinuses of Valsalva: 39 mm x 39 mm x 38 mm. Sinotubular junction: 33 mm x 32 mm Ascending aorta: 40 mm x 39 mm Aortic valve calcium score: 1788 Coronary sinus heights: Right coronary sinus height: 24 mm Left coronary sinus height: 22 mm Non-coronary sinus height: 23 mm There is mild left ventricular outflow tract calcification. There is Mild mitral annular calcification. Distance to RCA ostium from aortic valve annulus: 17 mm Distance to left main ostium from annulus: 16 mm Deployment angle: 1 HESTER, 4 cranial Coronary Arteries: Anomalous coronary artery course: No There is moderate to severe coronary artery calcification, worst in the left anterior descending artery. Abdominal Aortic and Pelvic Arterial Smallest Diameter Measurements (made from centerline curved MPRs): Infrarenal aorta: 19 mm x 20 mm. Right common iliac artery: 11 mm x 13 mm. Severe calcification. Left common iliac artery: 11 mm x 13 mm. Severe calcification. There is Moderate tortuosity of the bilateral common iliac arteries. This is equal in distribution. Right external iliac artery: 11 mm x 11 mm. No calcification. Left external iliac artery: 11 mm x 12 mm. No calcification. There is Mild tortuosity of the bilateral external iliac arteries. This is equal in distribution. Right common femoral artery: 10 mm x 10 mm. Mild calcification. Left common femoral artery: 11 mm x 11 mm. Mild calcification. There is Mild tortuosity of the bilateral femoral arteries. This is equal in distribution. Other findings: CHEST: The central airways are patent and of normal caliber. No pulmonary consolidation, pleural effusion, or pneumothorax. The heart size is mildly enlarged without a pericardial effusion. The caliber of the main pulmonary artery is within normal limits. There is calcification of the thoracic aorta and its proximal great branches. There are no enlarged lymph nodes within the chest. There is a small hiatal hernia. ABDOMEN/PELVIS: No suspicious hepatic lesions on arterial phase examination. The gallbladder is mildly distended with a prominent cystic duct. There is no intrahepatic or extrahepatic biliary ductal dilatation. Normal pancreas. Normal spleen. Normal adrenal glands. The kidneys enhance symmetrically without hydronephrosis. There are multiple cysts in the kidneys with a large left renal cyst. Unremarkable bladder. The prostate is enlarged. The caliber of the small bowel and colon is within normal limits. No bowel obstruction, pneumoperitoneum, or free fluid within the pelvis. The abdominal aorta is normal in caliber. However, there is ectasia of the infrarenal abdominal aorta measuring up to 26 mm. In the region of ectasia, there is a small penetrating atherosclerotic ulcer. There is an additional small penetrating atherosclerotic ulcer at the proximal right common iliac artery (series 11, image 83). There is severe atherosclerosis of the abdominal aorta. No suspicious osseous lesions. Small left fat-containing hernia. IMPRESSION: 1. Severe aortic valvular stenosis. Aortic valve calcium score: 1788. 2. Aortic annular and arterial measurements preparation for transcatheter aortic valve replacement as above. 3. Moderate to severe coronary artery calcification, worst in the left anterior descending artery. 4. Severe atherosclerosis of the abdominal aorta and common iliac arteries with small penetrating atherosclerotic ulcers. No abdominal aortic aneurysm. Dictated by: Joey Hughes MD The radiology attending physician has personally reviewed this study, and had reviewed and/or edited this written report and agrees with it. Electronically signed by: Malcolm Presley M.D., MPH Result [facility] Stalin Lucia MD IMG CT PROCEDURES Final Result * ECG 12 lead (05/09/2025 12:32 PM CDT) Stalin Lucia MD ECG ORDERABLES Edited Result - Final * SCAN - LABS (05/09/2025) Provider Scanning Final Result * (ABNORMAL) CBC with auto differential (05/05/2025 8:26 AM CDT) WBC 11.2(H) 3.4 - 10.8 x10E3/uL [facility] - 01 RBC 5.24 4.14 - 5.80 x10E6/uL [facility] - 01 Hgb 16.3 13.0 - 17.7 g/dL [facility] - 01 Hct 49.9 37.5 - 51.0 % [facility] - 01 MCV 95 79 - 97 fL [facility] - 01 MCH 31.1 26.6 - 33.0 pg [facility] - 01 MCHC 32.7 31.5 - 35.7 g/dL [facility] - 01 Rdw 13.8 11.6 - 15.4 % [facility] - 01 Platelets 598(H) 150 - 450 x10E3/uL [facility] - 01 Neutrophils pct 74 Not Estab. % [facility] - 01 Lymphs pct 13 Not Estab. % [facility] - 01 Monocytes pct 10 Not Estab. % [facility] - 01 Eosinophils pct 2 Not Estab. % [facility] - 01 Basophil pct 1 Not Estab. % [facility] - 01 Neutrophil abs 8.3(H) 1.4 - 7.0 x10E3/uL [facility] - 01 Lymphs (Absolute) 1.5 0.7 - 3.1 x10E3/uL [facility] - 01 Monocyte abs 1.1(H) 0.1 - 0.9 x10E3/uL [facility] - 01 Eosinophils, abs 0.2 0.0 - 0.4 x10E3/uL [facility] - 01 Basophils, abs 0.1 0.0 - 0.2 x10E3/uL [facility] - 01 Immature Granulocytes 0 Not Estab. % [facility] - 01 Immature Grans (Abs) 0.0 0.0 - 0.1 x10E3/uL [facility] - 01 Blood 05/05/2025 8:26 AM CDT 05/05/2025 Narrative [facility] - 05/06/2025 7:09 AM CDT Performed at: [address] [place] [address] [id number] Handbag Designer: Jayjay Araiza PhD, Phone: [phone] us Isreal Zamora MD PhD LAB BLOOD ORDERABLES Final Result [facility] * (ABNORMAL) Basic metabolic panel (05/05/2025 8:26 AM CDT) [facility] Glucose 99 70 - 99 mg/dL [facility] - 01 BUN 7(L) 8 - 27 mg/dL [facility] - 01 Creatinine, Serum 0.80 0.76 - 1.27 mg/dL [facility] - 01 eGFR 89 >59 mL/min/1.73 [facility] - 01 BUN/creat ratio 9(L) 10 - 24 [facility] - 01 Sodium 135 134 - 144 mmol/L [facility] - 01 Potassium, sr 4.5 3.5 - 5.2 mmol/L [facility] - 01 Chloride 95(L) 96 - 106 mmol/L [facility] - 01 CO2 27 20 - 29 mmol/L [facility] - 01 Calcium 9.5 8.6 - 10.2 mg/dL [facility] - 01 Blood 05/05/2025 8:26 AM CDT 05/05/2025 Narrative [facility] - 05/06/2025 7:09 AM CDT Performed at: [address] [place] [address] [id number] Handbag Designer: Jayjay Araiza PhD, Phone: [phone] Isreal Zamora MD PhD LAB BLOOD ORDERABLES Final Result Performing Organization Address [facility] de Phone Number [facility] - 01 * IR Outside Reference (04/27/2025 5:00 PM CDT) Impressions [email or web address] - 04/27/2025 5:00 PM CDT These images are for Reference purposes only and have not been reviewed by [facility]. There will be no report generated by a [facility] Radiologist. Narrative [facility] - 04/27/2025 5:00 PM CDT EXAMINATION: Images For Reference Purposes Only Stalin Lucia MD IMG IR PROCEDURES Final Result Performing Organization Address [facility] de Phone Number [email or web address] * US Outside Reference (04/27/2025 4:59 PM CDT) Impressions [email or web address] - 04/27/2025 4:59 PM CDT These images are for Reference purposes only and have not been reviewed by [facility]. There will be no report generated by a [facility] Radiologist. Narrative [facility] - 04/27/2025 4:59 PM CDT EXAMINATION: Images For Reference Purposes Only Stalin Lucia MD IMG US PROCEDURES Final Result Performing Organization Address [facility] de Phone Number [email or web address] * US Outside Reference (04/27/2025 4:58 PM CDT) Impressions [email or web address] - 04/27/2025 4:58 PM CDT These images are for Reference purposes only and have not been reviewed by [facility]. There will be no report generated by a [facility] Radiologist. Narrative [email or web address] - 04/27/2025 4:58 PM CDT EXAMINATION: Images For Reference Purposes Only Stalin Lucia MD IMG US PROCEDURES Final Result Performing Organization Address [facility] de Phone Number [email or web address] * Cardiology Document Scan (04/27/2025 4:09 PM CDT) Anatomical Region Laterality Modality Other us Provider Scanning [facility] PROCEDURES Edited Result - Final * Cardiology Document Scan (04/16/2025 1:38 PM CDT) Anatomical Region Laterality Modality Other Dalton Richards MD [facility] PROCEDU RES Final Result * Cardiology Document Scan (04/15/2025 1:36 PM CDT) Anatomical Region Laterality Modality Other Andie Dumont MD [facility] PROCEDU RES Final Result * SCAN - RADIOLOGY/IMAGING (04/14/2025) Anatomical Region Laterality Modality Other Isreal Paz MD Final R esult * Cardiology Document Scan (04/13/2025 2:24 PM CDT) Anatomical Region Laterality Modality Other Andie Dumont MD [facility] C[facility] PROCEDU RES Final Result * SCAN - RADIOLOGY/IMAGING (04/12/2025) Anatomical Region Laterality Modality Other Isreal aPz MD Edited Result - Final * SCAN - LABS (04/12/2025) Isreal Paz MD Edited Result - Final * Lipid panel (12/21/2024 8:40 AM CDT) [...] 12/22/2024 2:08 AM CDT Performed at: [address] [place] [address] [id number] Handbag Designer: Jayjay Araiza PhD, Phone: [phone] Isreal Paz MD LAB BLOOD ORDERABLES Fi nal Result Performing Organization Address [facility] de Phone Number [facility] - * PSA screen (06/29/2024 8:47 AM SALES AGENT FINANCIAL REPORT SERVICE) Pathologist [facility] PSA 2.1 0.0 - 4.0 ng/mL [facility] - Comment: Jose ECLIA methodology. According to the [place] [employer], Serum PSA should decrease and [...] absence of malignant disease. 06/29/2024 8:47 AM SALES AGENT FINANCIAL REPORT SERVICE 06/29/2024 Narrative [facility] - 06/30/2024 9:09 AM SALES AGENT FINANCIAL REPORT SERVICE Performed at: [address] [place] [address] [id number] Handbag Designer: Jayjay Araiza PhD, Phone: [phone] Isreal Paz MD LAB BLOOD ORDERABLES Fi nal Result Performing Organization Address [facility] de Phone Number [facility] * (ABNORMAL) Hemoglobin A1c (06/29/2024 8:47 AM SALES AGENT FINANCIAL REPORT SERVICE) Hgb A1C 6.2(H) 4.8 - 5.6 % [facility] - Comment: Prediabetes: 5.7 - 6.4 Diabetes: >6.4 Glycemic control for adults with diabetes: <7.0 06/29/2024 8:47 AM SALES AGENT FINANCIAL REPORT SERVICE 06/29/2024 Narrative [facility] - 06/30/2024 7:10 AM SALES AGENT FINANCIAL REPORT SERVICE Performed at: - [facility] [address] [id number] Handbag Designer: Jayjay Araiza PhD, Phone: [phone] Isreal Paz MD LAB BLOOD ORDERABLES Fi nal Result [facility] - 01 * COLONOSCOPY (09/22/2017) [facility] Colonoscopy Unknown us Historical Provider HEALTH MAINTENANCE Final Result from Last 3 Months or Most Recently Relevant to Health Maintenance Insurance [place] [address] Advance Directives For more information, please contact: [phone] * Full Code (Latest Code Status on File) Date Activated Date Inactivated Comments 05/16/2025 7:08 AM 05/17/2025 1:55 PM * Full Code Date Activated Date Inactivated Comments 07/03/2020 10:44 PM 07/04/2020 8:44 PM Care Teams Mechanical Apprentice Relationship Specialty Start Date End Date Isreal Paz MD PCP - General 10/18/16 Isreal Zamora MD PhD [address] [facility] [address] [place] [address] Referring Physician Cardiology 04/26/25
--- OUTSIDE RECORDS SUMMARY | 2025-05-21 07:49 | XMS_ITS | Encounter Summary ---
Author Organization [facility] Healthcare Address [address] [place] [address] Care Team Providers Care Jewelry Sales Associate Name Role Phone Tj Paz MD Primary Care Provider Tj Zamora MD PhD Unavailable [phone] Reason for Visit * Reason Onset Date Comments Additional Services Or Orders 04/25/2025 Encounter Details Date Type Department Care Team (Late st Contact Info) Description 04/25/2025 Telephone [facility] Medical Group Primary Care at [address] [place] [address] Tj Paz MD [address] [place] [address] Additional Services Or Orders Social History Tobacco Use Types Packs/Day Years [...] on file Legal Sex Male 11:52 PM PULP AND PAPER TESTER Gender Identity Not on file Sexual Orientation Not on file documented as of this encounter Miscellaneous Notes * Telephone Encounter - Kelsy Hernandez - 04/25/2025 12:55 PM CDT Order has been placed and faxed to provided number. Per [facility], pt's insurance does not require an insurance referral. * Telephone Encounter - Tj Paz MD - 04/25/2025 12:06 PM CDT Okay to order speech therapy 12 visits to start with a diagnosis of recent stroke * Telephone Encounter - Araseli Bennett - 04/25/2025 9:38 AM CDT Additional Services or Orders Type of Service Requested:Speech Therapy Duration/Number of Visits: many visits as possible, maybe 12-24 visits. Is a verbal order acceptable? No, needs written order. Reason for Request (e.g. condition/symptom, date of COVID exposure if applicable): CVS/Stroke, auditory processing, visual scanning, mamory cognitive. Details Regarding Additional Services (e.g. type of home health, type of equipment, type of test, etc.): Speech Therapy. Where will services be performed? (if outside of the practice, facility name, address, phone/fax offacility): [facility]. Additional Comments: Ambulatory Referral and Insurance Referral Needed. Does message need to be routed? Yes-Action Needed documented in this encounter Plan of Treatment Upcoming Encounters Date Type Department Care Team (Latest Contact Info) Description 06/02/2025 1:49 PM PULP AND PAPER TESTER Hospital Encounter [facility] Electrophysiology Lab 1 [place] [address] Caridad Aparicio MD [address] [place] [address] Aortic valve stenosis, etiology of cardiac valve disease unspecified; Encounter for examination for normal comparison and control in clinical research program 06/02/2025 1:49 PM PULP AND PAPER TESTER - 06/02/2025 4:16 PM PULP AND PAPER TESTER Surgery [facility] Electrophysiology Lab [address] [facility] [place] [address] Stalin Lucia MD [address] [facility] [address] [place] [address] TAVR - PERCUTANEOUS FEMORAL [id number] documented as of this encounter Visit Diagnoses Not on filedocumented in this encounter Care Teams Jewelry Sales Associate Relationship Specialty Start Date End Date Tj Paz MD PCP - General 10/18/16 Tj Zamora MD PhD [address] [facility] [address] [place] [address] Referring Physician Cardiology 04/26/25 documented as of this encounter
--- OUTSIDE RECORDS SUMMARY | 2025-05-21 07:49 | XMS_ITS | Encounter Summary ---
Author Organization [facility] Address [address] [place] [address] Phone Care Team Providers Care Truck Packer Name Role Phone Tj Paz MD Primary Care Provider Tj Zamora MD PhD Unavailable [phone] Encounter Details Date Type Department Care Team (Late st Contact Info) Description 05/20/2025 Telephone [facility] Medicine Cardiology [address] [facility] Advanced Medicine 8th [place] [address] [place] [address] Jessica Santa Social History Tobacco Use Types Packs/Day Years Used Date Smoking Tobacco: Never Passive Smoke Exposure: Never Smokeless Tobacco: Never Alcohol Use Standard [...] on file Legal Sex Male 11:52 PM RESERVOIR CARETAKER Gender Identity Not on file Sexual Orientation Not on file documented as of this encounter Miscellaneous Notes * Telephone Encounter - Anni Garcia RN - 05/20/2025 12:29 PM CDT Spoke w/ Destinee, explained pt will be scheduled for 1mo and 1yr ROV w/ TTE after 06/02 TAVR. Confirmed pt will need ABX for all dental visits after TAVR. Pt spouse has no further questions at this time. * Telephone Encounter - Jessica Santa - 05/20/2025 9:48 AM CDT [facility] PT'S CALLING TO SEE IF PT NEEDS F/U APPT AFTER STENT PLACEMENT. ALSO CALLING TO SEE IF PT NEEDS ANTIBIOTIC PRIOR TO HAVING DENTAL WORK DONE documented in this encounter Plan of Treatment Upcoming Encounters Date Type Department Care Team (Latest Contact Info) Description 06/02/2025 1:49 PM RESERVOIR CARETAKER Hospital Encounter [facility] Electrophysiology Lab 1 [place] [address] Caridad Aparicio MD [address] [place] [address] Aortic valve stenosis, etiology of cardiac valve disease unspecified; Encounter for examination for normal comparison and control in clinical research program 06/02/2025 1:49 PM RESERVOIR CARETAKER - 06/02/2025 4:16 PM RESERVOIR CARETAKER Surgery [facility] Electrophysiology Lab 1 [place] [address] Stalin Lucia MD [address] [address] TAVR - PERCUTANEOUS FEMORAL [id number] documented as of this encounter Visit Diagnoses Not on filedocumented in this encounter Care Teams Truck Packer Relationship Specialty Start Date End Date Tj Paz MD PCP - General 10/18/16 Tj Zamora MD PhD [address] [facility] [address] [place] [address] Referring Physician Cardiology 04/26/25 documented as of this encounter
--- OUTSIDE RECORDS SUMMARY | 2025-05-21 07:49 | XMS_ITS | Encounter Summary ---
Author Organization [facility] Healthcare Address [address] [place] [address] Care Team Providers Care Magazine Editor Name Role Phone Tj Paz MD Primary Care Provider Tj Zamora MD PhD Unavailable [phone] Encounter Details Date Type Department Care Team (Late st Contact Info) Description 05/09/2025 Results Follow-Up [facility] Heart and Vascular Center 1 [place] [address] Stalin Lucia MD [address] [address] ECG 12 lead Social History Tobacco Use Types Packs/Day Years [...] on file Legal Sex Male 11:52 PM TECH BRAZER TESTER Gender Identity Not on file Sexual Orientation Not on file documented as of this encounter Plan of Treatment Upcoming Encounters Date Type Department Care Team (Latest Contact Info) Description 06/02/2025 1:49 PM TECH BRAZER TESTER Hospital Encounter [facility] Electrophysiology Lab 1 [place] [address] Caridad Aparicio MD [address] [place] [address] Aortic valve stenosis, etiology of cardiac valve disease unspecified; Encounter for examination for normal comparison and control in clinical research program 06/02/2025 1:49 PM TECH BRAZER TESTER - 06/02/2025 4:16 PM TECH BRAZER TESTER Surgery [facility] Electrophysiology Lab 1 [place] [address] Stalin Lucia MD [address] [facility] [address] [place] [address] TAVR - PERCUTANEOUS FEMORAL [id number] documented as of this encounter Visit Diagnoses Not on filedocumented in this encounter Care Teams Magazine Editor Relationship Specialty Start Date End Date Tj Paz MD PCP - General 10/18/16 Tj Zamora MD PhD [address] [facility] [place] [address] Referring Physician Cardiology 04/26/25 documented as of this encounter
--- OUTSIDE RECORDS SUMMARY | 2025-05-21 07:49 | XMS_ITS | Encounter Summary ---
Author Organization [facility] Healthcare Address [address] [place] [address] Care Team Providers Care Tire Assembler Name Role Phone Tj Paz MD Primary Care Provider Tj Zamora MD PhD Unavailable [phone] Encounter Details Date Type Department Care Team (Late st Contact Info) Description 04/22/2025 Telephone [facility] Medical Group Primary Care at [address] [place] [address] Tj Paz MD [address] [place] [address] [address] [place] [address] Social History Tobacco Use Types [...] on file Legal Sex Male 11:52 PM INSIDE SALES ENGINEER Gender Identity Not on file Sexual Orientation Not on file documented as of this encounter Miscellaneous Notes * Telephone Encounter - Radha Jurado - 04/29/2025 10:28 AM CDT Waiting on signed order to fax * Telephone Encounter - Tj Paz MD - 04/22/2025 2:42 PM CDT Okay I will follow and sign their orders * Telephone Encounter - Kristine Bearden - 04/22/2025 10:30 AM CDT Domitila lopez/[facility] - they need a referral for vision and cognitive changes due to stroke for this patient. documented in this encounter Plan of Treatment Upcoming Encounters Date Type Department Care Team (Latest Contact Info) Description 06/02/2025 1:49 PM INSIDE SALES ENGINEER Hospital Encounter [facility] Electrophysiology Lab 1 [place] [address] Caridad Aparicio MD [address] [place] [address] Aortic valve stenosis, etiology of cardiac valve disease unspecified; Encounter for examination for normal comparison and control in clinical research program 06/02/2025 1:49 PM INSIDE SALES ENGINEER - 06/02/2025 4:16 PM INSIDE SALES ENGINEER Surgery [facility] Electrophysiology Lab 1 [place] [address] Stalin Lucia MD [address] [address] TAVR - PERCUTANEOUS FEMORAL [id number] documented as of this encounter Visit Diagnoses Not on filedocumented in this encounter Care Teams Tire Assembler Relationship Specialty Start Date End Date Tj Paz MD PCP - General 10/18/16 Tj Zamora MD PhD [address] [facility] [place] [address] Referring Physician Cardiology 04/26/25 documented as of this encounter
--- OUTSIDE RECORDS SUMMARY | 2025-05-21 07:49 | XMS_ITS | Encounter Summary ---
Author Organization [facility] Healthcare Address [address] [place] [address] Care Team Providers Care Solid Waste Truck Driver Name Role Phone Tj Paz MD Primary Care Provider Tj Zamora MD PhD Unavailable [phone] Reason for Visit * Reason Onset Date Comments LEONEL Questions 05/17/2025 Encounter Details Date Type Department Care Team (Late st Contact Info) Description 05/17/2025 Telephone [facility] Medical Group Primary Care at [address] [place] [address] Tj Paz MD [address] [place] [address] LEONEL Questions Social History Tobacco Use Types Packs/Day Years [...] on file Legal Sex Male 11:52 PM WORKDAY SENIOR ASSOCIATE Gender Identity Not on file Sexual Orientation Not on file documented as of this encounter Miscellaneous Notes * Telephone Encounter - Vidhi Yin MA - 05/17/2025 2:57 PM CDT Tried calling patient if patient returns call please ask patient these questions Hospital discharge date: How are you feeling? Any medication changes or questions? Medication reconciliation was completed on patient? Do you have transportation for your visit? Any other questions or concerns? * Telephone Encounter - Paula Wei - 05/17/2025 8:22 AM CDT LEONEL Questions (Message from [facility]-Line Erector Apprentice): Has patient been discharged at time of call? No Will patient be transferred to another inpatient facility (e.g. nursing home, inpatient rehab, etc.)? No The patient was not discharged at the time of the call. Patient will need to be contacted after discharge to complete remaining questions. Date Admitted: 05/16 Tentative Discharge Date: 05/17 Facility Admitted To: [facility] Date of LEONEL Appointment: 05/24 Additional Comments: LEONEL questions will need to be completed once the patient has been discharged Does message need to be routed? Yes-Action Needed documented in this encounter Plan of Treatment Upcoming Encounters Date Type Department Care Team (Latest Contact Info) Description 06/02/2025 1:49 PM WORKDAY SENIOR ASSOCIATE Hospital Encounter [facility] Electrophysiology Lab 1 [place] [address] Caridad Aparicio MD [address] [place] [address] Aortic valve stenosis, etiology of cardiac valve disease unspecified; Encounter for examination for normal comparison and control in clinical research program 06/02/2025 1:49 PM WORKDAY SENIOR ASSOCIATE - 06/02/2025 4:16 PM WORKDAY SENIOR ASSOCIATE Surgery [facility] Electrophysiology Lab 1 [facility] [place] [address] Stalin Lucia MD [address] [facility] [address] [place] [address] TAVR - PERCUTANEOUS FEMORAL [id number] documented as of this encounter Visit Diagnoses Not on filedocumented in this encounter Care Teams Solid Waste Truck Driver Relationship Specialty Start Date End Date Tj Paz MD PCP - General 10/18/16 Tj Zamora MD PhD [address] [facility] [place] [address] Referring Physician Cardiology 04/26/25 documented as of this encounter
--- OUTSIDE RECORDS SUMMARY | 2025-05-21 08:13 | XMS_ITS | Encounter Summary ---
Author Organization [facility] Healthcare Address [address] [place] [address] Care Team Providers Care Restorer Paper And Prints Name Role Phone Tj Paz MD Primary Care Provider Tj Zamora MD PhD Unavailable [phone] Encounter Details Date Type Department Care Team (Late st Contact Info) Description 05/10/2025 Results Follow-Up [facility] Heart and Vascular Center 1 [place] [address] Stalin Lucia MD [address] [address] [address] TAVR Social History Tobacco Use Types [...] on file Legal Sex Male 11:52 PM LIQUID FLOOR AND WALL APPLIER Gender Identity Not on file Sexual Orientation Not on file documented as of this encounter Plan of Treatment Upcoming Encounters Date Type Department Care Team (Latest Contact Info) Description 06/02/2025 1:49 PM LIQUID FLOOR AND WALL APPLIER Hospital Encounter [facility] Electrophysiology Lab 1 [place] [address] Caridad Aparicio MD [address] [place] [address] Aortic valve stenosis, etiology of cardiac valve disease unspecified; Encounter for examination for normal comparison and control in clinical research program 06/02/2025 1:49 PM LIQUID FLOOR AND WALL APPLIER - 06/02/2025 4:16 PM LIQUID FLOOR AND WALL APPLIER Surgery [facility] Electrophysiology Lab 1 [place] [address] Stalin Lucia MD [address] [facility] [address] [place] [address] TAVR - PERCUTANEOUS FEMORAL [id number] documented as of this encounter Visit Diagnoses Not on filedocumented in this encounter Care Teams Restorer Paper And Prints Relationship Specialty Start Date End Date Tj Paz MD PCP - General 10/18/16 Tj Zamora MD PhD [address] [facility] [address] [place] [address] Referring Physician Cardiology 04/26/25 documented as of this encounter
--- OUTSIDE RECORDS SUMMARY | 2025-05-21 08:13 | XMS_ITS | Encounter Summary ---
Author Organization [facility] Healthcare Address [address] [place] [address] Care Team Providers Care Transitional Kindergarten Teacher Name Role Phone Tj Paz MD Primary Care Provider Tj Zamora MD PhD Unavailable [phone] Encounter Details Date Type Department Care Team (Late st Contact Info) Description 05/09/2025 Results Follow-Up [facility] Heart and Vascular Center [address] [place] [address] Stalin Lucia MD [address] [address] ECG 12 lead Social History Tobacco Use [...] on file Legal Sex Male 11:52 PM COAGULATOR Gender Identity Not on file Sexual Orientation Not on file documented as of this encounter Plan of Treatment Upcoming Encounters Date Type Department Care Team (Latest Contact Info) Description 06/02/2025 1:49 PM COAGULATOR Hospital Encounter [facility] Electrophysiology Lab 1 [place] [address] Caridad Aparicio MD [address] [place] [address] Aortic valve stenosis, etiology of cardiac valve disease unspecified; Encounter for examination for normal comparison and control in clinical research program 06/02/2025 1:49 PM COAGULATOR - 06/02/2025 4:16 PM COAGULATOR Surgery [facility] Electrophysiology Lab [address] [place] [address] Stalin Lucia MD [address] [facility] [address] [place] [address] TAVR - PERCUTANEOUS FEMORAL [id number] documented as of this encounter Visit Diagnoses Not on filedocumented in this encounter Care Teams Transitional Kindergarten Teacher Relationship Specialty Start Date End Date Tj Paz MD PCP - General 10/18/16 Tj Zamora MD PhD 1 [facility] [place] [address] Referring Physician Cardiology 04/26/25 documented as of this encounter
--- OUTSIDE RECORDS SUMMARY | 2025-05-21 08:13 | XMS_ITS | Encounter Summary ---
Author Organization [facility] Address [address] [place] [address] Phone Care Team Providers Care Supervisor [place] Name Role Phone Tj Paz MD Primary Care Provider Tj Zamora MD PhD Unavailable [phone] Encounter Details Date Type Department Care Team (Late st Contact Info) Description 05/12/2025 Telephone [facility] Medicine Cardiology [address] 8th [place] [address] [place] [address] Tj Zamora MD PhD [address] [place] [address] Social History Tobacco Use Types Packs/Day Years [...] on file Legal Sex Male 11:52 PM VP GLOBAL Gender Identity Not on file Sexual Orientation Not on file documented as of this encounter Miscellaneous Notes * Telephone Encounter - Amberly Marie RN - 05/12/2025 3:46 PM CDT S/w patient and discussed cath procedure. Would like time, told her clinical laboratory aides teacher to call with arrival time. * Telephone Encounter - Jessica Bueno - 05/12/2025 8:48 AM CDT Noah Pt has surgery 05/16/25, pt would like call back to see if it is confirmed. She has not heard and rec'd call from billing yesterday. Pls call. documented in this encounter Plan of Treatment Upcoming Encounters Date Type Department Care Team (Latest Contact Info) Description 06/02/2025 1:49 PM VP GLOBAL Hospital Encounter [facility] Electrophysiology Lab 1 [place] [address] Caridad Aparicio MD [address] [place] [address] Aortic valve stenosis, etiology of cardiac valve disease unspecified; Encounter for examination for normal comparison and control in clinical research program 06/02/2025 1:49 PM VP GLOBAL - 06/02/2025 4:16 PM VP GLOBAL Surgery [facility] Electrophysiology Lab 1 [place] [address] Stalin Lucia MD [address] [address] TAVR - PERCUTANEOUS FEMORAL [id number] documented as of this encounter Visit Diagnoses Not on filedocumented in this encounter Care Teams Supervisor [place] Relationship Specialty Start Date End Date Tj Paz MD PCP - General 10/18/16 Tj Zamora MD PhD 1 [facility] [place] [address] Referring Physician Cardiology 04/26/25 documented as of this encounter
--- OUTSIDE RECORDS SUMMARY | 2025-05-21 08:13 | XMS_ITS | Encounter Summary ---
Author Organization [facility] Address [address] [place] [address] Phone Care Team Providers Care Director Corporate Name Role Phone Tj Paz MD Primary Care Provider Tj Zamora MD PhD Unavailable [phone] Encounter Details Date Type Department Care Team (Late st Contact Info) Description 05/20/2025 Telephone [facility] Medicine Cardiology [address] [facility] Advanced Medicine 8th [place] [address] [place] [address] Jessica Santa Social History Tobacco [...] on file Legal Sex Male 11:52 PM PALLIATIVE NURSE Gender Identity Not on file Sexual Orientation [...] (Latest Contact Info) Description 06/02/2025 1:49 PM PALLIATIVE NURSE Hospital Encounter [facility] Electrophysiology Lab 1 [place] [address] Caridad Aparicio MD [address] [place] [address] Aortic valve stenosis, etiology of cardiac valve disease unspecified; Encounter for examination for normal comparison and control in clinical research program 06/02/2025 1:49 PM PALLIATIVE NURSE - 06/02/2025 4:16 PM PALLIATIVE NURSE Surgery [facility] Electrophysiology Lab 1 [place] [address] Stalin Lucia MD [address] [address] TAVR - PERCUTANEOUS FEMORAL [id number] documented as of this encounter Visit Diagnoses Not on filedocumented in this encounter Care Teams Director Corporate Relationship Specialty Start Date End Date Tj Paz MD PCP - General 10/18/16 Tj Zamora MD PhD 1 [facility] [address] [place] [address] Referring Physician Cardiology 04/26/25 documented as of this encounter
--- OUTSIDE RECORDS SUMMARY | 2025-05-21 08:13 | XMS_ITS | Encounter Summary ---
Author Organization [facility] Healthcare Address [address] [place] [address] Care Team Providers Care Policy Services Representative Name Role Phone Tj Paz MD Primary Care Provider Tj Zamora MD PhD Unavailable [phone] Reason for Visit * Reason Onset Date Comments LEONEL Questions 05/17/2025 Encounter Details Date Type Department Care Team (Late st Contact Info) Description 05/17/2025 Telephone [facility] Medical Group Primary Care at [address] [place] [address] Tj Paz MD [address] [place] [address] LEONEL Questions Social History Tobacco Use [...] on file Legal Sex Male 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 No Will patient be transferred to another inpatient facility (e.g. correction, inpatient rehab, etc.)? No The patient was not discharged at the time of the call. Patient will need to be contacted after discharge to complete remaining questions. Date Admitted: 05/16 Tentative Discharge Date: 05/17 Facility Admitted To: [place] Date of LEONEL Appointment: 05/24 Additional Comments: LEONEL questions will need to be completed once the patient has been discharged Does message need to be routed? Yes-Action Needed documented in this encounter Plan of Treatment Upcoming Encounters Date Type Department Care Team (Latest Contact Info) Description 06/02/2025 1:49 PM FREEZER ASSISTANT Hospital Encounter [facility] Electrophysiology Lab 1 [place] [address] Caridad Aparicio MD [address] [place] [address] Aortic valve stenosis, etiology of cardiac valve disease unspecified; Encounter for examination for normal comparison and control in clinical research program 06/02/2025 1:49 PM FREEZER ASSISTANT - 06/02/2025 4:16 PM FREEZER ASSISTANT Surgery [facility] Electrophysiology Lab 1 [facility] [place] [address] Stalin Lucia MD [address] [facility] [address] [place] [address] TAVR - PERCUTANEOUS FEMORAL [address] documented as of this encounter Visit Diagnoses Not on filedocumented in this encounter Care Teams Policy Services Representative Relationship Specialty Start Date End Date Tj Paz MD PCP - General 10/18/16 Tj Zamora MD PhD 1 [facility] [address] [place] [address] Referring Physician Cardiology 04/26/25 documented as of this encounter
--- OUTSIDE RECORDS SUMMARY | 2025-05-21 08:14 | XMS_ITS | Encounter Summary ---
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 Gender Identity Not on file Sexual Orientation [...] (Latest Contact Info) Description 06/02/2025 1:49 PM EXHIBIT DISPLAY REPRESENTATIVE Hospital Encounter [facility] Electrophysiology Lab 1 [place] [address] Caridad Aparicio MD [address] [place] [address] Aortic valve stenosis, etiology of cardiac valve disease unspecified; Encounter for examination for normal comparison and control in clinical research program 06/02/2025 1:49 PM EXHIBIT DISPLAY REPRESENTATIVE - 06/02/2025 4:16 PM EXHIBIT DISPLAY REPRESENTATIVE Surgery [facility] Electrophysiology Lab [address] [place] [address] Stalin Lucia MD [address] [address] TAVR - PERCUTANEOUS FEMORAL [id number] documented as of this encounter Visit Diagnoses Not on filedocumented in this encounter Care Teams Environmental Protection Inspector Relationship Specialty Start Date End Date Tj Paz MD PCP - General 10/18/16 Tj Zamora MD PhD 1 [facility] [address] [place] [address] Referring Physician Cardiology 04/26/25 documented as of this encounter
--- OUTSIDE RECORDS SUMMARY | 2025-05-21 08:14 | XMS_ITS | Encounter Summary ---
Author Organization [facility] Healthcare Address [address] [place] [address] Care Team Providers Care Goat Herder Name Role Phone Tj Paz MD Primary Care Provider Tj Zamora MD PhD Unavailable [phone] Reason for Visit * Reason Onset Date Comments Additional Services Or Orders 04/25/2025 Encounter Details Date Type Department Care Team (Late st Contact Info) Description 04/25/2025 Telephone [facility] Medical Group Primary Care at [address] [place] [address] Tj Paz MD [address] [place] [address] Additional Services Or Orders Social History [...] on file Legal 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 Per [facility], pt's insurance does not require an insurance [...] the practice, facility name, address, phone/fax offacility): [facility]. Additional Comments: Ambulatory Referral and Insurance Referral Needed. Does message need to be routed? Yes-Action Needed documented in this encounter Plan of Treatment Upcoming Encounters Date Type Department Care Team (Latest Contact Info) Description 06/02/2025 1:49 PM OSS ARCHITECT Hospital Encounter [facility] Electrophysiology Lab 1 [place] [address] Caridad Aparicio MD [address] [place] [address] Aortic valve stenosis, etiology of cardiac valve disease unspecified; Encounter for examination for normal comparison and control in clinical research program 06/02/2025 1:49 PM OSS ARCHITECT - 06/02/2025 4:16 PM OSS ARCHITECT Surgery [facility] Electrophysiology Lab 1 [facility] [place] [address] Stalin Lucia MD [address] [facility] [address] [place] [address] TAVR - PERCUTANEOUS FEMORAL [id number] documented as of this encounter Visit Diagnoses Not on filedocumented in this encounter Care Teams Goat Herder Relationship Specialty Start Date End Date Tj Paz MD PCP - General 10/18/16 Tj Zamora MD PhD 1 [facility] [address] [place] [address] Referring Physician Cardiology 04/26/25 documented as of this encounter
--- OUTSIDE RECORDS SUMMARY | 2025-05-21 08:14 | XMS_ITS | Clinical Summary ---
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 04/14/2025 Hearing loss 03/08/2024 Polyp of colon 03/08/2024 Overview (03/08/2024): Jun 13, 2020 Entered By: ISREAL GUDINO Comment: Colonoscopy 10/2017 in [place]; Polyps 5yrs october 2022 Sensorineural hearing loss, [...] (09/27/2021): Added automatically from request for surgery [id number] Gastro-esophageal reflux 04/14/2019 Assessment & Plan (01/06/2025 [...] 01/30/2021 Assessment & Plan (09/28/2020 11:59 AM PAN WASHER): The patient's chest discomfort is atypical and [...] 10/02/2018 Assessment & Plan (09/02/2017 10:39 AM PAN WASHER): Patient has a history of eustachian tube [...] and encouraged to follow up with his research chemist, Dr. Arambula, regarding his persistent complaints. He was in agreement with the plan of care. Assessment & Plan (08/25/2017 9:41 AM PAN WASHER): Humidification, fluids, and rest were recommended. Patient was instructed to take antibiotic as directed. Patient was encouraged to take antibiotic with food. I have also recommended daily probiotic, yogurt or capsule, while on the antibiotic. Acute non-recurrent maxillary sinusitis 08/25/2017 10/02/2018 Assessment & Plan (08/25/2017 9:41 AM PAN WASHER): Humidification, fluids, and rest were recommended. Patient [...] Type Department Care Team Description 05/20/2025 Telephone [facility] Medicine Cardiology [address] [facility] Medicine 8th [place] [address] [place] [address] Jessica Santa 05/17/2025 Telephone [facility] Primary Care at [address] [place] [address] Isreal Paz MD LEONEL Questions 05/16/2025 8:00 AM CDT - 05/16/2025 10:15 AM CDT Surgery [facility] [address] [place] [address] Isreal Zamora MD PhD PCI BRIDGETT MAJOR CORONARY C9600 - [id number] -PCI of LAD 05/16/2025 6:15 AM CDT - 05/17/2025 9:55 AM CDT Hospital Encounter [address] [address] Isreal Zamora MD PhD Mireya Lund MD Mixed hyperlipidemia; Essential (primary) hypertension; Systolic murmur; Left-sided chest pain; 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, unspecified vessel or lesion type (HCC) Discharge Disposition: Discharge to home or self care 05/16/2025 Telephone [facility] Medicine Cardiology [facility] Advanced Medicine 8th [place] [address] [place] [address] Anni Garcia RN 05/12/2025 Telephone [facility] Cardiology [address] [place] [address] [place] [address] Isreal Zamora MD PhD 05/11/2025 Telephone [facility] Cardiology [address] [place] [address] [place] [address] Stalni Lucia MD 05/10/2025 Results Follow-Up [facility] [address] [place] [address] TAVR 05/10/2025 Telephone [facility] Cardiology [address] [place] [address] [place] [address] Aishwarya Otero 05/09/2025 1:58 PM CDT - 05/09/2025 11:59 PM CDT Hospital Encounter [facility] [address] [place] [address] Stalin Lucia MD Aortic valve stenosis, etiology of cardiac valve disease unspecified Discharge Disposition: Discharge to home or self care 05/09/2025 1:00 PM CDT Office Visit [facility] Medicine Surgery [address] [place] [address] [place] [address] Nonrheumatic aortic valve stenosis (Primary Dx) 05/09/2025 1:00 PM CDT Office Visit [facility] Cardiology [address] [place] [address] [place] [address] [place] [address] Aortic valve stenosis, etiology of cardiac valve disease unspecified (Primary Dx); History of heart valve abnormality; Abnormal finding of blood chemistry, unspecified; Essential (primary) hypertension; 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 (HCC); Mixed hyperlipidemia; Nonrheumatic aortic valve stenosis 05/09/2025 Results Follow-Up [facility] [address] [place] [address] Stalin Lucia MD ECG 12 lead 05/09/2025 Orders Only [facility] Scanning, Provider 05/05/2025 11:30 AM CDT Office Visit [facility] at [address] [place] [address] Harika Mota MD Aortic valve stenosis, etiology of cardiac valve disease unspecified (Primary Dx) 04/29/2025 Orders Only [facility] Primary Care at [address] [place] [address] Isreal Paz MD Vision changes (Primary Dx); Cognitive changes 04/27/2025 5:00 PM CDT - 04/27/2025 11:59 PM CDT Hospital Encounter [facility] [address] [place] [address] Discharge Disposition: Discharge to home or self care 04/27/2025 4:59 PM CDT - 04/27/2025 11:59 PM CDT Hospital Encounter [facility] [address] [place] [address] Discharge Disposition: Discharge to home or self care 04/27/2025 4:58 PM CDT - 04/27/2025 11:59 PM CDT Hospital Encounter [facility] [address] [place] [address] Discharge Disposition: Discharge to home or self care 04/27/2025 Orders Only [facility] Scanning, Provider 04/27/2025 Orders Only [facility] Primary Care at [address] [place] [address] Isreal Paz MD Cerebrovascular accident (CVA), unspecified mechanism (HCC) (Primary Dx) 04/26/2025 3:00 PM CDT Office Visit [facility] Primary Care at [address] [place] [address] Isreal Paz MD Occipital stroke (Primary Dx); BMI 27.0-27.9,adult; Severe aortic stenosis; Single vessel coronary artery disease; Homonymous hemianopia, right; Benign meningioma of brain (HCC) 04/25/2025 Orders Only [facility] Primary Care at [address] [place] [address] Isreal Paz MD History of stroke (Primary Dx) 04/25/2025 Telephone [facility] Medicine Cardiology [address] [facility] 8th [place] [address] [place] [phone] Isreal Zamora MD PhD 04/25/2025 Telephone [facility] Primary Care at [address] [place] [address] Isreal Paz MD Additional Services Or Orders 04/22/2025 Telephone [facility] Primary Care at [address] [place] [address] Isreal Paz MD 04/21/2025 Telephone [facility] Primary Care at [address] [address] Isreal Paz MD 04/20/2025 LEONEL IP Outreach [facility] Accountable Care Organization [address] [place] [address] Suze Hagan MA 04/19/2025 LEONEL IP Outreach [facility] Care [address] [address] Suze Hagan MA 04/18/2025 Orders Only [facility] Medicine Cardiology [address] [facility] Medicine 8th [place] [address] [place] [address] Stalin Lucia MD 04/18/2025 Orders Only [facility] Cardiology [address] [facility] [address] [place] [address] Andie Dumont MD 04/18/2025 Telephone [facility] Cardiology [address] [facility] 8th [place] [address] [place] [address] Isreal Zamora MD PhD 04/14/2025 Orders Only [facility] Health Information Management [address] [place] [address] Isreal Paz MD 04/14/2025 Orders Only [facility] Cardiology [address] [facility] [address] [place] [address] Andie Dumont MD 04/14/2025 Telephone [facility] Cardiology [facility] 8th [place] [address] [place] [address] Isreal Zamora MD PhD schedule procedure 04/12/2025 Orders Only [facility] Health Information Management [address] [place] [address] Isreal Paz MD 04/12/2025 Orders Only [facility] Primary Care at [address] [place] [phone] Isreal Paz MD Acute cystitis without hematuria (Primary Dx) 04/12/2025 Telephone [facility] Primary Care at [address] [address] Isreal Paz MD Symptom Based Call 04/11/2025 4:15 PM CDT Office Visit [facility] Primary Care at [address] [place] [address] Isreal Paz MD Short-term memory loss (Primary Dx); BMI 27.0-27.9,adult; Right facial numbness; Essential (primary) hypertension 04/11/2025 Orders Only [facility] Primary Care at [address] [address] Isreal Paz MD Memory loss (Primary Dx); Balance problems; Right facial numbness 04/11/2025 Nurse Triage [facility] Primary Care at [address] [place] [address] Isreal Paz MD 04/07/2025 Telephone [facility] Primary Care at [address] [place] [address] Isreal Paz MD Recommendation Request 03/28/2025 Orders Only [facility] Primary Care at [address] [place] [address] Isreal Paz MD TIA (transient ischemic attack) (Primary Dx) 03/07/2025 Telephone [facility] Primary Care at [address] [place] [address] Lizy Patel Chart Review ([facility] (Med Adherence)) from Last 3 Months Immunizations [...] neck surgery TYMPANOSTOMY TUBE PLACEMENT 09/18/2017 Bilateral [place], [place] CARDIAC CATHETERIZATION 04/13/2025 BACK SURGERY COLONOSCOPY with polypectomy ESOPHAGOGASTRODUODENOSCOPY with stretching URETHRA SURGERY CARDIAC CATHETERIZATION 05/16/2025 N/A Procedure: PCI BRIDGETT MAJOR CORONARY C9600 - [id number] -PCI of LAD; Surgeon: Isreal Zamora MD PhD; Location: [facility] CARDIAC CUSTOMER ENGAGEMENT SPECIALIST; Service: Cardiovascular; Laterality: N/A; 05/16 PCI of [...] Other Medical chest pain 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 Hypertension Hypertension Hyperlipidemia Hyperlipidemia Hx Other Medical [...] attack Father Hiro 67 Heart disease Father [place] Heart disease; Arthritis Mother Ursella arthritis; Other Mother Ursella ; Rheum arthritis Mother Ursella Relation Name Status Comments Brother Father [place] Mother Jan Social History Tobacco Use Types [...] on file Legal Sex Male 11:52 PM PAN WASHER Gender Identity Not on file Sexual Orientation [...] (Latest Contact Info) Description 06/02/2025 1:49 PM PAN WASHER Hospital Encounter [facility] [address] [place] [address] Caridad Aparicio MD [phone] [place] [address] Aortic valve stenosis, etiology of cardiac valve disease unspecified; Encounter for examination for normal comparison and control in clinical research program 06/02/2025 1:49 PM PAN WASHER - 06/02/2025 4:16 PM PAN WASHER Surgery [facility] [address] [place] [address] Stalin Lucia MD [address] [address] TAVR - PERCUTANEOUS FEMORAL [address] Health Maintenance Due Date Last Done Comments [...] 03/05/2019, 12/11/2018 Medical Devices Implanted Type Area Dietitian Research Device Identifier Shelf Expiration Date Model / Serial / Lot Oxonica Angio-Seal Vip Bondek-Plus 8fr .038in 70cm Hemostatic Latex Free [id number] - [id number] - [id number] Implanted:Qty : 1 on 05/16/2025 by Isreal Zamora MD PhD at [facility] Collagen Right: Common Femoral Artery [employer] Oumar 12/17/2025 [id number] / [id number] / [id number] Medtronic Card Vasc Surgery 2.50 X 12mm Rojelio Montrose Rx Coronary Stent [id number] - [id number] - [id number] Implanted:Qty : 1 on 05/16/2025 by Isreal Zamora MD PhD at [facility] Stent N/A: Diagnonal Coronary Artery Medtronic Card Vasc Surgery 05/18/2027 [id number] 12UX / [id number] / [id number] Medtronic Card Vasc Surgery 4.0 X 38mm [place] Montrose Rx Coronary Stent [id number] - [id number] - [id number] Implanted:Qty : 1 on 05/16/2025 by Isreal Zamora MD PhD at [facility] Stent Left: Anterior Descending Cornary Artery Medtronic Card Vasc Surgery 11/17/2027 [id number] 38UX / [id number] / [id number] Medtronic Card Vasc Surgery 2.25 X 15mm Rojelio Montrose Rx Coronary Stent [id number] - [id number] - [id number] Implanted:Qty : 1 on 05/16/2025 by Isreal Zamora MD PhD at 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, unspecified vessel [...] hyperlipidemia HEMOGLOBIN A1C Routine 06/29/2024 8:47 AM PAN WASHER PSA SCREEN Routine 06/29/2024 8:47 AM PAN WASHER HM COLONOSCOPY Routine 09/22/2017 from Last 3 [...] 05/16/2025 1:56 PM CDT us Jacob Reilly MARKETING PROPOSAL COORDINATOR LAB BLOOD ORDERABLES F inal Result [facility] Department [place] [address] * (ABNORMAL) Differential, auto (05/16/2025 1:35 PM CDT) Neutrophil abs 14.36(H) 1.50 - 6.50 K/cumm Imm gran abs 0.08 0.00 - 0.10 K/cumm [facility] Lymphocyte abs 0.70(L) 0.80 - 3.30 K/cumm [facility] Monocyte abs 0.94(H) 0.20 - 0.80 K/cumm [facility] Eosinophil abs 0.01 0.00 - 0.50 K/cumm [facility] Basophil abs 0.09 0.00 - 0.10 K/cumm [facility] Neutrophil pct 88.7 % [facility] Comment: Interpretive Data Percent cell count reference ranges are not reported, since discordance with absolute values may lead to misinterpretation of CBC data. Current Interpretive Data was last revised on 2017. Imm gran pct 0.5 % [facility] Comment: Interpretive Data Percent cell count reference ranges are not reported, since discordance with absolute values may lead to misinterpretation of CBC data. Current Interpretive Data was last revised on 2017. Lymphocyte pct 4.3 % [facility] Comment: Interpretive Data Percent cell count reference ranges are not reported, since discordance with absolute values may lead to misinterpretation of CBC data. Current Interpretive Data was last revised on 2017. Monocyte pct 5.8 % [facility] Comment: Interpretive Data Percent cell count reference ranges are not reported, since discordance with absolute values may lead to misinterpretation of CBC data. Current Interpretive Data was last revised on 2017. Eosinophil pct 0.1 % [facility] Comment: Interpretive Data Percent cell count reference ranges are not reported, since discordance with absolute values may lead to misinterpretation of CBC data. Current Interpretive Data was last revised on 2017. Basophil pct 0.6 % [facility] Comment: Interpretive Data Percent cell count reference ranges are not reported, since discordance with absolute values may lead to misinterpretation of CBC data. Current Interpretive Data was last revised on 2017. Blood 05/16/2025 1:35 PM CDT 05/16/2025 1:50 PM CDT Jacob Reilly MARKETING PROPOSAL COORDINATOR LAB BLOOD ORDERABLES F inal Result Performing Organization Address [facility]/ZIP Co de Phone Number [facility] Department [place] [address] * Check Sample (05/16/2025 1:35 PM CDT) Pathologist [facility] ABO Rh A Positive [facility] HCLL OTHER 05/16/2025 1:35 PM CDT 05/16/2025 2:08 PM CDT Isreal Zamora MD PhD LAB BLOOD ORDERABLES Final Result Performing Organization Address [facility] Co de Phone Number [facility] [place] [address] [facility] * (ABNORMAL) CBC with auto differential (05/16/2025 1:35 PM CDT) Pathologist [facility] WBC 16.18(H) 3.80 - 9.90 K/cumm Hgb 14.5 13.0 - 17.5 g/dL [facility] Hct 42.5 38.9 - 50.3 % [facility] Plt 521(H) 150 - 400 K/cumm [facility] MPV 10.6 9.1 - 12.3 fL [facility] RBC 4.80 4.30 - 5.80 M/cumm [facility] MCV 88.5 81.3 - 96.4 fL [facility] MCH 30.2 27.1 - 33.3 pg [facility] MCHC 34.1 32.3 - 35.7 g/dL [facility] RDW CV 14.7 11.1 - 14.9 % [facility] RDW SD 48.2(H) 35.7 - 48.1 fL [facility] NRBC abs 0.00 0.00 - 0.01 K/cumm [facility] Blood 05/16/2025 1:35 PM CDT 05/16/2025 1:50 PM CDT Jacob Reilly NP LAB BLOOD ORDERABLES F inal Result [facility] Department [place] [address] * (ABNORMAL) Basic metabolic panel (05/16/2025 1:35 PM CDT) [facility] Sodium 137 135 - 145 mmol/L Potassium, pl 3.7 3.3 - 4.9 mmol/L [facility] Chloride 100 97 - 110 mmol/L [facility] CO2 26 22 - 32 mmol/L [facility] Anion gap 11 2 - 15 mmol/L [facility] BUN 7 6 - 25 mg/dL [facility] Creatinine 0.72(L) 0.80 - 1.30 mg/dL [facility] Glucose 162 70 - 199 mg/dL [facility] Comment: Interpretive Data Fasting glucose >/= 126 [...] 2022. Calcium 8.5 8.5 - 10.3 mg/dL [facility] Blood 05/16/2025 1:35 PM CDT 05/16/2025 1:50 PM CDT us Jacob Reilly NP LAB BLOOD ORDERABLES F inal Result [facility] [place] [address] * BRIDGETT MAJOR CORONARY (05/16/2025 10:38 AM [...] Using ultrasound directed micropuncture technique a 7 Cymro 45 cm sheath inserted into the right femoral artery using percutaneous approach. Heparin was administered to maintain ACT of 300 seconds or greater. Angioplasty was performed with a 7 Cymro EBU 3.5 guide catheter, 0.014 run-through wire into the LAD and a Gasoline Engine Inspector 50 wire into the diagonal. Diagonal was [...] treated with 2.5 x 12 mm rojelio Montrose drug-eluting stent while the LAD was treated with a 4 mm x 38 mm rojelio Montrose drug-eluting stent. There was great difficulty getting [...] was removed area closed with the 8 Cymro Angio-Seal. There were no other complications. PCI [...] before placement of a 2.2515 mm rojelio Montrose drug-eluting stent and kissing balloons performed with [...] placement of 4 mm 38 mm rojelio Montrose drug-eluting stent in the LAD, 2.25 x 15 mm rojelio Montrose drug-eluting stents in the 1st diagonal, and 2.5 x 12 mm rojelio Montrose drug-eluting stent in the 2nd diagonal. 2. [...] time, low range (05/16/2025 10:30 AM CDT) [facility] Signature ACT 271(H) 123 - 168 sec POC Device Number [id number] [facility] Blood 05/16/2025 10:3 0 AM CDT 05/16/2025 10:30 AM CDT Isreal Zamora MD PhD LAB POCT ORDERABLES - RIRI CE Final Result Performing Organization Address [facility] Co de Phone Number [facility] [email or web address] [address] * (ABNORMAL) POCT Activated clotting time, low range (05/16/2025 9:37 AM CDT) ACT 252(H) 123 - 168 sec POC Device Number [id number] [facility] Blood 05/16/2025 9:37 AM CDT 05/16/2025 9:37 AM CDT us Isreal Zamora MD PhD LAB POCT ORDERABLES - RIRI CE Final Result Performing Organization Address [facility] de Phone Number [facility] [email or web address] [address] * Mislabeled Test (05/16/2025 8:41 AM CDT) Location Other location Reason No Signature On Blood Bank Specimen [facility] Mislabel resolution Testing canceled [facility] Blood 05/16/2025 8:41 AM CDT 05/16/2025 10:10 AM CDT Isreal Zamora MD PhD LAB BLOOD ORDERABLES Final Result Performing Organization Address [facility] de Phone Number [facility] [email or web address] [address] * (ABNORMAL) POCT Activated clotting time, low range (05/16/2025 8:29 AM CDT) ACT >400(H) 123 - 168 sec POC Device Number [id number] [facility] Blood 05/16/2025 8:29 AM CDT 05/16/2025 8:29 AM CDT us Isreal Zamora MD PhD LAB POCT ORDERABLES - RIRI CE Final Result Performing Organization Address City/[facility]/ZIP Co de Phone Number [facility] [email or web address] [address] * Mislabeled Test (05/16/2025 7:40 AM CDT) Location Other location Reason No Signature On Blood Bank Specimen [facility] Mislabel resolution Testing canceled [facility] Blood 05/16/2025 7:40 AM CDT 05/16/2025 8:35 AM CDT us Isreal Zamora MD PhD LAB BLOOD ORDERABLES Final Result Performing Organization Address [facility] de Phone Number [facility] [place] [address] * (ABNORMAL) CBC without differential (05/16/2025 6:20 AM CDT) WBC 9.48 3.80 - 9.90 K/cumm Hgb 15.2 13.0 - 17.5 g/dL [facility] Hct 43.9 38.9 - 50.3 % [facility] Plt 544(H) 150 - 400 K/cumm [facility] MPV 10.4 9.1 - 12.3 fL [facility] RBC 5.03 4.30 - 5.80 M/cumm [facility] MCV 87.3 81.3 - 96.4 fL [facility] MCH 30.2 27.1 - 33.3 pg [facility] MCHC 34.6 32.3 - 35.7 g/dL [facility] RDW CV 14.7 11.1 - 14.9 % [facility] RDW SD 47.2 35.7 - 48.1 fL [facility] NRBC abs 0.00 0.00 - 0.01 K/cumm [facility] Blood 05/16/2025 6:20 AM CDT 05/16/2025 8:45 AM CDT Narrative [facility] - 05/16/2025 9:15 AM CDT To be drawn after hydration bolus complete Isreal Zamora MD PhD LAB BLOOD ORDERABLES Final Result Performing Organization Address City/[facility] Co de Phone Number [facility] [email or web address] [address] * Type and screen (05/16/2025 6:20 AM CDT) ABO Rh A Positive Reinaldo, indirect Negative [facility] Blood 05/16/2025 6:20 AM CDT 05/16/2025 7:36 AM CDT Isreal Zamora MD PhD LAB BLOOD BANK TEST ORDERA BLES Final Result Performing Organization Address [facility] de Phone Number [facility] [email or web address] [address] * CT TAVR (05/09/2025 2:51 PM CDT) [...] signed by: Malcolm Presley M.D., MPH Result [facility] Stalin Lucia MD IMG CT PROCEDURES Final [...] - 05/06/2025 7:09 AM CDT Performed at: [address] [place] [address] [id number] Waterproof Material Folder: Jayjay Araiza PhD, Phone: [phone] us Isreal Zamora MD PhD LAB BLOOD ORDERABLES Final Result [facility] * (ABNORMAL) Basic metabolic panel (05/05/2025 8:26 AM CDT) [facility] Glucose 99 70 - 99 mg/dL [facility] [...] - 05/06/2025 7:09 AM CDT Performed at: [address] [place] [address] [id number] Waterproof Material Folder: Jayjay Araiza PhD, Phone: [phone] Isreal Zamora MD PhD LAB BLOOD ORDERABLES Final Result Performing Organization Address [facility] de Phone Number [facility] - 01 * IR Outside Reference (04/27/2025 5:00 PM CDT) Impressions [facility] - 04/27/2025 5:00 PM CDT These images are for Reference purposes only and have not been reviewed by [facility] Radiology. There will be no report generated by a [facility] Radiologist. Narrative [facility] - 04/27/2025 5:00 PM CDT EXAMINATION: Images For Reference Purposes Only Stalin Lucia MD IMG IR PROCEDURES Final Result Performing Organization Address [facility] de Phone Number [facility] * US Outside Reference (04/27/2025 4:59 PM CDT) Impressions [facility] - 04/27/2025 4:59 PM CDT These images are for Reference purposes only and have not been reviewed by [facility] Radiology. There will be no report generated by a [facility] Radiologist. Narrative [facility] - 04/27/2025 4:59 PM CDT EXAMINATION: Images For Reference Purposes Only Stalin Lucia MD IMG US PROCEDURES Final Result Performing Organization Address [facility] de Phone Number [facility] * US Outside Reference (04/27/2025 4:58 PM CDT) Impressions [facility] - 04/27/2025 4:58 PM CDT These images are for Reference purposes only and have not been reviewed by [facility] Radiology. There will be no report generated by a [facility] Radiologist. Narrative [facility] - 04/27/2025 4:58 PM CDT EXAMINATION: Images For Reference Purposes Only Stalin Lucia MD IMG US PROCEDURES Final Result Performing Organization Address [facility] de Phone Number [facility] * Cardiology Document [...] (04/12/2025) Anatomical Region Laterality Modality Other Isreal Paz MD Edited Result - Final * SCAN [...] - 12/22/2024 2:08 AM CDT Performed at: [address] [place] [address] [id number] Waterproof Material Folder: Jayjay Araiza PhD, Phone: [phone] Isreal Paz MD LAB BLOOD ORDERABLES Fi nal Result Performing Organization Address [facility] de Phone Number [facility] - * PSA screen (06/29/2024 8:47 AM PAN WASHER) Pathologist [facility] PSA 2.1 0.0 - 4.0 ng/mL [facility] - Comment: Jose ECLIA methodology. According to the [place] [employer], Serum PSA should decrease and [...] absence of malignant disease. 06/29/2024 8:47 AM PAN WASHER 06/29/2024 Narrative [facility] - 06/30/2024 9:09 AM PAN WASHER Performed at: [address] [place] [address] [id number] Waterproof Material Folder: Jayjay Araiza PhD, Phone: [phone] Isreal Paz MD LAB BLOOD ORDERABLES Fi nal Result Performing Organization Address [facility] de Phone Number [facility] * (ABNORMAL) Hemoglobin A1c (06/29/2024 8:47 AM PAN WASHER) Hgb A1C 6.2(H) 4.8 - 5.6 % [facility] - Comment: Prediabetes: 5.7 - 6.4 Diabetes: >6.4 Glycemic control for adults with diabetes: <7.0 06/29/2024 8:47 AM PAN WASHER 06/29/2024 Narrative [facility] - 06/30/2024 7:10 AM PAN WASHER Performed at: - [facility] [address] [id number] Waterproof Material Folder: Jayjay Araiza PhD, Phone: [phone] Isreal Paz MD LAB BLOOD ORDERABLES Fi nal Result [facility] - 01 * COLONOSCOPY (09/22/2017) [facility] Colonoscopy Unknown us Historical Provider HEALTH MAINTENANCE Final Result from Last 3 Months or Most Recently Relevant to Health Maintenance Insurance [employer] MEDICARE ADVANTAGE Advance Directives For more information, please contact: [phone] * Full Code (Latest Code Status on File) Date Activated Date Inactivated Comments 05/16/2025 7:08 AM 05/17/2025 1:55 PM * Full Code Date Activated Date Inactivated Comments 07/03/2020 10:44 PM 07/04/2020 8:44 PM Care Teams Fixed Capital Clerk Relationship Specialty Start Date End Date Isreal Paz MD PCP - General 10/18/16 Isreal Zamora MD PhD [address] [facility] [place] [address] Referring Physician Cardiology 04/26/25
--- NOTE | 2025-05-21 08:28 | ED.GENADULT ---
HPI - General Adult General Chief complaint: Recheck/Abnormal Lab/Rx Stated complaint: surgery Mon - hematoma to cath site, right groin Time Seen by Provider: 05/21/25 08:07 History of Present Illness HPI narrative: Patient is an 80-year-old male who presents the ER with swelling to the right groin. He recently underwent cardiac catheterization at [facility] in the last week. He stayed overnight due to some bleeding issues in the right groin where they had to apply constant pressure. He had 3 stents placed. He is in the process of being medically optimized so he can have an aortic valve replacement. No additional complaints since his procedure. Noticed significant swelling to the groin upon waking up today. He reports he was not overly active yesterday. No numbness or tingling to lower extremity. He is on aspirin and Plavix. Related Data Home Medications ?Medication ?Instructions ?Recorded ?Confirmed ?Last Taken ?Type ouwohrmr-wot-lzieu acid 0.4 1 tablet PO DAILY 02/22/20 05/21/25 04/28/25 History mg-lycopene 300 mcg-lutein 250 mcg tablet (Centrum Silver) valsartan 320 1 tablet PO DAILY 08/19/20 05/21/25 04/28/25 History mg-hydrochlorothiazide 12.5 mg tablet amlodipine 10 mg tablet 10 mg PO DAILY 05/21/25 05/21/25 Unknown History omeprazole 20 mg capsule,delayed 20 mg PO DAILY 05/21/25 05/21/25 Unknown History release Allergies Allergy/AdvReac Type Severity Reaction Status Date / Time No Known Allergies Allergy Unknown NA Verified 05/21/25 07:59 Review of Systems Review of Systems: All systems reviewed & are unremarkable except as noted in HPI and below Constitutional: Constitutional: Reports no additional constitutional complaints Cardiovascular: Cardiovascular: Reports no additional cardiovascular complaints Respiratory: Respiratory: Reports no additional respiratory complaints Musculoskeletal: Musculoskeletal: Reports no additional musculoskeletal complaints Integumentary/Breasts: Skin/Breast: Reports system reviewed and no additional complaints, except as docu PMFSH Past Medical History Medical History (Updated 05/21/25 @ 19:00 by Malcolm Hall MD) CAD (coronary artery disease) Vascular dementia of acute onset Left-sided cerebrovascular accident (CVA) Colon polyp Dysphagia Nondisplaced fracture of distal end of right radius Hypertension Hypercholesterolemia GERD (gastroesophageal reflux disease) Surgical History Surgical History (Updated 05/21/25 @ 08:30 by Malcolm Hall MD) History of percutaneous coronary intervention Hx of tympanostomy tubes Family History Family History Father Heart failure Mother Family history of arthritis Social History Social History Smoking status: Never smoker Alcohol intake: current Drinks per week: 2 Substance use: never Substance use type: does not use Lack of Transportation: No Lack of Food: Never True Current Housing: I Have Housing Concerned About Future Housing: No Difficulty Paying Gas/Electric Bills: No Difficulty Paying for Meds: No Currently Unemployed: No Education: High School Diploma/GED Difficulty w/ Childcare or Family Care: No Living arrangements: with family Spiritual care concerns: No Exam Narrative: GENERAL: Well-appearing, well-nourished, and in no acute distress. HEAD: Normocephalic, atraumatic. ENT: Mucous membranes moist. CHEST: Clear to auscultation. No respiratory distress. HEART: Regular rate and rhythm. High-pitched murmur consistent with aortic stenosis. Normal peripheral pulses. ABDOMEN: Soft, nontender, nondistended, normal active bowel sounds. EXTREMITIES: Normal range of motion. No edema. Pulsatile mass right inguinal region with bruising and yellowing in the area as well. SKIN: Warm, dry, no rash. NEURO: Alert and oriented x3. PSYCH: Normal mood and affect. Course Course Emergency Course: 1204: Patient was accepted by Dr. Givens with Cardiology [facility]. Patient will be admitted to the hospitalist service. We are awaiting a bed. Vital Signs Vital signs: Vital Signs Temperature 98.0 F 05/21/25 07:54 Pulse Rate 90 05/21/25 07:54 Respiratory Rate 16 05/21/25 07:54 Blood Pressure 147/60 H 05/21/25 07:54 Pulse Oximetry 97 05/21/25 07:54 Oxygen Delivery Room Air 05/21/25 07:54 Temperature 98.0 F 05/21/25 07:54 Pulse Rate 85 05/21/25 19:11 Respiratory Rate 14 05/21/25 19:11 Blood Pressure 134/60 05/21/25 19:11 Pulse Oximetry 98 05/21/25 19:11 Oxygen Delivery Room Air 05/21/25 07:54 Medical Decision Making Vital Signs Vital Signs: Vital Signs Temperature 98.0 F 05/21/25 07:54 Pulse Rate 90 05/21/25 07:54 Respiratory Rate 16 05/21/25 07:54 Blood Pressure 147/60 H 05/21/25 07:54 Pulse Oximetry 97 05/21/25 07:54 Oxygen Delivery Room Air 05/21/25 07:54 Temperature 98.0 F 05/21/25 07:54 Pulse Rate 85 05/21/25 19:11 Respiratory Rate 14 05/21/25 19:11 Blood Pressure 134/60 05/21/25 19:11 Pulse Oximetry 98 05/21/25 19:11 Oxygen Delivery Room Air 05/21/25 07:54 Lab Data 05/21/25 08:34 05/21/25 08:34 Labs: Lab Results 05/21/25 Range/Units 08:34 WBC 11.4 H (4.5-10.0) K/mm3 RBC 5.21 (4.6-6.20) M/mm3 Hgb 15.7 (14.0-18.0) g/dL Hct 47.0 (42.0-52.0) % MCV 90.2 (80-100) fl MCH 30.1 (26-34) pg MCHC 33.4 (32-36) g/dl RDW 15.0 H (11.5-14.5) % Plt Count 557 H (150-375) k/mm3 MPV 10.3 (7.4-10.4) fl Immature Gran % (Auto) 0.4 (0-0.5) % Neut % (Auto) 73.0 (45.5-73.1) % Lymph % (Auto) 12.2 L (18.3-44.2) % Collier % (Auto) 9.8 H (2.6-8.5) % Eos % (Auto) 3.7 (0-4.4) % Baso % (Auto) 0.9 (0.2-1.2) % Lymph # (Auto) 1.40 (0.9-3.2) K/mm3 Collier # (Auto) 1.1 H (0.1-0.6) K/mm3 Eos # (Auto) 0.4 H (0-0.3) K/mm3 Baso # (Auto) 0.1 (0.0-0.1) K/mm3 Abs Immat Gran (auto) 0.05 H (0.00-0.031) K/mm3 Absolute Neuts (auto) 8.3 H (1.3-6.7) K/mm3 Absolute Nucleated RBC 0.000 (0.0-0.012) K/mm3 Nucleated RBC % 0.0 (0.0-0.2) % PT 13.9 (11.1-14.7) Seconds INR 1.1 APTT 28.3 (22.3-36.8) Seconds Sodium 135 L (137-145) mmol/L Potassium 3.4 (3.4-5.0) mmol/L Chloride 98 (98-107) mmol/L Carbon Dioxide 29 (22-30) mmol/L Anion Gap 8 (4-12) mmol/L BUN 10 (9-20) mg/dL Creatinine 0.70 (0.7-1.3) mg/dL Estim Creat Clear Calc 71 ml/min Estimated GFR > 60 (59 - ) Glucose 110 (65-110) mg/dL Calcium 9.0 (8.4-10.2) mg/dL Total Bilirubin 0.7 (0.2-1.3) mg/dL AST 50 (17-59) U/L ALT 22 (6-50) U/L Alkaline Phosphatase 82 (38-126) U/L Total Protein 7.8 (6.3-8.2) g/dL Albumin 4.6 (3.5-5.1) g/dL Discharge Plan Discharge Clinical Impression: Pseudoaneurysm Patient Disposition: Acute Care Hospital Condition: Stable Patient Language: Bulgarian Prescriptions: No Action valsartan-hydrochlorothiazide 320-12.5 mg tablet 1 tablet PO DAILY Centrum Silver 0.4-300-250 mg-mcg-mcg tablet 1 tablet PO DAILY donepezil [Aricept] 5 mg tablet 5 mg PO QHS Qty: 90 1RF clopidogrel 75 mg tablet 75 mg PO QAM Qty: 90 1RF rosuvastatin [Crestor] 40 mg tablet 40 mg PO DAILY Qty: 90 3RF aspirin 81 mg Tablet,Delayed Release (Dr/Ec) 81 mg PO QAM Qty: 30 0RF amlodipine 10 mg tablet 10 mg PO DAILY omeprazole 20 mg capsule,delayed release(DR/EC) 20 mg PO DAILY Follow-up/Referrals: Brandi,Tj Blount MD [Primary Care Provider]
[2025-05-21 08:41] LABS: Hematocrit 47.0 % (42.0-52.0); Hemoglobin 15.7 g/dL (14.0-18.0); Immature Granulocyte Percent A 0.4 % (0-0.5); Lymphocytes Absolute Auto 1.40 K/mm3 (0.9-3.2); Mean Corpuscular HGB Conc 33.4 g/dl (32-36); Mean Corpuscular Hemoglobin 30.1 pg (26-34); Mean Corpuscular Volume 90.2 fl (80-100); Nucleated Red Blood Cells Absolute Auto 0.000 K/mm3 (0.0-0.012); Nucleated Red Blood Cells Perc 0.0 % (0.0-0.2); Platelet Count Result 557 k/mm3 (150-375); Red Blood Count 5.21 M/mm3 (4.6-6.20); White Blood Count 11.4 K/mm3 (4.5-10.0)
[2025-05-21 08:52] LABS: Alanine Aminotransferase 22 U/L (6-50); Albumin Level 4.6 g/dL (3.5-5.1); Alkaline Phosphatase 82 U/L (38-126); Anion Gap 8 mmol/L (4-12); Aspartate Amino Transferase 50 U/L (17-59); Bilirubin,Total 0.7 mg/dL (0.2-1.3); Blood Urea Nitrogen 10 mg/dL (9-20); Calcium 9.0 mg/dL (8.4-10.2); Carbon Dioxide 29 mmol/L (22-30); Chloride 98 mmol/L (98-107); Estimated CRCL calculation 71 ml/min; Estimated Glomerular Filt Rate > 60; Glucose 110 mg/dL (65-110); INR 1.1; Partial Thromboplastin Time 28.3 Seconds (22.3-36.8); Prothrombin Time 13.9 Seconds (11.1-14.7); Sodium 135 mmol/L (137-145); Total Protein 7.8 g/dL (6.3-8.2)
[2025-05-21 09:00] LABS: Potassium 3.4 mmol/L (3.4-5.0)
--- NOTE | 2025-05-21 15:25 | PC.NURSE ---
Bedside report provided to this RN by Sigifredo MOE. Pt. requesting dinner tray. Meal tray ordered for bedside delivery.
--- NOTE | 2025-05-21 15:26 | PC.NURSE ---
dinner tray ordered.
--- NOTE | 2025-05-21 17:51 | PC.NURSE ---
Pt. ate 100% of dinner tray. Pt. walked to bathroom, gait steady. This RN stayed with pt. Pt. ambulated back to bed. at bedside. Pt. has no additional requests at this time.
--- NOTE | 2025-05-21 18:32 | PC.NURSE ---
This RN spoke with [facility]. No ETA of a bed at this time.
--- NOTE | 2025-05-21 19:10 | PC.NURSE ---
This RN received report from Soco MOE at 1910
--- NOTE | 2025-05-21 20:49 | PC.NURSE ---
2023- This RN spoke to Sanna MOE and gave report. Pt is being transferred to [facility] 13 room 11 in the [facility]. Accepted by Dr. Miramontes.
== END 2025-05-21 21:50 | disposition short-term general hospital (02) ==
PROVIDERS: Emergency Provider Emergency Medicine; PCP Internal Medicine
DX: T81.718A Complication of other artery following a procedure, not elsewhere classified, initial encounter (principal); I72.4 Aneurysm of artery of lower extremity; F01.50 Vascular dementia, unspecified severity, without behavioral disturbance, psychotic disturbance, mood disturbance, and anxiety; I25.10 Atherosclerotic heart disease of native coronary artery without angina pectoris; I10 Essential (primary) hypertension; E78.00 Pure hypercholesterolemia, unspecified; K21.9 Gastro-esophageal reflux disease without esophagitis; Z86.0100 Personal history of colon polyps, unspecified; Z79.02 Long term (current) use of antithrombotics/antiplatelets; Z79.82 Long term (current) use of aspirin; Y84.0 Cardiac catheterization as the cause of abnormal reaction of the patient, or of later complication, without mention of misadventure at the time of the procedure
CPT/HCPCS: 36415; 80053; 85025; 85610; 85730; 93926; 99285

== ENCOUNTER 2025-06-09 10:00 | Outpatient (RCR) | payer MEDICARE, SELFPAY ==
--- NOTE | 2025-05-02 12:19 | STOPEVAL1 ---
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 The patient is accompanied by his spouse for the evaluation. they report their greatest concerns to be memory recall and visual scanning. the patietn states it takes him longer to do his daily reading since the CVA. Reported Pain Level Pain Score 0: Self Report Assessment ST Clinical Summary The patient is an 80 year old male referred for outpatient speech therapy secondary to deficits noted following a CVA in Mar 2025. The patient is accompanied by his spouse for the evaluation. they report their greatest concerns to be memory recall and visual scanning. the patient states it takes him longer to do his daily reading since the CVA The patient was administered the RIPA (Ross Information Processing Assessment) and portions of the [facility] Cognitive Evaluation. Results were as follows for the RIPA subtests given: Immediate Memory (24)80%, Temporal Orientation (30) 100%, Spatial Orientation (30) 100%, Problem Solving and Abstract Reasoning (30) 100%, Organization (30) 100%, Auditory Processing and Retention (24) 80% Results for the [facility] Cognitive Evaluation subtests are as follows: Complex Problem Solving 100% Thought Organization 100%, Functional Math 100% Reading 85 % secondary to visual inattention and recall ( right field). Plan of Care ST Services Indicated Yes Treatment Frequency and 1x a week x 10 visits Duration These treatments will address the objective and functional deficits as defined above. The patient will be advanced safely and appropriately in order for the patient to progress towards his/her prior level of function. Additional exercises will be introduced and as well as a comprehensive home exercise program upon discharge, if needed, ?to ensure carryover of functional gains achieved in the clinic. This treatment plan has been reviewed and agreement upon by the patient.
--- NOTE | 2025-05-02 12:19 | OPREHPOC ---
Outpatient Therapy Plan of Care This is a Multidisciplinary Plan of Care that may contain components documented by all disciplines (PT, OT, and ST.) ST Problem 1 ST Problem #[address] Goal 1 Goal / Goal Update The patient will participate in home programming to improve carry over/generalization of skills to the home environment Target Visit 3 ST Goal 1 Goal / Goal Update Cognition: 1. The patient will recall short paragraph length information 3 details with 85% and minimal cues. 2. The patient will complete complex auditory processing with improved response time 85% 3. The patient will complete a HEP with 90% compliance ST Problem 3 ST Problem #[address] Goal 1 Goal / Goal Update Reading Comprehension: 1. The patient will scan and read structured and unstructured written material with 90% accuracy using compensatory techniques 2. The patient will comprehend and recall written paragraph length material 85%
--- NOTE | 2025-06-09 10:53 | STOPDC ---
Assessment and note entered by Nataliia Sandhu EMISSIONS REPAIR TECHNICIAN Evaluation Information Assessment Status Discharge Reported Pain Level Pain Score 0: Self Report Assessment ST Clinical Summary The patient is an 80 year old male referred for outpatient speech therapy secondary to deficits noted following a CVA in Mar 2025. The patient is accompanied by his spouse for the evaluation. they report their greatest concerns to be memory recall and visual scanning. The patient states it takes him longer to do his daily reading since the CVA Initial Evaluation: The patient was administered the RIPA (Ross Information Processing Assessment) and portions of the [facility] Cognitive Evaluation. Results were as follows for the RIPA subtests given: Immediate Memory (24)80%, Temporal Orientation (30) 100%, Spatial Orientation (30) 100%, Problem Solving and Abstract Reasoning (30) 100%, Organization (30) 100%, Auditory Processing and Retention (24) 80% Results for the [facility] Cognitive Evaluation subtests are as follows: Complex Problem Solving 100% Thought Organization 100%, Functional Math 100% Reading 85 % secondary to visual inattention and recall ( right field). Initially Recommend Speech services 1x a week x 10 visits to address Memory and Visual inattention on the right field (reading and writing) Discharge 06/09/25: The patient is completing complex memory recall for paragraph length information immediate and delayed with 100% accuracy. Completing visual scanning for written information both structured and unstructured using compensatory techniques with 100% accuracy. provided HEP(Home exercise Program) to continue upon discharge. Thank you for the consult. Plan of Care ST Services Indicated No
== END 2025-06-09 11:51 | disposition home or self-care (01) ==
LOC: ANHST 10:00
PROVIDERS: PCP Internal Medicine; Visit Provider Internal Medicine
DX: I69.318 Other symptoms and signs involving cognitive functions following cerebral infarction (principal)
CPT/HCPCS: 92507; 92523